=== PATIENT | female | born 1950 | race Caucasian/White ===

== ENCOUNTER 2018-03-19 08:55 | Day surgery (SDC) | payer MEDICARE, OTHER ==
[~2018-03-19 08:55] MED LIST: Lactated Ringers 1,000 ML IV SCH; Sodium Chloride 0.9% 10 ML Syringe FLUSH PRN
[2018-03-19] MEDS ORDERED: Insulin Aspart 100 Units/ML 3 ML Pen SUBCUT ONE (09:33)
[2018-03-19] MEDS ORDERED: Insulin Lispro 100 Unit/ML 3 ML KwikPen SUBCUT ONE ×2 (10:00→11:20)
[2018-03-19] MEDS ORDERED: Propofol 200 MG/20 ML SDV IV ONE (10:25)
--- NOTE | 2018-03-19 11:16 | PCM.OPNOTE ---
- General Post-Op/Procedure Note Date of Surgery/Procedure: 03/19/18 Operative Procedure(s): c scope with bx Findings: t colon polyp, d colon polyp, sigmoid x2 rectal polyp x3 Pre Op Diagnosis: screening c scope Post-Op Diagnosis: t colon polyp, d colon polyp, sigmoid x2 rectal polyp x3. sigmoid diverticulosis Anesthesia Technique: [facility] [place] Primary Surgeon: Steven Raines Anesthesia Provider: Remberto Couch Pathology: t colon polyp, d colon polyp, sigmoid x2 rectal polyp x3 Complications: None Condition: Good Free Text/Narrative:: see dictation
--- NOTE | 2018-03-19 16:20 | OR ---
DATE OF OPERATION: 03/19/2018 SURGEON: Steven Raines MD PREOPERATIVE DIAGNOSIS: Need for screening colonoscope. POSTOPERATIVE DIAGNOSIS: Transverse colon polyp, descending colon polyp, proximal sigmoid colon polyp, distal sigmoid colon polyp, and rectal polyps x3. INDICATIONS FOR PROCEDURE: This is a 67-year-old white female, who presents for screening colonoscopy. She was offered and accepted the same. DESCRIPTION OF OPERATION: After an excellent IV sedation was administered, digital rectal exam was performed. No marked abnormality was noted. The flexible colonoscope was inserted and advanced without difficulty to the cecum. The prep was adequate. There were some areas that we had to irrigate, but we did get a good exam. The following findings were noted. The ascending colon was unremarkable. Transverse colon, a small polypoid lesion, biopsied with cold loop snare and sent for permanent. Descending colon, pedunculated lesion encountered, biopsied with hot loop and sent for permanent. Sigmoid, some sigmoid diverticulosis was noted. She had a proximal and distal colon polyp. Both of these were biopsied with hot loop snare and sent for permanent. Rectal, she had a total of three polyps, which were biopsied and submitted in one container. These were all done using the hot loop snare. The patient tolerated the procedure well and was taken to recovery. /[id number] /AMBERL
== END 2018-03-19 12:45 | disposition home or self-care (01) ==
LOC: FB.SDS 08:55
PROVIDERS: ATTEND Surgery
DX: Z12.11 Encounter for screening for malignant neoplasm of colon (principal); D12.4 Benign neoplasm of descending colon; D12.5 Benign neoplasm of sigmoid colon; D12.3 Benign neoplasm of transverse colon; K62.1 Rectal polyp; K57.30 Diverticulosis of large intestine without perforation or abscess without bleeding; E11.9 Type 2 diabetes mellitus without complications; E66.01 Morbid (severe) obesity due to excess calories; Z68.39 Body mass index [BMI] 39.0-39.9, adult; E78.2 Mixed hyperlipidemia; I25.10 Atherosclerotic heart disease of native coronary artery without angina pectoris; Z79.82 Long term (current) use of aspirin; Z79.4 Long term (current) use of insulin; Z79.899 Other long term (current) drug therapy; G25.81 Restless legs syndrome; Z87.891 Personal history of nicotine dependence
CPT/HCPCS: 00811; 45385; 82962; 88305; J1815; J2704; J7120

== ENCOUNTER 2018-07-17 06:01 | Emergency (ER) | payer MEDICARE, OTHER ==
[2018-07-17] MEDS ORDERED: HYDROmorphone 2 MG/ML SDV IVPUSH ONE ×2 (07:00→07:39)
[2018-07-17] MEDS ORDERED: Ondansetron 4 MG/2 ML SDV IVPUSH ONE (07:01)
[2018-07-17] MEDS ORDERED: Sodium Chloride 0.9% 10 ML Syringe FLUSH PRN (07:09)
--- NOTE | 2018-07-17 07:51 | EDM.PDOC ---
ED HPI GENERAL MEDICAL PROBLEM - General Chief Complaint: Lower Extremity Injury/Pain Stated Complaint: HIP PAIN Time Seen by Provider: 07/17/18 06:10 Source of Information: Reports: Patient History Limitations: Reports: No Limitations - History of Present Illness INITIAL COMMENTS - FREE TEXT/NARRATIVE: c/o L hip pain got out of bed at night, had a cramp in her L leg and fell has a L subcapital fx on XR, given fentanyl 100 mcg IV by EMS and Dilaudid 1 mg IV x 2 here has a swollen LLE highly suspicious for a DVT with a inc'd d-dimer 24, LLE u/s ordered when u/s tech arrives, on ASA and Plavix for h/o cardiac stents x 2, cannot give heparin d/t hip fx h/o AVR replacement with porcine-bovine valve per pt, h/o cardiac stents x 2 EKG unchanged, however has inc'd trop 0.095 CRP 2.8, c/w DVT d/w Dr Pandya at [place] ED at 7:45 AM who accepted pt in transfer, pt likely will need a Hamilton filter in additional to hip surgery and cardiac evaluation pt and family informed, dtrs x 2 at bedside along with a son-in-law left hip Pain Score (Numeric/FACES): 8 - Related Data Allergies Allergy/AdvReac Type Severity Reaction Status Date / Time adhesive tape Allergy Itching Verified 05/15/18 00:21 Home Meds: Home Meds Aspirin [Ryne Chewable Aspirin] 81 mg PO DAILY 03/18/18 [History] Bumetanide [Bumex] 2 mg PO DAILY 03/18/18 [History] Clopidogrel [Plavix] 75 mg PO DAILY 03/18/18 [History] Clotrimazole [Clotrimazole 1%] 1 applic TOP BID 03/18/18 [History] Famotidine [Pepcid] 20 mg PO BID 03/18/18 [History] Ferrous Sulfate 65 mg PO DAILY 03/18/18 [History] Insulin Aspart [NovoLOG] 25 unit SQ TIDMEALS 03/18/18 [History] Insulin Glarg,Human.Rec.Analog [Lantus Solostar] 65 unit SQ BEDTIME 03/18/18 [ History] Magnesium Oxide 400 mg PO DAILY 03/18/18 [History] Rosuvastatin [Crestor] 10 mg PO DAILY 03/18/18 [History] rOPINIRole [Requip] 4 mg PO DAILY 03/18/18 [History] Past Medical History HEENT History: Reports: Impaired Vision 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 Cardiovascular History: Reports: CAD, Heart Murmur, High Cholesterol, Hypertension, Stents Respiratory History: Reports: None Gastrointestinal History: Reports: Colon Polyp, Hemorrhoids Genitourinary History: Reports: None 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: Musculoskeletal History: Reports: Back Pain, Chronic Neurological History: Reports: None Psychiatric History: Reports: Depression Endocrine/Metabolic History: Reports: Diabetes, Type II, Obesity/BMI 30+ Hematologic History: Reports: Anemia Immunologic History: Reports: None Oncologic (Cancer) History: Reports: None Dermatologic History: Reports: Psoriasis - Infectious Disease History Infectious Disease History: Reports: Chicken Pox, Measles, Mumps, Shingles - Past Surgical History Head Surgeries/Procedures: Reports: None HEENT Surgical History: Reports: Cataract Surgery, Detached Retina Other HEENT Surgeries/Procedures: has special eye drops made from her blood Cardiovascular Surgical History: Reports: Coronary Artery Stent, Other (See Below) Other Cardiovascular Surgeries/Procedures: valve replacement Respiratory Surgical History: Reports: None GI Surgical History: Reports: Bariatric Procedure, Colonoscopy Female Surgical History: Reports: Tubal Ligation Endocrine Surgical History: Reports: None Neurological Surgical History: Reports: None Musculoskeletal Surgical History: Reports: Other (See Below) Other Musculoskeletal Surgeries/Procedures:: LEFT KNEE SURGERY Oncologic Surgical History: Reports: None Dermatological Surgical History: Reports: None Social & Family History - Family History Family Medical History: Noncontributory - Tobacco Use Smoking Status *Q: Former Smoker Used Tobacco, but Quit: Yes Month/Year Tobacco Last Used: 2003 - Caffeine Use Caffeine Use: Reports: Coffee - Recreational Drug Use Recreational Drug Use: No Review of Systems - Review of Systems Review Of Systems: See Below Constitutional: Reports: No Symptoms Eyes: Reports: No Symptoms Ears: Reports: No Symptoms Nose: Reports: No Symptoms Mouth/Throat: Reports: No Symptoms Respiratory: Reports: No Symptoms Cardiovascular: Reports: No Symptoms GI/Abdominal: Reports: No Symptoms Genitourinary: Reports: No Symptoms Musculoskeletal: Reports: Leg Pain, Other (L hip pain) Skin: Reports: No Symptoms Neurological: Reports: No Symptoms Psychiatric: Reports: No Symptoms ED EXAM, GENERAL - Physical Exam Exam: See Below Exam Limited By: No Limitations General Appearance: Alert, WD/WN, Mild Distress Ears: Normal External Exam, Hearing Grossly Normal Nose: Normal Inspection, Normal Mucosa, No Blood Throat/Mouth: Normal Inspection, Normal Lips, Normal Teeth, Normal Gums, Normal Oropharynx, Normal Voice, No Airway Compromise Head: Atraumatic, Normocephalic Neck: Normal Inspection, Supple, Non-Tender, Full Range of Motion. No: Lymphadenopathy (R), Lymphadenopathy (L) Respiratory/Chest: No Respiratory Distress, Lungs Clear, Normal Breath Sounds, No Accessory Muscle Use, Chest Non-Tender Cardiovascular: Regular Rate, Rhythm, No Gallop, No JVD, Other (2/6 EMILIANO at LSB, 2-3+ edema L calf c/w trace edema at R calf, no cords, no point tender) GI/Abdominal: Normal Bowel Sounds, Soft, Non-Tender, No Organomegaly, No Distention, No Mass Back Exam: Normal Inspection, Full Range of Motion. No: CVA Tenderness (R), CVA Tenderness (L) Neurological: Alert, Oriented, CN II-XII Intact, Normal Cognition, No Motor/ Sensory Deficits Psychiatric: Normal Affect, Normal Mood Skin Exam: Warm, Dry, Intact, Normal Color Lymphatic: No Adenopathy Course - Vital Signs Last Recorded V/S: Last Vital Signs Temp 36.6 C 07/17/18 06:10 Pulse 79 07/17/18 07:30 Resp 18 07/17/18 07:30 BP 146/62 H 07/17/18 07:30 Pulse Ox 96 07/17/18 07:30 - Orders/Labs/Meds Orders: Active Orders 24 hr Category Date Time Status EKG Documentation Completion [RC] ASDIRECTED Care 07/17/18 06:15 Ordered Insert Sterling Catheter [Insert Urinary Catheter] [OM.PC] Care 07/17/18 06:55 Ordered Q24H Urinary Catheter Assessment [RC] QSHIFT Care 07/17/18 07:21 Active Chest 1V Frontal [CR] Stat Exams 07/17/18 06:17 Ordered Hip Min 2V or 3V Lt [CR] Stat Exams 07/17/18 06:08 Ordered Sodium Chloride 0.9% [Saline Flush] Med 07/17/18 07:09 Active 10 ml FLUSH ASDIRECTED PRN EKG 12 Lead [EK] Routine Ther 07/17/18 06:14 Ordered Medication Orders Sodium Chloride (Saline Flush) 10 ml FLUSH ASDIRECTED PRN PRN Reason: Keep Vein Open Last Admin: 07/17/18 07:51 Dose: 10 ml Labs: Laboratory Tests 07/17/18 07/17/18 07/17/18 Range/Units 06:55 06:55 06:55 WBC 12.5 H (4.5-12.0) X10-3/uL RBC 4.30 (3.23-5.20) x10(6)uL Hgb 13.1 (11.5-15.5) g/dL Hct 39.1 (30.0-51.3) % MCV 91.0 (80-96) fL MCH 30.3 (27.7-33.6) pg MCHC 33.3 (32.2-35.4) g/dL RDW 14.8 (11.5-15.5) % Plt Count 291 (125-369) X10(3)uL MPV 8.8 (7.4-10.4) fL Neut % (Auto) 84.1 H (46-82) % Lymph % (Auto) 8.9 L (13-37) % [place] % (Auto) 6.0 (4-12) % Eos % (Auto) 1 (1.0-5.0) % Baso % (Auto) 0 (0-2) % Neut # (Auto) 10.6 H (1.6-8.3) # Lymph # (Auto) 1.1 (0.6-5.0) # [place] # (Auto) 0.7 (0.0-1.3) # Eos # (Auto) 0.1 (0.0-0.8) # Baso # (Auto) 0.0 (0.0-0.2) # PT 10.1 (8.7-11.1) INR 1.04 (0.89-1.13) D-Dimer, Quantitative 24.05 H (0.0-0.59) mg/LFEU Sodium (135-145) mmol/L Potassium (3.5-5.3) mmol/L Chloride (100-110) mmol/L Carbon Dioxide (21-32) mmol/L BUN (7-18) mg/dL Creatinine (0.55-1.02) mg/dL Est Cr Clr Drug Dosing Estimated GFR (MDRD) (>60) BUN/Creatinine Ratio (9-20) Glucose (80-116) mg/dL Calcium (8.6-10.2) mg/dL Magnesium (1.8-2.5) mg/dL Total Bilirubin (0.1-1.3) mg/dL AST (5-25) IU/L ALT (12-36) U/L Alkaline Phosphatase (56-112) IU/L Troponin I (<0.017-0.056) ng/mL C-Reactive Protein (0.5-0.9) mg/dL NT-Pro-B Natriuret Pep (<=125) pg/mL Total Protein (6.0-8.0) g/dL Albumin (3.2-4.6) g/dL Globulin g/dL Albumin/Globulin Ratio Urine Color Yellow (YELLOW) Urine Appearance Clear (CLEAR) Urine pH 5.0 (5.0-6.5) Ur Specific [place] 1.020 (1.010-1.025) Urine Protein Trace (NEGATIVE) mg/dL Urine Glucose (UA) 250 H (NEGATIVE) mg/dL Urine Ketones Negative (NEGATIVE) mg/dL Urine Occult Blood Negative (NEGATIVE) Urine Nitrite Negative (NEGATIVE) Urine Bilirubin Negative (NEGATIVE) Urine Urobilinogen Normal (NEGATIVE) mg/dL Ur Leukocyte Esterase Negative (NEGATIVE) Urine RBC 0-5 (0) Urine WBC 0-5 (0) Ur Squamous Epith Cells Occasional (NS,R,O) Amorphous Sediment Few Urine Bacteria Rare H (NS) 07/17/18 07/17/18 Range/Units 06:55 06:55 WBC (4.5-12.0) X10-3/uL RBC (3.23-5.20) x10(6)uL Hgb (11.5-15.5) g/dL Hct (30.0-51.3) % MCV (80-96) fL MCH (27.7-33.6) pg MCHC (32.2-35.4) g/dL RDW (11.5-15.5) % Plt Count (125-369) X10(3)uL MPV (7.4-10.4) fL Neut % (Auto) (46-82) % Lymph % (Auto) (13-37) % [place] % (Auto) (4-12) % Eos % (Auto) (1.0-5.0) % Baso % (Auto) (0-2) % Neut # (Auto) (1.6-8.3) # Lymph # (Auto) (0.6-5.0) # [place]aden # (Auto) (0.0-1.3) # Eos # (Auto) (0.0-0.8) # Baso # (Auto) (0.0-0.2) # PT (8.7-11.1) INR (0.89-1.13) D-Dimer, Quantitative (0.0-0.59) mg/LFEU Sodium 142 (135-145) mmol/L Potassium 3.8 (3.5-5.3) mmol/L Chloride 103 (100-110) mmol/L Carbon Dioxide 28 (21-32) mmol/L BUN 17 (7-18) mg/dL Creatinine 1.0 (0.55-1.02) mg/dL Est Cr Clr Drug Dosing TNP Estimated GFR (MDRD) 55 L (>60) BUN/Creatinine Ratio 17.0 (9-20) Glucose 137 H (80-116) mg/dL Calcium 8.7 (8.6-10.2) mg/dL Magnesium 1.9 (1.8-2.5) mg/dL Total Bilirubin 0.3 (0.1-1.3) mg/dL AST 24 D (5-25) IU/L ALT 37 H D (12-36) U/L Alkaline Phosphatase 117 H (56-112) IU/L Troponin I 0.095 H* (<0.017-0.056) ng/mL C-Reactive Protein 2.8 H* (0.5-0.9) mg/dL NT-Pro-B Natriuret Pep 791 H (<=125) pg/mL Total Protein 7.1 (6.0-8.0) g/dL Albumin 3.1 L (3.2-4.6) g/dL Globulin 4.0 g/dL Albumin/Globulin Ratio 0.8 Urine Color (YELLOW) Urine Appearance (CLEAR) Urine pH (5.0-6.5) Ur Specific [place] (1.010-1.025) Urine Protein (NEGATIVE) mg/dL Urine Glucose (UA) (NEGATIVE) mg/dL Urine Ketones (NEGATIVE) mg/dL Urine Occult Blood (NEGATIVE) Urine Nitrite (NEGATIVE) Urine Bilirubin (NEGATIVE) Urine Urobilinogen (NEGATIVE) mg/dL Ur Leukocyte Esterase (NEGATIVE) Urine RBC (0) Urine WBC (0) Ur Squamous Epith Cells (NS,R,O) Amorphous Sediment Urine Bacteria (NS) Meds: Medications Generic Name Dose Route Start Last Admin Trade Name Freq PRN Reason Stop Dose Admin Sodium Chloride 10 ml 07/17/18 07:09 07/17/18 07:51 Saline Flush FLUSH 10 ml ASDIRECTED PRN Administration Keep Vein Open Discontinued Medications Generic Name Dose Route Start Last Admin Trade Name Freq PRN Reason Stop Dose Admin Hydromorphone HCl 1 mg 07/17/18 07:00 07/17/18 07:08 Dilaudid IVPUSH 07/17/18 07:01 1 mg ONETIME ONE Administration Hydromorphone HCl 1 mg 07/17/18 07:39 07/17/18 07:50 Dilaudid IVPUSH 07/17/18 07:40 1 mg ONETIME ONE Administration Ondansetron HCl 4 mg 07/17/18 07:01 07/17/18 07:08 Zofran IVPUSH 07/17/18 07:02 4 mg ONETIME ONE Administration Departure - Departure Time of Disposition: 08:21 Disposition: DC/Tfer to Acute Hospital 02 Condition: Fair Clinical Impression: Subcapital fracture of left hip, Left leg DVT, Elevated troponin, History of heart artery stent, Elevated brain natriuretic peptide (BNP) level, Elevated C- reactive protein (CRP), History of aortic valve replacement - Discharge Information *PRESCRIPTION DRUG MONITORING PROGRAM REVIEWED*: Not Applicable *COPY OF PRESCRIPTION DRUG MONITORING REPORT IN PATIENT KIRSTEN: Not Applicable Referrals: Handy Verdugo MD [Primary Care Provider] - Forms: ED Department Discharge - My Orders Last 24 Hours: My Active Orders 07/17/18 06:08 Hip Min 2V or 3V Lt [CR] Stat 07/17/18 06:14 EKG 12 Lead [EK] Routine 07/17/18 06:15 EKG Documentation Completion [RC] ASDIRECTED 07/17/18 06:17 Chest 1V Frontal [CR] Stat 07/17/18 06:55 Insert Sterling Catheter [Insert Urinary Catheter] [OM.PC] Q24H 07/17/18 07:09 Sodium Chloride 0.9% [Saline Flush] 10 ml FLUSH ASDIRECTED PRN 07/17/18 07:21 Urinary Catheter Assessment [RC] QSHIFT - Assessment/Plan Last 24 Hours: My Active Orders 07/17/18 06:08 Hip Min 2V or 3V Lt [CR] Stat 07/17/18 06:14 EKG 12 Lead [EK] Routine 07/17/18 06:15 EKG Documentation Completion [RC] ASDIRECTED 07/17/18 06:17 Chest 1V Frontal [CR] Stat 07/17/18 06:55 Insert Sterling Catheter [Insert Urinary Catheter] [OM.PC] Q24H 07/17/18 07:09 Sodium Chloride 0.9% [Saline Flush] 10 ml FLUSH ASDIRECTED PRN 07/17/18 07:21 Urinary Catheter Assessment [RC] QSHIFT
== END 2018-07-17 08:33 ==
LOC: FB.ED 06:01
DX: S72.012A Unspecified intracapsular fracture of left femur, initial encounter for closed fracture (principal); I82.402 Acute embolism and thrombosis of unspecified deep veins of left lower extremity; R79.89 Other specified abnormal findings of blood chemistry; R79.82 Elevated C-reactive protein (CRP); I10 Essential (primary) hypertension; E11.9 Type 2 diabetes mellitus without complications; I25.10 Atherosclerotic heart disease of native coronary artery without angina pectoris; E78.00 Pure hypercholesterolemia, unspecified; Z95.5 Presence of coronary angioplasty implant and graft; F32.9 Major depressive disorder, single episode, unspecified; Z87.891 Personal history of nicotine dependence; Z91.048 Other nonmedicinal substance allergy status; Z79.899 Other long term (current) drug therapy; Z79.82 Long term (current) use of aspirin; Z79.01 Long term (current) use of anticoagulants; Z79.4 Long term (current) use of insulin; W06.XXXA Fall from bed, initial encounter
CPT/HCPCS: 36415; 51702; 71045; 73502; 80053; 81001; 83735; 83880; 84484; 85025; 85379; 85610; 86140; 93005; 96374; 96375; 96376; 99285; J1170; J2405; 93010

== ENCOUNTER 2018-07-23 12:14 | Inpatient (IN) | payer MEDICARE, OTHER ==
--- NOTE | 2018-07-23 17:06 | PCM.HP ---
H&P History of Present Illness - General Date of Service: 07/23/18 Admit Problem/Dx: Admission Diagnosis/Problem Admission Diagnosis/Problem Arthroplasty of knee Source of Information: Patient, Old Records History Limitations: Reports: No Limitations - History of Present Illness Initial Comments - Free Text/Narative: This is a 67-year-old type II diabetic that one week ago had a leg cramp in her right leg. She got out of bed and fell down and broke her left hip. She was transferred to [place] and they felt she had SC and subsequently transferred to [place]. When she was there she had a cardiology exam and angiogram that showed stenosis and cardiac hospice surgery was consult that and recommended that she was okay for surgery and later on possibly doing a bypass. She had her hip replaced afterwards did not wake up and has acute encephalopathy that they stated was multifactorial. Did an MRI that showed multifocal strokes. She states her left hip hurts but she has no other concerns. She denies lateralizing weakness, dysphagia, aphasia, diplopia or blurred vision. - Related Data Allergies/Adverse Reactions: Allergies Allergy/AdvReac Type Severity Reaction Status Date / Time adhesive tape Allergy Itching Verified 05/15/18 00:21 Home Medications: Home Meds Aspirin [Ryne Chewable Aspirin] 81 mg PO DAILY 03/18/18 [History] Bumetanide [Bumex] 2 mg PO DAILY 03/18/18 [History] Clopidogrel [Plavix] 75 mg PO DAILY 03/18/18 [History] Famotidine [Pepcid] 20 mg PO BID 03/18/18 [History] Ferrous Sulfate 325 mg PO DAILY 03/18/18 [History] Magnesium Oxide 400 mg PO DAILY 03/18/18 [History] Rosuvastatin [Crestor] 10 mg PO BEDTIME 03/18/18 [History] Acetaminophen [Tylenol] 650 mg PO QID 07/23/18 [History] Dexamethasone/Tobramycin [Tobradex Ophth Susp] 1 drop EYERT BID 07/23/18 [ History] Erythromycin Base [Erythromycin 0.5% Ophth Oint] 1 applic EYERT BEDTIME [History] Gabapentin [Neurontin] 300 mg PO TID 07/23/18 [History] Ibuprofen 800 mg PO TID PRN 07/23/18 [History] Insulin Aspart [NovoLOG] 15 units SUBCUT TIDMEALS 07/23/18 [History] Insulin Glarg,Human.Rec.Analog [Lantus Solostar] 35 units SUBCUT BEDTIME [History] Melatonin 3 mg PO BEDTIME 07/23/18 [History] Metoprolol Tartrate 25 mg PO BID 07/23/18 [History] Polyethylene Glycol 3350 [MiraLAX] 17 gm PO DAILY 07/23/18 [History] Sennosides/Docusate Sodium [Senna-S] 1 tab PO BID 07/23/18 [History] Sertraline [Zoloft] 50 mg PO DAILY 07/23/18 [History] Tamsulosin HCl [Flomax] 0.4 mg PO BEDTIME 07/23/18 [History] rOPINIRole HCl [Requip] 4 mg PO BEDTIME 07/23/18 [History] valACYclovir HCl [Valtrex] 500 mg PO BID 07/23/18 [History] Past Medical History HEENT History: Reports: Impaired Vision 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 Cardiovascular History: Reports: CAD, Heart Murmur, High Cholesterol, Hypertension, Stents Respiratory History: Reports: None Gastrointestinal History: Reports: Colon Polyp, Hemorrhoids Genitourinary History: Reports: None 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 History: Musculoskeletal History: Reports: Back Pain, Chronic Neurological History: Reports: None Psychiatric History: Reports: Depression Endocrine/Metabolic History: Reports: Diabetes, Type II, Obesity/BMI 30+ Hematologic History: Reports: Anemia Immunologic History: Reports: None Oncologic (Cancer) History: Reports: None Dermatologic History: Reports: Psoriasis - Infectious Disease History Infectious Disease History: Reports: Chicken Pox, Measles, Mumps, Shingles - Past Surgical History Head Surgeries/Procedures: Reports: None HEENT Surgical History: Reports: Cataract Surgery, Detached Retina Other HEENT Surgeries/Procedures: has special eye drops made from her blood Cardiovascular Surgical History: Reports: Coronary Artery Stent, Other (See Below) Other Cardiovascular Surgeries/Procedures: valve replacement Respiratory Surgical History: Reports: None GI Surgical History: Reports: Bariatric Procedure, Colonoscopy Female Surgical History: Reports: Tubal Ligation Endocrine Surgical History: Reports: None Neurological Surgical History: Reports: None Musculoskeletal Surgical History: Reports: Other (See Below) Other Musculoskeletal Surgeries/Procedures:: LEFT KNEE SURGERY Oncologic Surgical History: Reports: None Dermatological Surgical History: Reports: None Social & Family History - Family History Family Medical History: Noncontributory - Caffeine Use Caffeine Use: Reports: Coffee H&P Review of Systems - Review of Systems: Review Of Systems: See Below General: Reports: No Symptoms HEENT: Reports: No Symptoms Pulmonary: Reports: No Symptoms Cardiovascular: Reports: No Symptoms Gastrointestinal: Reports: Constipation (Has not had a BM for 1 week.) Genitourinary: Reports: No Symptoms Musculoskeletal: Reports: Shoulder Pain Skin: Reports: No Symptoms Psychiatric: Reports: Depression (On Zoloft and it has improved according to the daughter.) Neurological: Reports: No Symptoms Hematologic/Lymphatic: Reports: No Symptoms Immunologic: Reports: No Symptoms Exam - Exam Exam: See Below - Exam General: Alert, Oriented, Cooperative HEENT: PERRLA, Hearing Intact, Mucosa Moist & [place], Posterior Pharynx Clear, TMs Clear Neck: Supple, Trachea Midline. No: Carotid Bruit Lungs: Clear to Auscultation, Normal Respiratory Effort. No: Crackles, Rales, Rhonchi Cardiovascular: Regular Rate, Regular Rhythm, Systolic Murmur GI/Abdominal Exam: Normal Bowel Sounds, Soft, Non-Tender, No Organomegaly, No Distention, No Mass Back Exam: Normal Inspection Extremities: Normal Inspection, No Pedal Edema, Other (Left hip tenderness to palpation) Skin: Warm, Dry, Intact Neurological: Normal Speech, Normal Tone Neuro Extensive - Mental Status: Alert, Oriented x3, Normal Mood/Affect, Normal Cognition, Memory Intact Neuro Extensive - Motor, Sensory, Reflexes: No: Normal Gait Psychiatric: Alert, Normal Affect, Normal Mood - Problem List (1) S/P total hip arthroplasty SNOMED Code(s): 862871872925, 281669788586 ICD Code: Z96.649 - PRESENCE OF UNSPECIFIED ARTIFICIAL HIP JOINT Status: Acute Current Visit: Yes (2) Non-STEMI (non-ST elevated myocardial infarction) SNOMED Code(s): 05104626 ICD Code: I21.4 - NON-ST ELEVATION (NSTEMI) MYOCARDIAL INFARCTION Status: Acute Current Visit: Yes (3) HF (heart failure), diastolic SNOMED Code(s): 109463771 ICD Code: I50.30 - UNSPECIFIED DIASTOLIC (CONGESTIVE) HEART FAILURE Status : Acute Current Visit: Yes (4) Acute respiratory failure SNOMED Code(s): 95741154 ICD Code: J96.00 - ACUTE RESPIRATORY FAILURE, UNSP W HYPOXIA OR HYPERCAPNIA Status: Acute Current Visit: Yes (5) Acute encephalopathy SNOMED Code(s): 49532481, 870535435 ICD Code: G93.40 - ENCEPHALOPATHY, UNSPECIFIED Status: Acute Current Visit: Yes (6) Acute renal failure SNOMED Code(s): 31412330 ICD Code: N17.9 - ACUTE KIDNEY FAILURE, UNSPECIFIED Status: Acute Current Visit: Yes (7) CVA (cerebral vascular accident) SNOMED Code(s): 750489318 ICD Code: I63.9 - CEREBRAL INFARCTION, UNSPECIFIED Status: Acute Current Visit: Yes (8) Postoperative anemia SNOMED Code(s): 775599089, 381375398 ICD Code: D64.9 - ANEMIA, UNSPECIFIED Status: Acute Current Visit: Yes (9) Depression SNOMED Code(s): 14945081 ICD Code: F32.9 - MAJOR DEPRESSIVE DISORDER, SINGLE EPISODE, UNSPECIFIED Status: Acute Current Visit: Yes (10) Type 2 diabetes mellitus SNOMED Code(s): 54990155 ICD Code: E11.9 - TYPE 2 DIABETES MELLITUS WITHOUT COMPLICATIONS Status: Acute Current Visit: Yes (11) Restless leg SNOMED Code(s): 30491745 ICD Code: G25.81 - RESTLESS LEGS SYNDROME Status: Acute Current Visit: Yes (12) Hypertension SNOMED Code(s): 55841043 ICD Code: I10 - ESSENTIAL (PRIMARY) HYPERTENSION Status: Acute Current Visit: Yes (13) Subcapital fracture of left hip SNOMED Code(s): 931274728 ICD Code: S72.012A - UNSP INTRACAPSULAR FRACTURE OF LEFT FEMUR, INIT FOR CLOS FX Status: Acute Current Visit: No (14) Constipation SNOMED Code(s): 06608182 ICD Code: K59.00 - CONSTIPATION, UNSPECIFIED Status: Acute Current Visit : Yes Problem List Initiated/Reviewed/Updated: Yes Orders Last 24hrs: Active Orders 24 hr Category Date Time Status Admission Status [Patient Status] [ADT] Routine ADT 07/23/18 16:15 Active Antiembolic Devices [RC] .Routine Care 07/23/18 16:29 Active Communication Order [RC] ROUTINE Care 07/23/18 16:30 Active OT Evaluation and Treatment [CONS] Routine Cons 07/23/18 16:21 Active PT Evaluation and Treatment [CONS] Routine Cons 07/23/18 16:20 Active Consistent Carbohydrate Diet [DIET] Diet 07/24/18 Breakfast Active SCD [Sequential Compression Device] [OM.PC] Routine Oth 07/23/18 16:29 Ordered Code Status [Resuscitation Status] Routine Resus Stat 07/23/18 16:19 Ordered Assessment/Plan Comment:: 1. Admit to swing bed. 2. PT/OT consultation 3. Consistent carb diet 4. Continue insulin regimen with Accu-Cheks 3 times a day 5. Up with assist 6. MiraLAX for constipation 7. Restart medications from [facility].
[2018-07-23] MEDS: Acetaminophen 325 MG Tab PO SCH ×2 (17:48→21:07)
[2018-07-23] MEDS: Gabapentin 300 MG Cap PO SCH ×2 (17:48→21:09)
[2018-07-23] MEDS: Insulin Lispro 100 Unit/ML 3 ML KwikPen SUBCUT SCH (17:49)
[2018-07-23] MEDS: Rosuvastatin 10 MG Tab PO SCH (21:03)
[2018-07-23] MEDS: Erythromycin Base 0.5% Ophth Oint 1 GM Tube EYERT SCH (21:04)
[2018-07-23] MEDS: Tamsulosin 0.4 MG Cap.ER PO SCH (21:04)
[2018-07-23] MEDS: Metoprolol Tartrate 25 MG Tab PO SCH (21:05)
[2018-07-23] MEDS: Famotidine 20 MG Tab PO SCH (21:05)
[2018-07-23] MEDS: Melatonin 3 MG Tab PO SCH (21:05)
[2018-07-23] MEDS: rOPINIRole 1 MG Tab PO SCH (21:06)
[2018-07-23] MEDS: valACYclovir 500 MG Tab PO SCH (21:08)
[2018-07-23] MEDS: Insulin Glargine,Human Rec. Analog 100 Units/ML 3 ML Pen SUBCUT SCH (21:12)
[2018-07-24] MEDS: Aspirin 81 MG Tab.Chew PO SCH (08:58)
[2018-07-24] MEDS: Bumetanide 2 MG Tab PO SCH (08:58)
[2018-07-24] MEDS: Metoprolol Tartrate 25 MG Tab PO SCH ×2 (08:59→20:22)
[2018-07-24] MEDS: Ferrous Sulfate 325 MG Tab PO SCH (08:59)
[2018-07-24] MEDS: Polyethylene Glycol 3350 Powder 17 GM Packet PO SCH (09:00)
[2018-07-24] MEDS: Magnesium Oxide 400 MG Tab PO SCH (09:00)
[2018-07-24] MEDS: Famotidine 20 MG Tab PO SCH ×2 (09:03→20:24)
[2018-07-24] MEDS: Clopidogrel 75 MG Tab PO SCH (09:03)
[2018-07-24] MEDS: Gabapentin 300 MG Cap PO SCH ×3 (09:03→20:23)
[2018-07-24] MEDS: Acetaminophen 325 MG Tab PO SCH ×4 (09:04→20:24)
[2018-07-24] MEDS: valACYclovir 500 MG Tab PO SCH ×2 (09:05→20:25)
[2018-07-24] MEDS: Sertraline 50 MG Tab PO SCH (09:05)
[2018-07-24] MEDS: Insulin Lispro 100 Unit/ML 3 ML KwikPen SUBCUT SCH ×3 (09:07→17:39)
[2018-07-24] MEDS: Ibuprofen 800 MG Tab PO PRN (12:54)
[2018-07-24] MEDS: Rosuvastatin 10 MG Tab PO SCH (20:22)
[2018-07-24] MEDS: Tamsulosin 0.4 MG Cap.ER PO SCH (20:22)
[2018-07-24] MEDS: Melatonin 3 MG Tab PO SCH (20:23)
[2018-07-24] MEDS: rOPINIRole 1 MG Tab PO SCH (20:24)
[2018-07-24] MEDS: Erythromycin Base 0.5% Ophth Oint 1 GM Tube EYERT SCH (20:25)
[2018-07-24] MEDS: Insulin Glargine,Human Rec. Analog 100 Units/ML 3 ML Pen SUBCUT SCH (20:26)
[2018-07-25] MEDS: Ibuprofen 800 MG Tab PO PRN ×2 (06:18→19:20)
[2018-07-25] MEDS: Insulin Lispro 100 Unit/ML 3 ML KwikPen SUBCUT SCH ×3 (08:14→17:51)
[2018-07-25] MEDS: Bumetanide 2 MG Tab PO SCH (08:16)
[2018-07-25] MEDS: Acetaminophen 325 MG Tab PO SCH ×4 (08:16→20:03)
[2018-07-25] MEDS: Metoprolol Tartrate 25 MG Tab PO SCH ×2 (08:17→20:05)
[2018-07-25] MEDS: Ferrous Sulfate 325 MG Tab PO SCH (08:17)
[2018-07-25] MEDS: Aspirin 81 MG Tab.Chew PO SCH (08:17)
[2018-07-25] MEDS: Polyethylene Glycol 3350 Powder 17 GM Packet PO SCH (08:18)
[2018-07-25] MEDS: Magnesium Oxide 400 MG Tab PO SCH (08:18)
[2018-07-25] MEDS: Clopidogrel 75 MG Tab PO SCH (08:18)
[2018-07-25] MEDS: Famotidine 20 MG Tab PO SCH ×2 (08:18→20:07)
[2018-07-25] MEDS: valACYclovir 500 MG Tab PO SCH ×2 (08:19→20:08)
[2018-07-25] MEDS: Gabapentin 300 MG Cap PO SCH ×3 (08:23→20:07)
--- NOTE | 2018-07-25 08:43 | PCM.PN ---
<Elaina Elder - Last Filed: 07/25/18 08:58> - General Info Date of Service: 07/25/18 Admission Dx/Problem (Free Text): Admission Diagnosis/Problem Admission Diagnosis/Problem Arthroplasty of knee Subjective Update: Patient reports feeling well this AM. Pain is mostly controlled with Ibuprofen. She has been working with physical therapy and ambulating with assist. Her pain is mostly only present with walking. The patient is also concerned about a rash underneath her bilateral breasts. It is a little bit painful with touch but otherwise there is no discharge that she has noticed. Functional Status: Reports: Pain Controlled, Tolerating Diet, Ambulating, Urinating - Review of Systems General: Reports: No Symptoms HEENT: Reports: No Symptoms Pulmonary: Reports: No Symptoms Cardiovascular: Reports: No Symptoms Gastrointestinal: Reports: No Symptoms Genitourinary: Reports: No Symptoms Musculoskeletal: Reports: Leg Pain Skin: Reports: Rash Neurological: Reports: No Symptoms Psychiatric: Reports: No Symptoms - Patient Data Vitals - Most Recent: Last Vital Signs Temp 36.6 C 07/25/18 06:18 Pulse 64 07/25/18 08:17 Resp 18 07/23/18 17:12 BP 119/52 L 07/25/18 08:17 Pulse Ox 95 07/23/18 17:12 Weight - Most Recent: 202 lb Lab Results Last 24 Hours: Laboratory Results - last 24 hr 07/24/18 07/24/18 Range/Units 11:38 17:21 POC Glucose 296 H D 142 H D (80-116) mg/dL Med Orders - Current: Current Medications Acetaminophen (Tylenol) 650 mg PO QID [facility] Last Admin: 07/25/18 08:16 Dose: 650 mg Aspirin (Aspirin) 81 mg PO DAILY [facility] Last Admin: 07/25/18 08:17 Dose: 81 mg Bumetanide (Bumex) 2 mg PO DAILY [facility] Last Admin: 07/25/18 08:16 Dose: 2 mg Clopidogrel Bisulfate (Plavix) 75 mg PO DAILY [facility] Last Admin: 07/25/18 08:18 Dose: 75 mg Erythromycin (Erythromycin 0.5% Ophth Oint) 0 gm EYERT BEDTIME [facility] Last Admin: 07/24/18 20:25 Dose: 1 applic Famotidine (Pepcid) 20 mg PO BID [facility] Last Admin: 07/25/18 08:18 Dose: 20 mg Ferrous Sulfate (Ferrous Sulfate) 325 mg PO DAILY [facility] Last Admin: 07/25/18 08:17 Dose: 325 mg Gabapentin (Neurontin) 300 mg PO TID [facility] Last Admin: 07/25/18 08:23 Dose: 300 mg Ibuprofen (Motrin) 800 mg PO TID PRN PRN Reason: PAIN Last Admin: 07/25/18 06:18 Dose: 800 mg Insulin Glargine (Lantus Solostar) 35 units SUBCUT BEDTIME [facility] Last Admin: 07/24/18 20:26 Dose: 35 units Insulin Human Lispro (Humalog) 15 unit SUBCUT TIDMEALS [facility] Last Admin: 07/25/18 08:14 Dose: 15 units Magnesium Oxide (Magnesium Oxide) 400 mg PO DAILY [facility] Last Admin: 07/25/18 08:18 Dose: 400 mg Melatonin (Melatonin) 3 mg PO BEDTIME [facility] Last Admin: 07/24/18 20:23 Dose: 3 mg Metoprolol Tartrate (Lopressor) 25 mg PO BID [facility] Last Admin: 07/25/18 08:17 Dose: 25 mg Polyethylene Glycol (Miralax) 17 gm PO DAILY [facility] Last Admin: 07/25/18 08:18 Dose: Not Given Ropinirole HCl (Requip) 4 mg PO BEDTIME [facility] Last Admin: 07/24/18 20:24 Dose: 4 mg Rosuvastatin Calcium (Crestor) 10 mg PO BEDTIME [facility] Last Admin: 07/24/18 20:22 Dose: 10 mg Senna/Docusate Sodium (Senna Plus) 1 tab PO BID [facility] Last Admin: 07/25/18 08:18 Dose: Not Given Sertraline HCl (Zoloft) 50 mg PO DAILY [facility] Last Admin: 07/24/18 09:05 Dose: 50 mg Tamsulosin HCl (Flomax) 0.4 mg PO BEDTIME [facility] Stop: 08/01/18 21:01 Last Admin: 07/24/18 20:22 Dose: 0.4 mg Valacyclovir HCl (Valtrex) 500 mg PO BID [facility] Last Admin: 07/25/18 08:19 Dose: 500 mg - Exam Quality Assessment: Supplemental Oxygen General: Alert, Oriented HEENT: Pupils Equal, Pupils Reactive Lungs: Clear to Auscultation, Normal Respiratory Effort Cardiovascular: Regular Rate, Regular Rhythm, No Murmurs GI/Abdominal Exam: Normal Bowel Sounds, Soft Peripheral Pulses: 1+: Radial (L), Radial (R) Skin: Warm, Rash (There are bilateral linear rashes underneath the breasts consistent with danya. There is exposure of erythematous but clean base on both sides as well. No drainage/weeping. ) Wound/Incisions: No Drainage Neurological: No New Focal Deficit Psy/Mental Status: Alert, Normal Affect, Normal Mood - Problem List & Annotations (1) Candidiasis of breast SNOMED Code(s): 87090857 Code(s): B37.89 - OTHER SITES OF CANDIDIASIS Status: Acute Current Visit : Yes (2) Acute respiratory failure SNOMED Code(s): 46918456 Code(s): J96.00 - ACUTE RESPIRATORY FAILURE, UNSP W HYPOXIA OR HYPERCAPNIA Status: Acute Current Visit: Yes (3) Depression SNOMED Code(s): 96386353 Code(s): F32.9 - MAJOR DEPRESSIVE DISORDER, SINGLE EPISODE, UNSPECIFIED Status: Acute Current Visit: Yes (4) HF (heart failure), diastolic SNOMED Code(s): 151184221 Code(s): I50.30 - UNSPECIFIED DIASTOLIC (CONGESTIVE) HEART FAILURE Status: Acute Current Visit: Yes (5) Non-STEMI (non-ST elevated myocardial infarction) SNOMED Code(s): 92220200 Code(s): I21.4 - NON-ST ELEVATION (NSTEMI) MYOCARDIAL INFARCTION Status: Acute Current Visit: Yes (6) S/P total hip arthroplasty SNOMED Code(s): 932806912071, 356052955514 Code(s): Z96.649 - PRESENCE OF UNSPECIFIED ARTIFICIAL HIP JOINT Status: Acute Current Visit: Yes (7) HLD (hyperlipidemia) SNOMED Code(s): 08067720 Code(s): E78.5 - HYPERLIPIDEMIA, UNSPECIFIED Status: Acute Current Visit : No (8) HTN (hypertension) SNOMED Code(s): 77966671 Code(s): I10 - ESSENTIAL (PRIMARY) HYPERTENSION Status: Acute Current Visit: No Qualifiers: Hypertension type: essential hypertension Qualified Code(s): I10 - Essential (primary) hypertension (9) Subcapital fracture of left hip SNOMED Code(s): 633857922 Code(s): S72.012A - UNSP INTRACAPSULAR FRACTURE OF LEFT FEMUR, INIT FOR CLOS FX Status: Acute Current Visit: No (10) Uncontrolled type 2 diabetes mellitus SNOMED Code(s): 76376253, 776583079 Code(s): E11.65 - TYPE 2 DIABETES MELLITUS WITH HYPERGLYCEMIA Status: Acute Current Visit: No Qualifiers: Glycemic state: with hyperglycemia Qualified Code(s): E11.65 - Type 2 diabetes mellitus with hyperglycemia - Problem List Review Problem List Initiated/Reviewed/Updated: Yes - Plan Plan:: 1. Patient admitted to swing bed 2. Continue working with physical therapy/occupational therapy 3. Consistent carb diet 4. Continue insulin regimen with Accu-Cheks 3 times a day 5. Up with assist 6. MiraLAX for constipation 7. Restart medications from [facility]. 8. Wean NC per protocol 9. Apply Nystatin powder to bilateral rash underneath breasts in addition to barrier cream such as vaseline (nystatin first). <Handy Verdugo - Last Filed: 07/25/18 09:18> - Patient Data Vitals - Most Recent: Last Vital Signs Temp 97.9 F 07/25/18 06:18 Pulse 64 07/25/18 08:17 Resp 18 07/23/18 17:12 BP 119/52 L 07/25/18 08:17 Pulse Ox 86 L 07/25/18 08:20 Lab Results Last 24 Hours: Laboratory Results - last 24 hr 07/24/18 07/24/18 Range/Units 11:38 17:21 POC Glucose 296 H D 142 H D (80-116) mg/dL Med Orders - Current: Current Medications Acetaminophen (Tylenol) 650 mg PO QID [facility] Last Admin: 07/25/18 08:16 Dose: 650 mg Aspirin (Aspirin) 81 mg PO DAILY [facility] Last Admin: 07/25/18 08:17 Dose: 81 mg Bumetanide (Bumex) 2 mg PO DAILY [facility] Last Admin: 07/25/18 08:16 Dose: 2 mg Clopidogrel Bisulfate (Plavix) 75 mg PO DAILY [facility] Last Admin: 07/25/18 08:18 Dose: 75 mg Erythromycin (Erythromycin 0.5% Ophth Oint) 0 gm EYERT BEDTIME [facility] Last Admin: 07/24/18 20:25 Dose: 1 applic Famotidine (Pepcid) 20 mg PO BID [facility] Last Admin: 07/25/18 08:18 Dose: 20 mg Ferrous Sulfate (Ferrous Sulfate) 325 mg PO DAILY [facility] Last Admin: 07/25/18 08:17 Dose: 325 mg Gabapentin (Neurontin) 300 mg PO TID [facility] Last Admin: 07/25/18 08:23 Dose: 300 mg Ibuprofen (Motrin) 800 mg PO TID PRN PRN Reason: PAIN Last Admin: 07/25/18 06:18 Dose: 800 mg Insulin Glargine (Lantus Solostar) 35 units SUBCUT BEDTIME [facility] Last Admin: 07/24/18 20:26 Dose: 35 units Insulin Human Lispro (Humalog) 15 unit SUBCUT TIDMEALS [facility] Last Admin: 07/25/18 08:14 Dose: 15 units Magnesium Oxide (Magnesium Oxide) 400 mg PO DAILY [facility] Last Admin: 07/25/18 08:18 Dose: 400 mg Melatonin (Melatonin) 3 mg PO BEDTIME [facility] Last Admin: 07/24/18 20:23 Dose: 3 mg Metoprolol Tartrate (Lopressor) 25 mg PO BID [facility] Last Admin: 07/25/18 08:17 Dose: 25 mg Nystatin (Nystop) 0 gm TOP TID [facility] Polyethylene Glycol (Miralax) 17 gm PO DAILY [facility] Last Admin: 07/25/18 08:18 Dose: Not Given Ropinirole HCl (Requip) 4 mg PO BEDTIME [facility] Last Admin: 07/24/18 20:24 Dose: 4 mg Rosuvastatin Calcium (Crestor) 10 mg PO BEDTIME [facility] Last Admin: 07/24/18 20:22 Dose: 10 mg Senna/Docusate Sodium (Senna Plus) 1 tab PO BID [facility] Last Admin: 07/25/18 08:18 Dose: Not Given Sertraline HCl (Zoloft) 50 mg PO DAILY [facility] Last Admin: 07/24/18 09:05 Dose: 50 mg Tamsulosin HCl (Flomax) 0.4 mg PO BEDTIME [facility] Stop: 08/01/18 21:01 Last Admin: 07/24/18 20:22 Dose: 0.4 mg Valacyclovir HCl (Valtrex) 500 mg PO BID [facility] Last Admin: 07/25/18 08:19 Dose: 500 mg - Problem List & Annotations (1) S/P total hip arthroplasty SNOMED Code(s): 140631289012, 395957975607 Code(s): Z96.649 - PRESENCE OF UNSPECIFIED ARTIFICIAL HIP JOINT Status: Acute Current Visit: Yes (2) Non-STEMI (non-ST elevated myocardial infarction) SNOMED Code(s): 04793998 Code(s): I21.4 - NON-ST ELEVATION (NSTEMI) MYOCARDIAL INFARCTION Status: Acute Current Visit: Yes (3) HF (heart failure), diastolic SNOMED Code(s): 856322900 Code(s): I50.30 - UNSPECIFIED DIASTOLIC (CONGESTIVE) HEART FAILURE Status: Acute Current Visit: Yes (4) Acute respiratory failure SNOMED Code(s): 29611663 Code(s): J96.00 - ACUTE RESPIRATORY FAILURE, UNSP W HYPOXIA OR HYPERCAPNIA Status: Acute Current Visit: Yes (5) Acute encephalopathy SNOMED Code(s): 35493475, 497378203 Code(s): G93.40 - ENCEPHALOPATHY, UNSPECIFIED Status: Acute Current Visit : Yes (6) Acute renal failure SNOMED Code(s): 89543945 Code(s): N17.9 - ACUTE KIDNEY FAILURE, UNSPECIFIED Status: Acute Current Visit: Yes (7) CVA (cerebral vascular accident) SNOMED Code(s): 381164933 Code(s): I63.9 - CEREBRAL INFARCTION, UNSPECIFIED Status: Acute Current Visit: Yes (8) Postoperative anemia SNOMED Code(s): 102349193, 425618512 Code(s): D64.9 - ANEMIA, UNSPECIFIED Status: Acute Current Visit: Yes (9) Depression SNOMED Code(s): 09159255 Code(s): F32.9 - MAJOR DEPRESSIVE DISORDER, SINGLE EPISODE, UNSPECIFIED Status: Acute Current Visit: Yes (10) Type 2 diabetes mellitus SNOMED Code(s): 41543644 Code(s): E11.9 - TYPE 2 DIABETES MELLITUS WITHOUT COMPLICATIONS Status: Acute Current Visit: Yes (11) Restless leg SNOMED Code(s): 50163230 Code(s): G25.81 - RESTLESS LEGS SYNDROME Status: Acute Current Visit: Yes (12) Hypertension SNOMED Code(s): 42747764 Code(s): I10 - ESSENTIAL (PRIMARY) HYPERTENSION Status: Acute Current Visit: Yes (13) Subcapital fracture of left hip SNOMED Code(s): 150674376 Code(s): S72.012A - UNSP INTRACAPSULAR FRACTURE OF LEFT FEMUR, INIT FOR CLOS FX Status: Acute Current Visit: No (14) Constipation SNOMED Code(s): 30642194 Code(s): K59.00 - CONSTIPATION, UNSPECIFIED Status: Acute Current Visit: Yes - Problem List Review Problem List Initiated/Reviewed/Updated: Yes - My Orders Last 24 Hours: My Active Orders 07/24/18 09:00 Aspirin 81 mg PO DAILY Bumetanide [Bumex] 2 mg PO DAILY Clopidogrel [Plavix] 75 mg PO DAILY Ferrous Sulfate 325 mg PO DAILY Magnesium Oxide 400 mg PO DAILY Polyethylene Glycol 3350 [MiraLAX] 17 gm PO DAILY Sertraline [Zoloft] 50 mg PO DAILY 07/24/18 13:43 Oxygen Therapy Adult [Oxygen Therapy] [RC] ASDIRECTED - Plan Plan:: I've seen this patient with the resident. Agree with the treatment.
[2018-07-25] MEDS ORDERED: Nystatin Topical Powder 15 GM Bottle TOP SCH ×2 (09:00→09:18)
[2018-07-25] MEDS: Sertraline 50 MG Tab PO SCH (09:42)
[2018-07-25] MEDS: Nystatin Topical Powder 15 GM Bottle TOP SCH ×3 (11:30→20:06)
--- NOTE | 2018-07-25 17:53 | PCM.PN ---
- General Info Date of Service: 07/25/18 Admission Dx/Problem (Free Text): 67-year-old female patient had a left total hip after fracture. She is worried about the room been affected. She says her some erythema on the wound and would like it looked at. No drainage. No increasing pain. No fevers or chills. - Patient Data Vitals - Most Recent: Last Vital Signs Temp 97.7 F 07/25/18 08:00 Pulse 64 07/25/18 08:17 Resp 16 07/25/18 08:00 BP 119/52 L 07/25/18 08:17 Pulse Ox 96 07/25/18 09:05 Weight - Most Recent: 202 lb Lab Results Last 24 Hours: Laboratory Results - last 24 hr 07/25/18 07/25/18 07/25/18 Range/Units 06:14 11:39 17:32 POC Glucose 186 H 209 H 121 H D (80-116) mg/dL Med Orders - Current: Current Medications Acetaminophen (Tylenol) 650 mg PO QID [facility] Last Admin: 07/25/18 13:16 Dose: 650 mg Aspirin (Aspirin) 81 mg PO DAILY [facility] Last Admin: 07/25/18 08:17 Dose: 81 mg Bumetanide (Bumex) 2 mg PO DAILY [facility] Last Admin: 07/25/18 08:16 Dose: 2 mg Clopidogrel Bisulfate (Plavix) 75 mg PO DAILY [facility] Last Admin: 07/25/18 08:18 Dose: 75 mg Erythromycin (Erythromycin 0.5% Ophth Oint) 0 gm EYERT BEDTIME [facility] Last Admin: 07/24/18 20:25 Dose: 1 applic Famotidine (Pepcid) 20 mg PO BID [facility] Last Admin: 07/25/18 08:18 Dose: 20 mg Ferrous Sulfate (Ferrous Sulfate) 325 mg PO DAILY [facility] Last Admin: 07/25/18 08:17 Dose: 325 mg Gabapentin (Neurontin) 300 mg PO TID [facility] Last Admin: 07/25/18 14:20 Dose: 300 mg Ibuprofen (Motrin) 800 mg PO TID PRN PRN Reason: PAIN Last Admin: 07/25/18 06:18 Dose: 800 mg Insulin Glargine (Lantus Solostar) 35 units SUBCUT BEDTIME [facility] Last Admin: 07/24/18 20:26 Dose: 35 units Insulin Human Lispro (Humalog) 15 unit SUBCUT TIDMEALS [facility] Last Admin: 07/25/18 12:12 Dose: 15 units Magnesium Oxide (Magnesium Oxide) 400 mg PO DAILY [facility] Last Admin: 07/25/18 08:18 Dose: 400 mg Melatonin (Melatonin) 3 mg PO BEDTIME [facility] Last Admin: 07/24/18 20:23 Dose: 3 mg Metoprolol Tartrate (Lopressor) 25 mg PO BID [facility] Last Admin: 07/25/18 08:17 Dose: 25 mg Nystatin (Nystop) 0 gm TOP TID [facility] Last Admin: 07/25/18 14:20 Dose: 1 applic Polyethylene Glycol (Miralax) 17 gm PO DAILY [facility] Last Admin: 07/25/18 08:18 Dose: Not Given Ropinirole HCl (Requip) 4 mg PO BEDTIME [facility] Last Admin: 07/24/18 20:24 Dose: 4 mg Rosuvastatin Calcium (Crestor) 10 mg PO BEDTIME [facility] Last Admin: 07/24/18 20:22 Dose: 10 mg Senna/Docusate Sodium (Senna Plus) 1 tab PO BID [facility] Last Admin: 07/25/18 08:18 Dose: Not Given Sertraline HCl (Zoloft) 50 mg PO DAILY [facility] Last Admin: 07/25/18 09:42 Dose: 50 mg Tamsulosin HCl (Flomax) 0.4 mg PO BEDTIME [facility] Stop: 08/01/18 21:01 Last Admin: 07/24/18 20:22 Dose: 0.4 mg Valacyclovir HCl (Valtrex) 500 mg PO BID [facility] Last Admin: 07/25/18 08:19 Dose: 500 mg - Exam General: Alert, Oriented, Cooperative Skin: Other (Wound the left hip-little pink superior but no erythema or drainage.) - Problem List & Annotations (1) S/P total hip arthroplasty SNOMED Code(s): 887917090484, 362035333034 Code(s): Z96.649 - PRESENCE OF UNSPECIFIED ARTIFICIAL HIP JOINT Status: Acute Current Visit: Yes (2) Non-STEMI (non-ST elevated myocardial infarction) SNOMED Code(s): 64435828 Code(s): I21.4 - NON-ST ELEVATION (NSTEMI) MYOCARDIAL INFARCTION Status: Acute Current Visit: Yes (3) HF (heart failure), diastolic SNOMED Code(s): 303642012 Code(s): I50.30 - UNSPECIFIED DIASTOLIC (CONGESTIVE) HEART FAILURE Status: Acute Current Visit: Yes (4) Acute respiratory failure SNOMED Code(s): 17055774 Code(s): J96.00 - ACUTE RESPIRATORY FAILURE, UNSP W HYPOXIA OR HYPERCAPNIA Status: Acute Current Visit: Yes (5) Acute encephalopathy SNOMED Code(s): 27569587, 800942000 Code(s): G93.40 - ENCEPHALOPATHY, UNSPECIFIED Status: Acute Current Visit : Yes (6) Acute renal failure SNOMED Code(s): 04341305 Code(s): N17.9 - ACUTE KIDNEY FAILURE, UNSPECIFIED Status: Acute Current Visit: Yes (7) CVA (cerebral vascular accident) SNOMED Code(s): 920496012 Code(s): I63.9 - CEREBRAL INFARCTION, UNSPECIFIED Status: Acute Current Visit: Yes (8) Postoperative anemia SNOMED Code(s): 165187089, 887579927 Code(s): D64.9 - ANEMIA, UNSPECIFIED Status: Acute Current Visit: Yes (9) Depression SNOMED Code(s): 07850768 Code(s): F32.9 - MAJOR DEPRESSIVE DISORDER, SINGLE EPISODE, UNSPECIFIED Status: Acute Current Visit: Yes (10) Type 2 diabetes mellitus SNOMED Code(s): 97380899 Code(s): E11.9 - TYPE 2 DIABETES MELLITUS WITHOUT COMPLICATIONS Status: Acute Current Visit: Yes (11) Restless leg SNOMED Code(s): 86710397 Code(s): G25.81 - RESTLESS LEGS SYNDROME Status: Acute Current Visit: Yes (12) Hypertension SNOMED Code(s): 49939432 Code(s): I10 - ESSENTIAL (PRIMARY) HYPERTENSION Status: Acute Current Visit: Yes (13) Subcapital fracture of left hip SNOMED Code(s): 080102810 Code(s): S72.012A - UNSP INTRACAPSULAR FRACTURE OF LEFT FEMUR, INIT FOR CLOS FX Status: Acute Current Visit: No (14) Constipation SNOMED Code(s): 85825260 Code(s): K59.00 - CONSTIPATION, UNSPECIFIED Status: Acute Current Visit: Yes - Problem List Review Problem List Initiated/Reviewed/Updated: Yes - Assessment Assessment:: I checked the wound I don't believe it's infected. Reassurance to the patient was given. I told her to keep her INR and it becomes more erythema in these be rechecked. - Plan Plan:: I've seen this patient with the resident. Agree with the treatment.
[2018-07-25] MEDS: Rosuvastatin 10 MG Tab PO SCH (20:04)
[2018-07-25] MEDS: Tamsulosin 0.4 MG Cap.ER PO SCH (20:05)
[2018-07-25] MEDS: Erythromycin Base 0.5% Ophth Oint 1 GM Tube EYERT SCH (20:05)
[2018-07-25] MEDS: Melatonin 3 MG Tab PO SCH (20:06)
[2018-07-25] MEDS: rOPINIRole 1 MG Tab PO SCH (20:08)
[2018-07-25] MEDS: Insulin Glargine,Human Rec. Analog 100 Units/ML 3 ML Pen SUBCUT SCH (20:09)
[2018-07-26] MEDS: Insulin Lispro 100 Unit/ML 3 ML KwikPen SUBCUT SCH ×3 (07:59→18:29)
[2018-07-26] MEDS: Acetaminophen 325 MG Tab PO SCH ×4 (08:00→21:04)
[2018-07-26] MEDS: Bumetanide 2 MG Tab PO SCH (08:01)
[2018-07-26] MEDS: valACYclovir 500 MG Tab PO SCH ×2 (08:01→21:13)
[2018-07-26] MEDS: Famotidine 20 MG Tab PO SCH ×2 (08:02→21:12)
[2018-07-26] MEDS: Clopidogrel 75 MG Tab PO SCH (08:02)
[2018-07-26] MEDS: Metoprolol Tartrate 25 MG Tab PO SCH ×2 (08:02→21:10)
[2018-07-26] MEDS: Sertraline 50 MG Tab PO SCH (08:03)
[2018-07-26] MEDS: Polyethylene Glycol 3350 Powder 17 GM Packet PO SCH (08:03)
[2018-07-26] MEDS: Aspirin 81 MG Tab.Chew PO SCH (08:03)
[2018-07-26] MEDS: Magnesium Oxide 400 MG Tab PO SCH (08:04)
[2018-07-26] MEDS: Ferrous Sulfate 325 MG Tab PO SCH (08:04)
[2018-07-26] MEDS: Nystatin Topical Powder 15 GM Bottle TOP SCH ×3 (08:04→22:31)
[2018-07-26] MEDS: Gabapentin 300 MG Cap PO SCH ×3 (08:06→21:11)
[2018-07-26] MEDS: Ibuprofen 800 MG Tab PO PRN ×2 (09:13→21:14)
[2018-07-26] MEDS ORDERED: Loperamide 2 MG Cap PO ONE (10:28)
[2018-07-26] MEDS ORDERED: Loperamide 2 MG Cap PO PRN ×2 (10:31→16:30)
[2018-07-26] MEDS: Atropine/Diphenoxylate 0.025-2.5 MG Tab PO PRN ×2 (15:17→21:13)
[2018-07-26] MEDS: Rosuvastatin 10 MG Tab PO SCH (21:05)
[2018-07-26] MEDS: Erythromycin Base 0.5% Ophth Oint 1 GM Tube EYERT SCH (21:05)
[2018-07-26] MEDS: Tamsulosin 0.4 MG Cap.ER PO SCH (21:06)
[2018-07-26] MEDS: Insulin Glargine,Human Rec. Analog 100 Units/ML 3 ML Pen SUBCUT SCH (21:06)
[2018-07-26] MEDS: Melatonin 3 MG Tab PO SCH (21:11)
[2018-07-26] MEDS: rOPINIRole 1 MG Tab PO SCH (21:12)
[2018-07-27] MEDS: Atropine/Diphenoxylate 0.025-2.5 MG Tab PO PRN ×3 (08:08→22:32)
[2018-07-27] MEDS: Gabapentin 300 MG Cap PO SCH ×3 (08:08→20:56)
[2018-07-27] MEDS: Bumetanide 2 MG Tab PO SCH (08:08)
[2018-07-27] MEDS: valACYclovir 500 MG Tab PO SCH ×2 (08:08→20:57)
[2018-07-27] MEDS: Ibuprofen 800 MG Tab PO PRN ×2 (08:08→17:17)
[2018-07-27] MEDS: Polyethylene Glycol 3350 Powder 17 GM Packet PO SCH (08:09)
[2018-07-27] MEDS: Famotidine 20 MG Tab PO SCH ×2 (08:09→20:56)
[2018-07-27] MEDS: Acetaminophen 325 MG Tab PO SCH ×4 (08:09→20:57)
[2018-07-27] MEDS: Nystatin Topical Powder 15 GM Bottle TOP SCH ×3 (08:09→20:56)
[2018-07-27] MEDS: Ferrous Sulfate 325 MG Tab PO SCH (08:10)
[2018-07-27] MEDS: Clopidogrel 75 MG Tab PO SCH (08:10)
[2018-07-27] MEDS: Metoprolol Tartrate 25 MG Tab PO SCH ×2 (08:10→20:53)
[2018-07-27] MEDS: Magnesium Oxide 400 MG Tab PO SCH (08:10)
[2018-07-27] MEDS: Aspirin 81 MG Tab.Chew PO SCH (08:11)
[2018-07-27] MEDS: Sertraline 50 MG Tab PO SCH (08:11)
[2018-07-27] MEDS: Insulin Lispro 100 Unit/ML 3 ML KwikPen SUBCUT SCH ×3 (08:11→17:18)
--- NOTE | 2018-07-27 08:31 | PCM.PN ---
- General Info Date of Service: 07/27/18 Admission Dx/Problem (Free Text): Patient had 17 diarrhea stools yesterday. And then her blood pressure was low this morning and her blood pressure agent was held. She says her left leg hurts because she was walking so much to the bathroom yesterday. She denies nausea, vomiting, fevers, chills, abdominal pain. Should no blood in her stool. She has no abdominal pain. She was given no antibiotics in the hospital in [place] as I can see. We did a C. difficile that this pending. - Patient Data Vitals - Most Recent: Last Vital Signs Temp 98.0 F 07/26/18 21:14 Pulse 67 07/27/18 08:10 Resp 17 07/27/18 04:00 BP 123/41 L 07/27/18 08:10 Pulse Ox 99 07/27/18 04:00 Weight - Most Recent: 202 lb Lab Results Last 24 Hours: Laboratory Results - last 24 hr 07/26/18 07/26/18 07/27/18 Range/Units 11:22 18:05 06:13 POC Glucose 152 H 73 L 60 L (80-116) mg/dL Med Orders - Current: Current Medications Acetaminophen (Tylenol) 650 mg PO QID [facility] Last Admin: 07/27/18 08:09 Dose: 650 mg Aspirin (Aspirin) 81 mg PO DAILY [facility] Last Admin: 07/27/18 08:11 Dose: 81 mg Bumetanide (Bumex) 2 mg PO DAILY [facility] Last Admin: 07/27/18 08:08 Dose: 2 mg Clopidogrel Bisulfate (Plavix) 75 mg PO DAILY [facility] Last Admin: 07/27/18 08:10 Dose: 75 mg Diphenoxylate HCl/Atropine (Lomotil 0.025-2.5 Mg) 1 tab PO Q6H PRN PRN Reason: Diarrhea Last Admin: 07/27/18 08:08 Dose: 1 tab Erythromycin (Erythromycin 0.5% Ophth Oint) 0 gm EYERT BEDTIME [facility] Last Admin: 07/26/18 21:05 Dose: 1 applic Famotidine (Pepcid) 20 mg PO BID [facility] Last Admin: 07/27/18 08:09 Dose: 20 mg Ferrous Sulfate (Ferrous Sulfate) 325 mg PO DAILY [facility] Last Admin: 07/27/18 08:10 Dose: 325 mg Gabapentin (Neurontin) 300 mg PO TID [facility] Last Admin: 07/27/18 08:08 Dose: 300 mg Ibuprofen (Motrin) 800 mg PO TID PRN PRN Reason: PAIN Last Admin: 07/27/18 08:08 Dose: 800 mg Insulin Glargine (Lantus Solostar) 35 units SUBCUT BEDTIME [facility] Last Admin: 07/26/18 21:06 Dose: 35 units Insulin Human Lispro (Humalog) 15 unit SUBCUT TIDMEALS [facility] Last Admin: 07/27/18 08:11 Dose: 15 units Magnesium Oxide (Magnesium Oxide) 400 mg PO DAILY [facility] Last Admin: 07/27/18 08:10 Dose: 400 mg Melatonin (Melatonin) 3 mg PO BEDTIME [facility] Last Admin: 07/26/18 21:11 Dose: 3 mg Metoprolol Tartrate (Lopressor) 25 mg PO BID [facility] Last Admin: 07/27/18 08:10 Dose: 25 mg Nystatin (Nystop) 0 gm TOP TID [facility] Last Admin: 07/27/18 08:09 Dose: 1 applic Polyethylene Glycol (Miralax) 17 gm PO DAILY [facility] Last Admin: 07/27/18 08:09 Dose: Not Given Ropinirole HCl (Requip) 4 mg PO BEDTIME [facility] Last Admin: 07/26/18 21:12 Dose: 4 mg Rosuvastatin Calcium (Crestor) 10 mg PO BEDTIME [facility] Last Admin: 07/26/18 21:05 Dose: 10 mg Senna/Docusate Sodium (Senna Plus) 1 tab PO BID [facility] Last Admin: 07/27/18 08:12 Dose: Not Given Sertraline HCl (Zoloft) 50 mg PO DAILY [facility] Last Admin: 07/27/18 08:11 Dose: 50 mg Tamsulosin HCl (Flomax) 0.4 mg PO BEDTIME [facility] Stop: 08/01/18 21:01 Last Admin: 07/26/18 21:06 Dose: 0.4 mg Valacyclovir HCl (Valtrex) 500 mg PO BID [facility] Last Admin: 07/27/18 08:08 Dose: 500 mg Discontinued Medications Loperamide HCl (Imodium) 4 mg PO ONETIME ONE Stop: 07/26/18 10:29 Last Admin: 07/26/18 10:44 Dose: 4 mg Loperamide HCl (Imodium) 2 mg PO Q6H PRN PRN Reason: LOOSE STOOLS - Exam General: Alert, Oriented Lungs: Normal Respiratory Effort Extremities: No Pedal Edema - Problem List & Annotations (1) S/P total hip arthroplasty SNOMED Code(s): 698592093373, 428448123567 Code(s): Z96.649 - PRESENCE OF UNSPECIFIED ARTIFICIAL HIP JOINT Status: Acute Current Visit: Yes (2) Non-STEMI (non-ST elevated myocardial infarction) SNOMED Code(s): 03097046 Code(s): I21.4 - NON-ST ELEVATION (NSTEMI) MYOCARDIAL INFARCTION Status: Acute Current Visit: Yes (3) HF (heart failure), diastolic SNOMED Code(s): 406780176 Code(s): I50.30 - UNSPECIFIED DIASTOLIC (CONGESTIVE) HEART FAILURE Status: Acute Current Visit: Yes (4) Acute respiratory failure SNOMED Code(s): 67348984 Code(s): J96.00 - ACUTE RESPIRATORY FAILURE, UNSP W HYPOXIA OR HYPERCAPNIA Status: Acute Current Visit: Yes (5) Acute encephalopathy SNOMED Code(s): 28957262, 505801708 Code(s): G93.40 - ENCEPHALOPATHY, UNSPECIFIED Status: Acute Current Visit : Yes (6) Acute renal failure SNOMED Code(s): 23655453 Code(s): N17.9 - ACUTE KIDNEY FAILURE, UNSPECIFIED Status: Acute Current Visit: Yes (7) CVA (cerebral vascular accident) SNOMED Code(s): 819850438 Code(s): I63.9 - CEREBRAL INFARCTION, UNSPECIFIED Status: Acute Current Visit: Yes (8) Postoperative anemia SNOMED Code(s): 412606117, 194707375 Code(s): D64.9 - ANEMIA, UNSPECIFIED Status: Acute Current Visit: Yes (9) Depression SNOMED Code(s): 94363060 Code(s): F32.9 - MAJOR DEPRESSIVE DISORDER, SINGLE EPISODE, UNSPECIFIED Status: Acute Current Visit: Yes (10) Type 2 diabetes mellitus SNOMED Code(s): 40137629 Code(s): E11.9 - TYPE 2 DIABETES MELLITUS WITHOUT COMPLICATIONS Status: Acute Current Visit: Yes (11) Restless leg SNOMED Code(s): 38702263 Code(s): G25.81 - RESTLESS LEGS SYNDROME Status: Acute Current Visit: Yes (12) Hypertension SNOMED Code(s): 62635841 Code(s): I10 - ESSENTIAL (PRIMARY) HYPERTENSION Status: Acute Current Visit: Yes (13) Subcapital fracture of left hip SNOMED Code(s): 973226126 Code(s): S72.012A - UNSP INTRACAPSULAR FRACTURE OF LEFT FEMUR, INIT FOR CLOS FX Status: Acute Current Visit: No (14) Diarrhea SNOMED Code(s): 98505423 Code(s): R19.7 - DIARRHEA, UNSPECIFIED Status: Acute Current Visit: Yes - Problem List Review Problem List Initiated/Reviewed/Updated: Yes - My Orders Last 24 Hours: My Active Orders 07/26/18 14:28 CDIFF TOXIN A+B GROUP [OP] Routine Atropine/Diphenoxylate [Lomotil 0.025-2.5 MG] 1 tab PO Q6H PRN 07/27/18 08:00 BASIC METABOLIC PANEL,BMP [CHEM] AM - Plan Plan:: 1. Encouraged the patient to drink lots of fluids today. 2. Wait for C. difficile test. Highly likely will be negative but can't be sure since she was in the hospital. 3. Continue current care.
[2018-07-27] MEDS: Rosuvastatin 10 MG Tab PO SCH (20:53)
[2018-07-27] MEDS: Tamsulosin 0.4 MG Cap.ER PO SCH (20:53)
[2018-07-27] MEDS: Erythromycin Base 0.5% Ophth Oint 1 GM Tube EYERT SCH (20:53)
[2018-07-27] MEDS: Melatonin 3 MG Tab PO SCH (20:56)
[2018-07-27] MEDS: rOPINIRole 1 MG Tab PO SCH (20:57)
[2018-07-27] MEDS: Insulin Glargine,Human Rec. Analog 100 Units/ML 3 ML Pen SUBCUT SCH (20:58)
[2018-07-28] MEDS: Ibuprofen 800 MG Tab PO PRN (08:21)
[2018-07-28] MEDS: Atropine/Diphenoxylate 0.025-2.5 MG Tab PO PRN ×2 (08:21→22:33)
[2018-07-28] MEDS: Gabapentin 300 MG Cap PO SCH ×3 (08:22→20:52)
[2018-07-28] MEDS: Polyethylene Glycol 3350 Powder 17 GM Packet PO SCH (08:22)
[2018-07-28] MEDS: Nystatin Topical Powder 15 GM Bottle TOP SCH ×3 (08:22→20:53)
[2018-07-28] MEDS: Clopidogrel 75 MG Tab PO SCH (08:23)
[2018-07-28] MEDS: Bumetanide 2 MG Tab PO SCH (08:23)
[2018-07-28] MEDS: Acetaminophen 325 MG Tab PO SCH ×4 (08:23→20:52)
[2018-07-28] MEDS: Aspirin 81 MG Tab.Chew PO SCH (08:24)
[2018-07-28] MEDS: Sertraline 50 MG Tab PO SCH (08:24)
[2018-07-28] MEDS: Famotidine 20 MG Tab PO SCH ×2 (08:24→20:52)
[2018-07-28] MEDS: Magnesium Oxide 400 MG Tab PO SCH (08:24)
[2018-07-28] MEDS: Ferrous Sulfate 325 MG Tab PO SCH (08:24)
[2018-07-28] MEDS: Metoprolol Tartrate 25 MG Tab PO SCH ×2 (08:24→20:53)
[2018-07-28] MEDS: Insulin Lispro 100 Unit/ML 3 ML KwikPen SUBCUT SCH ×3 (08:26→17:52)
[2018-07-28] MEDS: valACYclovir 500 MG Tab PO SCH ×2 (10:01→20:53)
[2018-07-28] MEDS: Tamsulosin 0.4 MG Cap.ER PO SCH (20:52)
[2018-07-28] MEDS: Melatonin 3 MG Tab PO SCH (20:52)
[2018-07-28] MEDS: Rosuvastatin 10 MG Tab PO SCH (20:52)
[2018-07-28] MEDS: rOPINIRole 1 MG Tab PO SCH (20:52)
[2018-07-28] MEDS: Insulin Glargine,Human Rec. Analog 100 Units/ML 3 ML Pen SUBCUT SCH (20:53)
[2018-07-28] MEDS: Erythromycin Base 0.5% Ophth Oint 1 GM Tube EYERT SCH (20:54)
[2018-07-29] MEDS: Atropine/Diphenoxylate 0.025-2.5 MG Tab PO PRN (08:17)
[2018-07-29] MEDS: Ibuprofen 800 MG Tab PO PRN (08:17)
[2018-07-29] MEDS: Gabapentin 300 MG Cap PO SCH ×3 (08:18→20:11)
[2018-07-29] MEDS: Acetaminophen 325 MG Tab PO SCH ×4 (08:18→20:12)
[2018-07-29] MEDS: Bumetanide 2 MG Tab PO SCH (08:19)
[2018-07-29] MEDS: Polyethylene Glycol 3350 Powder 17 GM Packet PO SCH (08:19)
[2018-07-29] MEDS: Famotidine 20 MG Tab PO SCH ×2 (08:19→20:11)
[2018-07-29] MEDS: Ferrous Sulfate 325 MG Tab PO SCH (08:19)
[2018-07-29] MEDS: valACYclovir 500 MG Tab PO SCH ×2 (08:19→20:13)
[2018-07-29] MEDS: Clopidogrel 75 MG Tab PO SCH (08:19)
[2018-07-29] MEDS: Sertraline 50 MG Tab PO SCH (08:20)
[2018-07-29] MEDS: Magnesium Oxide 400 MG Tab PO SCH (08:20)
[2018-07-29] MEDS: Insulin Lispro 100 Unit/ML 3 ML KwikPen SUBCUT SCH ×3 (08:20→17:56)
[2018-07-29] MEDS: Metoprolol Tartrate 25 MG Tab PO SCH ×2 (08:20→20:10)
[2018-07-29] MEDS: Aspirin 81 MG Tab.Chew PO SCH (08:20)
[2018-07-29] MEDS: Nystatin Topical Powder 15 GM Bottle TOP SCH ×3 (08:21→20:11)
[2018-07-29] MEDS: Rosuvastatin 10 MG Tab PO SCH (20:09)
[2018-07-29] MEDS: Erythromycin Base 0.5% Ophth Oint 1 GM Tube EYERT SCH (20:09)
[2018-07-29] MEDS: Melatonin 3 MG Tab PO SCH (20:10)
[2018-07-29] MEDS: Tamsulosin 0.4 MG Cap.ER PO SCH (20:10)
[2018-07-29] MEDS: rOPINIRole 1 MG Tab PO SCH (20:11)
[2018-07-29] MEDS: Insulin Glargine,Human Rec. Analog 100 Units/ML 3 ML Pen SUBCUT SCH (20:15)
[2018-07-30] MEDS: Insulin Lispro 100 Unit/ML 3 ML KwikPen SUBCUT SCH ×3 (08:38→17:21)
[2018-07-30] MEDS: Aspirin 81 MG Tab.Chew PO SCH (09:06)
[2018-07-30] MEDS: Bumetanide 2 MG Tab PO SCH (09:06)
[2018-07-30] MEDS: Metoprolol Tartrate 25 MG Tab PO SCH ×2 (09:07→20:08)
[2018-07-30] MEDS: Ferrous Sulfate 325 MG Tab PO SCH (09:07)
[2018-07-30] MEDS: Magnesium Oxide 400 MG Tab PO SCH (09:08)
[2018-07-30] MEDS: Polyethylene Glycol 3350 Powder 17 GM Packet PO SCH ×2 (09:08→09:16)
[2018-07-30] MEDS: Gabapentin 300 MG Cap PO SCH ×3 (09:08→20:10)
[2018-07-30] MEDS: Nystatin Topical Powder 15 GM Bottle TOP SCH ×3 (09:09→20:10)
[2018-07-30] MEDS: Famotidine 20 MG Tab PO SCH ×2 (09:10→20:11)
[2018-07-30] MEDS: Clopidogrel 75 MG Tab PO SCH (09:10)
[2018-07-30] MEDS: Acetaminophen 325 MG Tab PO SCH ×4 (09:10→20:12)
[2018-07-30] MEDS: valACYclovir 500 MG Tab PO SCH ×2 (09:12→20:12)
[2018-07-30] MEDS: Sertraline 50 MG Tab PO SCH (09:13)
--- NOTE | 2018-07-30 13:52 | US ---
INDICATION: Pain and swelling left leg, postop left hip. DUPLEX ULTRASOUND, LEFT LOWER EXTREMITY VEINS: Utilizing 2-D real time, duplex Doppler spectral analysis and color flow imaging, examination of the left lower extremity veins was obtained and included the common femoral vein, femoral vein , popliteal vein, posterior tibial vein, and anterior tibial vein. The peroneal was not visualized. The patient was unable to fully cooperate with valvular competence evaluation. No evidence of deep venous thrombosis was identified with normal flow and compressibility of the venous structures. Interstitial edema is noted at the level of the popliteal vein. IMPRESSION: No evidence of deep venous thrombosis. MTDD
[2018-07-30] MEDS: rOPINIRole 1 MG Tab PO SCH (18:43)
[2018-07-30] MEDS: Erythromycin Base 0.5% Ophth Oint 1 GM Tube EYERT SCH (20:06)
[2018-07-30] MEDS: Rosuvastatin 10 MG Tab PO SCH (20:06)
[2018-07-30] MEDS: Tamsulosin 0.4 MG Cap.ER PO SCH (20:07)
[2018-07-30] MEDS: Melatonin 3 MG Tab PO SCH (20:10)
[2018-07-30] MEDS: Insulin Glargine,Human Rec. Analog 100 Units/ML 3 ML Pen SUBCUT SCH (20:12)
[2018-07-31] MEDS: Bumetanide 2 MG Tab PO SCH (09:19)
[2018-07-31] MEDS: valACYclovir 500 MG Tab PO SCH ×2 (09:19→21:34)
[2018-07-31] MEDS: Ferrous Sulfate 325 MG Tab PO SCH (09:19)
[2018-07-31] MEDS: Nystatin Topical Powder 15 GM Bottle TOP SCH ×2 (09:20→09:21)
[2018-07-31] MEDS: Aspirin 81 MG Tab.Chew PO SCH (09:20)
[2018-07-31] MEDS: Magnesium Oxide 400 MG Tab PO SCH (09:20)
[2018-07-31] MEDS: Clopidogrel 75 MG Tab PO SCH (09:20)
[2018-07-31] MEDS: Metoprolol Tartrate 25 MG Tab PO SCH ×2 (09:20→21:36)
[2018-07-31] MEDS: Polyethylene Glycol 3350 Powder 17 GM Packet PO SCH (09:21)
[2018-07-31] MEDS: Famotidine 20 MG Tab PO SCH ×2 (09:21→21:30)
[2018-07-31] MEDS: Sertraline 50 MG Tab PO SCH (09:22)
[2018-07-31] MEDS: Acetaminophen 325 MG Tab PO SCH ×4 (09:22→21:34)
[2018-07-31] MEDS: Insulin Lispro 100 Unit/ML 3 ML KwikPen SUBCUT SCH ×3 (09:23→17:58)
--- NOTE | 2018-07-31 10:07 | PCM.PN ---
- General Info Date of Service: 07/31/18 Admission Dx/Problem (Free Text): Was asked to see by the patient because she has a rash under breasts another bleeding. Been using nystatin powder on is not working. She has no fevers. - Patient Data Vitals - Most Recent: Last Vital Signs Temp 98.1 F 07/30/18 08:00 Pulse 68 07/31/18 09:20 Resp 14 07/30/18 08:00 BP 130/72 07/31/18 09:20 Pulse Ox 96 07/30/18 08:00 Weight - Most Recent: 202 lb Lab Results Last 24 Hours: Laboratory Results - last 24 hr 07/30/18 07/30/18 07/30/18 Range/Units 13:08 13:15 17:14 WBC 9.0 (4.5-12.0) X10-3/uL RBC 2.86 L (3.23-5.20) x10(6)uL Hgb 8.5 L D (11.5-15.5) g/dL Hct 25.9 L D (30.0-51.3) % MCV 90.6 (80-96) fL MCH 29.6 (27.7-33.6) pg MCHC 32.7 (32.2-35.4) g/dL RDW 15.7 H (11.5-15.5) % Plt Count 563 H (125-369) X10(3)uL MPV 7.5 (7.4-10.4) fL Neut % (Auto) 77.8 (46-82) % Lymph % (Auto) 13.0 (13-37) % Gaines % (Auto) 6.2 (4-12) % Eos % (Auto) 3 (1.0-5.0) % Baso % (Auto) 1 (0-2) % Neut # (Auto) 7.0 (1.6-8.3) # Lymph # (Auto) 1.2 (0.6-5.0) # Gaines # (Auto) 0.6 (0.0-1.3) # Eos # (Auto) 0.2 (0.0-0.8) # Baso # (Auto) 0.0 (0.0-0.2) # POC Glucose 137 H 298 H D (80-116) mg/dL 02/07/19 Range/Units 05:29 WBC (4.5-12.0) X10-3/uL RBC (3.23-5.20) x10(6)uL Hgb (11.5-15.5) g/dL Hct (30.0-51.3) % MCV (80-96) fL MCH (27.7-33.6) pg MCHC (32.2-35.4) g/dL RDW (11.5-15.5) % Plt Count (125-369) X10(3)uL MPV (7.4-10.4) fL Neut % (Auto) (46-82) % Lymph % (Auto) (13-37) % Gaines % (Auto) (4-12) % Eos % (Auto) (1.0-5.0) % Baso % (Auto) (0-2) % Neut # (Auto) (1.6-8.3) # Lymph # (Auto) (0.6-5.0) # Gaines # (Auto) (0.0-1.3) # Eos # (Auto) (0.0-0.8) # Baso # (Auto) (0.0-0.2) # POC Glucose 95 D (80-116) mg/dL Med Orders - Current: Current Medications Acetaminophen (Tylenol) 650 mg PO QID [facility] Last Admin: 07/31/18 09:22 Dose: 650 mg Aspirin (Aspirin) 81 mg PO DAILY [facility] Last Admin: 07/31/18 09:20 Dose: 81 mg Bumetanide (Bumex) 2 mg PO DAILY [facility] Last Admin: 07/31/18 09:19 Dose: 2 mg Clopidogrel Bisulfate (Plavix) 75 mg PO DAILY [facility] Last Admin: 07/31/18 09:20 Dose: 75 mg Diphenoxylate HCl/Atropine (Lomotil 0.025-2.5 Mg) 1 tab PO Q6H PRN PRN Reason: Diarrhea Last Admin: 07/29/18 08:17 Dose: 1 tab Erythromycin (Erythromycin 0.5% Ophth Oint) 0 gm EYERT BEDTIME [facility] Last Admin: 07/30/18 20:06 Dose: 1 applic Famotidine (Pepcid) 20 mg PO BID [facility] Last Admin: 07/31/18 09:21 Dose: 20 mg Ferrous Sulfate (Ferrous Sulfate) 325 mg PO DAILY [facility] Last Admin: 07/31/18 09:19 Dose: 325 mg Gabapentin (Neurontin) 300 mg PO TID [facility] Last Admin: 07/30/18 20:10 Dose: 300 mg Ibuprofen (Motrin) 800 mg PO TID PRN PRN Reason: PAIN Last Admin: 07/29/18 08:17 Dose: 800 mg Insulin Glargine (Lantus Solostar) 30 units SUBCUT BEDTIME [facility] Insulin Human Lispro (Humalog) 10 unit SUBCUT TIDMEALS [facility] Last Admin: 07/31/18 09:23 Dose: 10 units Magnesium Oxide (Magnesium Oxide) 400 mg PO DAILY [facility] Last Admin: 07/31/18 09:20 Dose: 400 mg Melatonin (Melatonin) 3 mg PO BEDTIME [facility] Last Admin: 07/30/18 20:10 Dose: 3 mg Metoprolol Tartrate (Lopressor) 25 mg PO BID [facility] Last Admin: 07/31/18 09:20 Dose: 25 mg Nystatin (Nystop) 0 gm TOP TID [facility] Last Admin: 07/31/18 09:21 Dose: 1 applic Polyethylene Glycol (Miralax) 17 gm PO DAILY [facility] Last Admin: 07/31/18 09:21 Dose: Not Given Ropinirole HCl (Requip) 4 mg PO 1900 [facility] Last Admin: 07/30/18 18:43 Dose: 4 mg Rosuvastatin Calcium (Crestor) 10 mg PO BEDTIME [facility] Last Admin: 07/30/18 20:06 Dose: 10 mg Senna/Docusate Sodium (Senna Plus) 1 tab PO BID [facility] Last Admin: 07/31/18 09:19 Dose: Not Given Sertraline HCl (Zoloft) 50 mg PO DAILY [facility] Last Admin: 07/31/18 09:22 Dose: 50 mg Tamsulosin HCl (Flomax) 0.4 mg PO BEDTIME [facility] Stop: 08/01/18 21:01 Last Admin: 07/30/18 20:07 Dose: 0.4 mg Valacyclovir HCl (Valtrex) 500 mg PO BID [facility] Last Admin: 07/31/18 09:19 Dose: 500 mg Discontinued Medications Insulin Glargine (Lantus Solostar) 35 units SUBCUT BEDTIME [facility] Last Admin: 07/30/18 20:12 Dose: 35 units Insulin Human Lispro (Humalog) 15 unit SUBCUT TIDMEALS [facility] Last Admin: 07/29/18 12:09 Dose: 15 units Loperamide HCl (Imodium) 4 mg PO ONETIME ONE Stop: 07/26/18 10:29 Last Admin: 07/26/18 10:44 Dose: 4 mg Loperamide HCl (Imodium) 2 mg PO Q6H PRN PRN Reason: LOOSE STOOLS Ropinirole HCl (Requip) 4 mg PO BEDTIME [facility] Last Admin: 07/29/18 20:11 Dose: 4 mg - Exam General: Alert, Oriented, Cooperative Skin: Rash (Under the breasts bilaterally with some mild open sores. No drainage. The nurse Maria Teresa in attendance for the exam.) - Problem List & Annotations (1) S/P total hip arthroplasty SNOMED Code(s): 365643530979, 339657084575 Code(s): Z96.649 - PRESENCE OF UNSPECIFIED ARTIFICIAL HIP JOINT Status: Acute Current Visit: Yes (2) Non-STEMI (non-ST elevated myocardial infarction) SNOMED Code(s): 42760875 Code(s): I21.4 - NON-ST ELEVATION (NSTEMI) MYOCARDIAL INFARCTION Status: Acute Current Visit: Yes (3) HF (heart failure), diastolic SNOMED Code(s): 497277860 Code(s): I50.30 - UNSPECIFIED DIASTOLIC (CONGESTIVE) HEART FAILURE Status: Acute Current Visit: Yes (4) Acute respiratory failure SNOMED Code(s): 52123979 Code(s): J96.00 - ACUTE RESPIRATORY FAILURE, UNSP W HYPOXIA OR HYPERCAPNIA Status: Acute Current Visit: Yes (5) Acute encephalopathy SNOMED Code(s): 04848567, 231378946 Code(s): G93.40 - ENCEPHALOPATHY, UNSPECIFIED Status: Acute Current Visit : Yes (6) Acute renal failure SNOMED Code(s): 81407181 Code(s): N17.9 - ACUTE KIDNEY FAILURE, UNSPECIFIED Status: Acute Current Visit: Yes (7) CVA (cerebral vascular accident) SNOMED Code(s): 986156535 Code(s): I63.9 - CEREBRAL INFARCTION, UNSPECIFIED Status: Acute Current Visit: Yes (8) Postoperative anemia SNOMED Code(s): 185862272, 528022733 Code(s): D64.9 - ANEMIA, UNSPECIFIED Status: Acute Current Visit: Yes (9) Depression SNOMED Code(s): 79135237 Code(s): F32.9 - MAJOR DEPRESSIVE DISORDER, SINGLE EPISODE, UNSPECIFIED Status: Acute Current Visit: Yes (10) Type 2 diabetes mellitus SNOMED Code(s): 35733434 Code(s): E11.9 - TYPE 2 DIABETES MELLITUS WITHOUT COMPLICATIONS Status: Acute Current Visit: Yes (11) Restless leg SNOMED Code(s): 43874381 Code(s): G25.81 - RESTLESS LEGS SYNDROME Status: Acute Current Visit: Yes (12) Hypertension SNOMED Code(s): 57564471 Code(s): I10 - ESSENTIAL (PRIMARY) HYPERTENSION Status: Acute Current Visit: Yes (13) Subcapital fracture of left hip SNOMED Code(s): 725923915 Code(s): S72.012A - UNSP INTRACAPSULAR FRACTURE OF LEFT FEMUR, INIT FOR CLOS FX Status: Acute Current Visit: No (14) Diarrhea SNOMED Code(s): 60177573 Code(s): R19.7 - DIARRHEA, UNSPECIFIED Status: Acute Current Visit: Yes (15) Contact dermatitis SNOMED Code(s): 92854715 Code(s): L25.9 - UNSPECIFIED CONTACT DERMATITIS, UNSPECIFIED CAUSE Status: Acute Current Visit: Yes - Problem List Review Problem List Initiated/Reviewed/Updated: Yes - My Orders Last 24 Hours: My Active Orders 07/30/18 19:00 rOPINIRole [Requip] 4 mg PO 1900 07/31/18 21:00 Insulin Glarg,Human.Rec.Analog [LantUS Solostar] 30 units SUBCUT BEDTIME - Plan Plan:: 1. Stop nystatin cream and start triple antibiotic 4 times a day for 7 days.
[2018-07-31] MEDS: Gabapentin 300 MG Cap PO SCH ×3 (10:57→21:30)
[2018-07-31] MEDS ORDERED: Insulin Lispro 100 Unit/ML 3 ML KwikPen SUBCUT ONE (12:57)
[2018-07-31] MEDS: Bacitracin/Neomycin/Polymyxin B Oint 28.4 GM Tube TOP SCH ×3 (13:03→21:34)
[2018-07-31] MEDS: rOPINIRole 1 MG Tab PO SCH (18:01)
[2018-07-31] MEDS ORDERED: Insulin Glargine,Human Rec. Analog 100 Units/ML 3 ML Pen SUBCUT SCH (21:00)
[2018-07-31] MEDS: Tamsulosin 0.4 MG Cap.ER PO SCH (21:30)
[2018-07-31] MEDS: Erythromycin Base 0.5% Ophth Oint 1 GM Tube EYERT SCH (21:30)
[2018-07-31] MEDS: Melatonin 3 MG Tab PO SCH (21:30)
[2018-07-31] MEDS: Rosuvastatin 10 MG Tab PO SCH (21:34)
[2018-08-01] MEDS: Insulin Lispro 100 Unit/ML 3 ML KwikPen SUBCUT SCH ×3 (09:13→17:11)
[2018-08-01] MEDS: Bumetanide 2 MG Tab PO SCH (09:16)
[2018-08-01] MEDS: Aspirin 81 MG Tab.Chew PO SCH (09:16)
[2018-08-01] MEDS: Metoprolol Tartrate 25 MG Tab PO SCH ×2 (09:17→20:29)
[2018-08-01] MEDS: Ferrous Sulfate 325 MG Tab PO SCH (09:17)
[2018-08-01] MEDS: Magnesium Oxide 400 MG Tab PO SCH (09:17)
[2018-08-01] MEDS: Clopidogrel 75 MG Tab PO SCH (09:18)
[2018-08-01] MEDS: Polyethylene Glycol 3350 Powder 17 GM Packet PO SCH (09:18)
[2018-08-01] MEDS: Famotidine 20 MG Tab PO SCH ×2 (09:18→20:34)
[2018-08-01] MEDS: Acetaminophen 325 MG Tab PO SCH ×4 (09:19→20:35)
[2018-08-01] MEDS: Bacitracin/Neomycin/Polymyxin B Oint 28.4 GM Tube TOP SCH ×4 (09:19→20:35)
[2018-08-01] MEDS: Sertraline 50 MG Tab PO SCH (09:20)
[2018-08-01] MEDS: valACYclovir 500 MG Tab PO SCH ×2 (09:20→20:36)
[2018-08-01] MEDS: Gabapentin 300 MG Cap PO SCH ×2 (09:23→20:33)
--- NOTE | 2018-08-01 12:37 | PCM.PN ---
- General Info Date of Service: 08/01/18 Subjective Update: Patient is a 67-year-old female currently admitted to [facility] for swing bed status for debility after a left hip fracture status post ORIF. She was admitted on 07/23/18 from [facility]. On 07/17/18 she fell at home and sustained a left hip fracture. She was also found to have a myocardial infarction and ultimately was transferred to [place]. Angiogram done during hospitalization showed left main disease and right coronary artery disease and cardiothoracic surgery consult obtained and plan was to follow up with cardiology as an outpatient. On 07/20 while patient was still hospitalized post operatively she was found to have an embolic stroke on MRI. She had left arm deficit which improved during hospital stay and her mentation and speech improved back to baseline. Her hospital stay was also complicated by mild diastolic congestive heart failure exacerbation and mild postoperative blood loss anemia as well as a mild acute kidney injury. Hemoglobin was 8.1 on and creatinine was 0.81 at that same time. Maximum creatinine was on 07/20 with 1.32. Past medical history also significant for: Hyperlipidemia Chronic back pain Diabetes mellitus type 2 with significantly reduced need for insulin over her current hospitalization. Last A1c 9.3% on 07/20/18. Obesity with BMI of 40 Psoriasis Depression Restless leg syndrome Coronary artery disease and an STEMI as noted above. Echocardiogram 07/20/18 showed ejection fraction 65%, no left ventricular regional wall motion abnormalities, aortic bioprosthesis, normal right ventricular systolic function , pulmonary artery systolic pressure at 50, mild to moderate pulmonary artery hypertension. Patient also has a past history of stenting in 2004 and 2015. Has a bioprosthetic AVR for aortic stenosis in the remote past. Cardiac catheterization showed some calcification of the proximal left and right coronary arteries but they did not appear to be significantly obstructed. Per the catheterization sales route driver they were at possibly 50-60% stenosis. Today, patient is doing very well. Pain is been well-controlled. She's had no nausea or vomiting, no diarrhea. Bowels are moving regularly. She has no pain at rest and when she gets up and walks pain is tolerable. Blood sugars have been very tightly controlled even with significant reductions in her insulin and we attribute that to her low carbohydrate diet. Discussed this at length today with her. - Patient Data Vitals - Most Recent: Last Vital Signs Temp 36.6 C 08/01/18 08:58 Pulse 69 08/01/18 09:17 Resp 18 08/01/18 08:58 BP 147/43 H 08/01/18 09:17 Pulse Ox 94 L 08/01/18 08:58 Weight - Most Recent: 91.626 kg Lab Results Last 24 Hours: Laboratory Results - last 24 hr 07/31/18 08/01/18 Range/Units 16:54 06:49 POC Glucose 94 110 (80-116) mg/dL Med Orders - Current: Current Medications Acetaminophen (Tylenol) 650 mg PO QID [facility] Last Admin: 08/01/18 09:19 Dose: 650 mg Aspirin (Aspirin) 81 mg PO DAILY [facility] Last Admin: 08/01/18 09:16 Dose: 81 mg Bumetanide (Bumex) 2 mg PO DAILY [facility] Last Admin: 08/01/18 09:16 Dose: 2 mg Clopidogrel Bisulfate (Plavix) 75 mg PO DAILY [facility] Last Admin: 08/01/18 09:18 Dose: 75 mg Diphenoxylate HCl/Atropine (Lomotil 0.025-2.5 Mg) 1 tab PO Q6H PRN PRN Reason: Diarrhea Last Admin: 07/29/18 08:17 Dose: 1 tab Erythromycin (Erythromycin 0.5% Ophth Oint) 0 gm EYERT BEDTIME [facility] Last Admin: 07/31/18 21:30 Dose: 1 applic Famotidine (Pepcid) 20 mg PO BID [facility] Last Admin: 08/01/18 09:18 Dose: 20 mg Ferrous Sulfate (Ferrous Sulfate) 325 mg PO DAILY [facility] Last Admin: 08/01/18 09:17 Dose: 325 mg Gabapentin (Neurontin) 300 mg PO TID [facility] Last Admin: 08/01/18 09:23 Dose: 300 mg Ibuprofen (Motrin) 800 mg PO TID PRN PRN Reason: PAIN Last Admin: 07/29/18 08:17 Dose: 800 mg Insulin Glargine (Lantus Solostar) 30 units SUBCUT BEDTIME [facility] Last Admin: 07/31/18 21:32 Dose: 30 units Insulin Human Lispro (Humalog) 5 unit SUBCUT TIDMEALS [facility] Last Admin: 08/01/18 12:07 Dose: 5 units Magnesium Oxide (Magnesium Oxide) 400 mg PO DAILY [facility] Last Admin: 08/01/18 09:17 Dose: 400 mg Melatonin (Melatonin) 3 mg PO BEDTIME [facility] Last Admin: 07/31/18 21:30 Dose: 3 mg Metoprolol Tartrate (Lopressor) 25 mg PO BID [facility] Last Admin: 08/01/18 09:17 Dose: 25 mg Neomycin/Polymyxin/Bacitracin (Triple Antibiotic Oint) 0 gm TOP QID [facility] Stop: 08/07/18 13:01 Last Admin: 08/01/18 09:19 Dose: 1 applic Polyethylene Glycol (Miralax) 17 gm PO DAILY [facility] Last Admin: 08/01/18 09:18 Dose: Not Given Ropinirole HCl (Requip) 4 mg PO 1900 [facility] Last Admin: 07/31/18 18:01 Dose: 4 mg Rosuvastatin Calcium (Crestor) 10 mg PO BEDTIME [facility] Last Admin: 07/31/18 21:34 Dose: 10 mg Senna/Docusate Sodium (Senna Plus) 1 tab PO BID [facility] Last Admin: 08/01/18 09:18 Dose: Not Given Sertraline HCl (Zoloft) 50 mg PO DAILY [facility] Last Admin: 08/01/18 09:20 Dose: 50 mg Tamsulosin HCl (Flomax) 0.4 mg PO BEDTIME [facility] Stop: 08/01/18 21:01 Last Admin: 07/31/18 21:30 Dose: 0.4 mg Valacyclovir HCl (Valtrex) 500 mg PO BID [facility] Last Admin: 08/01/18 09:20 Dose: 500 mg Discontinued Medications Insulin Glargine (Lantus Solostar) 35 units SUBCUT BEDTIME [facility] Last Admin: 07/30/18 20:12 Dose: 35 units Insulin Human Lispro (Humalog) 15 unit SUBCUT TIDMEALS [facility] Last Admin: 07/29/18 12:09 Dose: 15 units Insulin Human Lispro (Humalog) 10 unit SUBCUT TIDMEALS [facility] Last Admin: 07/31/18 13:07 Dose: Not Given Insulin Human Lispro (Humalog) 5 unit SUBCUT TIDMEALS ONE Stop: 07/31/18 12:58 Last Admin: 07/31/18 13:04 Dose: 5 units Loperamide HCl (Imodium) 4 mg PO ONETIME [facility] Stop: 07/26/18 10:29 Last Admin: 07/26/18 10:44 Dose: 4 mg Loperamide HCl (Imodium) 2 mg PO Q6H PRN PRN Reason: LOOSE STOOLS Nystatin (Nystop) 0 gm TOP TID [facility] Last Admin: 07/31/18 09:20 Dose: Not Given Ropinirole HCl (Requip) 4 mg PO BEDTIME [facility] Last Admin: 07/29/18 20:11 Dose: 4 mg - Exam General: Alert, Oriented, Cooperative, No Acute Distress HEENT: Pupils Equal, Pupils Reactive Neck: Supple Lungs: Clear to Auscultation, Normal Respiratory Effort Cardiovascular: Regular Rate, Regular Rhythm, No Murmurs GI/Abdominal Exam: Normal Bowel Sounds, Soft, Non-Tender, No Distention Extremities: Pedal Edema Psy/Mental Status: Alert, Normal Affect, Normal Mood - Problem List & Annotations (1) S/P total hip arthroplasty SNOMED Code(s): 774758812291, 845151381295 Code(s): Z96.649 - PRESENCE OF UNSPECIFIED ARTIFICIAL HIP JOINT Status: Acute Current Visit: Yes Annotation/Comment:: Requiring physical therapy and occupational therapy. Patient is progressing well. On Tylenol and gabapentin only for pain. The gabapentin was added postoperatively for pain management so we will begin to taper that by going to twice a day dosing today. (2) CAD (coronary artery disease) SNOMED Code(s): 09146596 Code(s): I25.10 - ATHSCL HEART DISEASE OF [place] CORONARY ARTERY W/O ANG PCTRS Status: Acute Current Visit: Yes Annotation/Comment:: Recent history of an NSTEMI with stroke and assessment for occult atrial fibrillation. Would recommend we change the patient's metoprolol from tartrate to succinate. Continue Plavix and aspirin. Recheck labs in a.m. (3) Acute urinary retention SNOMED Code(s): 267313061 Code(s): R33.8 - OTHER RETENTION OF URINE Status: Acute Current Visit: Yes Annotation/Comment:: No evidence of retention at this time. We'll complete her course of Flomax tomorrow. (4) Depression SNOMED Code(s): 77734224 Code(s): F32.9 - MAJOR DEPRESSIVE DISORDER, SINGLE EPISODE, UNSPECIFIED Status: Acute Current Visit: Yes Annotation/Comment:: Appears in remission with very good spirits at this time. Monitor. Continue Zoloft. (5) Hypertension SNOMED Code(s): 55678292 Code(s): I10 - ESSENTIAL (PRIMARY) HYPERTENSION Status: Acute Current Visit: Yes Annotation/Comment:: Blood pressure moderately controlled. We'll continue to monitor. (6) Type 2 diabetes mellitus SNOMED Code(s): 10311063 Code(s): E11.9 - TYPE 2 DIABETES MELLITUS WITHOUT COMPLICATIONS Status: Acute Current Visit: Yes Annotation/Comment:: Baseline insulin usage is 35 units long-acting at bedtime and 15 units with meals. The patient right now is on very little insulin and blood sugars continue to be fairly low. I suspect this is due to low carbohydrate intake. Encourage the patient to continue her low carbohydrate intake and we'll continue to titrate her insulin and hopefully she will be able to come off insulin altogether. (7) DVT prophylaxis SNOMED Code(s): 654551827, 395237238 Code(s): ZHC8247 - Status: Acute Current Visit: Yes Annotation/Comment :: On Plavix and aspirin, Jasson, HUY childers. The patient's surgery was on 07/19/18 and she was covered with heparin injectable until discharged to our facility on 07/23/18. The patient is now postoperative day 13 and is currently covered with aspirin and Plavix. Given that she is going to continue on these long-term, after a review of the literature I think that's reasonable DVT prophylaxis for the patient's risk and mobility. - Problem List Review Problem List Initiated/Reviewed/Updated: Yes - My Orders Last 24 Hours: My Active Orders 08/02/18 05:11 CBC WITH AUTO DIFF [HEME] AM COMPREHENSIVE METABOLIC PN,CMP [CHEM] AM
[2018-08-01] MEDS: rOPINIRole 1 MG Tab PO SCH (18:50)
[2018-08-01] MEDS: Rosuvastatin 10 MG Tab PO SCH (20:25)
[2018-08-01] MEDS: Erythromycin Base 0.5% Ophth Oint 1 GM Tube EYERT SCH (20:26)
[2018-08-01] MEDS: Tamsulosin 0.4 MG Cap.ER PO SCH (20:26)
[2018-08-01] MEDS: Insulin Glargine,Human Rec. Analog 100 Units/ML 3 ML Pen SUBCUT SCH (20:28)
[2018-08-01] MEDS: Melatonin 3 MG Tab PO SCH (20:33)
[2018-08-02] MEDS: Ferrous Sulfate 325 MG Tab PO SCH (09:53)
[2018-08-02] MEDS: Aspirin 81 MG Tab.Chew PO SCH (09:53)
[2018-08-02] MEDS: Bacitracin/Neomycin/Polymyxin B Oint 28.4 GM Tube TOP SCH ×4 (09:53→21:41)
[2018-08-02] MEDS: Bumetanide 2 MG Tab PO SCH (09:53)
[2018-08-02] MEDS: Magnesium Oxide 400 MG Tab PO SCH (09:55)
[2018-08-02] MEDS: Polyethylene Glycol 3350 Powder 17 GM Packet PO SCH (09:55)
[2018-08-02] MEDS: Famotidine 20 MG Tab PO SCH ×2 (09:55→21:41)
[2018-08-02] MEDS: Clopidogrel 75 MG Tab PO SCH (09:55)
[2018-08-02] MEDS: Metoprolol Succinate 25 MG Tab.ER PO SCH (09:56)
[2018-08-02] MEDS: Gabapentin 300 MG Cap PO SCH ×2 (09:58→21:54)
[2018-08-02] MEDS: Acetaminophen 325 MG Tab PO SCH ×4 (09:58→21:41)
[2018-08-02] MEDS: Sertraline 50 MG Tab PO SCH (09:59)
[2018-08-02] MEDS: valACYclovir 500 MG Tab PO SCH ×2 (09:59→21:42)
[2018-08-02] MEDS: Insulin Lispro 100 Unit/ML 3 ML KwikPen SUBCUT SCH ×3 (10:06→17:53)
--- NOTE | 2018-08-02 10:40 | PCM.SN ---
- Free Text/Narrative Note: Patient is a 67-year-old female currently on swing bed day #11 after left hip fracture and myocardial infarction. She is doing well today. Vital signs are stable. Labs were reviewed and hemoglobin is 7.9 this morning. Blood sugars have all been under 200. No lows. The nurse wanted me to look at an area on the left inner calf which was erythematous yesterday. Today it is just slightly pink , does not appear infected. Patient also has a complaint of vaginal itching. She uses a cream for this at home. Will order Monistat for her.
[2018-08-02] MEDS: Miconazole 2% Vaginal Crm 45 GM Tube TOP SCH ×2 (14:17→21:40)
[2018-08-02] MEDS: rOPINIRole 1 MG Tab PO SCH (18:46)
[2018-08-02] MEDS: Ibuprofen 800 MG Tab PO PRN (18:49)
[2018-08-02] MEDS: Rosuvastatin 10 MG Tab PO SCH (21:39)
[2018-08-02] MEDS: Erythromycin Base 0.5% Ophth Oint 1 GM Tube EYERT SCH (21:39)
[2018-08-02] MEDS: Melatonin 3 MG Tab PO SCH (21:40)
[2018-08-02] MEDS: Insulin Glargine,Human Rec. Analog 100 Units/ML 3 ML Pen SUBCUT SCH (21:44)
[2018-08-03] MEDS ORDERED: Triamcinolone Acetonide 0.1% Crm 80 GM Tube TOP PRN (08:35)
--- NOTE | 2018-08-03 08:37 | PCM.SN ---
- Free Text/Narrative Note: Patient doing well today. Vital signs are stable. She continues to complain of vaginal itching and I did an external exam today. Her labia are inflamed with thickened skin and very erythematous. It appears her groin hygiene has also been poor likely due to her hip surgery. We will start Kenalog cream for itching twice a day when necessary and work on groin hygiene. Otherwise patient is doing very well. No concerns.
[2018-08-03] MEDS: Insulin Lispro 100 Unit/ML 3 ML KwikPen SUBCUT SCH ×4 (08:54→18:41)
[2018-08-03] MEDS: Aspirin 81 MG Tab.Chew PO SCH (08:56)
[2018-08-03] MEDS: Bumetanide 2 MG Tab PO SCH (08:56)
[2018-08-03] MEDS: Ferrous Sulfate 325 MG Tab PO SCH (08:56)
[2018-08-03] MEDS: Polyethylene Glycol 3350 Powder 17 GM Packet PO SCH (08:57)
[2018-08-03] MEDS: Magnesium Oxide 400 MG Tab PO SCH (08:57)
[2018-08-03] MEDS: Gabapentin 300 MG Cap PO SCH ×2 (08:57→20:34)
[2018-08-03] MEDS: Metoprolol Succinate 25 MG Tab.ER PO SCH (08:58)
[2018-08-03] MEDS: Clopidogrel 75 MG Tab PO SCH (08:58)
[2018-08-03] MEDS: Famotidine 20 MG Tab PO SCH ×2 (08:58→20:31)
[2018-08-03] MEDS: Bacitracin/Neomycin/Polymyxin B Oint 28.4 GM Tube TOP SCH ×4 (08:59→20:32)
[2018-08-03] MEDS: Acetaminophen 325 MG Tab PO SCH ×4 (09:00→20:32)
[2018-08-03] MEDS: valACYclovir 500 MG Tab PO SCH ×2 (09:01→20:33)
[2018-08-03] MEDS: Sertraline 50 MG Tab PO SCH (09:01)
[2018-08-03] MEDS: Miconazole 2% Vaginal Crm 45 GM Tube TOP SCH ×2 (12:20→20:31)
[2018-08-03] MEDS: Ibuprofen 800 MG Tab PO PRN (15:40)
[2018-08-03] MEDS: rOPINIRole 1 MG Tab PO SCH (18:41)
[2018-08-03] MEDS: Erythromycin Base 0.5% Ophth Oint 1 GM Tube EYERT SCH (20:30)
[2018-08-03] MEDS: Melatonin 3 MG Tab PO SCH (20:30)
[2018-08-03] MEDS: Rosuvastatin 10 MG Tab PO SCH (20:30)
[2018-08-03] MEDS: Insulin Glargine,Human Rec. Analog 100 Units/ML 3 ML Pen SUBCUT SCH (20:35)
[2018-08-04] MEDS: Insulin Lispro 100 Unit/ML 3 ML KwikPen SUBCUT SCH ×6 (07:59→17:21)
[2018-08-04] MEDS: Magnesium Oxide 400 MG Tab PO SCH (08:01)
[2018-08-04] MEDS: Bumetanide 2 MG Tab PO SCH (08:01)
[2018-08-04] MEDS: Ferrous Sulfate 325 MG Tab PO SCH (08:01)
[2018-08-04] MEDS: Aspirin 81 MG Tab.Chew PO SCH (08:01)
[2018-08-04] MEDS: Famotidine 20 MG Tab PO SCH ×2 (08:01→20:29)
[2018-08-04] MEDS: Acetaminophen 325 MG Tab PO SCH ×4 (08:02→20:29)
[2018-08-04] MEDS: Sertraline 50 MG Tab PO SCH (08:02)
[2018-08-04] MEDS: valACYclovir 500 MG Tab PO SCH ×2 (08:02→20:29)
[2018-08-04] MEDS: Clopidogrel 75 MG Tab PO SCH (08:02)
[2018-08-04] MEDS: Bacitracin/Neomycin/Polymyxin B Oint 28.4 GM Tube TOP SCH ×4 (08:03→20:30)
[2018-08-04] MEDS: Gabapentin 300 MG Cap PO SCH ×2 (08:06→20:29)
[2018-08-04] MEDS: Metoprolol Succinate 25 MG Tab.ER PO SCH (08:06)
[2018-08-04] MEDS: Ibuprofen 800 MG Tab PO PRN ×2 (08:06→18:42)
[2018-08-04] MEDS: Miconazole 2% Vaginal Crm 45 GM Tube TOP SCH ×2 (08:07→20:30)
[2018-08-04] MEDS: Polyethylene Glycol 3350 Powder 17 GM Packet PO SCH (08:08)
[2018-08-04] MEDS: rOPINIRole 1 MG Tab PO SCH (18:37)
[2018-08-04] MEDS: Melatonin 3 MG Tab PO SCH (20:29)
[2018-08-04] MEDS: Rosuvastatin 10 MG Tab PO SCH (20:29)
[2018-08-04] MEDS: Erythromycin Base 0.5% Ophth Oint 1 GM Tube EYERT SCH (20:30)
[2018-08-04] MEDS: Insulin Glargine,Human Rec. Analog 100 Units/ML 3 ML Pen SUBCUT SCH (20:31)
[2018-08-05] MEDS: Insulin Lispro 100 Unit/ML 3 ML KwikPen SUBCUT SCH ×6 (08:44→18:06)
[2018-08-05] MEDS: Miconazole 2% Vaginal Crm 45 GM Tube TOP SCH ×2 (09:23→22:10)
[2018-08-05] MEDS: Polyethylene Glycol 3350 Powder 17 GM Packet PO SCH (09:24)
[2018-08-05] MEDS: Aspirin 81 MG Tab.Chew PO SCH (09:26)
[2018-08-05] MEDS: Bumetanide 2 MG Tab PO SCH (09:26)
[2018-08-05] MEDS: Famotidine 20 MG Tab PO SCH ×2 (09:27→22:12)
[2018-08-05] MEDS: Magnesium Oxide 400 MG Tab PO SCH (09:27)
[2018-08-05] MEDS: Ferrous Sulfate 325 MG Tab PO SCH (09:27)
[2018-08-05] MEDS: Metoprolol Succinate 25 MG Tab.ER PO SCH (09:28)
[2018-08-05] MEDS: Clopidogrel 75 MG Tab PO SCH (09:28)
[2018-08-05] MEDS: Bacitracin/Neomycin/Polymyxin B Oint 28.4 GM Tube TOP SCH (09:29)
[2018-08-05] MEDS: Acetaminophen 325 MG Tab PO SCH ×4 (09:30→22:13)
[2018-08-05] MEDS: valACYclovir 500 MG Tab PO SCH ×2 (09:30→22:13)
[2018-08-05] MEDS: Sertraline 50 MG Tab PO SCH (09:31)
[2018-08-05] MEDS ORDERED: Polyethylene Glycol 3350 Powder 17 GM Packet PO PRN (09:33)
[2018-08-05] MEDS: Gabapentin 300 MG Cap PO SCH ×2 (09:34→22:11)
[2018-08-05] MEDS ORDERED: Insulin Lispro 100 Unit/ML 3 ML KwikPen SUBCUT SCH (12:00)
--- NOTE | 2018-08-05 12:02 | PCM.PN ---
- General Info Date of Service: 08/05/18 Subjective Update: Patient is a 67-year-old female currently admitted to [facility] for swing bed status for debility after a left hip fracture status post ORIF and NSTEMI. Currently on SB day #14. Doing very well. No chest pain or shortness of breath, no nausea or vomiting. Has a home visit planned for today to see if she is ready for discharge and if it goes well she can be discharged at this week. Blood sugars have been in the 170s to 140s. She is currently 8 units meal coverage and glargine 25 units. She asked me to see her today because she has a rash under her breasts that she wanted me to look at. It's itchy and painful. She's been using some type of antibiotic cream without results. Has been here since admission and was initially treated with nystatin powder. We had added a steroid cream for her labial itching and this has been helpful. Blood pressures been running in the 140s to 150s and she tells me that she was on lisinopril in the past but it has been stopped because her blood pressure was down in the 110s. - Patient Data Vitals - Most Recent: Last Vital Signs Temp 36.7 C 08/05/18 08:00 Pulse 77 08/05/18 09:28 Resp 18 08/05/18 08:00 BP 143/61 H 08/05/18 09:28 Pulse Ox 91 L 08/04/18 08:00 Weight - Most Recent: 92.896 kg Lab Results Last 24 Hours: Laboratory Results - last 24 hr 08/04/18 08/05/18 Range/Units 17:19 06:32 POC Glucose 165 H 196 H (80-116) mg/dL Med Orders - Current: Current Medications Acetaminophen (Tylenol) 650 mg PO QID [facility] Last Admin: 08/05/18 09:30 Dose: 650 mg Aspirin (Aspirin) 81 mg PO DAILY [facility] Last Admin: 08/05/18 09:26 Dose: 81 mg Bumetanide (Bumex) 2 mg PO DAILY [facility] Last Admin: 08/05/18 09:26 Dose: 2 mg Clopidogrel Bisulfate (Plavix) 75 mg PO DAILY [facility] Last Admin: 08/05/18 09:28 Dose: 75 mg Diphenoxylate HCl/Atropine (Lomotil 0.025-2.5 Mg) 1 tab PO Q6H PRN PRN Reason: Diarrhea Last Admin: 07/29/18 08:17 Dose: 1 tab Erythromycin (Erythromycin 0.5% Ophth Oint) 0 gm EYERT BEDTIME [facility] Last Admin: 08/04/18 20:30 Dose: 1 applic Famotidine (Pepcid) 20 mg PO BID [facility] Last Admin: 08/05/18 09:27 Dose: 20 mg Ferrous Sulfate (Ferrous Sulfate) 325 mg PO DAILY [facility] Last Admin: 08/05/18 09:27 Dose: 325 mg Gabapentin (Neurontin) 300 mg PO BID [facility] Last Admin: 08/05/18 09:34 Dose: 300 mg Ibuprofen (Motrin) 800 mg PO TID PRN PRN Reason: PAIN Last Admin: 08/04/18 18:42 Dose: 800 mg Insulin Glargine (Lantus Solostar) 25 units SUBCUT BEDTIME [facility] Last Admin: 08/04/18 20:31 Dose: 25 units Insulin Human Lispro (Humalog) 8 unit SUBCUT TIDMEALS [facility] Last Admin: 08/05/18 08:44 Dose: 8 units Insulin Human Lispro (Humalog) 0 unit SUBCUT TIDMEALS [facility]; Protocol Last Admin: 08/05/18 08:45 Dose: 1 unit Lisinopril (Prinivil) 5 mg PO DAILY [facility] Magnesium Oxide (Magnesium Oxide) 400 mg PO DAILY [facility] Last Admin: 08/05/18 09:27 Dose: 400 mg Melatonin (Melatonin) 3 mg PO BEDTIME [facility] Last Admin: 08/04/18 20:29 Dose: 3 mg Metoprolol Succinate (Toprol Xl) 25 mg PO DAILY [facility] Last Admin: 08/05/18 09:28 Dose: 25 mg Miconazole (Miconazole 2% Vaginal) 0 gm TOP BID [facility] Last Admin: 08/05/18 09:23 Dose: Not Given Neomycin/Polymyxin/Bacitracin (Triple Antibiotic Oint) 0 gm TOP QID [facility] Stop: 08/07/18 13:01 Last Admin: 08/05/18 09:29 Dose: 1 applic Polyethylene Glycol (Miralax) 17 gm PO DAILY PRN PRN Reason: CONSTIPATION Ropinirole HCl (Requip) 4 mg PO 1900 [facility] Last Admin: 08/04/18 18:37 Dose: 4 mg Rosuvastatin Calcium (Crestor) 10 mg PO BEDTIME [facility] Last Admin: 08/04/18 20:29 Dose: 10 mg Senna/Docusate Sodium (Senna Plus) 1 tab PO BID PRN PRN Reason: CONSTIPATION Sertraline HCl (Zoloft) 50 mg PO DAILY [facility] Last Admin: 08/05/18 09:31 Dose: 50 mg Triamcinolone Acetonide (Kenalog 0.1% Crm) 0 gm TOP BID PRN PRN Reason: labial itching Last Admin: 08/03/18 12:48 Dose: 1 applic Valacyclovir HCl (Valtrex) 500 mg PO BID [facility] Last Admin: 08/05/18 09:30 Dose: 500 mg Discontinued Medications Gabapentin (Neurontin) 300 mg PO TID [facility] Last Admin: 08/01/18 09:23 Dose: 300 mg Insulin Glargine (Lantus Solostar) 35 units SUBCUT BEDTIME [facility] Last Admin: 07/30/18 20:12 Dose: 35 units Insulin Glargine (Lantus Solostar) 30 units SUBCUT BEDTIME [facility] Last Admin: 07/31/18 21:32 Dose: 30 units Insulin Glargine (Lantus Solostar) 20 units SUBCUT BEDTIME [facility] Last Admin: 08/03/18 20:35 Dose: 20 units Insulin Human Lispro (Humalog) 15 unit SUBCUT TIDMEALS [facility] Last Admin: 07/29/18 12:09 Dose: 15 units Insulin Human Lispro (Humalog) 10 unit SUBCUT TIDMEALS [facility] Last Admin: 07/31/18 13:07 Dose: Not Given Insulin Human Lispro (Humalog) 5 unit SUBCUT TIDMEALS [facility] Last Admin: 08/03/18 13:42 Dose: Not Given Insulin Human Lispro (Humalog) 5 unit SUBCUT TIDMEALS [facility] Stop: 07/31/18 12:58 Last Admin: 07/31/18 13:04 Dose: 5 units Loperamide HCl (Imodium) 4 mg PO ONETIME [facility] Stop: 07/26/18 10:29 Last Admin: 07/26/18 10:44 Dose: 4 mg Loperamide HCl (Imodium) 2 mg PO Q6H PRN PRN Reason: LOOSE STOOLS Metoprolol Tartrate (Lopressor) 25 mg PO BID [facility] Stop: 08/01/18 22:00 Last Admin: 08/01/18 20:29 Dose: 25 mg Nystatin (Nystop) 0 gm TOP TID [facility] Last Admin: 07/31/18 09:20 Dose: Not Given Polyethylene Glycol (Miralax) 17 gm PO DAILY [facility] Last Admin: 08/05/18 09:24 Dose: Not Given Ropinirole HCl (Requip) 4 mg PO BEDTIME [facility] Last Admin: 07/29/18 20:11 Dose: 4 mg Senna/Docusate Sodium (Senna Plus) 1 tab PO BID [facility] Last Admin: 08/05/18 09:24 Dose: Not Given Tamsulosin HCl (Flomax) 0.4 mg PO BEDTIME [facility] Stop: 08/01/18 21:01 Last Admin: 08/01/18 20:26 Dose: 0.4 mg - Exam General: Alert, Oriented, Cooperative, No Acute Distress HEENT: Pupils Equal, Pupils Reactive Neck: Supple Skin: Other (Under the breasts, the patient has erythematous raised areas with a central cracking consistent with fungal infection.) - Problem List & Annotations (1) S/P total hip arthroplasty SNOMED Code(s): 429469221957, 996717857855 Code(s): Z96.649 - PRESENCE OF UNSPECIFIED ARTIFICIAL HIP JOINT Status: Acute Current Visit: Yes Annotation/Comment:: Requiring physical therapy and occupational therapy. Patient is progressing well. On Tylenol and gabapentin only for pain. Will decrease gabapentin to once daily with plan to stop in 3 days. Likely discharge later this week. (2) CAD (coronary artery disease) SNOMED Code(s): 62884334 Code(s): I25.10 - ATHSCL HEART DISEASE OF [place] CORONARY ARTERY W/O ANG PCTRS Status: Acute Current Visit: Yes Annotation/Comment:: Recent history of an NSTEMI with stroke and assessment for occult atrial fibrillation. Changed the patient's metoprolol from tartrate to succinate. Continue Plavix and aspirin. (3) Acute urinary retention SNOMED Code(s): 286467442 Code(s): R33.8 - OTHER RETENTION OF URINE Status: Acute Current Visit: Yes Annotation/Comment:: No evidence of retention at this time. (4) Depression SNOMED Code(s): 38384933 Code(s): F32.9 - MAJOR DEPRESSIVE DISORDER, SINGLE EPISODE, UNSPECIFIED Status: Acute Current Visit: Yes Annotation/Comment:: Appears in remission with very good spirits at this time. Monitor. Continue Zoloft. (5) Hypertension SNOMED Code(s): 82062910 Code(s): I10 - ESSENTIAL (PRIMARY) HYPERTENSION Status: Acute Current Visit: Yes Annotation/Comment:: Lisinopril started at 5 mg 08/05/18. (6) Type 2 diabetes mellitus SNOMED Code(s): 30083791 Code(s): E11.9 - TYPE 2 DIABETES MELLITUS WITHOUT COMPLICATIONS Status: Acute Current Visit: Yes Annotation/Comment:: Baseline insulin usage is 35 units long-acting at bedtime and 15 units with meals. Goal is blood sugars all under 200. Has been getting 8 units short acting with 1 unit sliding scale pretty consistently. Will increase short acting to 10 units with meals. (7) Candidiasis of breast SNOMED Code(s): 15211328, 034190991 Code(s): B37.89 - OTHER SITES OF CANDIDIASIS Status: Acute Current Visit : Yes Annotation/Comment:: Will use miconazole cream BID and QID nystatin powder to keep dry. Dress with 4x4 gauze and wash BID. Stop antibiotic ointment. (8) DVT prophylaxis SNOMED Code(s): 033990638, 626314996 Code(s): XRI5389 - Status: Acute Current Visit: Yes Annotation/Comment :: Aspirin and plavix, SCDs, HUY childers. - Problem List Review Problem List Initiated/Reviewed/Updated: Yes - My Orders Last 24 Hours: My Active Orders 08/04/18 21:00 Insulin Glarg,Human.Rec.Analog [LantUS Solostar] 25 units SUBCUT BEDTIME 08/05/18 09:33 Docusate Sodium/Sennosides [Senna Plus] 1 tab PO BID PRN Polyethylene Glycol 3350 [MiraLAX] 17 gm PO DAILY PRN 08/05/18 10:00 Lisinopril [Prinivil] 5 mg PO DAILY
[2018-08-05] MEDS: Lisinopril 5 MG Tab PO SCH (13:56)
[2018-08-05] MEDS ORDERED: Insulin Lispro 100 Unit/ML 3 ML KwikPen SUBCUT ONE (14:18)
[2018-08-05] MEDS: Nystatin Topical Powder 15 GM Bottle TOP SCH ×3 (14:53→22:11)
[2018-08-05] MEDS: rOPINIRole 1 MG Tab PO SCH (18:47)
[2018-08-05] MEDS: Erythromycin Base 0.5% Ophth Oint 1 GM Tube EYERT SCH (22:07)
[2018-08-05] MEDS: Insulin Glargine,Human Rec. Analog 100 Units/ML 3 ML Pen SUBCUT SCH (22:08)
[2018-08-05] MEDS: Rosuvastatin 10 MG Tab PO SCH (22:08)
[2018-08-05] MEDS: Melatonin 3 MG Tab PO SCH (22:09)
[2018-08-06] MEDS: Insulin Lispro 100 Unit/ML 3 ML KwikPen SUBCUT SCH ×9 (07:49→18:08)
[2018-08-06] MEDS: Bumetanide 2 MG Tab PO SCH (08:00)
[2018-08-06] MEDS: Aspirin 81 MG Tab.Chew PO SCH (08:00)
[2018-08-06] MEDS: Ferrous Sulfate 325 MG Tab PO SCH (08:01)
[2018-08-06] MEDS: Miconazole 2% Vaginal Crm 45 GM Tube TOP SCH (08:01)
[2018-08-06] MEDS: Magnesium Oxide 400 MG Tab PO SCH (08:01)
[2018-08-06] MEDS: Lisinopril 5 MG Tab PO SCH (08:02)
[2018-08-06] MEDS: Clopidogrel 75 MG Tab PO SCH (08:02)
[2018-08-06] MEDS: Nystatin Topical Powder 15 GM Bottle TOP SCH ×5 (08:02→21:43)
[2018-08-06] MEDS: Famotidine 20 MG Tab PO SCH ×2 (08:02→21:53)
[2018-08-06] MEDS: Metoprolol Succinate 25 MG Tab.ER PO SCH (08:03)
[2018-08-06] MEDS: Acetaminophen 325 MG Tab PO SCH ×4 (08:03→21:53)
[2018-08-06] MEDS: valACYclovir 500 MG Tab PO SCH ×2 (08:04→21:53)
[2018-08-06] MEDS: Sertraline 50 MG Tab PO SCH (08:04)
[2018-08-06] MEDS: rOPINIRole 1 MG Tab PO SCH (18:32)
[2018-08-06] MEDS ORDERED: Miconazole 2% Crm 30 GM Tube TOP SCH (21:00)
[2018-08-06] MEDS: Melatonin 3 MG Tab PO SCH (21:52)
[2018-08-06] MEDS: Rosuvastatin 10 MG Tab PO SCH (21:52)
[2018-08-06] MEDS: Gabapentin 300 MG Cap PO SCH (21:52)
[2018-08-06] MEDS: Erythromycin Base 0.5% Ophth Oint 1 GM Tube EYERT SCH (21:53)
[2018-08-06] MEDS: Insulin Glargine,Human Rec. Analog 100 Units/ML 3 ML Pen SUBCUT SCH (21:54)
[2018-08-07] MEDS: Insulin Lispro 100 Unit/ML 3 ML KwikPen SUBCUT SCH ×6 (09:00→17:42)
[2018-08-07] MEDS: Acetaminophen 325 MG Tab PO SCH ×4 (09:03→20:17)
[2018-08-07] MEDS: Sertraline 50 MG Tab PO SCH (09:03)
[2018-08-07] MEDS: Famotidine 20 MG Tab PO SCH ×2 (09:03→20:17)
[2018-08-07] MEDS: Clopidogrel 75 MG Tab PO SCH (09:03)
[2018-08-07] MEDS: valACYclovir 500 MG Tab PO SCH ×2 (09:04→20:17)
[2018-08-07] MEDS: Bumetanide 2 MG Tab PO SCH (09:04)
[2018-08-07] MEDS: Aspirin 81 MG Tab.Chew PO SCH (09:04)
[2018-08-07] MEDS: Lisinopril 5 MG Tab PO SCH (09:04)
[2018-08-07] MEDS: Metoprolol Succinate 25 MG Tab.ER PO SCH (09:04)
[2018-08-07] MEDS: Ferrous Sulfate 325 MG Tab PO SCH (09:05)
[2018-08-07] MEDS: Magnesium Oxide 400 MG Tab PO SCH (09:05)
[2018-08-07] MEDS: Nystatin Topical Powder 15 GM Bottle TOP SCH ×4 (09:09→20:17)
[2018-08-07] MEDS: Miconazole 2% Vaginal Crm 45 GM Tube TOP SCH ×2 (11:17→20:16)
--- NOTE | 2018-08-07 13:06 | PCM.PN ---
- General Info Date of Service: 08/07/18 Subjective Update: Patient is a 67-year-old female currently admitted to [facility] for swing bed status for debility after a left hip fracture status post ORIF and NSTEMI. Currently on SB day #16. Doing very well. No chest pain or shortness of breath, no nausea or vomiting. Blood sugars have been doing very well except for the last couple of days she's eaten lunch out so has missed her noon insulin until she got back which makes her blood sugars appear more elevated as those values are postprandial. Morning sugars have been in the 120s to 140s. She feels the rash under her breasts is improved significantly. She's been using the monistat cream only as the nystatin powder burned. Her appointment went very well yesterday and she feels ready to discharge home. She would like to increase her basal insulin a little bit more and I increased it to 30 units today and then go home at 10 units per meal. The triamcinolone cream has worked well for her labial itching and she is only using it sporadically, not every day. - Patient Data Vitals - Most Recent: Last Vital Signs Temp 36.3 C 08/07/18 07:25 Pulse 76 08/07/18 09:04 Resp 18 08/07/18 07:25 BP 153/61 H 08/07/18 09:04 Pulse Ox 97 08/07/18 07:25 Weight - Most Recent: 92.896 kg Lab Results Last 24 Hours: Laboratory Results - last 24 hr 08/06/18 08/06/18 08/07/18 Range/Units 13:33 17:13 06:15 POC Glucose 317 H D 143 H D (80-116) mg/dL Phosphorus 4.4 (2.6-4.6) mg/dL Magnesium 2.1 (1.8-2.5) mg/dL TSH, Ultra Sensitive (0.36-3.74) IU/mL 08/07/18 08/07/18 Range/Units 06:15 06:15 POC Glucose 128 H (80-116) mg/dL Phosphorus (2.6-4.6) mg/dL Magnesium (1.8-2.5) mg/dL TSH, Ultra Sensitive 1.60 (0.36-3.74) IU/mL Med Orders - Current: Current Medications Acetaminophen (Tylenol) 650 mg PO QID [facility] Last Admin: 08/07/18 12:46 Dose: 650 mg Aspirin (Aspirin) 81 mg PO DAILY [facility] Last Admin: 08/07/18 09:04 Dose: 81 mg Bumetanide (Bumex) 2 mg PO DAILY [facility] Last Admin: 08/07/18 09:04 Dose: 2 mg Clopidogrel Bisulfate (Plavix) 75 mg PO DAILY [facility] Last Admin: 08/07/18 09:03 Dose: 75 mg Diphenoxylate HCl/Atropine (Lomotil 0.025-2.5 Mg) 1 tab PO Q6H PRN PRN Reason: Diarrhea Last Admin: 07/29/18 08:17 Dose: 1 tab Erythromycin (Erythromycin 0.5% Ophth Oint) 0 gm EYERT BEDTIME [facility] Last Admin: 08/06/18 21:53 Dose: 1 applic Famotidine (Pepcid) 20 mg PO BID [facility] Last Admin: 08/07/18 09:03 Dose: 20 mg Ferrous Sulfate (Ferrous Sulfate) 325 mg PO DAILY [facility] Last Admin: 08/07/18 09:05 Dose: 325 mg Gabapentin (Neurontin) 300 mg PO BEDTIME [facility] Stop: 08/08/18 21:01 Last Admin: 08/06/18 21:52 Dose: 300 mg Ibuprofen (Motrin) 800 mg PO TID PRN PRN Reason: PAIN Last Admin: 08/04/18 18:42 Dose: 800 mg Insulin Glargine (Lantus Solostar) 30 units SUBCUT BEDTIME [facility] Insulin Human Lispro (Humalog) 0 unit SUBCUT TIDMEALS [facility]; Protocol Last Admin: 08/07/18 12:44 Dose: Not Given Insulin Human Lispro (Humalog) 10 unit SUBCUT TIDMEALS [facility] Last Admin: 08/07/18 12:40 Dose: 10 units Lisinopril (Prinivil) 5 mg PO DAILY [facility] Last Admin: 08/07/18 09:04 Dose: 5 mg Magnesium Oxide (Magnesium Oxide) 400 mg PO DAILY [facility] Last Admin: 08/07/18 09:05 Dose: 400 mg Melatonin (Melatonin) 3 mg PO BEDTIME [facility] Last Admin: 08/06/18 21:52 Dose: 3 mg Metoprolol Succinate (Toprol Xl) 25 mg PO DAILY [facility] Last Admin: 08/07/18 09:04 Dose: 25 mg Miconazole (Miconazole 2% Vaginal) 0 gm TOP BID [facility] Last Admin: 08/07/18 11:17 Dose: 1 applic Nystatin (Nystop) 0 gm TOP QID [facility] Last Admin: 08/07/18 12:44 Dose: Not Given Polyethylene Glycol (Miralax) 17 gm PO DAILY PRN PRN Reason: CONSTIPATION Ropinirole HCl (Requip) 4 mg PO 1900 [facility] Last Admin: 08/06/18 18:32 Dose: 4 mg Rosuvastatin Calcium (Crestor) 10 mg PO BEDTIME [facility] Last Admin: 08/06/18 21:52 Dose: 10 mg Senna/Docusate Sodium (Senna Plus) 1 tab PO BID PRN PRN Reason: CONSTIPATION Sertraline HCl (Zoloft) 50 mg PO DAILY [facility] Last Admin: 08/07/18 09:03 Dose: 50 mg Triamcinolone Acetonide (Kenalog 0.1% Crm) 0 gm TOP BID PRN PRN Reason: labial itching Last Admin: 08/03/18 12:48 Dose: 1 applic Valacyclovir HCl (Valtrex) 500 mg PO BID [facility] Last Admin: 08/07/18 09:04 Dose: 500 mg Discontinued Medications Gabapentin (Neurontin) 300 mg PO TID [facility] Last Admin: 08/01/18 09:23 Dose: 300 mg Gabapentin (Neurontin) 300 mg PO BID [facility] Last Admin: 08/05/18 09:34 Dose: 300 mg Insulin Glargine (Lantus Solostar) 35 units SUBCUT BEDTIME [facility] Last Admin: 07/30/18 20:12 Dose: 35 units Insulin Glargine (Lantus Solostar) 30 units SUBCUT BEDTIME [facility] Last Admin: 07/31/18 21:32 Dose: 30 units Insulin Glargine (Lantus Solostar) 20 units SUBCUT BEDTIME [facility] Last Admin: 08/03/18 20:35 Dose: 20 units Insulin Glargine (Lantus Solostar) 25 units SUBCUT BEDTIME [facility] Last Admin: 08/06/18 21:54 Dose: 25 units Insulin Human Lispro (Humalog) 15 unit SUBCUT TIDMEALS [facility] Last Admin: 07/29/18 12:09 Dose: 15 units Insulin Human Lispro (Humalog) 10 unit SUBCUT TIDMEALS [facility] Last Admin: 07/31/18 13:07 Dose: Not Given Insulin Human Lispro (Humalog) 5 unit SUBCUT TIDMEALS [facility] Last Admin: 08/03/18 13:42 Dose: Not Given Insulin Human Lispro (Humalog) 5 unit SUBCUT TIDMEALS ONE Stop: 07/31/18 12:58 Last Admin: 07/31/18 13:04 Dose: 5 units Insulin Human Lispro (Humalog) 8 unit SUBCUT TIDMEALS [facility] Last Admin: 08/06/18 13:45 Dose: 10 units Insulin Human Lispro (Humalog) 10 unit SUBCUT ONETIME ONE Stop: 08/05/18 14:19 Last Admin: 08/05/18 14:30 Dose: 10 units Loperamide HCl (Imodium) 4 mg PO ONETIME ONE Stop: 07/26/18 10:29 Last Admin: 07/26/18 10:44 Dose: 4 mg Loperamide HCl (Imodium) 2 mg PO Q6H PRN PRN Reason: LOOSE STOOLS Metoprolol Tartrate (Lopressor) 25 mg PO BID [facility] Stop: 08/01/18 22:00 Last Admin: 08/01/18 20:29 Dose: 25 mg Miconazole (Miconazole 2% Vaginal) 0 gm TOP BID [facility] Last Admin: 08/06/18 08:01 Dose: 1 applic Miconazole (Miconazole 2% Crm) 0 gm TOP BID [facility] Last Admin: 08/07/18 00:01 Dose: Not Given Neomycin/Polymyxin/Bacitracin (Triple Antibiotic Oint) 0 gm TOP QID [facility] Stop: 08/07/18 13:01 Last Admin: 08/05/18 09:29 Dose: 1 applic Nystatin (Nystop) 0 gm TOP TID [facility] Last Admin: 07/31/18 09:20 Dose: Not Given Polyethylene Glycol (Miralax) 17 gm PO DAILY [facility] Last Admin: 08/05/18 09:24 Dose: Not Given Ropinirole HCl (Requip) 4 mg PO BEDTIME [facility] Last Admin: 07/29/18 20:11 Dose: 4 mg Senna/Docusate Sodium (Senna Plus) 1 tab PO BID [facility] Last Admin: 08/05/18 09:24 Dose: Not Given Tamsulosin HCl (Flomax) 0.4 mg PO BEDTIME [facility] Stop: 08/01/18 21:01 Last Admin: 08/01/18 20:26 Dose: 0.4 mg - Exam General: Alert, Oriented, Cooperative, No Acute Distress HEENT: Pupils Equal, Pupils Reactive, EOMI Neck: Supple Lungs: Clear to Auscultation, Normal Respiratory Effort Cardiovascular: Regular Rate, Regular Rhythm, No Murmurs GI/Abdominal Exam: Normal Bowel Sounds, Soft, Non-Tender (Female) Exam: Other (the linear erythema with crease open under each breast appears to be much improved to me. Redness almost gone, the linear cuts have healed from the bottom up. ) Extremities: Pedal Edema (trace bilateral, huy hose on.) Psy/Mental Status: Alert, Normal Affect, Normal Mood - Problem List & Annotations (1) S/P total hip arthroplasty SNOMED Code(s): 265739546622, 167334773586 Code(s): Z96.649 - PRESENCE OF UNSPECIFIED ARTIFICIAL HIP JOINT Status: Acute Current Visit: Yes Annotation/Comment:: Requiring physical therapy and occupational therapy. Patient will be ready for discharge tomorrow. Gabapentin will have completed taper with last dose last night. Continue tylenol for pain. (2) CAD (coronary artery disease) SNOMED Code(s): 32679192 Code(s): I25.10 - ATHSCL HEART DISEASE OF [place] CORONARY ARTERY W/O ANG PCTRS Status: Acute Current Visit: Yes Annotation/Comment:: Recent history of an NSTEMI with stroke and assessment for occult atrial fibrillation. Changed the patient's metoprolol from tartrate to succinate. Continue Plavix and aspirin. (3) Acute urinary retention SNOMED Code(s): 840916040 Code(s): R33.8 - OTHER RETENTION OF URINE Status: Acute Current Visit: Yes Annotation/Comment:: No evidence of retention at this time. (4) Depression SNOMED Code(s): 46939952 Code(s): F32.9 - MAJOR DEPRESSIVE DISORDER, SINGLE EPISODE, UNSPECIFIED Status: Acute Current Visit: Yes Annotation/Comment:: Appears in remission with very good spirits at this time. Monitor. Continue Zoloft. (5) Hypertension SNOMED Code(s): 82409910 Code(s): I10 - ESSENTIAL (PRIMARY) HYPERTENSION Status: Acute Current Visit: Yes Annotation/Comment:: Lisinopril started at 5 mg 08/05/18. Blood pressure well controlled. (6) Type 2 diabetes mellitus SNOMED Code(s): 62203748 Code(s): E11.9 - TYPE 2 DIABETES MELLITUS WITHOUT COMPLICATIONS Status: Acute Current Visit: Yes Annotation/Comment:: Baseline insulin usage is 35 units long-acting at bedtime and 15 units with meals. Goal is blood sugars all under 200. Increase basal to 10 units QHS and continue bolus 10 units with meals. (7) Candidiasis of breast SNOMED Code(s): 60302560, 301558394 Code(s): B37.89 - OTHER SITES OF CANDIDIASIS Status: Acute Current Visit : Yes Annotation/Comment:: Continue miconazole cream BID and dress with gauze to keep dry. (8) DVT prophylaxis SNOMED Code(s): 016945691, 091920465 Code(s): NEX0172 - Status: Acute Current Visit: Yes Annotation/Comment :: Aspirin and plavix, SCDs, HUY childers. - Problem List Review Problem List Initiated/Reviewed/Updated: Yes - My Orders Last 24 Hours: My Active Orders 08/07/18 06:15 PTH, INTACT Routine VITAMIN D, 25-HYDROXY Routine 08/07/18 08:00 Dexa Bone Density Body [MY] Routine 08/07/18 10:00 Miconazole [Miconazole 2% Vaginal] 0 gm TOP BID 08/07/18 21:00 Insulin Glarg,Human.Rec.Analog [LantUS Solostar] 30 units SUBCUT BEDTIME
--- NOTE | 2018-08-07 15:04 | CR ---
INDICATION: Postmenopausal screening, patient with pathological fracture. BONE DENSITOMETRY DEXA SCAN: The bone density of the lumbar spine from L1 through L4 measures 1.407 gm/cm2. This represents a value 119% that of a young adult. The T-score of +1.9 is normal. The fracture risk is low - moderated by hypertrophic degenerative changes. The total mean density of the right femoral neck measures 0.696 gm/cm2. This represents a value 67% that of a young adult. The T-score of -2.5 is very low. The fracture risk is high. The total mean density of the left forearm, radius 33% measures 0.658 gm/cm2. This represents a value 75% that of a young adult. The T-score of -2.5 is low. The fracture risk is high. IMPRESSION: Osteoporosis. Dual femur FRAX 10-year probability of fracture: Major osteoporotic 19.8%. Hip fracture 4.5%. Population [place] (). Based on dual-femur neck BMD. RECOMMENDATIONS: The patients intake of calcium is adequate. Start a weightbearing exercise: Walking, cycling, cross-country skiing, aerobic dancing, weightlifting, etc. Antiresorptive therapy: may use any of the following agents: Estrogen, bisphosphates, Raloxifene. (The effectiveness , potential side effects, and contraindications of each drug should be assessed before selection.) Follow up 2 years. Dietary or supplemental calcium is recommended to a level of 1500 mg per day and vitamin D supplement to 400-800 international units per day. MTDD
[2018-08-07] MEDS: rOPINIRole 1 MG Tab PO SCH (18:59)
[2018-08-07] MEDS: Erythromycin Base 0.5% Ophth Oint 1 GM Tube EYERT SCH (20:12)
[2018-08-07] MEDS: Rosuvastatin 10 MG Tab PO SCH (20:12)
[2018-08-07] MEDS: Melatonin 3 MG Tab PO SCH (20:16)
[2018-08-07] MEDS ORDERED: Insulin Glargine,Human Rec. Analog 100 Units/ML 3 ML Pen SUBCUT SCH (21:00)
[2018-08-08] MEDS: Ibuprofen 800 MG Tab PO PRN (03:05)
[2018-08-08] MEDS: Insulin Lispro 100 Unit/ML 3 ML KwikPen SUBCUT SCH ×2 (09:56→09:58)
[2018-08-08] MEDS: Aspirin 81 MG Tab.Chew PO SCH (10:01)
[2018-08-08] MEDS: Magnesium Oxide 400 MG Tab PO SCH (10:01)
[2018-08-08] MEDS: Ferrous Sulfate 325 MG Tab PO SCH (10:01)
[2018-08-08] MEDS: Bumetanide 2 MG Tab PO SCH (10:01)
[2018-08-08] MEDS: Miconazole 2% Vaginal Crm 45 GM Tube TOP SCH (10:02)
[2018-08-08] MEDS: Clopidogrel 75 MG Tab PO SCH (10:02)
[2018-08-08] MEDS: Metoprolol Succinate 25 MG Tab.ER PO SCH (10:03)
[2018-08-08] MEDS: Lisinopril 5 MG Tab PO SCH (10:03)
[2018-08-08] MEDS: valACYclovir 500 MG Tab PO SCH (10:04)
[2018-08-08] MEDS: Acetaminophen 325 MG Tab PO SCH (10:04)
[2018-08-08] MEDS: Sertraline 50 MG Tab PO SCH (10:04)
[2018-08-08] MEDS: Nystatin Topical Powder 15 GM Bottle TOP SCH (10:07)
[2018-08-08] MEDS: Famotidine 20 MG Tab PO SCH (10:07)
--- NOTE | 2018-08-08 10:28 | DISCH ---
DISCHARGE DATE: 08/08/2018 REASON FOR ADMISSION: 1. General debility. 2. Status post left hip replacement. 3. NSTEMI. 4. Hypertension. 5. Depression. 6. Type 2 diabetes. 7. Urinary retention. BRIEF HISTORY: This is a 67-year-old female, who was admitted because of general debility after she had a hip replaced at [place] and then a non-ST- elevation OR followed afterwards. She is also a type 2 diabetic and hypertensive. She has been undergoing physical and occupational therapy and has progressed enough to go to the intermediate, and she is being discharged today. DISCHARGE MEDICATIONS: 1. P.r.n. acetaminophen. 2. Aspirin 81 mg a day. 3. Bumex 2 mg a day. 4. Plavix 75 mg daily. 5. Pepcid 20 mg b.i.d. 6. Ferrous sulfate 325 mg a day. 7. Insulin 30 units at bedtime and 10 units with every meal of Humalog. 8. Lisinopril 10 mg a day. 9. Magnesium oxide 400 mg a day. 10.Melatonin 3 mg at bedtime. 11.Metoprolol 25 mg at bedtime. 12.Requip 4 mg at 1900 hours. 13.Crestor 10 mg a day. 14.Zoloft 50 mg a day. 15.Valtrex 500 mg p.o. b.i.d. FOLLOWUP: She will be seen by Physical Therapy, Occupational Therapy, and her PCP at the intermediate. Please note that I spent more than 35 minutes in the discharge of the patient. /[id number] TAB/EDWIGE
== END 2018-08-08 11:50 | disposition home health service (06) | DRG 947 ==
LOC: FB.MS 15:52
PROVIDERS: ADMIT Family Medicine; ATTEND Family Medicine
DX: R53.81 Other malaise (principal); I21.4 Non-ST elevation (NSTEMI) myocardial infarction; J96.00 Acute respiratory failure, unspecified whether with hypoxia or hypercapnia; I50.30 Unspecified diastolic (congestive) heart failure; N17.9 Acute kidney failure, unspecified; G93.40 Encephalopathy, unspecified; D62 Acute posthemorrhagic anemia; Z68.41 Body mass index [BMI] 40.0-44.9, adult; Z96.642 Presence of left artificial hip joint; Z47.1 Aftercare following joint replacement surgery; I11.0 Hypertensive heart disease with heart failure; E11.65 Type 2 diabetes mellitus with hyperglycemia; Z79.4 Long term (current) use of insulin; Z86.73 Personal history of transient ischemic attack (TIA), and cerebral infarction without residual deficits; I25.10 Atherosclerotic heart disease of native coronary artery without angina pectoris; E78.5 Hyperlipidemia, unspecified; G25.81 Restless legs syndrome; L40.9 Psoriasis, unspecified; E66.9 Obesity, unspecified; F32.9 Major depressive disorder, single episode, unspecified; M54.9 Dorsalgia, unspecified; G89.29 Other chronic pain; H54.7 Unspecified visual loss; Z98.84 Bariatric surgery status; K59.00 Constipation, unspecified; L25.9 Unspecified contact dermatitis, unspecified cause; Z95.2 Presence of prosthetic heart valve; R33.8 Other retention of urine; R19.7 Diarrhea, unspecified; M79.604 Pain in right leg; Z79.82 Long term (current) use of aspirin; Z91.048 Other nonmedicinal substance allergy status; L29.8 Other pruritus
CPT/HCPCS: 36415; 77080; 80048; 80053; 82306; 82947; 82962; 83735; 83970; 84100; 84443; 85025; 87324; 93971-LT; 97110-GO; 97110-GP; 97116-GP; 97161-GP; 97166-GO; 97530-GO; 97530-GP; 97535-GO; A9270-GY; J1815; J1815-GY

== ENCOUNTER 2018-08-25 10:49 | Emergency (ER) | payer MEDICARE, OTHER ==
[2018-08-25] MEDS ORDERED: Lidocaine 1% PF 2 ML SDV INJECT ONE (10:50)
[2018-08-25] MEDS ORDERED: Bumetanide 1 MG/4 ML MDV IV ONE (10:50)
[2018-08-25] MEDS ORDERED: Albuterol/Ipratropium 3.0-0.5 MG/3 ML Neb Soln NEB ONE (11:10)
--- NOTE | 2018-08-25 11:12 | EDM.PDOC ---
ED HPI GENERAL MEDICAL PROBLEM - General Chief Complaint: Respiratory Problem Stated Complaint: SOB Time Seen by Provider: 08/25/18 10:50 Source of Information: Reports: Patient History Limitations: Reports: No Limitations - History of Present Illness INITIAL COMMENTS - FREE TEXT/NARRATIVE: c/o sob x 2w pt states she had an THR 5w ago, has been sob every since has blockage CAD x 2 of 60%, is d/t to have either CABG x 2 or stent x 2, that her doctors wanted to do the THR first she had an AVR 2y ago no CP, inc'd sob today, she had an appointment with Dr Verdugo, her granddaughter came to pick her up, she was so sob that it took 5 minutes to get into car and came here to ED sleeping okay fell OOB 07/17/18 and had a L subcapital hip fx came to ED here and also had a swollen LLE suspicious for a DVT with a inc'd d- dimer 24, however a LLE u/s later on 07/30/18 showed no DVT currently on ASA and Plavix PSH: L THR 5w ago, h/o AVR replacement with porcine-bovine valve per pt, h/o cardiac stents x 2 in past SH: dtrs x 2 and son-in-law live local labs: hgb 13.1 from 6w ago pre-op, last hgb here 7.9 from 4w ago. BUN/cr 16/0.8 from 1m ago. BNP 791 from 6w ago. alb 2.2 from 1m ago. - Related Data Allergies Allergy/AdvReac Type Severity Reaction Status Date / Time adhesive tape Allergy Itching Verified 08/25/18 10:54 Home Meds: Home Meds Aspirin [Ryne Chewable Aspirin] 81 mg PO DAILY 03/18/18 [History] Bumetanide [Bumex] 2 mg PO DAILY 03/18/18 [History] Clopidogrel [Plavix] 75 mg PO DAILY 03/18/18 [History] Famotidine [Pepcid] 20 mg PO BID 03/18/18 [History] Ferrous Sulfate 325 mg PO DAILY 03/18/18 [History] Magnesium Oxide 400 mg PO DAILY 03/18/18 [History] Rosuvastatin [Crestor] 10 mg PO BEDTIME 03/18/18 [History] Acetaminophen [Tylenol] 650 mg PO QID 07/23/18 [History] Sertraline [Zoloft] 50 mg PO DAILY 07/23/18 [History] rOPINIRole HCl [Requip] 4 mg PO BEDTIME 07/23/18 [History] valACYclovir HCl [Valtrex] 500 mg PO BID 07/23/18 [History] Lisinopril [Prinivil] 5 mg PO DAILY #30 tablet 08/07/18 [Rx] Metoprolol Succinate [Toprol XL] 25 mg PO DAILY #30 tab.er 08/07/18 [Rx] Insulin Glarg,Human.Rec.Analog [Lantus Solostar] 35 units SUBCUT BEDTIME [History] Insuln Asp Prot/Insulin Aspart [NovoLOG Mix 70-30] 20 units SQ TID 08/25/18 [ History] Past Medical History HEENT History: Reports: Impaired Vision 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 Cardiovascular History: Reports: CAD, Heart Murmur, High Cholesterol, Hypertension, Stents Respiratory History: Reports: None Gastrointestinal History: Reports: Colon Polyp, Hemorrhoids Genitourinary History: Reports: None 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 SECRETARY 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: Reports: 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 History: Musculoskeletal History: Reports: Back Pain, Chronic Neurological History: Reports: CVA Psychiatric History: Reports: Depression Endocrine/Metabolic History: Reports: Diabetes, Type II, Obesity/BMI 30+ Hematologic History: Reports: Anemia Immunologic History: Reports: None Oncologic (Cancer) History: Reports: None Dermatologic History: Reports: Psoriasis - Infectious Disease History Infectious Disease History: Reports: Chicken Pox, Measles, Mumps, Shingles - Past Surgical History Head Surgeries/Procedures: Reports: None HEENT Surgical History: Reports: Cataract Surgery, Detached Retina Other HEENT Surgeries/Procedures: has special eye drops made from her blood. Cardiovascular Surgical History: Reports: Coronary Artery Stent, Other (See Below) Other Cardiovascular Surgeries/Procedures: valve replacement Respiratory Surgical History: Reports: None GI Surgical History: Reports: Bariatric Procedure, Colonoscopy Female Surgical History: Reports: Tubal Ligation Endocrine Surgical History: Reports: None Neurological Surgical History: Reports: None Musculoskeletal Surgical History: Reports: Other (See Below) Other Musculoskeletal Surgeries/Procedures:: LEFT KNEE SURGERY Oncologic Surgical History: Reports: None Dermatological Surgical History: Reports: None Social & Family History - Family History Family Medical History: Noncontributory - Caffeine Use Caffeine Use: Reports: Coffee, Soda Other Caffeine Use: diet ED ROS GENERAL - Review of Systems Review Of Systems: See Below Constitutional: Reports: No Symptoms HEENT: Reports: No Symptoms Respiratory: Reports: Shortness of Breath. Denies: Cough Cardiovascular: Reports: No Symptoms. Denies: Chest Pain Endocrine: Reports: No Symptoms GI/Abdominal: Reports: No Symptoms : Reports: No Symptoms Musculoskeletal: Reports: No Symptoms Skin: Reports: No Symptoms Neurological: Reports: No Symptoms Psychiatric: Reports: No Symptoms Hematologic/Lymphatic: Reports: No Symptoms Immunologic: Reports: No Symptoms ED EXAM, GENERAL - Physical Exam Exam: See Below Exam Limited By: No Limitations General Appearance: Alert, WD/WN, Mild Distress, Other (inc'd BMI, anxious, talking in 10-word sentences, using accessory muscles, no purse lips, no retractions) Nose: Normal Inspection, Normal Mucosa, No Blood Throat/Mouth: Normal Inspection, Normal Lips, Normal Teeth, Normal Gums, Normal Oropharynx, Normal Voice, No Airway Compromise Head: Atraumatic, Normocephalic Neck: Normal Inspection, Supple, Non-Tender, Full Range of Motion. No: Lymphadenopathy (R), Lymphadenopathy (L) Respiratory/Chest: Other (fair AE, no cough, no rales) Cardiovascular: Regular Rate, Rhythm, No Gallop, No Rub, Other (midsternal scar , 2/6 EMILIANO at LSB< quiet precordium, 3+ edema to knees b/l, symmetric, trace edema to groin b/l, symmetric). No: Diastolic Murmur GI/Abdominal: Soft, Non-Tender, No Distention. No: Rigid, Rebound, Tender Back Exam: Normal Inspection, Full Range of Motion. No: CVA Tenderness (R), CVA Tenderness (L) Extremities: Normal Range of Motion, Non-Tender Neurological: Alert, Oriented, CN II-XII Intact, Normal Cognition, No Motor/ Sensory Deficits Psychiatric: Anxious Skin Exam: Warm, Dry, Intact, Normal Color, No Rash Lymphatic: No Adenopathy Course - Vital Signs Last Recorded V/S: Last Vital Signs Temp 36.9 C 08/25/18 10:50 Pulse 92 08/25/18 10:50 Resp 22 H 08/25/18 10:50 BP 166/67 H 08/25/18 10:50 Pulse Ox 96 08/25/18 11:30 - Orders/Labs/Meds Orders: Active Orders 24 hr Category Date Time Status EKG Documentation Completion [RC] ASDIRECTED Care 08/25/18 11:06 Active RT Aerosol Therapy [RC] ASDIRECTED Care 08/25/18 11:10 Active Ang Chest [CT] Stat Exams 08/25/18 12:38 Taken Chest 2V [CR] Stat Exams 08/25/18 11:05 Taken EKG 12 Lead [EK] Routine Ther 08/25/18 11:05 Ordered Labs: Laboratory Tests 08/25/18 08/25/18 08/25/18 Range/Units 10:55 10:55 10:55 WBC 7.5 (4.5-12.0) X10-3/uL RBC 3.44 (3.23-5.20) x10(6)uL Hgb 10.3 L (11.5-15.5) g/dL Hct 31.7 (30.0-51.3) % MCV 92.2 (80-96) fL MCH 29.9 (27.7-33.6) pg MCHC 32.4 (32.2-35.4) g/dL RDW 17.3 H (11.5-15.5) % Plt Count 455 H (125-369) X10(3)uL MPV 8.4 (7.4-10.4) fL Neut % (Auto) 74.3 (46-82) % Lymph % (Auto) 15.2 (13-37) % [place] % (Auto) 7.2 (4-12) % Eos % (Auto) 3 (1.0-5.0) % Baso % (Auto) 1 (0-2) % Neut # (Auto) 5.5 (1.6-8.3) # Lymph # (Auto) 1.1 (0.6-5.0) # Mcnairy # (Auto) 0.5 (0.0-1.3) # Eos # (Auto) 0.2 (0.0-0.8) # Baso # (Auto) 0.1 (0.0-0.2) # D-Dimer, Quantitative (0.0-0.59) mg/LFEU Sodium 140 (135-145) mmol/L Potassium 3.9 (3.5-5.3) mmol/L Chloride 103 (100-110) mmol/L Carbon Dioxide 26 (21-32) mmol/L BUN 13 (7-18) mg/dL Creatinine 0.9 (0.55-1.02) mg/dL Est Cr Clr Drug Dosing TNP Estimated GFR (MDRD) > 60 (>60) BUN/Creatinine Ratio 14.4 (9-20) Glucose 167 H (80-116) mg/dL Calcium 8.9 (8.6-10.2) mg/dL Magnesium 2.0 (1.8-2.5) mg/dL Total Bilirubin 0.5 (0.1-1.3) mg/dL AST 25 D (5-25) IU/L ALT 23 D (12-36) U/L Alkaline Phosphatase 126 H (56-112) IU/L Troponin I 0.017 (<0.017-0.056) ng/mL C-Reactive Protein 3.8 H* (0.5-0.9) mg/dL NT-Pro-B Natriuret Pep 3036 H* (<=125) pg/mL Total Protein 7.1 (6.0-8.0) g/dL Albumin 3.0 L (3.2-4.6) g/dL Globulin 4.1 g/dL Albumin/Globulin Ratio 0.7 Urine Color (YELLOW) Urine Appearance (CLEAR) Urine pH (5.0-6.5) Ur Specific [place] (1.010-1.025) Urine Protein (NEGATIVE) mg/dL Urine Glucose (UA) (NEGATIVE) mg/dL Urine Ketones (NEGATIVE) mg/dL Urine Occult Blood (NEGATIVE) Urine Nitrite (NEGATIVE) Urine Bilirubin (NEGATIVE) Urine Urobilinogen (NEGATIVE) mg/dL Ur Leukocyte Esterase (NEGATIVE) Urine RBC (0) Urine WBC (0) Ur Squamous Epith Cells (NS,R,O) Urine Bacteria (NS) Urine Mucus (NS) 08/25/18 08/25/18 Range/Units 10:55 12:39 WBC (4.5-12.0) X10-3/uL RBC (3.23-5.20) x10(6)uL Hgb (11.5-15.5) g/dL Hct (30.0-51.3) % MCV (80-96) fL MCH (27.7-33.6) pg MCHC (32.2-35.4) g/dL RDW (11.5-15.5) % Plt Count (125-369) X10(3)uL MPV (7.4-10.4) fL Neut % (Auto) (46-82) % Lymph % (Auto) (13-37) % [place] % (Auto) (4-12) % Eos % (Auto) (1.0-5.0) % Baso % (Auto) (0-2) % Neut # (Auto) (1.6-8.3) # Lymph # (Auto) (0.6-5.0) # [place] # (Auto) (0.0-1.3) # Eos # (Auto) (0.0-0.8) # Baso # (Auto) (0.0-0.2) # D-Dimer, Quantitative 2.60 H (0.0-0.59) mg/LFEU Sodium (135-145) mmol/L Potassium (3.5-5.3) mmol/L Chloride (100-110) mmol/L Carbon Dioxide (21-32) mmol/L BUN (7-18) mg/dL Creatinine (0.55-1.02) mg/dL Est Cr Clr Drug Dosing Estimated GFR (MDRD) (>60) BUN/Creatinine Ratio (9-20) Glucose (80-116) mg/dL Calcium (8.6-10.2) mg/dL Magnesium (1.8-2.5) mg/dL Total Bilirubin (0.1-1.3) mg/dL AST (5-25) IU/L ALT (12-36) U/L Alkaline Phosphatase (56-112) IU/L Troponin I (<0.017-0.056) ng/mL C-Reactive Protein (0.5-0.9) mg/dL NT-Pro-B Natriuret Pep (<=125) pg/mL Total Protein (6.0-8.0) g/dL Albumin (3.2-4.6) g/dL Globulin g/dL Albumin/Globulin Ratio Urine Color Yellow (YELLOW) Urine Appearance Slightly cloudy (CLEAR) Urine pH 5.0 (5.0-6.5) Ur Specific [place] 1.025 (1.010-1.025) Urine Protein 500 H (NEGATIVE) mg/dL Urine Glucose (UA) Normal (NEGATIVE) mg/dL Urine Ketones Negative (NEGATIVE) mg/dL Urine Occult Blood Negative (NEGATIVE) Urine Nitrite Negative (NEGATIVE) Urine Bilirubin Small H (NEGATIVE) Urine Urobilinogen 1 H (NEGATIVE) mg/dL Ur Leukocyte Esterase Small H (NEGATIVE) Urine RBC 0-5 (0) Urine WBC 5-10 (0) Ur Squamous Epith Cells Moderate H (NS,R,O) Urine Bacteria Few H (NS) Urine Mucus Moderate H (NS) Meds: Medications Discontinued Medications Generic Name Dose Route Start Last Admin Trade Name Freq PRN Reason Stop Dose Admin Albuterol/Ipratropium 3 ml 08/25/18 11:10 08/25/18 11:29 Duoneb 3.0-0.5 Mg/3 Ml NEB 08/25/18 11:11 3 ml ONETIME ONE Administration Iopamidol 75 ml 08/25/18 13:10 08/25/18 13:17 Isovue-370 (76%) IV 08/25/18 13:11 73 ml ONETIME ONE Administration Bumetanide 1mg/4ml 0 each 08/25/18 12:15 08/25/18 13:40 IVPUSH 08/25/18 12:16 1 each ONETIME ONE Administration - Re-Assessments/Exams Free Text/Narrative Re-Assessment/Exam: 08/25/18 12:40 CxR 2v with inc'd pul edema, BNP inc'd 2.5x baseline c/w HF exacerbation pt only intermittently compliant, normal renal function, did not take her Bumex this AM because "it makes me pee" and she had an appointment with her PCP Dr Garcia has appointment tomorrow with hands and dial inspector Dr Desiree Smart , plan was to decide on stents x 2 vs CABG trop neg today, EKG improved c/w 6w ago, no acute changes hgb improving Ericka from social work reports that pt has missed several appointments with OT and VNA wt 201, had been 199 per pt 08/25/18 14:17 chest CTA neg for PE, does show CHF, d/w radiologist Dr Suggs call placed to [facility] re transfer for diuresis and further evaluation of her known CAD for which cardiology had previously recommended revascularization 08/25/18 14:31 d/w hospitalist Dr Lucas at [facility] who accepted pt in transfer Departure - Departure Time of Disposition: 14:36 Disposition: DC/Tfer to Acute Hospital 02 Condition: Good Clinical Impression: Acute exacerbation of congestive heart failure, Pulmonary edema cardiac cause, Hypoxia, Coronary artery disease - Discharge Information *PRESCRIPTION DRUG MONITORING PROGRAM REVIEWED*: Not Applicable *COPY OF PRESCRIPTION DRUG MONITORING REPORT IN PATIENT KIRSTEN: Not Applicable Referrals: Handy Verdugo MD [Primary Care Provider] - Forms: ED Department Discharge - My Orders Last 24 Hours: My Active Orders 08/25/18 11:05 Chest 2V [CR] Stat EKG 12 Lead [EK] Routine 08/25/18 11:06 EKG Documentation Completion [RC] ASDIRECTED 08/25/18 11:10 RT Aerosol Therapy [RC] ASDIRECTED 08/25/18 12:38 Ang Chest [CT] Stat - Assessment/Plan Last 24 Hours: My Active Orders 08/25/18 11:05 Chest 2V [CR] Stat EKG 12 Lead [EK] Routine 08/25/18 11:06 EKG Documentation Completion [RC] ASDIRECTED 08/25/18 11:10 RT Aerosol Therapy [RC] ASDIRECTED 08/25/18 12:38 Ang Chest [CT] Stat
[2018-08-25] MEDS ORDERED: Bumetanide 2.5 MG/10 ML MDV IVPUSH ONE (11:33)
[2018-08-25] MEDS ORDERED: BUMETANIDE 1 MG/4 ML IVPUSH ONE (12:15)
[2018-08-25] MEDS ORDERED: Iopamidol 755 Mg/ML 75 ML Bottle IV ONE (13:10)
--- NOTE | 2018-08-25 13:29 | PCM.SN ---
- Free Text/Narrative Note: ANESTHESIA Date: 08/25/2018 Time: 1250 to 1314 RE: Difficult Vascular Access I was requested by the ED physician for peripheral vascula access for further treatment of this patient. She is on Plavix and ASA currently. Several unsuccessful attempts by the ED nurses. This must be an 18 G or bigger due to radiology requirements. I first attempted on her LT. ACF with a great return but I was unable to advance the catheter. I then found a vein in her right medial ACF and prepped that area with several alcohol wipes which were allowed to dry. I infiltrated the insertion site with 1 ml 1% Lidocaine plain, using a 18 G 1.16 " IV catheter I placed the IV X 1 attempt. Great blood aspiration and a dressing was applied. I flushed it with 10 ml's of normal saline. She tolerated this well. Michele Deluna CRNA, [facility].
--- NOTE | 2018-08-25 15:11 | CR ---
INDICATION: Shortness of breath. CHEST: PA and lateral views of the chest were obtained, 08/25/18, and compared with 07/17/18 and 05/14/18. The heart is enlarged, similar to previous examinations, with post median sternotomy change. The aorta is calcified in the arch and descending portion. Diminished bone density is noted, compatible with osteoporosis - correlate clinically. Evidence of exogenous obesity is noted. Upper lung field pulmonary vasculature is prominent, raising question of CHF. Interstitial markings are heavy, suggesting interstitial lung edema. Overlying EKG leads are noted. Findings suggesting COPD are noted. No consolidating pneumonia or effusion was seen. However, minimal patchy bronchopneumonia is difficult to exclude in the mid to lower lung finley, due to heavy markings present. Allowing for poor inspiration, these markings appear fairly similar to the previous examinations. IMPRESSION: 1. CHF with interstitial lung edema - difficult to exclude minimal patchy bronchopneumonia also. 2. ASHD with cardiomegaly, post median sternotomy change. 3. COPD. 4. Osteoporosis. 5. Exogenous obesity. MTDD
--- NOTE | 2018-08-25 15:26 | CT ---
INDICATION: Short of breath, increased D-dimer, 6 weeks status post total hip replacement. COMPUTERIZED TOMOGRAPHY ANGIOGRAPHY OF THE CHEST WITH CONTRAST: Spiral 2.5 mm axial sections were obtained through the chest with 73 mL Isovue 370 at 3.5 mL/ second, with sagittal and coronal reconstructions, 08/25/18 - no comparisons. Total exam DLP = 878.54 mGy-cm. Calcifications are noted in the arch of the aorta, brachiocephalic vessels, and apparently in coronary arteries. The heart appears somewhat enlarged. No pericardial effusion was seen. No mediastinal mass was identified. Mediastinal adenopathy is moderate and nonspecific. Near the aortopulmonary window, the largest lymph node noted was approximately 19 mm. These may be on the basis of previous inflammatory disease but should be correlated clinically. Another relatively large lymph node measured 18 mm, pretracheal, just above the dahlia to the left. The upper abdomen included on the study revealed evidence of a tiny low density lesion in the right lobe of the liver, likely a cyst near the diaphragm. No gallstones were demonstrated. The aorta, splenic, celiac, renal, and superior mesenteric arteries were calcified. A calcific rimmed mass measuring 42 mm is noted adjacent to the spleen posteromedially - on the opposite side of the splenic artery and adjacent to the upper pole of the left kidney. Findings may represent a calcified cyst of the spleen or left kidney, although a postsurgical partially calcified hematoma could also be present. This should be correlated clinically. In this position, a splenic artery aneurysm is unlikely. There is a small to moderate sized right pleural effusion with some minimal right lower lobe infiltrate. This could be on the basis of congestion and CHF, although minimal pneumonia and pleuritis cannot be excluded. Also in the lingula and middle lobe, there are linear densities and subpleural densities, likely fibrotic in nature but making it difficult to exclude areas of minimal pneumonia and pleuritis and possibly atelectasis. No evidence of pulmonary arterial emboli could be identified. IMPRESSION: 1. No evidence of PE. 2. Probable CHF, ASHD with cardiomegaly, interstitial lung edema, and right pleural effusion, question possibility of minimal patchy areas of alveolar edema , in addition to interstitial lung edema, although patchy pneumonia and pleuritis cannot be excluded on the right, patchy pneumonia cannot be excluded, possibly with atelectasis at both lung bases. 3. ASD. 4. Moderate DJD and some disk disease in the thoracic spine. 5. Post median sternotomy. Report was called to Dr. Kang at 1412 hours on 08/25/18. KOBED
== END 2018-08-25 16:45 ==
LOC: FB.ED 10:49
DX: I11.0 Hypertensive heart disease with heart failure (principal); I50.9 Heart failure, unspecified; R09.02 Hypoxemia; I25.10 Atherosclerotic heart disease of native coronary artery without angina pectoris; E78.00 Pure hypercholesterolemia, unspecified; E11.9 Type 2 diabetes mellitus without complications; F32.9 Major depressive disorder, single episode, unspecified; Z95.5 Presence of coronary angioplasty implant and graft; Z79.82 Long term (current) use of aspirin; Z79.899 Other long term (current) drug therapy; Z79.4 Long term (current) use of insulin
CPT/HCPCS: 36415; 71046; 71275; 80053; 81001; 83735; 83880; 84484; 85025; 85379; 86140; 93005; 94640; 96374; 99285; A9270; J2001; J3490; Q9967; 36410; J7620-GY

== ENCOUNTER 2018-12-25 01:37 | Emergency (ER) | payer MEDICARE, OTHER ==
[2018-12-25] MEDS ORDERED: Silver Sulfadiazine 1% Crm 50 GM Tube TOP ONE ×2 (01:38→03:00)
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
== END 2018-12-25 03:25 | disposition home or self-care (01) ==
LOC: FB.ED 01:37
DX: T25.131A Burn of first degree of right toe(s) (nail), initial encounter (principal); I25.10 Atherosclerotic heart disease of native coronary artery without angina pectoris; E78.00 Pure hypercholesterolemia, unspecified; I10 Essential (primary) hypertension; I25.2 Old myocardial infarction; Z95.5 Presence of coronary angioplasty implant and graft; F32.9 Major depressive disorder, single episode, unspecified; Z79.01 Long term (current) use of anticoagulants; Z79.899 Other long term (current) drug therapy; Z91.041 Radiographic dye allergy status; X10.1XXA Contact with hot food, initial encounter
CPT/HCPCS: 16020; 99282; 99283; A9270

== ENCOUNTER 2019-02-14 22:29 | Observation (INO) | payer MEDICARE, OTHER ==
[2019-02-14] MEDS ORDERED: Furosemide 40 MG/4 ML VIAL IVPUSH ONE (23:01)
--- NOTE | 2019-02-14 23:10 | EDM.PDOC ---
ED HPI GENERAL MEDICAL PROBLEM - General Stated Complaint: sob Time Seen by Provider: 02/14/19 23:08 Source of Information: Reports: Patient History Limitations: Reports: No Limitations - History of Present Illness INITIAL COMMENTS - FREE TEXT/NARRATIVE: Serenity complains of chest pressure x 2 weeks.Progressively gets worse with ambulation. no pain. no cough. She has gained over 10 lbs in the those two weeks. She has a complex medical history,including,but not limited h/o CHF,DM, CAD and CVA perviously stable. - Related Data Allergies Allergy/AdvReac Type Severity Reaction Status Date / Time adhesive tape Allergy Itching Verified 12/25/18 01:47 Home Meds: Home Meds Bumetanide [Bumex] 2 mg PO DAILY 03/18/18 [History] Clopidogrel [Plavix] 75 mg PO DAILY 03/18/18 [History] Famotidine [Pepcid] 20 mg PO BID 03/18/18 [History] Ferrous Sulfate 325 mg PO Q2D 03/18/18 [History] Magnesium Oxide 400 mg PO DAILY 03/18/18 [History] Rosuvastatin [Crestor] 10 mg PO BEDTIME 03/18/18 [History] Acetaminophen [Tylenol] 650 mg PO QID PRN 07/23/18 [History] Sertraline [Zoloft] 50 mg PO DAILY 07/23/18 [History] rOPINIRole HCl [Requip] 4 mg PO BEDTIME 07/23/18 [History] valACYclovir HCl [Valtrex] 500 mg PO BID 07/23/18 [History] Metoprolol Succinate [Toprol XL] 25 mg PO DAILY #30 tab.er 08/07/18 [Rx] Insulin Glarg,Human.Rec.Analog [Lantus Solostar] 35 units SUBCUT BEDTIME [History] Insuln Asp Prot/Insulin Aspart [NovoLOG Mix 70-30] 20 units SQ TID 08/25/18 [ History] Rivaroxaban [Xarelto] 20 mg PO DAILY 12/25/18 [History] Silver Sulfadiazine [Silvadene 1% Cream 50 GM] 1 dose TOP BID #1 tube 12/25/18 [ Rx] Past Medical History HEENT History: Reports: Impaired Vision 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 Cardiovascular History: Reports: CAD, Heart Murmur, High Cholesterol, Hypertension, [place], Stents Respiratory History: Reports: None Gastrointestinal History: Reports: Colon Polyp, Hemorrhoids Genitourinary History: Reports: None 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: Musculoskeletal History: Reports: Back Pain, Chronic Neurological History: Reports: CVA Psychiatric History: Reports: Depression Endocrine/Metabolic History: Reports: Diabetes, Type II, Obesity/BMI 30+ Hematologic History: Reports: Anemia Immunologic History: Reports: None Oncologic (Cancer) History: Reports: None Dermatologic History: Reports: Psoriasis - Infectious Disease History Infectious Disease History: Reports: Chicken Pox, Measles, Mumps, Shingles - Past Surgical History HEENT Surgical History: Reports: Cataract Surgery, Detached Retina Other HEENT Surgeries/Procedures: has special eye drops made from her blood. Cardiovascular Surgical History: Reports: Coronary Artery Stent, Valve Replacement (Tissue aortic valve replacement) GI Surgical History: Reports: Bariatric Procedure (Gastric bypass), Colonoscopy Female Surgical History: Reports: Tubal Ligation Musculoskeletal Surgical History: Reports: Other (See Below) Other Musculoskeletal Surgeries/Procedures:: LEFT KNEE SURGERY Social & Family History - Family History Family Medical History: Noncontributory - Caffeine Use Caffeine Use: Reports: Coffee, Soda Other Caffeine Use: diet - Living Situation & Occupation Living situation: Reports: Alone ED ROS GENERAL - Review of Systems Review Of Systems: ROS reveals no pertinent complaints other than HPI. ED EXAM, GENERAL - Physical Exam Exam: See Below Exam Limited By: No Limitations General Appearance: Alert, WD/WN, No Apparent Distress Ear Exam: Bilateral Ear: Auricle Normal, Canal Normal, TM normal Throat/Mouth: Normal Inspection Head: Atraumatic Respiratory/Chest: No Respiratory Distress, Crackles, Rales Cardiovascular: Normal Peripheral Pulses, Regular Rate, Rhythm GI/Abdominal: Normal Bowel Sounds, Soft Extremities: Pedal Edema Neurological: Alert, Oriented, CN II-XII Intact Psychiatric: Flat Affect Skin Exam: Warm Course - Orders/Labs/Meds Orders: Active Orders 24 hr Category Date Time Status EKG Documentation Completion [RC] ASDIRECTED Care 02/14/19 23:01 Active CXR [Chest 2V] [CR] Stat Exams 02/14/19 23:02 Taken EKG 12 Lead [EK] Routine Ther 02/14/19 23:01 Ordered Labs: Laboratory Tests 02/14/19 02/14/19 Range/Units 23:15 23:15 Sodium 140 (135-145) mmol/L Potassium 4.1 (3.5-5.3) mmol/L Chloride 103 (100-110) mmol/L Carbon Dioxide 27 (21-32) mmol/L BUN 29 H D (7-18) mg/dL Creatinine 1.3 H (0.55-1.02) mg/dL Est Cr Clr Drug Dosing TNP Estimated GFR (MDRD) 40 L (>60) BUN/Creatinine Ratio 22.3 H (9-20) Glucose 226 H (80-116) mg/dL Calcium 8.6 (8.6-10.2) mg/dL Total Bilirubin 0.3 (0.1-1.3) mg/dL AST 21 D (5-25) IU/L ALT 26 D (12-36) U/L Alkaline Phosphatase 89 (56-112) IU/L Troponin I < 0.017 L (<0.017-0.056) ng/mL NT-Pro-B Natriuret Pep 734 H (<=125) pg/mL Total Protein 6.7 (6.0-8.0) g/dL Albumin 2.9 L (3.2-4.6) g/dL Globulin 3.8 g/dL Albumin/Globulin Ratio 0.8 Meds: Medications Discontinued Medications Generic Name Dose Route Start Last Admin Trade Name Freq PRN Reason Stop Dose Admin Furosemide 40 mg 02/14/19 23:01 02/14/19 23:07 Lasix IVPUSH 02/14/19 23:02 40 mg NOW ONE Administration Departure - Departure Time of Disposition: 00:16 Disposition: Refer to Observation Condition: Good Clinical Impression: HF (heart failure), diastolic Referrals: PCP,None [Primary Care Provider] - - Problem List & Annotations (1) HF (heart failure), diastolic SNOMED Code(s): 408365279 Code(s): I50.30 - UNSPECIFIED DIASTOLIC (CONGESTIVE) HEART FAILURE Status: Acute Current Visit: No Qualifiers: Heart failure chronicity: acute Qualified Code(s): I50.31 - Acute diastolic (congestive) heart failure (2) HTN (hypertension) SNOMED Code(s): 03788339 Code(s): I10 - ESSENTIAL (PRIMARY) HYPERTENSION Status: Acute Current Visit: No Qualifiers: Hypertension type: essential hypertension Qualified Code(s): I10 - Essential (primary) hypertension (3) Uncontrolled type 2 diabetes mellitus SNOMED Code(s): 845565835, 729301328 Code(s): E11.65 - TYPE 2 DIABETES MELLITUS WITH HYPERGLYCEMIA Status: Acute Current Visit: No Qualifiers: Glycemic state: with hyperglycemia Qualified Code(s): E11.65 - Type 2 diabetes mellitus with hyperglycemia (4) Elevated brain natriuretic peptide (BNP) level SNOMED Code(s): 438865306, 881806459 Code(s): R79.89 - OTHER SPECIFIED ABNORMAL FINDINGS OF BLOOD CHEMISTRY Status: Acute Current Visit: No - Problem List Review Problem List Initiated/Reviewed/Updated: Yes - My Orders Last 24 Hours: My Active Orders 02/14/19 23:01 EKG Documentation Completion [RC] ASDIRECTED EKG 12 Lead [EK] Routine 02/14/19 23:02 CXR [Chest 2V] [CR] Stat - Assessment/Plan Last 24 Hours: My Active Orders 02/14/19 23:01 EKG Documentation Completion [RC] ASDIRECTED EKG 12 Lead [EK] Routine 02/14/19 23:02 CXR [Chest 2V] [CR] Stat Plan: Patient got 40 mg of IV Lasix,had some diuresis,but still complains of chest pressure.Will admit,on tele,with repeat Cardiac markers in AM.
[2019-02-15] MEDS ORDERED: Acetaminophen 325 MG Tab PO PRN (07:23)
[2019-02-15] MEDS ORDERED: Metolazone 2.5 MG Tab PO ONE (07:24)
[2019-02-15] MEDS ORDERED: Isosorbide Mononitrate 30 MG Tab.ER**OWN MED PO SCH (09:00)
[2019-02-15] MEDS ORDERED: Non-Formulary Medication 1 Each (Bumetanide [Bumex] 2 MG) PO SCH (09:00)
[2019-02-15] MEDS ORDERED: Famotidine 20 MG Tab**OWN MED PO SCH ×2 (09:00→21:00)
[2019-02-15] MEDS ORDERED: Furosemide 100 MG/10 ML SDV IVPUSH SCH (09:00)
[2019-02-15] MEDS ORDERED: Clopidogrel 75 MG Tab**OWN MED PO SCH (09:00)
[2019-02-15] MEDS ORDERED: Ferrous Sulfate 325 MG Tab**OWN MED PO SCH (09:00)
[2019-02-15] MEDS ORDERED: Furosemide 40 MG/4 ML VIAL IVPUSH SCH (09:00)
[2019-02-15] MEDS ORDERED: Lisinopril 5 MG Tab**OWN MED PO SCH (09:00)
[2019-02-15] MEDS ORDERED: Metoprolol Succinate 25 MG Tab.ER**OWN MED PO SCH (09:00)
[2019-02-15] MEDS ORDERED: Aspirin 81 MG Tab.EC**OWN MED PO SCH (09:00)
[2019-02-15] MEDS ORDERED: Sertraline 100 MG Tab**OWN MED PO SCH (09:00)
[2019-02-15] MEDS ORDERED: Gabapentin 100 MG Cap**OWN MED PO SCH (10:00)
[2019-02-15] MEDS: Insuln Aspart Prot/Insulin Aspart 100 Units/ML 3 ML FlexPen SUBCUT SCH ×2 (10:14→12:37)
--- NOTE | 2019-02-15 13:39 | HP ---
ADMISSION DATE: 02/15/2019 CHIEF COMPLAINT: Shortness of breath. HISTORY OF PRESENT ILLNESS: Ms. Boyle is a 68-year-old woman from [place], [place], with a history of coronary artery disease, status post angioplasties x2; aortic valve replacement; type 2 diabetes; chronic congestive heart failure; diabetic peripheral neuropathy; and chronic atrial fibrillation, on anticoagulation. According to the patient, she was in her usual state of health until yesterday afternoon. She was tidying up the house after dinner and began to get relatively suddenly short of breath. She felt pressure in her chest, but no pain. No fever, nausea, chills or sweats, but she states this was new to her and she had not felt this before. She came into the emergency room, where she was evaluated by Dr. Weaver. She was found to be in congestive heart failure. The patient stated that she had gained 10 pounds in the prior couple of weeks and was slowly more short of breath during this time. Labs in the ER included a negative troponin, but a BNP elevated at 734. Chest x-ray showed cardiomegaly and vascular redistribution consistent with CHF. She was sent to the floor for admission, where she is evaluated. PAST MEDICAL HISTORY: Angioplasty with stents in approximately 2001 and 2006. She had aortic valve replacement in 2018. She has chronic atrial fibrillation and was switched from warfarin to Xarelto last year. She has type 2 diabetes and checks her sugars twice a day at home. She has a history of gastric bypass, bilateral cataract surgery, and left-sided retinal surgery. 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 She has a history of hypertension, [place], and hyperlipidemia. She has had removal of colon polyps. She has diabetic peripheral neuropathy, history of depression, and psoriasis. She also reports a CVA in the past. MEDICATIONS: 1. Sertraline 100 mg daily. 2. Ropinirole 4 mg at bedtime. 3. Xarelto 20 mg daily. 4. Metoprolol 25 mg daily. 5. Lisinopril 5 mg daily. 6. Isosorbide 30 mg daily. 7. Insulin glargine 35 units at bedtime. 8. NovoLog 20 units t.i.d. 9. Gabapentin 100 mg t.i.d. 10.Iron sulfate 325 mg every other day. 11.Pepcid 20 mg b.i.d. 12.Plavix 75 mg daily. 13.Bumex 2 mg daily. She states she takes this twice a day. 14.Aspirin 81 mg daily. 15.Tylenol p.r.n. ALLERGIES: Adhesive tape. HABITS: Nonsmoker. She quit in approximately 2002 with a heavy prior history of smoking. Occasional beer. FAMILY AND SOCIAL HISTORY: The patient moved up to [place] from [place] approximately a year and a half ago to be near her daughter and granddaughter. She grew up in the State of [place] and disliked living in [place]. REVIEW OF SYSTEMS: GENERAL: No seizures or syncope. She has gained weight on her own scale of about 10 pounds in 2 weeks. HEENT: No recent changes in hearing or vision. 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 No sore throat or URI. No fever, chills, or symptoms of recent infection. CARDIAC: No chest pain or palpitations. No cough or purulent sputum. GASTROINTESTINAL: No abdominal pain, nausea, diarrhea, constipation, or hematochezia. : No hematuria or UTI symptoms. MUSCULOSKELETAL: No joint inflammation or history of arthritis. She does report occasional swelling of her ankles, but reports this is minimal. SKIN: No skin rash. PHYSICAL EXAMINATION: GENERAL: She is alert, comfortable, and a good historian. VITAL SIGNS: Blood pressure 116/54, pulse 82 and regular, respirations normal, O2 saturation 97% on room air, and temp 99.3. Weight 190 pounds 4 ounces. SKIN: Anicteric. Warm and dry without rash. HEENT: TMs clear. Pupils are both slightly distorted, reaction present however. Oropharynx is clear. She is edentulous. LUNGS: Clear with good air movement to the bases bilaterally. HEART: Regular with a 2/6 systolic murmur over the mitral area. ABDOMEN: Obese, soft, normal bowel sounds, and nontender. No masses. No organomegaly. EXTREMITIES: Intact dorsalis pedis pulses. Trace edema at the ankles. NEUROLOGIC: Mental status is intact. Motor exam is symmetric. Gait is not tested. LABORATORY DATA: Hemoglobin 10.3, MCV 92, D-dimer 2.6, BUN 30, and creatinine 1.2. Troponin on admission less than 0.017 and this morning up slightly to 0.023, still within normal limits. BNP 734. IMAGING: Chest x-ray shows cardiomegaly and vascular redistribution. No apparent infiltrates. ASSESSMENT: 1. Exacerbation of congestive heart failure, possible ischemic cardiac event. 2. Chronic congestive heart failure. 3. Coronary artery disease with history of stents x2. 4. Type 2 diabetes. 5. History of aortic valve replacement. 6. Painful diabetic peripheral neuropathy, on gabapentin. 7. Chronic essential hypertension. 8. Restless legs syndrome. 9. Depression. 10.Functional bilateral blindness. PLAN: She is admitted to observation and care. She states she is already feeling better after the diuresis. We will add additional Lasix and anticipate a few more pounds of weight loss. If she continues to improve, we will expect discharge within 24 hours. /[id number] HARSHAL/EDWIGE
[2019-02-15] MEDS ORDERED: BUMETANIDE 1 MG PO SCH ×2 (14:00)
[2019-02-15] MEDS ORDERED: Non-Formulary Medication 1 Each (Rivaroxaban [Xarelto] 20 MG) PO SCH (19:00)
[2019-02-15] MEDS ORDERED: INSULIN GLARG HUMAN REC ANALOG SUBCUT SCH (21:00)
[2019-02-15] MEDS ORDERED: [UNRECOGNIZED DRUG - OTHER] SUBCUT SCH (21:00)
[2019-02-15] MEDS ORDERED: ROPINIROLE HCL 4 MG PO SCH (21:00)
--- NOTE | 2019-02-16 04:10 | DISCH ---
DISCHARGE DATE: 02/15/2019 HISTORY: Mrs. Boyle is 68-year-old woman with a history of coronary artery disease, status post angioplasties x2 with stent placements, open heart replacement of an aortic valve, history of intermittent atrial fibrillation with CHF, type 2 diabetes, hypertension, restless legs syndrome, and depression. Ms. Boyle came in through the emergency room because of a relatively sudden onset of shortness of breath. Evaluation revealed evidence of congestive heart failure, but negative troponin and no change in EKG. She was diuresed with IV Lasix in the emergency room and was admitted to the floor where she was given additional IV Lasix. Her Bumex was increased to 4 mg b.i.d. and her other medications continued. By the day following admission, she was feeling well. She was eating. She was up walking and anxious to go home. She is discharged in improved condition to continue medications as follows; 1. Crestor 10 mg at bedtime. 2. NovoLog 10 to 25 units t.i.d. before meals. 3. Bumex 2 mg tablets 4 mg b.i.d. 4. Sertraline 100 mg daily. 5. Ropinirole 4 mg at bedtime. 6. Xarelto 20 mg daily. 7. Metoprolol ER 25 mg daily. 8. Isosorbide 30 mg daily. 9. Lantus 35 units at bedtime. 10.Gabapentin 100 mg t.i.d. 11.Iron sulfate 325 mg every other days. 12.Pepcid 20 mg at bedtime. 13.Plavix 75 mg daily. 14.Aspirin 81 mg daily. 15.Tylenol p.r.n. 16.Of note is that she had lisinopril is listed on her clinic record, but she states she has not been taking it because it makes her blood pressure run too low. FOLLOWUP: She is to have a followup appointment with Dr. Verdugo in his office in 2 weeks and recheck sooner in the meantime. /[id number] HARSHAL/EDWIGE
== END 2019-02-15 14:20 | disposition home or self-care (01) ==
LOC: FB.ED 22:29 → FB.MS 02-15 00:19
PROVIDERS: ADMIT Family Medicine; ATTEND Family Medicine
DX: I11.0 Hypertensive heart disease with heart failure (principal); I50.9 Heart failure, unspecified; I25.10 Atherosclerotic heart disease of native coronary artery without angina pectoris; E11.9 Type 2 diabetes mellitus without complications; F32.9 Major depressive disorder, single episode, unspecified; G25.81 Restless legs syndrome; E11.42 Type 2 diabetes mellitus with diabetic polyneuropathy; I48.2 Chronic atrial fibrillation; E78.5 Hyperlipidemia, unspecified; H54.7 Unspecified visual loss; Z98.61 Coronary angioplasty status; Z79.01 Long term (current) use of anticoagulants; Z79.899 Other long term (current) drug therapy; Z79.4 Long term (current) use of insulin; Z79.02 Long term (current) use of antithrombotics/antiplatelets; Z79.82 Long term (current) use of aspirin; Z95.2 Presence of prosthetic heart valve
CPT/HCPCS: 36415; 71046; 80048; 80053; 82962; 83880; 84484; 93005; 96374; 96376; 99285-25; A9270-GY; G0378; J1815-GY; J1940

== ENCOUNTER 2019-03-27 23:31 | Emergency (ER) | payer MEDICARE, OTHER ==
[2019-03-28] MEDS ORDERED: Torsemide 20 MG Tab PO ONE ×2 (00:15→15:00)
--- NOTE | 2019-03-28 00:18 | EDM.PDOC ---
ED HPI GENERAL MEDICAL PROBLEM - General Chief Complaint: General Stated Complaint: SICK Time Seen by Provider: 03/28/19 00:00 Source of Information: Reports: Patient History Limitations: Reports: No Limitations - History of Present Illness INITIAL COMMENTS - FREE TEXT/NARRATIVE: Patient is a 68 YO WF who presented to the ED because of dyspnea although her oxygen saturation is 97% on RA. She denies having any chest pain or edema. There is no cough and cold symptoms,no fever or chills. The main reason why she is here is because shr ran out of her bumex 1 month early and her insurance will not pay early refill on her prescription. - Related Data Allergies Allergy/AdvReac Type Severity Reaction Status Date / Time adhesive tape Allergy Itching Verified 12/25/18 01:47 Home Meds: Home Meds Clopidogrel [Plavix] 75 mg PO DAILY 03/18/18 [History] Ferrous Sulfate 325 mg PO Q2D 03/18/18 [History] Rosuvastatin [Crestor] 10 mg PO BEDTIME 03/18/18 [History] Acetaminophen [Tylenol] 650 mg PO QID PRN 07/23/18 [History] Sertraline [Zoloft] 100 mg PO DAILY 07/23/18 [History] rOPINIRole HCl [Requip] 4 mg PO BEDTIME 07/23/18 [History] Metoprolol Succinate [Toprol XL] 25 mg PO DAILY #30 tab.er 08/07/18 [Rx] Insulin Glarg,Human.Rec.Analog [Lantus Solostar] 35 units SUBCUT BEDTIME [History] Rivaroxaban [Xarelto] 20 mg PO 1900 12/25/18 [History] Aspirin [Adult Low Dose Aspirin EC] 81 mg PO DAILY 02/15/19 [History] Bumetanide [Bumex] 4 mg PO BID #0 02/15/19 [Rx] Gabapentin [Neurontin] 100 mg PO TID 02/15/19 [History] Insulin Aspart [NovoLOG] 10 - 25 unit SQ TIDAC #5 pen 02/15/19 [Rx] Isosorbide Mononitrate [Imdur] 30 mg PO DAILY 02/15/19 [History] Torsemide 40 mg PO BID #120 tablet 03/28/19 [Rx] Past Medical History HEENT History: Reports: Impaired Vision 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 Cardiovascular History: Reports: CAD, Heart Murmur, High Cholesterol, Hypertension, [place], Stents Respiratory History: Reports: None Gastrointestinal History: Reports: Colon Polyp, Hemorrhoids Genitourinary History: Reports: None 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: Musculoskeletal History: Reports: Back Pain, Chronic Neurological History: Reports: CVA Psychiatric History: Reports: Depression Endocrine/Metabolic History: Reports: Diabetes, Type II, Obesity/BMI 30+ Hematologic History: Reports: Anemia Immunologic History: Reports: None Oncologic (Cancer) History: Reports: None Dermatologic History: Reports: Psoriasis - Infectious Disease History Infectious Disease History: Reports: Chicken Pox, Measles, Mumps, Shingles - Past Surgical History Head Surgeries/Procedures: Reports: None HEENT Surgical History: Reports: Cataract Surgery, Detached Retina Other HEENT Surgeries/Procedures: has special eye drops made from her blood. Cardiovascular Surgical History: Reports: Coronary Artery Stent, Valve Replacement GI Surgical History: Reports: Bariatric Procedure, Colonoscopy Female Surgical History: Reports: Tubal Ligation Musculoskeletal Surgical History: Reports: Other (See Below) Other Musculoskeletal Surgeries/Procedures:: LEFT KNEE SURGERY Social & Family History - Family History Family Medical History: Noncontributory - Tobacco Use Smoking Status *Q: Former Smoker Used Tobacco, but Quit: Yes Month/Year Tobacco Last Used: 2002 - Caffeine Use Caffeine Use: Reports: Soda, Tea Other Caffeine Use: diet - Living Situation & Occupation Living situation: Reports: Alone ED ROS GENERAL - Review of Systems Review Of Systems: See Below Constitutional: Reports: No Symptoms HEENT: Reports: No Symptoms Respiratory: Reports: Shortness of Breath. Denies: Wheezing, Cough, Sputum Cardiovascular: Reports: No Symptoms. Denies: Chest Pain Endocrine: Reports: High Glucose GI/Abdominal: Reports: No Symptoms : Reports: No Symptoms Musculoskeletal: Reports: No Symptoms Skin: Reports: No Symptoms Neurological: Reports: No Symptoms Psychiatric: Reports: No Symptoms ED EXAM, GENERAL - Physical Exam Exam: See Below Exam Limited By: No Limitations General Appearance: Alert, No Apparent Distress Ears: Normal External Exam, Normal Canal, Hearing Grossly Normal Nose: Normal Inspection, Normal Mucosa, No Blood, Nasal Tenderness Throat/Mouth: Normal Inspection, Normal Lips, Normal Teeth Head: Atraumatic, Normocephalic Neck: Normal Inspection, Supple, Non-Tender, Full Range of Motion Respiratory/Chest: No Respiratory Distress, Lungs Clear, Normal Breath Sounds, Chest Non-Tender Cardiovascular: Normal Peripheral Pulses, Regular Rate, Rhythm, No Edema, No Gallop, No JVD, No Murmur, No Rub GI/Abdominal: Normal Bowel Sounds, Soft, Non-Tender, No Organomegaly, No Distention, No Abnormal Bruit, No Mass, Pelvis Stable (Female) Exam: Normal External Exam, Normal Speculum Exam, Normal Bimanual Exam Back Exam: Normal Inspection, Full Range of Motion Extremities: Normal Inspection, Normal Range of Motion, Non-Tender, No Pedal Edema, Normal Capillary Refill. No: Pedal Edema Neurological: Alert, Oriented, CN II-XII Intact Psychiatric: Normal Affect Skin Exam: Warm Course - Vital Signs Text/Narrative:: labs reviewed and discussed with patient CXR-neg EKG-see result Trop-neg Pro BNP-720 BS>450 Patient apparently didn't take her lantus 35 U at bed time that's why her BS is elevated. She can't have a refill of her Bumex 4 mg twice daily so I opted to geve her the demadex equivalent which is 40 mg po BID and she is OK with it. Last Recorded V/S: Last Vital Signs Temp 36.7 C 03/27/19 23:31 Pulse 85 03/28/19 01:33 Resp 18 03/28/19 01:33 BP 124/36 L 03/28/19 01:33 Pulse Ox 97 03/28/19 01:33 - Orders/Labs/Meds Orders: Active Orders 24 hr Category Date Time Status EKG Documentation Completion [RC] ASDIRECTED Care 03/28/19 00:31 Active Chest 1V Frontal [CR] Stat Exams 03/28/19 00:32 Taken EKG 12 Lead [EK] Routine Ther 03/28/19 00:31 Ordered Labs: Laboratory Tests 03/28/19 03/28/19 03/28/19 Range/Units 00:45 00:45 00:45 WBC 6.6 (4.5-12.0) X10-3/uL RBC 4.09 (3.23-5.20) x10(6)uL Hgb 11.7 (11.5-15.5) g/dL Hct 35.0 (30.0-51.3) % MCV 85.6 (80-96) fL MCH 28.5 (27.7-33.6) pg MCHC 33.3 (32.2-35.4) g/dL RDW 14.1 (11.5-15.5) % Plt Count 293 (125-369) X10(3)uL MPV 9.4 (7.4-10.4) fL Neut % (Auto) 63.0 (46-82) % Lymph % (Auto) 25.0 (13-37) % Miller % (Auto) 9.0 (4-12) % Eos % (Auto) 3 (1.0-5.0) % Baso % (Auto) 1 (0-2) % Neut # (Auto) 4.1 (1.6-8.3) # Lymph # (Auto) 1.7 (0.6-5.0) # Miller # (Auto) 0.6 (0.0-1.3) # Eos # (Auto) 0.2 (0.0-0.8) # Baso # (Auto) 0.0 (0.0-0.2) # Sodium 138 (135-145) mmol/L Potassium 3.9 (3.5-5.3) mmol/L Chloride 103 (100-110) mmol/L Carbon Dioxide 23 (21-32) mmol/L BUN 22 H (7-18) mg/dL Creatinine 1.2 H (0.55-1.02) mg/dL Est Cr Clr Drug Dosing 31.33 mL/min Estimated GFR (MDRD) 44 L (>60) BUN/Creatinine Ratio 18.3 (9-20) Glucose 406 H* D (80-116) mg/dL Calcium 9.2 (8.6-10.2) mg/dL Total Bilirubin 0.2 (0.1-1.3) mg/dL AST 18 D (5-25) IU/L ALT 28 (12-36) U/L Alkaline Phosphatase 150 H (56-112) IU/L Troponin I 0.045 (<0.017-0.056) ng/mL NT-Pro-B Natriuret Pep (<=125) pg/mL Total Protein 7.4 (6.0-8.0) g/dL Albumin 3.2 (3.2-4.6) g/dL Globulin 4.2 g/dL Albumin/Globulin Ratio 0.8 03/28/19 Range/Units 00:45 WBC (4.5-12.0) X10-3/uL RBC (3.23-5.20) x10(6)uL Hgb (11.5-15.5) g/dL Hct (30.0-51.3) % MCV (80-96) fL MCH (27.7-33.6) pg MCHC (32.2-35.4) g/dL RDW (11.5-15.5) % Plt Count (125-369) X10(3)uL MPV (7.4-10.4) fL Neut % (Auto) (46-82) % Lymph % (Auto) (13-37) % Miller % (Auto) (4-12) % Eos % (Auto) (1.0-5.0) % Baso % (Auto) (0-2) % Neut # (Auto) (1.6-8.3) # Lymph # (Auto) (0.6-5.0) # Miller # (Auto) (0.0-1.3) # Eos # (Auto) (0.0-0.8) # Baso # (Auto) (0.0-0.2) # Sodium (135-145) mmol/L Potassium (3.5-5.3) mmol/L Chloride (100-110) mmol/L Carbon Dioxide (21-32) mmol/L BUN (7-18) mg/dL Creatinine (0.55-1.02) mg/dL Est Cr Clr Drug Dosing mL/min Estimated GFR (MDRD) (>60) BUN/Creatinine Ratio (9-20) Glucose (80-116) mg/dL Calcium (8.6-10.2) mg/dL Total Bilirubin (0.1-1.3) mg/dL AST (5-25) IU/L ALT (12-36) U/L Alkaline Phosphatase (56-112) IU/L Troponin I (<0.017-0.056) ng/mL NT-Pro-B Natriuret Pep 721 H (<=125) pg/mL Total Protein (6.0-8.0) g/dL Albumin (3.2-4.6) g/dL Globulin g/dL Albumin/Globulin Ratio Meds: Medications Discontinued Medications Generic Name Dose Route Start Last Admin Trade Name Johnna PRN Reason Stop Dose Admin Insulin Glargine 35 units 03/28/19 01:13 03/28/19 01:18 Lantus Mosqueraostar SUBCUT 03/28/19 01:14 35 unit ONETIME ONE Administration Ondansetron HCl 4 mg 03/28/19 00:33 03/28/19 00:45 Zofran IVPUSH 03/28/19 00:34 4 mg ONETIME ONE Administration Torsemide 40 mg 03/28/19 15:00 Demadex PO 03/28/19 15:01 ONETIME ONE Torsemide 40 mg 03/28/19 00:15 03/28/19 00:54 Demadex PO 03/28/19 00:16 40 mg ONETIME ONE Administration Departure - Departure Time of Disposition: 12:15 Disposition: Home, Self-Care 01 Condition: Good Clinical Impression: CHF, Congestive heart failure - Discharge Information Prescriptions: Torsemide 40 mg PO BID #120 tablet Instructions: Heart Failure, [id number] Referrals: PCP,None [Primary Care Provider] - Forms: ED Department Discharge Additional Instructions: please read discharge instructions on CHF low salt diet limit your water intake to 1.5 liters a day take the equivalent of bumex 4 mg twice daily which is demadex/torsemide 40mg twice daily follow up with your doctor this coming week - My Orders Last 24 Hours: My Active Orders 03/28/19 00:31 EKG Documentation Completion [RC] ASDIRECTED EKG 12 Lead [EK] Routine 03/28/19 00:32 Chest 1V Frontal [CR] Stat - Assessment/Plan Last 24 Hours: My Active Orders 03/28/19 00:31 EKG Documentation Completion [RC] ASDIRECTED EKG 12 Lead [EK] Routine 03/28/19 00:32 Chest 1V Frontal [CR] Stat
[2019-03-28] MEDS ORDERED: Ondansetron 4 MG/2 ML SDV IVPUSH ONE (00:33)
[2019-03-28] MEDS ORDERED: Insulin Glargine,Human Rec. Analog 100 Units/ML 3 ML Pen SUBCUT ONE (01:13)
--- NOTE | 2019-03-30 10:24 | CR ---
INDICATION: Dyspnea. CHEST: An AP view of the chest was obtained upright, 03/28/19, and compared with 02/14/19 and 08/25/18, again revealing the heart to be enlarged with post aortic valve replacement changes. Calcifications are noted in the arch of the aorta. Pulmonary vasculature appears slightly less prominent than on the previous study, suggesting a decreased degree of mild CHF. No definite active infiltrate or effusion was seen. Ventricular monitor is noted in place. Median sternotomy is noted with fracture of a lower sternal wire. This apparently was present previously. There is evidence of exogenous obesity. IMPRESSION: 1. Minimal or early CHF. 2. ASHD with aortic valve replacement. 3. Exogenous obesity. MTDD
== END 2019-03-28 01:37 | disposition home or self-care (01) ==
LOC: FB.ED 23:31
DX: I11.0 Hypertensive heart disease with heart failure (principal); I50.9 Heart failure, unspecified; I25.2 Old myocardial infarction; I25.10 Atherosclerotic heart disease of native coronary artery without angina pectoris; E11.9 Type 2 diabetes mellitus without complications; E66.9 Obesity, unspecified; F32.9 Major depressive disorder, single episode, unspecified; E78.5 Hyperlipidemia, unspecified; Z86.73 Personal history of transient ischemic attack (TIA), and cerebral infarction without residual deficits; Z68.37 Body mass index [BMI] 37.0-37.9, adult; Z95.5 Presence of coronary angioplasty implant and graft; Z79.82 Long term (current) use of aspirin; Z79.02 Long term (current) use of antithrombotics/antiplatelets; Z79.01 Long term (current) use of anticoagulants; Z79.899 Other long term (current) drug therapy
CPT/HCPCS: 36415; 71045; 80053; 83880; 84484; 85025; 93005; 96372; 96374; 99285; A9270; J1815; J2405

== ENCOUNTER 2019-05-08 22:37 | Emergency (ER) | payer MEDICARE, OTHER ==
[2019-05-08] MEDS ORDERED: Sodium Chloride 0.9% 10 ML Syringe FLUSH PRN (23:19)
--- NOTE | 2019-05-08 23:25 | EDM.PDOC ---
ED HPI GENERAL MEDICAL PROBLEM - General Chief Complaint: Trauma Stated Complaint: FELL Time Seen by Provider: 05/08/19 23:20 Source of Information: Reports: Patient History Limitations: Reports: No Limitations - History of Present Illness INITIAL COMMENTS - FREE TEXT/NARRATIVE: Patient lost her balance, fell out of a chair on 05/06/19 and landed on the ground. She had no pain until the next day. She has been having right flank pain since yesterday. Denies difficulty breathing or hematuria. Denies any other injury. Onset Date: 05/06/19 Location: Reports: Chest, Abdomen Quality: Reports: Dull Severity: Moderate Worsens with: Reports: Movement Associated Symptoms: Reports: Other (right flank pain) - Related Data Allergies Allergy/AdvReac Type Severity Reaction Status Date / Time adhesive tape Allergy Itching Verified 12/25/18 01:47 Home Meds: Home Meds Clopidogrel [Plavix] 75 mg PO DAILY 03/18/18 [History] Ferrous Sulfate 325 mg PO Q2D 03/18/18 [History] Rosuvastatin [Crestor] 10 mg PO BEDTIME 03/18/18 [History] Acetaminophen [Tylenol] 650 mg PO QID PRN 07/23/18 [History] Sertraline [Zoloft] 100 mg PO DAILY 07/23/18 [History] rOPINIRole HCl [Requip] 4 mg PO BEDTIME 07/23/18 [History] Metoprolol Succinate [Toprol XL] 25 mg PO DAILY #30 tab.er 08/07/18 [Rx] Insulin Glarg,Human.Rec.Analog [Lantus Solostar] 35 units SUBCUT BEDTIME [History] Rivaroxaban [Xarelto] 20 mg PO 1900 12/25/18 [History] Aspirin [Adult Low Dose Aspirin EC] 81 mg PO DAILY 02/15/19 [History] Bumetanide [Bumex] 4 mg PO BID #0 02/15/19 [Rx] Gabapentin [Neurontin] 100 mg PO TID 02/15/19 [History] Insulin Aspart [NovoLOG] 10 - 25 unit SQ TIDAC #5 pen 02/15/19 [Rx] Isosorbide Mononitrate [Imdur] 30 mg PO DAILY 02/15/19 [History] Torsemide 40 mg PO BID #120 tablet 03/28/19 [Rx] Doxycycline Hyclate 100 mg PO BID #14 tablet. 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: Musculoskeletal History: Reports: Back Pain, Chronic Neurological History: Reports: CVA Psychiatric History: Reports: Depression Endocrine/Metabolic History: Reports: Diabetes, Type II, Obesity/BMI 30+ Hematologic History: Reports: Anemia Immunologic History: Reports: None Oncologic (Cancer) History: Reports: None Dermatologic History: Reports: Psoriasis - Infectious Disease History Infectious Disease History: Reports: Chicken Pox, Measles, Mumps, Shingles - Past Surgical History Head Surgeries/Procedures: Reports: None HEENT Surgical History: Reports: Cataract Surgery, Detached Retina Other HEENT Surgeries/Procedures: has special eye drops made from her blood. Cardiovascular Surgical History: Reports: Coronary Artery Stent, Valve Replacement GI Surgical History: Reports: Bariatric Procedure, Colonoscopy Female Surgical History: Reports: Tubal Ligation Musculoskeletal Surgical History: Reports: Other (See Below) Other Musculoskeletal Surgeries/Procedures:: LEFT KNEE SURGERY Social & Family History - Family History Family Medical History: Noncontributory - Tobacco Use Smoking Status *Q: Former Smoker Tobacco Use Within Last Twelve Months: No - Caffeine Use Caffeine Use: Reports: Soda, Tea Other Caffeine Use: diet - Living Situation & Occupation Living situation: Reports: Alone Review of Systems - Review of Systems Review Of Systems: Comprehensive ROS is negative, except as noted in HPI. ED EXAM, GENERAL - Physical Exam Exam: See Below Exam Limited By: No Limitations General Appearance: Alert, WD/WN, No Apparent Distress Ears: Normal External Exam Nose: Normal Inspection Throat/Mouth: No Airway Compromise Head: Atraumatic, Normocephalic Neck: Full Range of Motion Respiratory/Chest: No Respiratory Distress, Lungs Clear, Normal Breath Sounds Cardiovascular: Regular Rate, Rhythm GI/Abdominal: Tender (right lateral ribs and right flank) Back Exam: Normal Inspection, Full Range of Motion Extremities: Normal Range of Motion Neurological: Alert, Normal Cognition, No Motor/Sensory Deficits Skin Exam: Warm, Dry, Intact Course - Vital Signs Text/Narrative:: Triage vitals: T98.4, BP 154/68, HR 90, Sa02 94% RA - Orders/Labs/Meds Orders: Active Orders 24 hr Category Date Time Status Accu Check [Blood Glucose Check, Bedside] [] ONETIME Care 05/09/19 02:00 Active Accu Check [Blood Glucose Check, Bedside] [] ONETIME Care 05/09/19 03:30 Active Chest Abdomen Pelvis w Cont [CT] Stat Exams 05/09/19 00:25 Taken Sodium Chloride 0.9% [Saline Flush] Med 05/08/19 23:19 Active 10 ml FLUSH ASDIRECTED PRN Saline Lock Insert [OM.PC] Routine Oth 05/08/19 23:19 Ordered Medication Orders Sodium Chloride (Saline Flush) 10 ml FLUSH ASDIRECTED PRN PRN Reason: Keep Vein Open Labs: Laboratory Tests 05/08/19 05/08/19 05/09/19 Range/Units 23:45 23:45 00:05 WBC 7.2 (4.5-12.0) X10-3/uL RBC 4.33 (3.23-5.20) x10(6)uL Hgb 12.2 (11.5-15.5) g/dL Hct 37.5 (30.0-51.3) % MCV 86.6 (80-96) fL MCH 28.1 (27.7-33.6) pg MCHC 32.5 (32.2-35.4) g/dL RDW 15.2 (11.5-15.5) % Plt Count 399 H (125-369) X10(3)uL MPV 8.9 (7.4-10.4) fL Neut % (Auto) 69.2 (46-82) % Lymph % (Auto) 20.7 (13-37) % Collin % (Auto) 7.0 (4-12) % Eos % (Auto) 2 (1.0-5.0) % Baso % (Auto) 1 (0-2) % Neut # (Auto) 4.9 (1.6-8.3) # Lymph # (Auto) 1.5 (0.6-5.0) # Collin # (Auto) 0.5 (0.0-1.3) # Eos # (Auto) 0.2 (0.0-0.8) # Baso # (Auto) 0.1 (0.0-0.2) # Sodium 132 L (135-145) mmol/L Potassium 4.3 (3.5-5.3) mmol/L Chloride 97 L D (100-110) mmol/L Carbon Dioxide 26 (21-32) mmol/L BUN 24 H (7-18) mg/dL Creatinine 1.2 H (0.55-1.02) mg/dL Est Cr Clr Drug Dosing TNP Estimated GFR (MDRD) 44 L (>60) BUN/Creatinine Ratio 20.0 (9-20) Glucose 559 H* D (80-116) mg/dL Calcium 8.8 (8.6-10.2) mg/dL Total Bilirubin 0.3 (0.1-1.3) mg/dL AST 13 D (5-25) IU/L ALT 21 D (12-36) U/L Alkaline Phosphatase 145 H (56-112) IU/L Total Protein 7.4 (6.0-8.0) g/dL Albumin 3.1 L (3.2-4.6) g/dL Globulin 4.3 g/dL Albumin/Globulin Ratio 0.7 Urine Color Yellow (YELLOW) Urine Appearance Clear (CLEAR) Urine pH 5.0 (5.0-6.5) Ur Specific [place]dwell 1.010 (1.010-1.025) Urine Protein Negative (NEGATIVE) mg/dL Urine Glucose (UA) >1000 H (NORMAL) mg/dL Urine Ketones Negative (NEGATIVE) mg/dL Urine Occult Blood Negative (NEGATIVE) Urine Nitrite Negative (NEGATIVE) Urine Bilirubin Negative (NEGATIVE) Urine Urobilinogen Normal (NEGATIVE) mg/dL Ur Leukocyte Esterase Negative (NEGATIVE) Urine RBC 0-5 (0-5) Urine WBC 0-5 (0-5) Ur Squamous Epith Cells Few H (NS,R,O) Urine Bacteria Few H (NS) Meds: Medications Generic Name Dose Route Start Last Admin Trade Name Freq PRN Reason Stop Dose Admin Sodium Chloride 10 ml 05/08/19 23:19 Saline Flush FLUSH ASDIRECTED PRN Keep Vein Open Discontinued Medications Generic Name Dose Route Start Last Admin Trade Name Freq PRN Reason Stop Dose Admin Insulin Human Regular 10 unit 11/16/19 00:23 05/09/19 00:32 Humulin R IV 05/09/19 00:24 10 units ONETIME ONE Administration Insulin Human Regular 10 unit 05/09/19 00:24 05/09/19 00:37 Humulin R SUBCUT 05/09/19 00:25 10 units .ONCE ONE Administration Insulin Human Regular 10 unit 05/09/19 02:15 05/09/19 02:26 Humulin R IV 05/09/19 02:16 10 units ONETIME ONE Administration Insulin Human Regular 10 unit 05/09/19 02:15 05/09/19 02:27 Humulin R SUBCUT 05/09/19 02:16 10 units .ONCE ONE Administration Iopamidol 100 ml 05/09/19 00:31 05/09/19 00:52 Isovue-370 (76%) IV 05/09/19 00:32 100 ml . DIRECTED ONE Administration - Radiology Interpretation Free Text/Narrative:: CT Chest/Abd/Pelvis w/ IV contrast: No evidence of solid organ injury. Cholelithiasis w/o cholecystitis. Diverticulosis. Patchy ground glass opacities RLL, nonspecific, can be seen in an infectious bronchiolitis. Left kidney lesion. - Re-Assessments/Exams Free Text/Narrative Re-Assessment/Exam: 05/09/19 03:37 Accucheck 352 after Regular Insulin 20 units IV and 20 units SC. Departure - Departure Time of Disposition: 03:38 Disposition: Home, Self-Care 01 Condition: Good Clinical Impression: Bronchiolitis Chest wall contusion Qualifiers: Encounter type: initial encounter Laterality: right Qualified Code(s): S20.211A - Contusion of right front wall of thorax, initial encounter Hyperglycemia due to type 2 diabetes mellitus Qualifiers: Diabetes mellitus buttermaker insulin use: with senior care use Qualified Code(s): E11.65 - Type 2 diabetes mellitus with hyperglycemia; Z79.4 - buttermaker (current ) use of insulin - Discharge Information *PRESCRIPTION DRUG MONITORING PROGRAM REVIEWED*: No *COPY OF PRESCRIPTION DRUG MONITORING REPORT IN PATIENT KIRSTEN: Not Applicable Prescriptions: Doxycycline Hyclate 100 mg PO BID #14 tablet. Instructions: Hyperglycemia, [id number], Contusion, [id number], Type 2 Diabetes Mellitus, Self Care, Adult, [id number] Referrals: Handy Verdugo MD [Primary Care Provider] - Forms: ED Department Discharge Additional Instructions: Fill the prescription for Doxycycline. Take your insulin as directed, do not miss a dose. Follow a diabetic diet. Check your blood sugars twice a day, keep a diary. Take Tylenol as needed for pain. Follow up with your primary physician in 2-3 days. Return to the ER if symptoms worsen. - My Orders Last 24 Hours: My Active Orders 05/08/19 23:19 Sodium Chloride 0.9% [Saline Flush] 10 ml FLUSH ASDIRECTED PRN Saline Lock Insert [OM.PC] Routine 05/09/19 00:25 Chest Abdomen Pelvis w Cont [CT] Stat 05/09/19 02:00 Accu Check [Blood Glucose Check, Bedside] [RC] ONETIME 05/09/19 03:30 Accu Check [Blood Glucose Check, Bedside] [RC] ONETIME - Assessment/Plan Last 24 Hours: My Active Orders 05/08/19 23:19 Sodium Chloride 0.9% [Saline Flush] 10 ml FLUSH ASDIRECTED PRN Saline Lock Insert [OM.PC] Routine 05/09/19 00:25 Chest Abdomen Pelvis w Cont [CT] Stat 05/09/19 02:00 Accu Check [Blood Glucose Check, Bedside] [RC] ONETIME 05/09/19 03:30 Accu Check [Blood Glucose Check, Bedside] [RC] ONETIME
[2019-05-09] MEDS ORDERED: Insulin Regular, Human 100 Units/ML 3 ML Vial IV ONE ×2 (00:23→02:15)
[2019-05-09] MEDS ORDERED: Insulin Regular, Human 100 Units/ML 3 ML Vial SUBCUT ONE ×2 (00:24→02:15)
[2019-05-09] MEDS ORDERED: Iopamidol 755 Mg/ML 100 ML Bottle IV ONE (00:31)
== END 2019-05-09 04:05 | disposition home or self-care (01) ==
LOC: FB.ED 22:37
DX: S20.211A Contusion of right front wall of thorax, initial encounter (principal); E11.65 Type 2 diabetes mellitus with hyperglycemia; J21.9 Acute bronchiolitis, unspecified; H54.7 Unspecified visual loss; I25.10 Atherosclerotic heart disease of native coronary artery without angina pectoris; E78.00 Pure hypercholesterolemia, unspecified; I10 Essential (primary) hypertension; I25.2 Old myocardial infarction; F32.9 Major depressive disorder, single episode, unspecified; E66.9 Obesity, unspecified; Z91.048 Other nonmedicinal substance allergy status; Z79.02 Long term (current) use of antithrombotics/antiplatelets; Z95.2 Presence of prosthetic heart valve; Z87.891 Personal history of nicotine dependence; Z95.5 Presence of coronary angioplasty implant and graft; Z86.73 Personal history of transient ischemic attack (TIA), and cerebral infarction without residual deficits; Z79.899 Other long term (current) drug therapy; Z79.82 Long term (current) use of aspirin; Z79.01 Long term (current) use of anticoagulants; Z79.4 Long term (current) use of insulin; W07.XXXA Fall from chair, initial encounter
CPT/HCPCS: 36415; 71260; 74177; 80053; 81001; 82962; 85025; 96372; 96374; 96376; 99284; J1815; Q9967

== ENCOUNTER 2020-05-23 08:46 | Emergency (ER) | payer MEDICARE, OTHER ==
[2020-05-23] MEDS ORDERED: Insulin Lispro 100 Unit/ML 3 ML KwikPen SUBCUT ONE ×2 (08:47→09:06)
--- NOTE | 2020-05-23 08:51 | EDM.PDOC ---
ED HPI GENERAL MEDICAL PROBLEM - General Stated Complaint: HIGH LACTIC ACID Time Seen by Provider: 05/23/20 08:50 Source of Information: Reports: Patient History Limitations: Reports: No Limitations - History of Present Illness INITIAL COMMENTS - FREE TEXT/NARRATIVE: 69-year-old female who was to get an outpatient colonoscopy today. She has held her Eliquis for several days and was just only hold her nighttime dose of Lantus last night but instead did not take any of her medication yesterday. She also underwent a GoLYTELY prep yesterday beginning at 1 PM and ending at 4 PM. She does report that she ate Jell-O and drank fluids and has been feeling well. She presented this morning for the colonoscopy and her blood sugar was 418. This prompted the physician to check blood work which included a basic metabolic profile and also a lactic acid and her lactic acid was 3.2. The patient's blood sugar was confirmed to be for 448 on the basic metabolic profile. Her electrolytes were normal. She was then transferred to urgency department for further cares by Dr. Raines. She states that she feels well and does not have any weakness or dizziness. She has no pain, rating her pain as a 0/10.. She does report that she is hungry. No shortness of breath. No fevers or chills. No cough or nasal congestion. There are no other associated signs or symptoms. There are no other modifying factors. Onset: Today Duration: Constant Location: Reports: Other (Not applicable) Quality: Reports: Other (No pain) Improves with: Reports: None Worsens with: Reports: None Context: Reports: Other (As above) Associated Symptoms: Reports: No Other Symptoms Treatments MAPPER: Reports: Other (see below) (Nothing.) - Related Data Allergies Allergy/AdvReac Type Severity Reaction Status Date / Time adhesive tape Allergy Itching Verified 05/23/20 07:15 atorvastatin [From Lipitor] Allergy Muscle Verified 05/23/20 08:01 Aches fentanyl Allergy Delusions Verified 05/23/20 08:04 NSAIDS (Non-Steroidal Allergy Avoid Usage Verified 05/23/20 07:15 Anti-Inflamma Home Meds: Home Meds Ferrous Sulfate 325 mg PO Q2D 03/18/18 [History] Rosuvastatin [Crestor] 10 mg PO BEDTIME 03/18/18 [History] Acetaminophen [Tylenol] 650 mg PO ASDIRECTED PRN 07/23/18 [History] Sertraline [Zoloft] 100 mg PO DAILY 07/23/18 [History] rOPINIRole HCl [Requip] 4 mg PO BEDTIME 07/23/18 [History] Insulin Glarg,Human.Rec.Analog [Lantus Solostar] 35 units SUBCUT BEDTIME 08/25/18 [History] Bumetanide [Bumex] 4 mg PO BID #0 02/15/19 [Rx] Gabapentin [Neurontin] 300 mg PO BID 02/15/19 [History] Clobetasol [Clobetasol Propionate 0.05%] 1 applic TP BID 06/11/19 [History] Magnesium Oxide [Magnesium] 400 mg PO DAILY 06/11/19 [History] Nitroglycerin [Nitrostat] 0.4 mg SL ASDIRECTED PRN 06/11/19 [History] Apixaban [Eliquis] 5 mg PO BID 12/08/19 [History] Aspirin 81 mg PO DAILY 12/08/19 [History] Insulin Aspart [NovoLOG] 5 - 25 unit SQ TIDAC 05/18/20 [History] HYDROmorphone [Dilaudid] 2 mg PO 1400,2200 05/23/20 [History] Past Medical History HEENT History: Reports: Impaired Vision, Retinal Detachment 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 Cardiovascular History: Reports: Afib, CAD, Heart Failure, Heart Murmur, High Cholesterol, Hypertension, [place], Stents Other Cardiovascular History: CAD, NSTEMI Respiratory History: Reports: COPD Other Respiratory History: DYSPNEA ON EXERTION, PAROXYSMAL ATRIAL FIBRILLATION Gastrointestinal History: Reports: Colon Polyp, Diverticulosis, Hemorrhoids Other DIE BAKER History: Musculoskeletal History: Reports: Back Pain, Chronic Other Musculoskeletal History: RESTLESS LEG SYNDROME Neurological History: Reports: CVA Psychiatric History: Reports: Depression Endocrine/Metabolic History: Reports: Diabetes, Type II, Obesity/BMI 30+ Hematologic History: Reports: Anemia Dermatologic History: Reports: Psoriasis - Infectious Disease History Infectious Disease History: Reports: Chicken Pox, Measles, Mumps, Shingles - Past Surgical History HEENT Surgical History: Reports: Cataract Surgery, Detached Retina Other HEENT Surgeries/Procedures: has special eye drops made from her blood. Cardiovascular Surgical History: Reports: Coronary Artery Stent, Valve Replacement (Aortic valve replacement) GI Surgical History: Reports: Bariatric Procedure, Colonoscopy Female Surgical History: Reports: Tubal Ligation Musculoskeletal Surgical History: Reports: Arthroscopic Procedure, Other (See Below) Other Musculoskeletal Surgeries/Procedures:: LEFT KNEE SURGERY Social & Family History - Tobacco Use Tobacco Use Status *Q: Unknown Ever Used Tobacco (Nonsmoker.) - Caffeine Use Caffeine Use: Reports: Soda Other Caffeine Use: diet - Alcohol Use Alcohol Use History: Yes Alcohol Use Frequency: Weekly (Occasional glass of wine.) - Living Situation & Occupation Living situation: Reports: Alone ED ROS GENERAL - Review of Systems Review Of Systems: See Below Constitutional: Reports: No Symptoms HEENT: Reports: No Symptoms Respiratory: Reports: No Symptoms Cardiovascular: Reports: No Symptoms Endocrine: Reports: High Glucose GI/Abdominal: Reports: No Symptoms : Reports: No Symptoms Musculoskeletal: Reports: No Symptoms Skin: Reports: No Symptoms Neurological: Reports: No Symptoms Hematologic/Lymphatic: Reports: Easy Bleeding (Chronically anticoagulated on Eliquis but has not had a dose for the past 2 days.) Immunologic: Reports: No Symptoms ED EXAM, GENERAL - Physical Exam Exam: See Below Exam Limited By: No Limitations General Appearance: Alert, WD/WN, No Apparent Distress Eye Exam: Bilateral Eye: EOMI, Normal Inspection, PERRL Ears: Normal External Exam, Hearing Grossly Normal Ear Exam: Bilateral Ear: Auricle Normal Nose: Normal Inspection, Normal Mucosa, No Blood Throat/Mouth: Normal Inspection, Normal Oropharynx, Normal Voice, No Airway Compromise, Other (No ketotic breath.) Head: Atraumatic, Normocephalic Neck: Normal Inspection, Supple, Non-Tender, Full Range of Motion Respiratory/Chest: No Respiratory Distress, Lungs Clear, Normal Breath Sounds, No Accessory Muscle Use, Chest Non-Tender Cardiovascular: Normal Peripheral Pulses, Regular Rate, Rhythm, No Murmur Peripheral Pulses: 2+: Radial (L), Radial (R), Dorsalis Pedis (L), Dorsalis Pedis (R) GI/Abdominal: Normal Bowel Sounds, Soft, Non-Tender, No Mass Back Exam: Normal Inspection, Full Range of Motion Extremities: Normal Inspection, Normal Range of Motion, Non-Tender, No Pedal Edema, Normal Capillary Refill Neurological: Alert, Oriented, CN II-XII Intact, Normal Cognition, Normal Gait Psychiatric: Normal Affect Skin Exam: Warm, Dry, Intact, Normal Color, No Rash Course - Vital Signs Last Recorded V/S: Last Vital Signs Temp 36.8 C 05/23/20 12:20 Pulse 83 05/23/20 12:20 Resp 16 05/23/20 12:20 BP 144/51 H 05/23/20 12:20 Pulse Ox 96 05/23/20 12:20 - Orders/Labs/Meds Orders: Active Orders 24 hr Category Date Time Status Blood Glucose Check, Bedside [RC] Q30M Care 05/23/20 09:05 Active Dextrose 50% in Water Med 05/23/20 09:05 Active 50 ml IVPUSH ASDIRECTED PRN Glucagon,Human Recombinant [GlucaGen] Med 05/23/20 09:05 Active 1 mg IM ASDIRECTED PRN Sodium Chloride 0.9% [Normal Saline] 1,000 ml Med 05/23/20 09:15 Active IV ASDIRECTED Medication Orders Dextrose/Water (Dextrose 50% In Water) 50 ml IVPUSH ASDIRECTED PRN PRN Reason: Hypoglycemia Glucagon (Glucagen) 1 mg IM ASDIRECTED PRN PRN Reason: Hypoglycemia Sodium Chloride (Normal Saline) 1,000 mls @ 150 mls/hr IV ASDIRECTED SOCO Labs: Laboratory Tests 05/23/20 05/23/20 05/23/20 Range/Units 07:30 07:30 07:30 WBC 6.6 (3.0-10.3) x10-3/uL RBC 4.08 (3.60-5.20) x10(6)uL Hgb 11.0 L (11.4-15.5) g/dL Hct 34.8 (34.2-48.2) % MCV 85.2 (76.7-100.5) fL MCH 27.0 (23.9-33.9) pg MCHC 31.7 L (31.9-34.8) g/dL RDW 15.4 (12.3-16.5) % Plt Count 282 (151-488) x10(3)uL MPV 9.7 (7.1-12.4) fL Neut % (Auto) 78.0 H (30.8-76.2) % Lymph % (Auto) 12.9 L (18.4-52.1) % [place] % (Auto) 6.5 (4.4-15.7) % Eos % (Auto) 2.0 (0.6-8.1) % Baso % (Auto) 0.6 (0.2-1.5) % Neut # (Auto) 5.1 (1.5-6.3) x10-3/uL Lymph # (Auto) 0.8 L (1.0-4.4) x10-3/uL [place] # (Auto) 0.4 (0.3-1.0) x10-3/uL Eos # (Auto) 0.1 (0.0-0.8) x10-3/uL Baso # (Auto) 0.0 (0.0-0.1) x10-3/uL POC VBG pH (7.32-7.43) pH Units POC VBG pCO2 (41-51) mmHg POC VBG HCO3 (21-29) mmol/L VBG Base Excess (-2-3) mmol/L O2 Delivery Device POC Glucose (74-100) mg/dL Lactic Acid (0.4-2.0) mmol/L Magnesium 1.9 (1.8-2.5) mg/dL Total Bilirubin 0.6 (0.1-1.3) mg/dL Direct Bilirubin 0.16 (0.10-0.20) mg/dL AST 15 D (5-25) IU/L ALT 22 (12-36) U/L Alkaline Phosphatase 98 (56-112) IU/L Total Protein 7.2 (6.0-8.0) g/dL Albumin 3.1 L (3.2-4.6) g/dL 05/23/20 05/23/20 05/23/20 Range/Units 09:30 10:05 10:38 WBC (3.0-10.3) x10-3/uL RBC (3.60-5.20) x10(6)uL Hgb (11.4-15.5) g/dL Hct (34.2-48.2) % MCV (76.7-100.5) fL MCH (23.9-33.9) pg MCHC (31.9-34.8) g/dL RDW (12.3-16.5) % Plt Count (151-488) x10(3)uL MPV (7.1-12.4) fL Neut % (Auto) (30.8-76.2) % Lymph % (Auto) (18.4-52.1) % [place] % (Auto) (4.4-15.7) % Eos % (Auto) (0.6-8.1) % Baso % (Auto) (0.2-1.5) % Neut # (Auto) (1.5-6.3) x10-3/uL Lymph # (Auto) (1.0-4.4) x10-3/uL [place] # (Auto) (0.3-1.0) x10-3/uL Eos # (Auto) (0.0-0.8) x10-3/uL Baso # (Auto) (0.0-0.1) x10-3/uL POC VBG pH 7.46 H (7.32-7.43) pH Units POC VBG pCO2 39 L (41-51) mmHg POC VBG HCO3 27 (21-29) mmol/L VBG Base Excess 3 (-2-3) mmol/L O2 Delivery Device Room air POC Glucose 382 H 341 H (74-100) mg/dL Lactic Acid (0.4-2.0) mmol/L Magnesium (1.8-2.5) mg/dL Total Bilirubin (0.1-1.3) mg/dL Direct Bilirubin (0.10-0.20) mg/dL AST (5-25) IU/L ALT (12-36) U/L Alkaline Phosphatase (56-112) IU/L Total Protein (6.0-8.0) g/dL Albumin (3.2-4.6) g/dL 05/23/20 05/23/20 05/23/20 Range/Units 11:00 11:19 11:48 WBC (3.0-10.3) x10-3/uL RBC (3.60-5.20) x10(6)uL Hgb (11.4-15.5) g/dL Hct (34.2-48.2) % MCV (76.7-100.5) fL MCH (23.9-33.9) pg MCHC (31.9-34.8) g/dL RDW (12.3-16.5) % Plt Count (151-488) x10(3)uL MPV (7.1-12.4) fL Neut % (Auto) (30.8-76.2) % Lymph % (Auto) (18.4-52.1) % [place] % (Auto) (4.4-15.7) % Eos % (Auto) (0.6-8.1) % Baso % (Auto) (0.2-1.5) % Neut # (Auto) (1.5-6.3) x10-3/uL Lymph # (Auto) (1.0-4.4) x10-3/uL [place] # (Auto) (0.3-1.0) x10-3/uL Eos # (Auto) (0.0-0.8) x10-3/uL Baso # (Auto) (0.0-0.1) x10-3/uL POC VBG pH (7.32-7.43) pH Units POC VBG pCO2 (41-51) mmHg POC VBG HCO3 (21-29) mmol/L VBG Base Excess (-2-3) mmol/L O2 Delivery Device POC Glucose 276 H 239 H (74-100) mg/dL Lactic Acid 2.2 H* (0.4-2.0) mmol/L Magnesium (1.8-2.5) mg/dL Total Bilirubin (0.1-1.3) mg/dL Direct Bilirubin (0.10-0.20) mg/dL AST (5-25) IU/L ALT (12-36) U/L Alkaline Phosphatase (56-112) IU/L Total Protein (6.0-8.0) g/dL Albumin (3.2-4.6) g/dL Meds: Medications Generic Name Dose Route Start Last Admin Trade Name Freq PRN Reason Stop Dose Admin Dextrose/Water 50 ml 05/23/20 09:05 Dextrose 50% In Water IVPUSH ASDIRECTED PRN Hypoglycemia Glucagon 1 mg 05/23/20 09:05 Glucagen IM ASDIRECTED PRN Hypoglycemia Sodium Chloride 1,000 mls @ 150 mls/hr 05/23/20 09:15 Normal Saline IV ASDIRECTED SOCO Discontinued Medications Generic Name Dose Route Start Last Admin Trade Name Freq PRN Reason Stop Dose Admin Sodium Chloride 500 mls @ 999 mls/hr 05/23/20 09:05 05/23/20 09:45 Normal Saline IV 05/23/20 09:35 999 mls/hr .BOLUS ONE Administration Insulin Human Lispro 12 unit 05/23/20 09:06 05/23/20 09:40 Humalog SUBCUT 05/23/20 09:07 12 unit ONETIME ONE Administration - Re-Assessments/Exams Free Text/Narrative Re-Assessment/Exam: 05/23/20 12:30: Blood sugar has come down to the 200 range. She has had 1.5 L of fluid IV and she has also eaten a full meal. She feels normal. Her hemoglobin is normal. Her LFTs were normal. Her pH was normal as well. Her lactate came down to 2.2 which is right at the upper limits of normal. I feel that her last acidosis was due to some dehydration from both the colon prep and also from hyperglycemia and some diuresis that she got from this. She is stable for discharge at this point and the patient is comfortable with this plan. I have told her to take her insulin starting at the noon dose regularly for the rest of the day and to eat and drink normally for now. She will come back to the emergency department for abdominal pain, fever, vomiting, and uncontrolled glucoses. Departure - Departure Time of Disposition: 12:45 Disposition: Home, Self-Care 01 Condition: Good Clinical Impression: Lactic acidosis due to diabetes mellitus Diabetes mellitus type 2, uncontrolled Qualifiers: Glycemic state: with hyperglycemia Qualified Code(s): E11.65 - Type 2 diabetes mellitus with hyperglycemia - Discharge Information Instructions: Hyperglycemia, [id number], Type 2 Diabetes Mellitus, Self Care, Adult, [id number] Referrals: PCP,None [Ordering Only Provider] - Additional Instructions: You had a build up of acid in your blood because you were somewhat dehydrated and percussion your blood sugars were too high. We have corrected this with IV fluids and also insulin area you are basically back to her normal. You should take insulin beginning with your new dose and do so as she regularly would for the rest of the day. Eat and drink as you normally would. Follow-up with Dr. Raines. Back to the emergency department for vomiting, weakness, uncontrolled blood sugars, fever or any other concerning sign or symptom. Sepsis Event Note (ED) - Focused Exam Vital Signs: Vital Signs Temp Pulse Resp BP Pulse Ox 05/23/20 12:20 36.8 C 83 16 144/51 H 96 - My Orders Last 24 Hours: My Active Orders 05/23/20 09:05 Blood Glucose Check, Bedside [RC] Q30M Dextrose 50% in Water 50 ml IVPUSH ASDIRECTED PRN Glucagon,Human Recombinant [GlucaGen] 1 mg IM ASDIRECTED PRN 05/23/20 09:15 Sodium Chloride 0.9% [Normal Saline] 1,000 ml IV ASDIRECTED - Assessment/Plan Last 24 Hours: My Active Orders 05/23/20 09:05 Blood Glucose Check, Bedside [RC] Q30M Dextrose 50% in Water 50 ml IVPUSH ASDIRECTED PRN Glucagon,Human Recombinant [GlucaGen] 1 mg IM ASDIRECTED PRN 05/23/20 09:15 Sodium Chloride 0.9% [Normal Saline] 1,000 ml IV ASDIRECTED
[2020-05-23] MEDS ORDERED: Glucagon,Human Recombinant 1 MG Vial IM PRN (09:05)
[2020-05-23] MEDS ORDERED: 50% Dextrose in Water 50 ML Syringe IVPUSH PRN (09:05)
[2020-05-23] MEDS ORDERED: Sodium Chloride 0.9% 500 ML IV ONE (09:05)
[2020-05-23] MEDS ORDERED: Sodium Chloride 0.9% 1,000 ML IV SCH (09:15)
[2020-05-23 09:41] LABS: BASE EXCESS VENOUS,POC 3 mmol/L (-2-3); HCO3 VENOUS,POC 27 mmol/L (21-29); PCO2 VENOUS,POC 39 mmHg (41-51); PH VENOUS,POC 7.46 pH Units (7.32-7.43)
== END 2020-05-23 12:57 | disposition home or self-care (01) ==
LOC: FB.ED 08:46
DX: E11.65 Type 2 diabetes mellitus with hyperglycemia (principal); E11.10 Type 2 diabetes mellitus with ketoacidosis without coma; I11.0 Hypertensive heart disease with heart failure; I50.9 Heart failure, unspecified; I25.10 Atherosclerotic heart disease of native coronary artery without angina pectoris; I48.91 Unspecified atrial fibrillation; J44.9 Chronic obstructive pulmonary disease, unspecified; F32.9 Major depressive disorder, single episode, unspecified; E66.9 Obesity, unspecified; Z88.4 Allergy status to anesthetic agent; Z88.8 Allergy status to other drugs, medicaments and biological substances; Z88.6 Allergy status to analgesic agent; Z79.4 Long term (current) use of insulin; Z79.82 Long term (current) use of aspirin; Z79.899 Other long term (current) drug therapy; Z98.51 Tubal ligation status
CPT/HCPCS: 36415; 80076; 82962; 83605; 83735; 85025; 99284; J1815; J7040

== ENCOUNTER → 2020-05-23 | Day surgery (SDC) | payer MEDICARE, OTHER ==
[~2020-05-23] MED LIST changes: +Sodium Chloride 0.9% 1,000 ML IV SCH; +Sodium Chloride 0.9% 500 ML IV ONE
--- NOTE | 2020-05-23 09:21 | PCM.SN.2 ---
- Free Text/Narrative Note: Pt noted to have an elevated glucose this am on preop admission. Subsequent lab work noted a low K, and and elevated lactic acid. She apparently did not take any insulin yesterday including her long as well as short acting agents. I have cancelled the case for this am. Dr Padilla in the ED has graciously agreed to assume care. We will reschedule at a later date.
== END ==
LOC: FB.SDS 06:44
PROVIDERS: ATTEND Surgery
DX: Z12.11 Encounter for screening for malignant neoplasm of colon (principal); R73.09 Other abnormal glucose; E87.6 Hypokalemia; R79.89 Other specified abnormal findings of blood chemistry; Z53.09 Procedure and treatment not carried out because of other contraindication; Z86.010 Personal history of colon polyps
CPT/HCPCS: 36415; 80048; 82962; 83605; J7040; J7120

== ENCOUNTER 2020-12-23 20:54 | Emergency (ER) | payer MEDICARE, OTHER ==
[2020-12-23] MEDS ORDERED: Sodium Chloride 0.9% 10 ML Syringe FLUSH PRN (21:23)
[2020-12-23] MEDS: Sodium Chloride 0.9% 1,000 ML IV SCH (21:55)
--- NOTE | 2020-12-23 21:59 | EDM.PDOC ---
ED HPI GENERAL MEDICAL PROBLEM - General Chief Complaint: Gastrointestinal Problem Stated Complaint: WEAKNESS Time Seen by Provider: 12/23/20 21:00 Source of Information: Reports: Patient History Limitations: Reports: No Limitations - History of Present Illness INITIAL COMMENTS - FREE TEXT/NARRATIVE: Patient presented to the ED because of N/V/D on and off for 2 weeks. The stool is mostly watery with some abdominal cramping. 2 days ago she c/o weakness and dizziness. There is no fever, chills, cough or cold. Denies having any chest pain, dyspnea or edema. - Related Data Allergies Allergy/AdvReac Type Severity Reaction Status Date / Time adhesive tape Allergy Itching Verified 05/23/20 07:15 atorvastatin [From Lipitor] Allergy Muscle Verified 05/23/20 08:01 Aches fentanyl Allergy Delusions Verified 05/23/20 08:04 NSAIDS (Non-Steroidal Allergy Avoid Usage Verified 05/23/20 07:15 Anti-Inflamma Home Meds: Home Meds Ferrous Sulfate 325 mg PO Q2D 03/18/18 [History] Rosuvastatin [Crestor] 10 mg PO BEDTIME 03/18/18 [History] Acetaminophen [Tylenol] 650 mg PO ASDIRECTED PRN 07/23/18 [History] Sertraline [Zoloft] 100 mg PO DAILY 07/23/18 [History] rOPINIRole HCl [Requip] 4 mg PO BEDTIME 07/23/18 [History] Insulin Glarg,Human.Rec.Analog [Lantus Solostar] 35 units SUBCUT BEDTIME 08/25/18 [History] Bumetanide [Bumex] 4 mg PO BID #0 02/15/19 [Rx] Gabapentin [Neurontin] 300 mg PO BID 02/15/19 [History] Clobetasol [Clobetasol Propionate 0.05%] 1 applic TP BID 06/11/19 [History] Magnesium Oxide [Magnesium] 400 mg PO DAILY 06/11/19 [History] Nitroglycerin [Nitrostat] 0.4 mg SL ASDIRECTED PRN 06/11/19 [History] Apixaban [Eliquis] 5 mg PO BID 12/08/19 [History] Aspirin 81 mg PO DAILY 12/08/19 [History] Insulin Aspart [NovoLOG] 5 - 25 unit SQ TIDAC 05/18/20 [History] HYDROmorphone [Dilaudid] 2 mg PO 1400,2200 05/23/20 [History] Ondansetron [Zofran ODT] 4 mg PO Q4H PRN #5 tab.dis 12/23/20 [Rx] Potassium Chloride [Klor-Con M20] 40 meq PO TID #12 tab.er 12/23/20 [Rx] Omeprazole 20 mg PO DAILY #60 capsule. 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 Psychiatric History: Reports: Depression Endocrine/Metabolic History: Reports: Diabetes, Type II, Obesity/BMI 30+ Hematologic History: Reports: Anemia Immunologic History: Reports: None Oncologic (Cancer) History: Reports: None Dermatologic History: Reports: Psoriasis - Infectious Disease History Infectious Disease History: Reports: Chicken Pox, Measles, Mumps, Shingles - Past Surgical History Cardiovascular Surgical History: Reports: Coronary Artery Stent, Valve Replacement (Aortic valve replacement) Social & Family History - Family History Family Medical History: No Pertinent Family History - Caffeine Use Caffeine Use: Reports: Coffee Other Caffeine Use: diet - Living Situation & Occupation Living situation: Reports: Alone ED ROS GENERAL - Review of Systems Review Of Systems: See Below Constitutional: Reports: No Symptoms HEENT: Reports: No Symptoms Respiratory: Reports: No Symptoms Cardiovascular: Reports: No Symptoms Endocrine: Reports: No Symptoms GI/Abdominal: Reports: Diarrhea, Nausea, Vomiting : Reports: No Symptoms Musculoskeletal: Reports: No Symptoms Skin: Reports: No Symptoms Neurological: Reports: No Symptoms Psychiatric: Reports: No Symptoms ED EXAM, GI/ABD - Physical Exam Exam: See Below Exam Limited By: No Limitations General Appearance: Alert, No Apparent Distress Ears: Normal External Exam, Normal Canal Nose: Normal Inspection, Normal Mucosa, No Blood Throat/Mouth: Normal Inspection, Normal Lips, Normal Teeth, Normal Gums Head: Atraumatic, Normocephalic Neck: Normal Inspection, Supple, Non-Tender, Full Range of Motion Respiratory/Chest: No Respiratory Distress, Lungs Clear, Normal Breath Sounds, No Accessory Muscle Use, Chest Non-Tender Cardiovascular: Normal Peripheral Pulses, Regular Rate, Rhythm, No Edema, No Gallop, No JVD, No Murmur, No Rub GI/Abdominal Exam: Soft, Non-Tender, Other (hyperactive BS) Back Exam: Normal Inspection, Full Range of Motion #1 Interpretation EKG Date: 12/23/20 Time: 21:35 Rhythm: Other (Atriac ectopy) Rate (Beats/Min): 96 [place]: Normal P-Wave: Present QRS: Normal ST-T: Normal QT: Normal Comparison: No Change EKG Interpretation Comments: Atrial Ectopy LVH Course - Vital Signs Text/Narrative:: Lab/EKG result was reviewed and discussed with patient NS 1 L in 2 hours Klor con 40 meq PO x1 Zofra 4 mg IV x1 Lomotil 2 PO x1 Patient felt better after the above treatment. She doesn't want to stay in the hospital because his grandson will have a wedding tomorrow and she said" I don't want to miss that special event". Last Recorded V/S: Last Vital Signs Temp 36.4 C 12/23/20 20:55 Pulse 102 H 12/23/20 20:55 Resp 18 12/23/20 20:55 BP 119/70 12/23/20 20:55 Pulse Ox 98 12/23/20 20:55 - Orders/Labs/Meds Orders: Active Orders 24 hr Category Date Time Status Blood Glucose Check, Bedside [RC] ONETIME Care 12/23/20 20:58 Active EKG Documentation Completion [RC] ASDIRECTED Care 12/23/20 21:33 Active CULTURE URINE [RM] Stat Lab 12/23/20 23:40 Ordered Sodium Chloride 0.9% [Normal Saline] 1,000 ml Med 12/23/20 21:30 Active IV ASDIRECTED Sodium Chloride 0.9% [Saline Flush] Med 12/23/20 21:23 Active 10 ml FLUSH ASDIRECTED PRN Saline Lock Insert [OM.PC] Routine Oth 12/23/20 21:23 Ordered EKG 12 Lead [EK] Routine Ther 12/23/20 21:33 Ordered Medication Orders Sodium Chloride (Normal Saline) 1,000 mls @ 500 mls/hr IV ASDIRECTED SOCO Last Admin: 12/23/20 21:55 Dose: 500 mls/hr Documented by: BRENLOR Sodium Chloride (Sodium Chloride 0.9% 10 Ml Syringe) 10 ml FLUSH ASDIRECTED PRN PRN Reason: Keep Vein Open Labs: Laboratory Tests 12/23/20 12/23/20 12/23/20 Range/Units 21:35 21:35 21:35 WBC 17.5 H (3.0-10.3) x10-3/uL RBC 4.88 (3.60-5.20) x10(6)uL Hgb 13.3 (11.4-15.5) g/dL Hct 40.6 (34.2-48.2) % MCV 83.2 (76.7-100.5) fL MCH 27.2 (23.9-33.9) pg MCHC 32.7 (31.9-34.8) g/dL RDW 18.1 H (12.3-16.5) % Plt Count 360 (151-488) x10(3)uL MPV 9.0 (7.1-12.4) fL Add Manual Diff Yes Neutrophils % (Manual) 84 H (46-82) % Band Neutrophils % 1 (0-6) % Lymphocytes % (Manual) 9 L (13-37) % Monocytes % (Manual) 4 (4-12) % Eosinophils % (Manual) 2 (0-5) % Anisocytosis Few Sodium 139 (135-145) mmol/L Potassium 2.7 L* (3.5-5.3) mmol/L Chloride 97 L (100-110) mmol/L Carbon Dioxide 23 (21-32) mmol/L BUN 24 H (7-18) mg/dL Creatinine 1.3 H (0.55-1.02) mg/dL Est Cr Clr Drug Dosing 28.10 mL/min Estimated GFR (MDRD) 40 L (>60) BUN/Creatinine Ratio 18.5 (9-20) Glucose 299 H D (80-116) mg/dL Calcium 9.0 (8.6-10.2) mg/dL Total Bilirubin 0.5 (0.1-1.3) mg/dL AST 22 D (5-25) IU/L ALT 24 (12-36) U/L Alkaline Phosphatase 121 H (56-112) IU/L Troponin I 39.4 (4.0-60.3) pg/mL Total Protein 7.4 (6.0-8.0) g/dL Albumin 3.1 L (3.2-4.6) g/dL Globulin 4.3 g/dL Albumin/Globulin Ratio 0.7 Urine Color (YELLOW) Urine Appearance (CLEAR) Urine pH (5.0-6.5) Ur Specific [place] (1.010-1.025) Urine Protein (NEGATIVE) mg/dL Urine Glucose (UA) (NORMAL) mg/dL Urine Ketones (NEGATIVE) mg/dL Urine Occult Blood (NEGATIVE) Urine Nitrite (NEGATIVE) Urine Bilirubin (NEGATIVE) Urine Urobilinogen (NEGATIVE) mg/dL Ur Leukocyte Esterase (NEGATIVE) Urine RBC (0-5) Urine WBC (0-5) Ur Squamous Epith Cells (NS,R,O) Urine Bacteria (NS) 12/23/20 Range/Units 23:30 WBC (3.0-10.3) x10-3/uL RBC (3.60-5.20) x10(6)uL Hgb (11.4-15.5) g/dL Hct (34.2-48.2) % MCV (76.7-100.5) fL MCH (23.9-33.9) pg MCHC (31.9-34.8) g/dL RDW (12.3-16.5) % Plt Count (151-488) x10(3)uL MPV (7.1-12.4) fL Add Manual Diff Neutrophils % (Manual) (46-82) % Band Neutrophils % (0-6) % Lymphocytes % (Manual) (13-37) % Monocytes % (Manual) (4-12) % Eosinophils % (Manual) (0-5) % Anisocytosis Sodium (135-145) mmol/L Potassium (3.5-5.3) mmol/L Chloride (100-110) mmol/L Carbon Dioxide (21-32) mmol/L BUN (7-18) mg/dL Creatinine (0.55-1.02) mg/dL Est Cr Clr Drug Dosing mL/min Estimated GFR (MDRD) (>60) BUN/Creatinine Ratio (9-20) Glucose (80-116) mg/dL Calcium (8.6-10.2) mg/dL Total Bilirubin (0.1-1.3) mg/dL AST (5-25) IU/L ALT (12-36) U/L Alkaline Phosphatase (56-112) IU/L Troponin I (4.0-60.3) pg/mL Total Protein (6.0-8.0) g/dL Albumin (3.2-4.6) g/dL Globulin g/dL Albumin/Globulin Ratio Urine Color Yellow (YELLOW) Urine Appearance Clear (CLEAR) Urine pH 6.0 (5.0-6.5) Ur Specific [place] 1.010 (1.010-1.025) Urine Protein Negative (NEGATIVE) mg/dL Urine Glucose (UA) >1000 H (NORMAL) mg/dL Urine Ketones 15 H (NEGATIVE) mg/dL Urine Occult Blood Negative (NEGATIVE) Urine Nitrite Negative (NEGATIVE) Urine Bilirubin Negative (NEGATIVE) Urine Urobilinogen Normal (NEGATIVE) mg/dL Ur Leukocyte Esterase Moderate H (NEGATIVE) Urine RBC 0-5 (0-5) Urine WBC 5-10 H (0-5) Ur Squamous Epith Cells Few H (NS,R,O) Urine Bacteria Few H (NS) Meds: Medications Generic Name Dose Route Start Last Admin Trade Name Freq PRN Reason Stop Dose Admin Sodium Chloride 1,000 mls @ 500 mls/hr 12/23/20 21:30 12/23/20 21:55 Normal Saline IV 500 mls/hr ASDIRECTED SOCO Administration Sodium Chloride 10 ml 12/23/20 21:23 Sodium Chloride 0.9% 10 Ml Syringe FLUSH ASDIRECTED PRN Keep Vein Open Discontinued Medications Generic Name Dose Route Start Last Admin Trade Name Freq PRN Reason Stop Dose Admin Diphenoxylate HCl/Atropine 2 tab 12/23/20 21:34 12/23/20 22:05 Atropine/Diphenoxylate 0.025-2.5 Mg Tab PO 12/23/20 21:35 2 tab NOW STA Administration Ondansetron HCl 4 mg 12/23/20 21:23 12/23/20 22:00 Ondansetron 4 Mg/2 Ml Sdv IVPUSH 12/23/20 21:24 4 mg NOW STA Administration Potassium Chloride 40 meq 12/23/20 22:07 12/23/20 22:20 Potassium Chloride 20 Meq Tab.Er PO 12/23/20 22:08 40 meq NOW STA Administration Departure - Departure Time of Disposition: 00:00 Disposition: Home, Self-Care 01 Condition: Good Clinical Impression: Dehydration, Hypokalemia, Gastroenteritis, UTI (urinary tract infection), GERD (gastroesophageal reflux disease) Hyperglycemia due to type 2 diabetes mellitus Qualifiers: Diabetes mellitus senior living insulin use: with 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 Ondansetron [Zofran ODT] 4 mg PO Q4H PRN #5 tab.dis PRN Reason: Nausea Instructions: Viral Gastroenteritis, Adult, [id number], Hypokalemia, Dehydration, Adult, [id number], Urinary Tract Infection, Adult Referrals: Ti Weaver MD [Primary Care Provider] - Forms: ED Department Discharge Additional Instructions: Please read discharge instructions on gastroenteritis(stomach flu),dehydration and low potassium Frequent hand washing Take imodium(over the counter) 1-2 tablets every 6 hours as needed for diarrhea Klor con 20 meq, 2 tablets 3 times daily for 2 days Prilosec 20 mg daily Bactrim DS twice daily for 5 days Drink 1-1.5 Liters of fluid daily Follow up as needed Sepsis Event Note (ED) - Focused Exam Vital Signs: Vital Signs Temp Pulse Resp BP Pulse Ox 12/23/20 20:55 36.4 C 102 H 18 119/70 98 - My Orders Last 24 Hours: My Active Orders 12/23/20 20:58 Blood Glucose Check, Bedside [RC] ONETIME 12/23/20 21:23 Sodium Chloride 0.9% [Saline Flush] 10 ml FLUSH ASDIRECTED PRN Saline Lock Insert [OM.PC] Routine 12/23/20 21:30 Sodium Chloride 0.9% [Normal Saline] 1,000 ml IV ASDIRECTED 12/23/20 21:33 EKG Documentation Completion [RC] ASDIRECTED EKG 12 Lead [EK] Routine 12/23/20 23:40 CULTURE URINE [RM] Stat - Assessment/Plan Last 24 Hours: My Active Orders 12/23/20 20:58 Blood Glucose Check, Bedside [RC] ONETIME 12/23/20 21:23 Sodium Chloride 0.9% [Saline Flush] 10 ml FLUSH ASDIRECTED PRN Saline Lock Insert [OM.PC] Routine 12/23/20 21:30 Sodium Chloride 0.9% [Normal Saline] 1,000 ml IV ASDIRECTED 12/23/20 21:33 EKG Documentation Completion [RC] ASDIRECTED EKG 12 Lead [EK] Routine 12/23/20 23:40 CULTURE URINE [RM] Stat
[2020-12-23] MEDS: Ondansetron 4 MG/2 ML SDV IVPUSH STA (22:00)
[2020-12-23] MEDS: Atropine/Diphenoxylate 0.025-2.5 MG Tab PO STA (22:05)
[2020-12-23] MEDS: Potassium Chloride 20 MEQ Tab.ER PO STA (22:20)
== END 2020-12-24 00:25 | disposition home or self-care (01) ==
LOC: FB.ED 20:54
DX: K52.9 Noninfective gastroenteritis and colitis, unspecified (principal); N39.0 Urinary tract infection, site not specified; K21.9 Gastro-esophageal reflux disease without esophagitis; E86.0 Dehydration; E87.6 Hypokalemia; E11.65 Type 2 diabetes mellitus with hyperglycemia; I48.91 Unspecified atrial fibrillation; I25.10 Atherosclerotic heart disease of native coronary artery without angina pectoris; I11.0 Hypertensive heart disease with heart failure; I50.9 Heart failure, unspecified; E78.00 Pure hypercholesterolemia, unspecified; I25.2 Old myocardial infarction; J44.9 Chronic obstructive pulmonary disease, unspecified; E66.9 Obesity, unspecified; Z68.34 Body mass index [BMI] 34.0-34.9, adult; Z79.82 Long term (current) use of aspirin; Z79.01 Long term (current) use of anticoagulants; Z79.899 Other long term (current) drug therapy; Z88.6 Allergy status to analgesic agent; Z88.8 Allergy status to other drugs, medicaments and biological substances
CPT/HCPCS: 36415; 80053; 81001; 82947; 84484; 85025; 87086; 87088; 87186; 93005; 96374; 99284-25; A9270-GY; J2405; J7030

== ENCOUNTER 2021-05-17 09:10 | Inpatient (IN) | payer MEDICARE, OTHER, MEDICAID ==
[2021-05-17] MEDS ORDERED: Insulin Lispro 100 Unit/ML 3 ML KwikPen SUBCUT ONE (12:59)
[2021-05-17] MEDS ORDERED: Insulin Glargine,Human Rec. Analog 100 Units/ML 3 ML Pen SUBCUT ONE (12:59)
[2021-05-17] MEDS ORDERED: Glucagon,Human Recombinant 1 MG Vial IM PRN (13:51)
[2021-05-17] MEDS ORDERED: 50% Dextrose in Water 50 ML Syringe IVPUSH PRN (13:51)
[2021-05-17] MEDS ORDERED: Nitroglycerin 0.4 MG Tab.SL SL PRN (13:51)
[2021-05-17] MEDS ORDERED: Magnesium Oxide 400 MG Tab PO PRN (14:03)
--- NOTE | 2021-05-17 14:06 | PCM.HP.2 ---
H&P History of Present Illness - General Date of Service: 05/17/21 Admit Problem/Dx: Admission Diagnosis/Problem Admission Diagnosis/Problem Weakness Source of Information: Patient, Old Records, Provider History Limitations: Reports: No Limitations - History of Present Illness Initial Comments - Free Text/Narative: Pt was admitted to [facility] 05/07-05/09 for CHF exacerbation, was discharged to [facility] rehab she had her diuretics discontinued there for low blood pressures and given IVF, her weight went up and had more shortness of breath so she was transferred back to [place] admitted on 05/12, had acute on chronic systolic heart failure, weight was up 5 lbs. Her Creatinine 2.1. Recent EF 25%. Restarted on Bumex 4 mg and then switched to Lasix IV q12h on 05/14. Spoke with Dr Villarreal, Hospitalist, felt she still had 5-10 lbs to diuresis, Cr was 1.4 on 05/16, 1.39 today, weight was 195 lbs 05/16, BP 109/74. She was also given Albumin 25g yesterday. proBNP was 6656 05/16. Had some diarrhea, tested for C. difficile which was negative. - Related Data Allergies/Adverse Reactions: Allergies Allergy/AdvReac Type Severity Reaction Status Date / Time adhesive tape Allergy Itching Verified 12/26/20 05:29 atorvastatin [From Lipitor] Allergy Muscle Verified 12/26/20 05:29 Aches fentanyl Allergy Delusions Verified 12/26/20 05:29 metformin Allergy Diarrhea Verified 12/26/20 05:29 NSAIDS (Non-Steroidal Allergy Avoid Usage Verified 12/26/20 05:29 Anti-Inflamma Home Medications: Home Meds Ferrous Sulfate 325 mg PO Q48H 03/18/18 [History] Acetaminophen [Tylenol] 650 mg PO QID 07/23/18 [History] rOPINIRole HCl [Requip] 4 mg PO BEDTIME 07/23/18 [History] Clobetasol [Clobetasol Propionate 0.05%] 1 applic TP BID PRN 06/11/19 [History] Nitroglycerin [Nitrostat] 0.4 mg SL Q5M PRN 06/11/19 [History] Apixaban [Eliquis] 5 mg PO BID 12/08/19 [History] Clopidogrel [Plavix] 75 mg PO DAILY 12/26/20 [History] Dapagliflozin Propanediol [Farxiga] 10 mg PO DAILY 05/17/21 [History] Digoxin [Digox] 62.5 mcg PO DAILY 05/17/21 [History] Furosemide [Lasix] 40 mg IV Q12H 05/17/21 [History] Gabapentin [Neurontin] 100 mg PO TID 05/17/21 [History] Insulin Aspart [Novolog Flexpen] 15 units SQ TIDMEALS 05/17/21 [History] Insulin Glarg,Human.Rec.Analog [Lantus Solostar] 30 units SQ BEDTIME 05/17/21 [History] Magnesium Oxide 400 mg PO DAILY PRN 05/17/21 [History] Pantoprazole [ProTONIX] 40 mg PO DAILY@0600 05/17/21 [History] Potassium Chloride [Klor-Con M20] 20 meq PO TID 05/17/21 [History] Rosuvastatin [Crestor] 20 mg PO BEDTIME 05/17/21 [History] Sertraline [Zoloft] 100 mg PO DAILY 05/17/21 [History] atenoloL [Atenolol] 25 mg PO DAILY 05/17/21 [History] Past Medical History HEENT History: Reports: Impaired Vision, Retinal Detachment 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 Respiratory History: Reports: COPD Other Respiratory History: Dyspnea on exertion. Paroxysmal atrial fibrillation. Gastrointestinal History: Reports: Colon Polyp, Diverticulosis, Hemorrhoids Genitourinary History: Reports: None [employer] History: Reports: Other OB/BYN History: Musculoskeletal History: Reports: Back Pain, Chronic Other Musculoskeletal History: Restless leg syndrome. Neurological History: Reports: CVA Other Neuro History: Restless leg syndrome. Psychiatric History: Reports: Depression Endocrine/Metabolic History: Reports: Diabetes, Type II, Obesity/BMI 30+ Hematologic History: Reports: Anemia Immunologic History: Reports: None Oncologic (Cancer) History: Reports: None Dermatologic History: Reports: Psoriasis - Infectious Disease History Infectious Disease History: Reports: Chicken Pox, Measles, Mumps, Shingles - Past Surgical History Cardiovascular Surgical History: Reports: Coronary Artery Stent, Valve R eplacement (Aortic valve replacement) Social & Family History - Family History Family Medical History: No Pertinent Family History - Caffeine Use Caffeine Use: Reports: Coffee Other Caffeine Use: diet - Living Situation & Occupation Living situation: Reports: Alone H&P Review of Systems - Review of Systems: Review Of Systems: See Below General: Reports: Weakness, Weight Loss. Denies: Fever, Chills HEENT: Reports: No Symptoms Pulmonary: Reports: Shortness of Breath. Denies: Cough Cardiovascular: Reports: Dyspnea on Exertion, Edema. Denies: Chest Pain Gastrointestinal: Reports: No Symptoms Genitourinary: Reports: No Symptoms Musculoskeletal: Reports: No Symptoms Skin: Reports: No Symptoms Psychiatric: Reports: No Symptoms Hematologic/Lymphatic: Reports: Anemia (9.4 on 05/08), Easy Bleeding, Easy Bruising Exam - Exam Exam: See Below - Vital Signs Vital Signs: Last Vital Signs Temp 98.1 F 05/17/21 12:15 Pulse 90 05/17/21 12:15 Resp 19 05/17/21 12:15 BP 115/72 05/17/21 12:15 Pulse Ox 96 05/17/21 12:15 - Exam Quality Assessment: No: Supplemental Oxygen General: Alert, Oriented, Cooperative. No: Mild Distress HEENT: PERRLA, Conjunctiva Clear, EOMI, Hearing Intact, Mucosa Moist & [place] Neck: Trachea Midline Lungs: Clear to Auscultation (BUL), Normal Respiratory Effort, Decreased Breath Sounds, Crackles (Bibasilar). No: Rhonchi, Wheezing Cardiovascular: Regular Rate, Irregular Rhythm, Systolic Murmur (aortic area) GI/Abdominal Exam: Normal Bowel Sounds, Soft, Non-Tender, No Distention (Female) Exam: Deferred Rectal (Female) Exam: Deferred Extremities: Pedal Edema (3+ BLE). No: Redness Peripheral Pulses: 2+: Radial (L), Radial (R) Skin: Warm, Dry, Intact Sepsis Event Note - Focused Exam Vital Signs: Vital Signs Temp Pulse Resp BP Pulse Ox 05/17/21 12:15 98.1 F 90 19 115/72 96 *Q Meaningful Use (ADM) - VTE Risk Assess *Q Each Risk Factor Represents 1 Point: Swollen Legs, Current, Obesity ( BMI > 25 kg/m2), Congestive heart failure (CHF) Total Score 1 Point Risk Factors: 3 Each Risk Factor Represents 2 Points: Age 60 - 74 Years Total Score 2 Point Risk Factors: 2 Each Risk Factor Represents 3 Points: None Total Score 3 Point Risk Factors: 0 Each Risk Factor Represents 5 Points: None Total Score 5 Point Risk Factors: 0 Venous Thromboembolism Risk Factor Score *Q: 5 - Problem List (1) Weakness SNOMED Code(s): 47868156 ICD Code: R53.1 - WEAKNESS Status: Acute Current Visit: Yes (2) Acute exacerbation of congestive heart failure SNOMED Code(s): 973238312, 22931137590356 ICD Code: I50.9 - HEART FAILURE, UNSPECIFIED Status: Acute Current Visit: No (3) Paroxysmal atrial fibrillation SNOMED Code(s): 912133289 ICD Code: I48.0 - PAROXYSMAL ATRIAL FIBRILLATION Status: Chronic Current Visit: Yes Problem Details: on Eliquis (4) Chronic ischemic heart disease SNOMED Code(s): 455197562 ICD Code: I25.9 - CHRONIC ISCHEMIC HEART DISEASE, UNSPECIFIED Status: Chronic Current Visit: Yes Problem Details: on Plavix (5) History of DVT (deep vein thrombosis) SNOMED Code(s): 950917170 ICD Code: Z86.718 - PERSONAL HISTORY OF OTHER VENOUS THROMBOSIS AND EMBOLISM Status: Chronic Current Visit: Yes (6) NICOLAS (obstructive sleep apnea) SNOMED Code(s): 20242026 ICD Code: G47.33 - OBSTRUCTIVE SLEEP APNEA (ADULT) (PEDIATRIC) Status: Chronic Current Visit: Yes Problem Details: on CPAP (7) CAD (coronary artery disease) SNOMED Code(s): 20927499 ICD Code: I25.10 - ATHSCL HEART DISEASE OF [place] CORONARY ARTERY W/O ANG PCTRS Status: Chronic Current Visit: No Problem Details: on Plavix (8) CHF, Congestive heart failure SNOMED Code(s): 89989584 ICD Code: I50.9 - HEART FAILURE, UNSPECIFIED Status: Chronic Current Visit: No (9) CVA (cerebral vascular accident) SNOMED Code(s): 548761940 ICD Code: I63.9 - CEREBRAL INFARCTION, UNSPECIFIED Status: Chronic Current Visit: No (10) GERD (gastroesophageal reflux disease) SNOMED Code(s): 495910895 ICD Code: K21.9 - GASTRO-ESOPHAGEAL REFLUX DISEASE WITHOUT ESOPHAGITIS Status: Chronic Current Visit: No (11) HLD (hyperlipidemia) SNOMED Code(s): 10789072 ICD Code: E78.5 - HYPERLIPIDEMIA, UNSPECIFIED Status: Chronic Current Visit: No (12) HTN (hypertension) SNOMED Code(s): 24313844 ICD Code: I10 - ESSENTIAL (PRIMARY) HYPERTENSION Status: Chronic Current Visit: No Qualifiers: Hypertension type: essential hypertension (13) History of aortic valve replacement SNOMED Code(s): 6207590329388, 184574459, 7233476022343 ICD Code: Z95.2 - PRESENCE OF PROSTHETIC HEART VALVE Status: Chronic Current Visit: No Problem Details: bioprostethic valve (14) History of heart artery stent SNOMED Code(s): 813286658, 282721998 ICD Code: Z95.5 - PRESENCE OF CORONARY ANGIOPLASTY IMPLANT AND GRAFT Status: Chronic Current Visit: No (15) S/P total hip arthroplasty SNOMED Code(s): 303326625306, 049694237605 ICD Code: Z96.649 - PRESENCE OF UNSPECIFIED ARTIFICIAL HIP JOINT Status: Chronic Current Visit: No (16) Type 2 diabetes mellitus SNOMED Code(s): 27498566 ICD Code: E11.9 - TYPE 2 DIABETES MELLITUS WITHOUT COMPLICATIONS Status: Chronic Current Visit: No Problem Details: Lantus 30 units hs, Humalog sliding scale Problem List Initiated/Reviewed/Updated: Yes Orders Last 24hrs: Active Orders 24 hr Category Date Time Status Patient Status [ADT] Routine ADT 05/17/21 12:56 Active Height and Weight [RC] DAILY Care 05/17/21 12:57 Active Oxygen Therapy [RC] PRN Care 05/17/21 12:56 Active Up With Assistance [RC] ASDIRECTED Care 05/17/21 12:56 Active Up to Chair [RC] ASDIRECTED Care 05/17/21 12:56 Active VTE/DVT Education [RC] Per Unit Routine Care 05/17/21 12:56 Active Vital Signs [RC] PER UNIT ROUTINE Care 05/17/21 12:56 Active OT Evaluation and Treatment [CONS] Routine Cons 05/17/21 12:56 Active PT Evaluation and Treatment [CONS] Routine Cons 05/17/21 12:56 Active 2 Gram Sodium Diet [DIET] Diet 05/17/21 Lunch Active Consistent Carbohydrate Diet [DIET] Diet 05/17/21 Dinner Ordered Acetaminophen [TylenoL] Med 05/17/21 17:00 Ordered 650 mg PO QID Apixaban [Eliquis] Med 05/17/21 21:00 Ordered 5 mg PO BID Clopidogrel [Plavix] Med 05/18/21 09:00 Ordered 75 mg PO DAILY Dapagliflozin Propanediol [Farxiga] Med 05/18/21 09:00 Ordered 10 mg PO DAILY Dextrose 50% in Water Med 05/17/21 13:51 Ordered 50 ml IVPUSH ASDIRECTED PRN Digoxin [Lanoxin] Med 05/18/21 09:00 Ordered 62.5 mcg PO DAILY Ferrous Sulfate Med 05/17/21 14:00 Ordered 325 mg PO Q48H Furosemide [Lasix] Med 05/17/21 14:00 Ordered 40 mg IVPUSH BIDDIURETIC Gabapentin [Neurontin] Med 05/17/21 14:00 Ordered 100 mg PO TID Glucagon,Human Recombinant [GlucaGen] Med 05/17/21 13:51 Ordered 1 mg IM ASDIRECTED PRN Insulin Aspart [Novolog Flexpen] Med 05/17/21 18:00 Ordered 15 units SQ TIDMEALS Insulin Glarg,Human.Rec.Analog [LantUS Solostar] Med 05/17/21 21:00 Ordered 30 units SUBCUT BEDTIME Magnesium Oxide [Magnesium Oxide] Med 05/17/21 13:51 Ordered 400 mg PO DAILY PRN Nitroglycerin [Nitrostat] Med 05/17/21 13:51 Ordered 0.4 mg SL Q5M PRN Pantoprazole [ProTONIX] Med 05/18/21 06:00 Ordered 40 mg PO DAILY@0600 Potassium Chloride [Klor-Con M20] Med 05/17/21 14:00 Ordered 20 meq PO TID Rosuvastatin [Crestor] Med 05/17/21 21:00 Ordered 20 mg PO BEDTIME Sertraline [Zoloft] Med 05/18/21 09:00 Ordered 100 mg PO DAILY Sodium Chloride 0.9% [Saline Flush] Med 05/17/21 12:56 Active 10 ml FLUSH ASDIRECTED PRN atenoloL [Tenormin] Med 05/18/21 09:00 Ordered 25 mg PO DAILY rOPINIRole HCl [Requip] Med 05/17/21 21:00 Ordered 4 mg PO BEDTIME Saline Lock Insert [OM.PC] Routine Oth 05/17/21 12:56 Ordered Resuscitation Status Routine Resus Stat 05/17/21 12:56 Ordered Medication Orders Acetaminophen (Acetaminophen 325 Mg Tab) 650 mg PO QID SOCO Apixaban (Apixaban 5 Mg Tab) 5 mg PO BID SOCO Furosemide (Furosemide 40 Mg/4 Ml Vial) 40 mg IVPUSH BIDDIURETIC SOCO Sodium Chloride (Sodium Chloride 0.9% 10 Ml Syringe) 10 ml FLUSH ASDIRECTED PRN PRN Reason: Keep Vein Open Assessment/Plan Comment:: 1. Admit to swing bed for CHF exacerbation, weakness, DM. 2. CHF: Lasix 40 mg IV BIDDIURETICS x 3 days, then change back to home Bumex. Daily weights. 3. Weakness: PT/OT evaluate & treat. 4. DM: Lantus 30 units hs and Humalog sliding scale. Glucose checks qidachs. 5. Diet: Consistent carb diet, 2 gm sodium diet. 6. Activity: up to chair, with assistance. 7. DVT prophylaxis: Eliquis/Plavix further anticoagulation contraindicated. 8. CODE STATUS: FULL. 9. Disposition: once therapy goals met and back on home diuretics discharge back to home. - Mortality Measure Prognosis:: Poor
[2021-05-17] MEDS: Potassium Chloride 20 MEQ Tab.ER PO SCH ×2 (15:50→20:37)
[2021-05-17] MEDS: Digoxin 125 MCG Tab PO SCH (15:50)
[2021-05-17] MEDS: Gabapentin 100 MG Cap PO SCH ×2 (15:52→20:36)
[2021-05-17] MEDS: Furosemide 40 MG/4 ML VIAL IVPUSH SCH (15:53)
[2021-05-17] MEDS: Sodium Chloride 0.9% 10 ML Syringe FLUSH PRN (15:53)
[2021-05-17] MEDS ORDERED: Insulin Lispro 100 Unit/ML 3 ML KwikPen SUBCUT SCH (18:00)
[2021-05-17] MEDS: Acetaminophen 325 MG Tab PO SCH ×2 (18:00→20:36)
[2021-05-17] MEDS: Insulin Lispro 100 Unit/ML 3 ML KwikPen SUBCUT SCH (18:07)
[2021-05-17] MEDS: Rosuvastatin 20 MG Tab PO SCH (20:36)
[2021-05-17] MEDS: Apixaban 5 MG Tab PO SCH (20:36)
[2021-05-17] MEDS: rOPINIRole 1 MG Tab PO SCH (20:37)
[2021-05-17] MEDS: Insulin Glargine,Human Rec. Analog 100 Units/ML 3 ML Pen SUBCUT SCH (20:38)
[2021-05-17] MEDS ORDERED: Insulin Glargine,Human Rec. Analog 100 Units/ML 3 ML Pen SUBCUT SCH (21:00)
[2021-05-18] MEDS: Pantoprazole 40 MG Tab.CR PO SCH (05:35)
[2021-05-18] MEDS: Insulin Lispro 100 Unit/ML 3 ML KwikPen SUBCUT SCH ×3 (08:31→17:24)
[2021-05-18] MEDS: Furosemide 40 MG/4 ML VIAL IVPUSH SCH ×2 (08:46→13:54)
[2021-05-18] MEDS: Gabapentin 100 MG Cap PO SCH ×3 (08:46→20:40)
[2021-05-18] MEDS: Acetaminophen 325 MG Tab PO SCH ×4 (08:46→20:39)
[2021-05-18] MEDS: Potassium Chloride 20 MEQ Tab.ER PO SCH ×3 (08:52→20:40)
[2021-05-18] MEDS: Apixaban 5 MG Tab PO SCH ×2 (08:53→20:40)
[2021-05-18] MEDS: Ferrous Sulfate 325 MG Tab PO SCH (08:53)
[2021-05-18] MEDS: Sertraline 100 MG Tab PO SCH (08:53)
[2021-05-18] MEDS: Clopidogrel 75 MG Tab PO SCH (08:54)
[2021-05-18] MEDS: Empagliflozin 25 MG Tab PO SCH (08:54)
[2021-05-18] MEDS: Atenolol 25 MG Tab PO SCH (08:56)
[2021-05-18] MEDS: Digoxin 125 MCG Tab PO SCH (16:55)
[2021-05-18] MEDS: Insulin Glargine,Human Rec. Analog 100 Units/ML 3 ML Pen SUBCUT SCH (20:38)
[2021-05-18] MEDS: rOPINIRole 1 MG Tab PO SCH (20:40)
[2021-05-18] MEDS: Rosuvastatin 20 MG Tab PO SCH (20:40)
[2021-05-19] MEDS: Pantoprazole 40 MG Tab.CR PO SCH (05:22)
[2021-05-19] MEDS: Insulin Lispro 100 Unit/ML 3 ML KwikPen SUBCUT SCH ×3 (07:43→17:27)
[2021-05-19] MEDS: Furosemide 40 MG/4 ML VIAL IVPUSH SCH ×2 (07:48→13:39)
[2021-05-19] MEDS: Sodium Chloride 0.9% 10 ML Syringe FLUSH PRN ×2 (07:53→13:41)
[2021-05-19] MEDS: Atenolol 25 MG Tab PO SCH (09:13)
[2021-05-19] MEDS: Potassium Chloride 20 MEQ Tab.ER PO SCH ×3 (09:47→21:26)
[2021-05-19] MEDS: Apixaban 5 MG Tab PO SCH ×2 (09:47→21:26)
[2021-05-19] MEDS: Empagliflozin 25 MG Tab PO SCH (09:47)
[2021-05-19] MEDS: Acetaminophen 325 MG Tab PO SCH ×4 (09:48→21:27)
[2021-05-19] MEDS: Clopidogrel 75 MG Tab PO SCH (09:48)
[2021-05-19] MEDS: Sertraline 100 MG Tab PO SCH (09:48)
[2021-05-19] MEDS: Gabapentin 100 MG Cap PO SCH ×3 (09:48→21:30)
--- OUTSIDE RECORDS SUMMARY | 2021-05-19 13:18 | XMSREPORT ---
:[address] [facility] and [facility] s Address [address] [place] [address] Care Team Providers Name Role Phone Buddy Moody RN Unavailable Trell Griffin RN Unavailable ABEL Coleman-PROFESSIONAL ATHLETES COACH Unavailable MD Jose Primary Care Provider MD Jose Unavailable Reason for Referral [facility] (Routine) - New Request Specialty Diagnoses / Procedures Referred By Contact Refer red To Contact Diagnoses Acute on chronic combined systolic and diastolic congestive heart failure (HCC) Dagoberto Villarreal MD o Cardiology Fl [address] [place] [address] [place] [address] Fax: Referral ID Status Reason Start Date Expiration Date Visits V isits Requested Authorized [id number] New Request 05/17/2021 1 1 Scheduling Instructions This is an electronic referral. [employer] REGISTRAR Reason for Visit Auth/Cert Specialty Diagnoses / Procedures Referred By Contact Refer red To Contact Referral ID Status Reason Start Date Expiration Date Visits Requ ested Visits Authorized [id number] 1 1 Encounter Details Date Type Department Care Team Description 05/12/2021 - Hospital Encounter [facility], Josee M, MD [address] [place] [address] CHF (congestive 05/17/2021 Center 7S Dagoberto Villarreal MD [address] [place] [address] heart failure) [address] Ana Maria Ellis MD [address] [place] [address] (HCC) [place] [address] Hill Romero MD [address] [place] [address] [phone] Allergies Active Allergy Reactions Severity Noted Date Comments Adhesives Itching 05/15/2018 Atorvastatin Other (Specify in Comments) 05/23/2020 Fentanyl Other (Specify in Comments) 12/29/2020 Delusional Metformin Diarrhea 2020 documented as of this encounter (statuses as of 05/17/2021) Medications Medication Sig Dispensed Refills Start Date End Date Status magnesium oxide (MAG-OX Take 400 mg by 0 Active 400) 400 mg tablet mouth 1 time a day as needed (leg cramps) acetaminophen (TYLENOL) Take 2 tablets 40 tablet 0 07/23/2018 Active 325 mg (650 mg) by mouth tabletIndications: 4 times a day Femur fracture (HCC) Additional Information Patient taking differently: 650 mg Oral Four times a day prn, mild pain, Informant: Self, Reported on 06/14/2020 Ferrous Sulfate (IRON) Take 1 tablet (325 30 tablet 0 09/02/19 19 Active 325 (65 Fe) MG mg) by mouth Every tabletIndications: other day Iron deficiency anemia, unspecified iron deficiency anemia type nitroglycerin Dissolve 1 tablet 30 tablet 3 11/24/2019 Active (NITROSTAT) 0.4 mg (0.4 mg) under the sublingual tongue Every 5 tabletIndications: minutes as needed Acute diastolic heart for chest pain May failure (HCC), NSTEMI repeat every 5 (non-ST elevated minutes for a myocardial infarction) total of 3 doses. ([facility]) sertraline (ZOLOFT) Take 1 tablet (100 90 tablet 1 03/31/2020 Active 100 mg mg) by mouth 1 tabletIndications: time per day Current mild episode of major depressive disorder without prior episode ([facility]) rOPINIRole (REQUIP) 4 Take 1 tablet (4 90 tablet 3 06/29/2020 Active mg tabletIndications: mg) by mouth every Restless leg syndrome night at bedtime potassium chloride Take 1 tablet (20 270 tablet 3 10/10/2020 0 / Active (KLOR-CON M20) 20 MEQ mEq) by mouth 3 CR tabletIndications: times a day 22 Hypokalemia dapagliflozin Take 1 tablet (10 90 tablet 4 11/22/2020 Active (FARXIGA) 10 mg mg) by mouth 1 12/11 tabletIndications: time per day 22 Chronic systolic CHF (congestive heart failure), NYHA class 3 ([facility]), PAF (paroxysmal atrial fibrillation) ([facility]) clobetasol propionate Apply to affected 60 g 3 12/29/2020 Active (TEMOVATE) 0.05 % area 2 times a day creamIndications: as needed for Lichen sclerosus of itching female genitalia clopidogrel (PLAVIX) Take 1 tablet (75 90 tablet 3 03/28/2021 Active 75 mg mg) by mouth 1 tabletIndications: time per day NSTEMI (non-ST elevated myocardial infarction) ([facility]) apixaban (ELIQUIS) 5 Take 1 tablet (5 180 tablet 4 03/28/2021 Active MG tabletIndications: mg) by mouth 2 Atrial Fibrillation times a day Indications: Atrial Fibrillation pantoprazole Take 1 tablet (40 90 tablet 3 03/28/2021 Active (PROTONIX) 40 mg mg) by mouth 1 enteric coated time per day, 15 tabletIndications: minutes before Jejunal ulcer eating. rosuvastatin (CRESTOR) Take 1 tablet (20 90 tablet 4 Active 20 mg mg) by mouth every tabletIndications: night at bedtime Mixed hyperlipidemia Contour NEXT test 1 Strip 4 times a 360 each 1 03/28/2021 Active stripIndications: day Controlled type 2 diabetes mellitus without complication, with long-term current use of insulin ([facility]) digoxin (DIGITEK) Take one-half 15 tablet 0 05/07/202105/24 Active 0.125 mg tablet (0.0625 mg) 10/11 tabletIndications: by mouth 1 time 21 Acute on chronic per day congestive heart failure, unspecified heart failure type ([facility]) insulin aspart Inject 15 Units 3 mL 12 05/09/2021 Active (NOVOLOG) subcutaneous subcutaneously 3 injectionIndications: times a day with Uncontrolled type 2 meals diabetes mellitus with insulin therapy ([facility]) insulin glargine Inject 30 Units 3 mL 12 05/09/2021 Active (LANTUS) subcutaneous subcutaneously injectionIndications: every night at Uncontrolled type 2 bedtime diabetes mellitus with insulin therapy ([facility]) atenolol (TENORMIN) 25 Take 25 mg by 0 Active mg tablet mouth 1 time per day gabapentin (NEURONTIN) Take 1 capsule 90 capsule 2 05/17/202107/26 Active 100 mg (100 mg) by mouth 08/13 capsuleIndications: 3 times a day 22 Restless leg syndrome furosemide (LASIX) 10 Administer 4 mL 1080 mL 0 05/17/2021 1 06/25 Active MG/ML SOLN injection (40 mg) 01/10 solutionIndications: intravenously 21 Acute on chronic Every 12 hours for combined systolic and 3 days diastolic congestive heart failure ([facility]) Microlet 1 each 4 times a 100 each 1 09/07/201904/25 Di scontinued lancetsIndications: day 10/11 (Stop Taking at Controlled type 2 21 Di scharge) diabetes mellitus without complication, with long-term current use of insulin ([facility]) gabapentin (NEURONTIN) Take 1 capsule 90 capsule 2 12/29/202004/25 Discontinued 300 mg (300 mg) by mouth 10/11 capsuleIndications: 3 times a day 21 Restless leg syndrome bisoprolol (ZEBETA) 5 Take 1 tablet (5 90 tablet 4 03/28/202104/25 Discontinued mg tabletIndications: mg) by mouth 1 09/23 0 (Stop Taking at PAF (paroxysmal atrial time a day in the 21 Discharge) fibrillation) ([facility]), evening Chronic systolic CHF (congestive heart failure), NYHA class 3 ([facility]) ramipril (ALTACE) 5 mg Take 1 capsule (5 90 capsule 3 04/13/20 21 04/25 Discontinued capsuleIndications: mg) by mouth 1 10/11 (Stop Taking at Acute on chronic time a day in the 21 Discharge) combined systolic and evening diastolic CHF (congestive heart failure) (HCC) bumetanide (BUMEX) 2 Take 2 tablets (4 360 tablet 4 05/09/202104/25 Discontinued mg tabletIndications: mg) by mouth two (Stop Taking at Diastolic heart times a day (in 21 Discharge) failure, unspecified the morning and HF chronicity (HCC) mid-afternoon). documented as of this encounter (statuses as of 05/17/2021) Active Problems Problem Noted Date CHF (congestive heart failure) 05/12/2021 Weakness 05/08/2021 Acute exacerbation of CHF (congestive heart failure) 1 07/01/2020 Cerebrovascular accident (CVA) 02/22/2021 Deep vein thrombosis (DVT) of lower extremity 02/23/20 21 Uncontrolled type 2 diabetes mellitus with insulin the rapy 02/22/2021 Diastolic heart failure 02/22/2021 Episode of recurrent major depressive disorder 021 NICOLAS (obstructive sleep apnea) 02/22/2021 Post PTCA 06/04/2020 Lichen sclerosus of female genitalia 07/13/2019 On apixaban therapy 06/30/2019 Neurotrophic keratopathy, right 06/01/2019 Optic atrophy - Both 06/01/2019 Myopia of both eyes 06/01/2019 Regular astigmatism of both eyes 06/01/2019 Pseudophakia - Both 06/01/2019 Presbyopia 06/01/2019 S/P gastric bypass 11/07/2018 S/P total hip arthroplasty 09/02/2018 Chronic obstructive lung disease 09/02/2018 PAF (paroxysmal atrial fibrillation) 09/01/2018 NSTEMI (non-ST elevated myocardial infarction) 019 Mixed hyperlipidemia 03/05/2018 Coronary artery disease involving huslia coronary sebastián ry of huslia heart 03/05/2018 without angina pectoris Restless leg syndrome 03/05/2018 History of aortic valve replacement with bioprosthetic valve 07/19/2016 Overview: S/p 07/19/2016 bioAVR with 21-[place] tissue valve. Metabolic syndrome X 11/06/2011 Proliferative diabetic retinopathy 10/23/2011 Benign essential hypertension 08/13/2011 Traction detachment of retina 11/02/2010 Chronic ischemic heart disease 11/01/2010 documented as of this encounter (statuses as of 05/17/2021) Immunizations Name Administration Dates Next Due FLU VACCINE TRIVALENT SINGLE 04/07/2015 DOSE(Fluvirin,Afluria) Influenza Trivalent w/preserv 07/04/2012, 04/13/2011 FLU VACCINE HIGH DOSE 65YR+(Fluzone) 04/08/2020, 05/13/2019, 03/05/2018 INFLUENZA HIGH DOSE (FLUZONE) 65 YEARS 05/02/2021, 5, 06/24/2010 AND UP Pfizer COVID-19 Vaccine 12 years and up 09/21/2020, 09/01/19 21 Pneumococcal Conj PCV13 02/14/2018, 06/24/2010 Pneumococcal Polysaccharide PPSV23 05/13/2019 TD(adult)adsorbed 10/20/2014 TDAP 03/05/2018 documented as of this encounter Social History Tobacco Use Types Packs/Day Years Used Date Former Smoker 1.5 30 1959 - 2002 Smokeless Tobacco: Never Used Alcohol Use Standard Drinks/Week Comments Yes 0 (1 standard drink = 0.6 oz pure wine i n the evening once in a while alcohol) Alcohol Habits Answer Date Recorded How often do you have a drink Never 05/12/2021 containing alcohol? How many drinks containing alcohol do 1 or 2 you have on a typical day when you are drinking? How often do you have six or more Less than monthly 2020 drinks on one occasion? Comment: wine in the evening once in a 01/31/2018 while Social Isolation Answer Date Recorded In a typical week, how many times do you More than three cleve es a week 10/10/2020 talk on the phone with family, friends, or neighbors? How often do you get together with friends Three times a wee k 10/10/2020 or relatives? How often do you attend temple or Not asked 2020 mormon services? Do you belong to any clubs or Not asked 10/10/2020 organizations such as temple groups, unions, fraternal or athletic groups, or school groups? How often do you attend meetings of the Not asked 10/10/2020 clubs or organizations you belong to? Are you now , , , Not asked 10/10/2020 , never or living with a partner? Physical Activity Answer Date Recorded On average, how many days per week do you engage in 0 days 10/10/2020 moderate to strenuous exercise (like walking fast, running, jogging, dancing, swimming, biking, or other activities that cause a light or heavy sweat)? On average, how many minutes do you engage in exercise Patie nt refused 10/10/2020 at this level? Stress Answer Date Recorded Do you feel stress - tense, restless, nervous, or To some ex tent 10/10/2020 anxious, or unable to sleep at night because your mind is troubled all the time - these days? Financial Resource Strain Answer Date Recorded How hard is it for you to pay for the very basics like Not h alonzo at all 10/10/2020 food, housing, medical care, and heating? Intimate Partner Violence Answer Date Recorded Within the last year, have you been afraid of your partner o r No 10/10/2020 ex-partner? Within the last year, have you been humiliated or emotionall y No 10/10/2020 abused in other ways by your partner or ex-partner? Within the last year, have you been kicked, hit, slapped, or No 10/10/2020 otherwise physically hurt by your partner or ex-partner? Within the last year, have you been raped or forced to have any No 10/10/2020 kind of sexual activity by your partner or ex-partner? Food Insecurity Answer Date Recorded Within the past 12 months, you worried that your food would Never true 10/10/2020 run out before you got money to buy more. Within the past 12 months, the food you bought just didn't N ever true 10/10/2020 last and you didn't have money to get more. Transportation Needs Answer Date Recorded In the past 12 months, has lack of transportation kept you f rom Yes 10/10/2020 medical appointments or from getting medications? In the past 12 months, has lack of transportation kept you f rom No 10/10/2020 meetings, work, or getting things needed for daily living? Housing Stability Answer Date Recorded In the last 12 months, was there a time when you were not No t asked able to pay the mortgage or rent on time? In the last 12 months, how many places have you lived? Not a sked In the last 12 months, was there a time when you did not hav e No 06/30/[address] or slept in a group home (including now)? Sexually Active Control Partners Comments Not Currently Sex Assigned at Date Recorded Not on file documented as of this encounter Last Filed Vital Signs Vital Sign Reading Time Taken Comments Blood Pressure 91/53 05/17/2021 8:32 AM HISTORIC SITES REGISTRAR Pulse 100 05/17/2021 8:32 AM HISTORIC SITES REGISTRAR Temperature 36.6 C (97.8 F) 05/17/2021 8:32 AM HISTORIC SITES REGISTRAR Respiratory Rate 16 05/17/2021 8:32 AM HISTORIC SITES REGISTRAR Oxygen Saturation 93% 05/17/2021 8:34 AM HISTORIC SITES REGISTRAR Inhaled Oxygen Concentration - - Weight 88.8 kg (195 lb 12.8 oz) 05/15/2021 11:00 AM HISTORIC SITES REGISTRAR Height 147.3 cm (4' 10") 05/12/2021 1:14 PM HISTORIC SITES REGISTRAR Body Mass Index 40.92 05/12/2021 1:14 PM HISTORIC SITES REGISTRAR documented in this encounter Functional Status Functional Status Response Date of Assessment Is the person deaf or does he/she have serious difficulty No 08/25/2018 hearing? Is this person blind or does he/she have difficulty Yes 08/25/2018 seeing even when wearing glasses? Do you have difficulty with walking, balance, climbing Yes 05/15/2021 stairs, or had a fall in the last 3 months? Does the patient have difficulty dressing or bathing? No 09/01/2018 Because of a physical, mental, or emotional condition; No 09/01/2018 does this person have difficulty doing errands alone such as visiting a doctor's office or shopping? Cognitive Status Response Date of Assessment Because of a physical, mental, or emotional condition; No 09/01/2018 does this person have serious difficulty concentrating, remembering, or making decisions? documented as of this encounter Discharge Summaries Not on filedocumented in this encounter Discharge Instructions Nancy Mcneill RN - 05/14/2021 Images from the original note were not included. Discharge Instructions for Heart Failure The heart is a muscle that pumps oxygen-rich blood to all parts of the body. When you have heart failure, the heart is not able to pump as well as it should. Blood and fluid may back up into the lungs (congestive heart failure). Some parts of the body dont get enough oxygen-rich blood to work normally. These problems lead to the symptoms of heart failure. Heart failure can occur due to an injury to the heart or from natural processes.You can control symptoms of heart failure with some lifestylechanges and by following your doctor's advice. Activity Ask your healthcare provider about an exercise program. You can benefit from simple activities such as walking or gardening. Exercising most days of the week can make you feel better. Don't be discouraged if your progress is slow at first. Rest as needed. Stop activity if you get symptoms such as chest pain, lightheadedness, or significant shortness of breath. Find activities that you enjoy, such as brisk walking, dancing, swimming, or gardening. These will help you stay active and strengthen your heart. Ask your healthcare provider about cardiac rehab. This is a program that helps you to exercise safely. Diet Follow a heart healthy diet. And make sure to limit the salt (sodium) in your diet. Salt causes yourbody to hold water. This makes your heart work harder as there is more fluid for the heart to pump. Limit your salt as directed by your healthcare provider by doing the following : Limit canned, dried, packaged, and fast foods. Don't add salt to your food. Season foods with herbs instead of salt. Watch how much liquids you drink. Drinking too much can make heart failure worse. Talk with your healthcare provider about how much you should drink each day. Limit the amount of alcohol you drink. It may harm your heart. Women should have no more than 1 drink a day. Men should have no more than 2 a day. When you eat out, ask that your meals have no added salt. Tobacco If you smoke, it's ovalles to quit. Smoking increases your chances of having a heart attack by harming the blood vessels that provide oxygen to your heart. This makes heart failure worse. Quitting smoking is the number one thing you can do to improve your health. Enroll in a stop-smoking program to improve your chances of success. Talk with your healthcare providerabout medicines or nicotine replacement therapy. Ask your healthcare provider about smoking cessation support groups. Medicine Take your medicines exactly as prescribed. Learn the names and purpose of each of your medicines. Keep an accurate medicine list and current dosages with you at all times. Don't skip doses. If you norberto dose of your medicine, take it as soon as you remember. If you miss a dose andit's almost time for your next dose, just wait and take your next dose at the normal time. Don't take a double dose. Ifyou are unsure, call your doctor's office. Make sure not to mix up your medicines or forget what you've taken the same day. Refill your prescriptions before you run out of medicine. Talk with your healthcare provider if you have trouble with the cost of your medicines. Weight monitoring Weigh yourself every day. A sudden weight gain can mean your heart failure is getting worse. Weigh yourself at the same time of day and in the same kind of clothes. Ideally, weigh yourself first thing in the morning after you empty your bladder, but before you eat breakfast. Your healthcare provider will show you how to track your weight. He or she will also tell you when you should call if you have a sudden, unexpected increase in your weight. In general, your healthcare provider may ask you to report if your weight goes up by more than 2 pounds (0.9 kg) in 1 day,5 pounds (2.27 kg) in 1 week, or whatever weight gain you were told by your doctor. This is a sign that you are retaining more fluid than you should be. Clues to weight gain include checking your ankles for swelling, or noticing you are short of breath when you lie down. Follow-up care Have follow-up appointment. Depending on the type and severity of heart failure you have, you may need follow-up as early as 7 days from hospital discharge. Keep appointments for checkups and lab teststhat are needed to check your medicines and condition. Recognize that your health and even survival depend on you following your medical recommendations. Symptoms Heart failure can cause a variety of symptoms, including: Shortness of breath Trouble breathing at night, especially when you lie down Swelling in the legs and feet or in the belly (abdomen) Becoming easily tired Irregular or rapid heartbeat Weakness or lightheadedness Swelling of the neck veins It's important to know what to do if symptoms get worse or if you develop signs of worsening heart failure. Keep track of how you feel each day. Report any changes to your healthcare provider. When to call your healthcare provider Call your healthcare provider right away if you have any of these signs of worsening heart failure: Sudden weight gain (more than 2 pounds in 1 day or 5pounds in 1 week, or whatever weight gain you were told to report by your doctor) Trouble breathing not related to being active New or increased swelling of your legs or ankles Swelling or pain in your abdomen Breathing trouble at night (waking up short of breath, needing more pillows to breathe) Frequent coughing that doesn't go away Feeling much more tired than usual Call 911 right away if you have: Severe shortness of breath, such that you can't catch your breath even whileresting Severe chest pain that does not resolve with rest or nitroglycerin [place], foamy mucus with cough and shortness of breath An ongoing rapid or irregular heartbeat Passing out or fainting Stroke symptoms such as sudden numbness or weakness on one side of your face, arm, or leg or sudden confusion, trouble speaking or vision changes [employer] last reviewed this educational content on 09/22/201819998836-7301 [employer]. All rights reserved. This information is not intended as a substitute for professional medical care. Always follow your healthcare professional's instructions. documented in this encounter Medications at Time of Discharge Medication Sig Dispensed Refills Start Date End Date gabapentin (NEURONTIN) Take 1 capsule (100 90 capsule 2 04/2508/15/2021 100 mg mg) by mouth 3 times a capsuleIndications: day Restless leg syndrome furosemide (LASIX) 10 Administer 4 mL (40 1080 mL 0 05/1705/20/2021 MG/ML SOLN injection mg) intravenously solutionIndications: Every 12 hours for 3 Acute on chronic days combined systolic and diastolic congestive heart failure (HCC) atenolol (TENORMIN) 25 Take 25 mg by mouth 1 0 mg tablet time per day insulin aspart Inject 15 Units 3 mL 12 05/09/2021 (NOVOLOG) subcutaneous subcutaneously 3 times injectionIndications: a day with meals Uncontrolled type 2 diabetes mellitus with insulin therapy ([facility]) digoxin (DIGITEK) Take one-half tablet 15 tablet 0 05/07/20 21 06/06/2021 0.125 mg (0.0625 mg) by mouth 1 tabletIndications: time per day Acute on chronic congestive heart failure, unspecified heart failure type ([facility]) clopidogrel (PLAVIX) Take 1 tablet (75 mg) 90 tablet 3 10/2020 75 mg by mouth 1 time per tabletIndications: day NSTEMI (non-ST elevated myocardial infarction) ([facility]) apixaban (ELIQUIS) 5 Take 1 tablet (5 mg) 180 tablet 4 03/28 MG tabletIndications: by mouth 2 times a day Atrial Fibrillation Indications: Atrial Fibrillation pantoprazole Take 1 tablet (40 mg) 90 tablet 3 03/28/2021 (PROTONIX) 40 mg by mouth 1 time per enteric coated day, 15 minutes before tabletIndications: eating. Jejunal ulcer rosuvastatin (CRESTOR) Take 1 tablet (20 mg) 90 tablet 4 20 mg by mouth every night tabletIndications: at bedtime Mixed hyperlipidemia clobetasol propionate Apply to affected area 60 g 3 (TEMOVATE) 0.05 % 2 times a day as creamIndications: needed for itching Lichen sclerosus of female genitalia dapagliflozin Take 1 tablet (10 mg) 90 tablet 4 11/22/2020 11/27/2021 (FARXIGA) 10 mg by mouth 1 time per tabletIndications: day Chronic systolic CHF (congestive heart failure), NYHA class 3 ([facility]), PAF (paroxysmal atrial fibrillation) ([facility]) potassium chloride Take 1 tablet (20 mEq) 270 tablet 3 10/1010/15/2021 (KLOR-CON M20) 20 MEQ by mouth 3 times a day CR tabletIndications: Hypokalemia rOPINIRole (REQUIP) 4 Take 1 tablet (4 mg) 90 tablet 3 11/2020 mg tabletIndications: by mouth every night Restless leg syndrome at bedtime sertraline (ZOLOFT) Take 1 tablet (100 mg) 90 tablet 1 01/2020 100 mg by mouth 1 time per tabletIndications: day Current mild episode of major depressive disorder without prior episode ([facility]) nitroglycerin Dissolve 1 tablet (0.4 30 tablet 3 11/24/2019 (NITROSTAT) 0.4 mg mg) under the tongue sublingual Every 5 minutes as tabletIndications: needed for chest pain Acute diastolic heart May repeat every 5 failure ([facility]), NSTEMI minutes for a total of (non-ST elevated 3 doses. myocardial infarction) (HCC) Ferrous Sulfate (IRON) Take 1 tablet (325 mg) 30 tablet 0 0 09/01/2018 325 (65 Fe) MG by mouth Every other tabletIndications: day Iron deficiency anemia, unspecified iron deficiency anemia type acetaminophen Take 2 tablets (650 40 tablet 0 07/23/2018 (TYLENOL) 325 mg mg) by mouth 4 times a tabletIndications: day Femur fracture ([facility]) magnesium oxide Take 400 mg by mouth 1 0 (MAG-OX 400) 400 mg time a day as needed tablet (leg cramps) insulin glargine Inject 30 Units 3 mL 12 05/09/2021 (LANTUS) subcutaneous subcutaneously every injectionIndications: night at bedtime Uncontrolled type 2 diabetes mellitus with insulin therapy ([facility]) Contour NEXT test 1 Strip 4 times a day 360 each 1 021 stripIndications: Controlled type 2 diabetes mellitus without complication, with long-term current use of insulin ([facility]) documented as of this encounter Progress Notes Nini Dominique, RD, LD - 05/17/2021 8:26 AM CST Nutrition Note Patient admitted on 05/12/2021 1:04 PM for Active Problems: CHF (congestive heart failure) ([facility]) Per EMR Malnutrition Screening Tool completed at admission, pt does not meet screening criteria for an increased potential for developing malnutrition with an MST Score of 0 (Score > 2 considered positive for nutrition risk). Nutrition screening revealed no difficulty eating or significant unintentional weight loss prior to admission. Past medical history noted and is not currently placing pt atincreased nutrition risk. Height: 147.3 cm (4' 10") Weight: 88.8 kg (195 lb 12.8 oz) BMI: Body mass index is 40.92 kg/m. Nutrition (From admission, onward) Start Ordered 05/12/21 1700 Supplement [facility]; Other (Specify in comments) (ENSURE ENLIVE)BID BID Comments: Give supplement cold with medications twice a day. The supplement is an intervention for identified nutrition risk factors. * Do not give if patient is NPO (unless the orders specify NPO with supplement) or if medication should not be given with food. Question Answer Comment Location [facility] Dietary Supplement Other (Specify in comments) ENSURE ENLIVE 05/12/21 1541 05/12/21 1350 Diet - Diabetic Now Question: Modified Diets Answer: Diabetic 05/12/21 1349 Plan to monitor po intake adequacy during admission. If provider feels pt has nutritional concerns,please send Inpatient Dietitian consult with indication for referral. Nini Dominique RD, LRD [facility] Pager # [phone] Ext [phone] ORIC SITES REGISTRAR Ginny Hahn RN - 05/16/2021 9:18 PM CST Problem: EXCESS FLUID VOLUME Goal: FLUID OVERLOAD SEVERITY Description: DEFINITION: Severity of signs and symptoms of excess intracellular and extracellular fluids. 1=Severe, 2=Substantial, 3=Moderate, 4=Mild, 5=None. Flowsheets (Taken 05/16/20212115) Patient specific goal for the day: patient will notify if/when sob occursa Patient specific goal for the stay: less episodes of SOB Patient Progress: continue with lasix regimen, keep hob up, continue to monitor Michelle Domínguez RN - 05/16/2021 7:02 PM CST CASE MANAGEMENT / SOCIAL SERVICE FINAL TRANSITION PLAN TRANSITION DATE: 05/17 TRANSITION TIME: 8330-9080 (please have patient ready by 10) INTENDED PAYER SOURCE FOR AGENCY: Not Applicable TRANSITION DESTINATION: [facility] Swing Bed [place], [place] DOES ACCEPTING FACILITY REQUIRE COVID TESTING BEFORE DISCHARGE: Needs one negative test within 24-48 hours TRANSITION TRANSPORTATION: Family Car TRANSPORTATION PAYMENT: Not applicable TRANSITION CHOICES OFFERED: [facility] DOES THE PATIENT HAVE A PRIMARY CARE PHYSICIAN? Yes Erika Garcia MD PATIENT / SUBSTITUTE DECISION MAKER GOAL UPON TRANSITION: First Choice: [facility] RESOURCE(S) PROVIDED: Placement DOES PATIENT HAVE CLOTHING TO WEAR AT DISCHARGE? Yes ANTICIPATED MODE OF TRANSPORT TO AND FROM FOLLOW UP APPOINTMENTS: As arranged by accepting facility VERIFIED CORRECT PHARMACY IS ENTERED FOR DISCHARGE: Yes - Pharmacy: [facility] METHOD OF PRESCRIBING MEDICATIONS: Reconcile medications as Patient Transfer ("[facility]") TRANSITION ROUNDING COMPLETED WITH THE FOLLOWING: Patient / family Bracelet Form Coverer Attending MD Bedside RN COMMENTS / PATIENT AND FAMILY RESPONSE TO PLAN: Patient agreeable to TCU stay. Family will transport. [place] screen completed and faxed to facility. SPECIAL TRANSITION DAY INSTRUCTIONS TO NURSE / MD: Interagency Orders Needed with [facility] for medications NURSING: Please call report prior to patient leaving [phone] INFORMATION SYSTEMS ARCHITECT: Please fax paperwork [phone] MD: Please complete interagency order set, ensure orders for PT/OT, ST (if needed) are included. When doing medication orders, include all medications, there cannot be any range orders, and indication is needed for all meds. CURRENT READMISSION RISK SCORE / HANDOFF: Predictive Risk Score Risk of Unplanned Readmission: 23.2 Handoff given: N/A SIGNED: ESTEBAN Matias, RN, [facility] Bracelet Form Coverer [phone] Indigo Grissom RN - 05/16/2021 6:23 PM CST Problem: EXCESS FLUID VOLUME Goal: FLUID OVERLOAD SEVERITY Description: DEFINITION: Severity of signs and symptoms of excess intracellular and extracellular fluids. 1=Severe, 2=Substantial, 3=Moderate, 4=Mild, 5=None. Outcome: NOC Rating 4 Flowsheets (Taken 05/16/20211821) Patient specific goal for the day: Patient will report all I & Os to staff Patient Progress: Patient contine on IV lasix, albumin given x1. lungs sound clear diminished, will monitor. Problem: EXCESS FLUID VOLUME Goal: FLUID OVERLOAD SEVERITY Description: DEFINITION: Severity of signs and symptoms of excess intracellular and extracellular fluids. 1=Severe, 2=Substantial, 3=Moderate, 4=Mild, 5=None. Outcome: NOC Rating 4 Flowsheets (Taken 05/16/20211821) Patient specific goal for the day: Patient will report all I & Os to staff Patient Progress: Patient contine on IV lasix, albumin given x1. lungs sound clear diminished, will monitor. Dagoberto Edmonds MD - 05/16/2021 3:09 PM CST Images from the original note were not included. DAILY PROGRESS NOTE Serenity Whitfield is a 70yr old female admitted on 05/12/2021. SUBJECTIVE Pt known to me from this admission SOB is much improved Lost about 4 pounds CR Improved with IV lasix NO chest pain Able to lay flatter Up in the chair OBJECTIVE Current Vital Signs Temp: 98 F (36.7 C) BP: 109/74 Pulse: 99 O2 Device: NC - no humidity O2 Flow Rate (L/min): 2 l/min Resp: 16 Pain Ratin (out of 10) Weight: 88.8 kg (195 lb 12.8 oz) SpO2: 99 % Review of Systems - Constitutional ROS: negative Respiratory ROS: no cough,improved shortness of breath, or wheezing Cardiovascular ROS: negative Gastrointestinal ROS: negative Musculoskeletal ROS: negative Neurological ROS: negative Vitals Min/Max Last 24 Hours Patient Vitals for the past 24 hrs: BP Temp Pulse Resp SpO2 05/16/21 1433 109/74 98 F (36.7 C) 99 16 99 % 05/16/21 0806 101/74 98.1 F (36.7 C) 88 16 95 % 05/16/21 0353 93/47 05/15/21 2222 92/42 98.2 F (36.8 C) 93 17 99 % 05/15/21 1529 102/62 97.4 F (36.3 C) 109 16 100 % Intake and Out put last 24 hours 05/15 0700 - 05/16 0659 In: 1560 Out: 1075 Physical Exam General Appearance: alert, frail appearing, and in no distress Chest: basilar rales or rhonchi, symmetric air entry Heart: normal rate, regular rhythm, normal S1, S2, no murmurs, rubs, clicks or gallops Abdomen: soft, nontender, nondistended, no masses or organomegaly Neurological: alert, oriented, normal speech, no focal findings or movement disorder noted Extremities: peripheral pulses normal, ++pedal edema, no clubbing or cyanosis Skin: normal coloration and turgor, no rashes, no suspicious skin lesions noted Patient Lines/Drains/Airways Status Active Lines Name Placement date Placement time Site Days Peripheral IV 05/12/21 Forearm Distal;Posterior;Right 05/12/21 1351 Forearm 4 Davol Drain 07/19/18 Anterior;Left Hip 07/19/18 1632 Hip 1031 Incision 07/19/18 Left;Anterior Hip Incision 0 07/19/18 Hip 1032 Incision 07/22/18 Mid;Anterior Chest Incision 1 07/22/18 1622 Chest 1028 Current Medications albumin (human) 25 % IV solution 25 g 25 g IV Now loperamide (IMODIUM) capsule 2 mg 2 mg Oral Every 1 hour prn 2 mg at 05/14/21 1426 furosemide (LASIX) injection solution 40 mg 40 mg IV Every 12 hours 40 mg at 05/16/21 1433 loperamide (IMODIUM) capsule 2 mg 2 mg Oral Every 8 hours 2 mg at 05/16/21 0615 insulin glargine (LANTUS) SQ injection 10 Units Subcutaneous at bedtime 10 Units at 05/15/212054 dextrose 50% IV solution 50 mL 25 g IV PRN per parameter glucagon for injection 1 mg vial 1 mg 1 mg Intramuscular PRN per parameter glucose chewable tablet 16 g 4 tablet Oral PRN per parameter Or carbohydrate 15 g 15 g Oral PRN per parameter apixaban (ELIQUIS) tablet 5 mg 5 mg Oral 2 times a day 5 mg at 05/16/21 0808 clopidogrel (PLAVIX) tablet 75 mg 75 mg Oral daily 75 mg at 05/16/21 0808 digoxin (LANOXIN) tablet 0.0625 mg 62.5 mcg Oral daily (Digoxin) 0.0625 mg at 05/15/21 1526 pantoprazole (PROTONIX) enteric coated tablet 40 mg 40 mg Oral daily 40 mg at 05/16/21 0615 rOPINIRole (REQUIP) tablet 4 mg 4 mg Oral at bedtime 4 mg at 05/15/212054 sertraline (ZOLOFT) tablet 100 mg 100 mg Oral daily 100 mg at 05/16/21 0808 sodium chloride 0.9% flush (adult) 10 mL 10 mL IV 2 times a day and prn 10 mL at 05/16/21 0808 nalOXone (NARCAN) injection solution (vial) 0.4 mg 0.4 mg Injection Every 2 minutes prn nalOXone (NARCAN) injection solution (vial) 0.2 mg 0.2 mg Injection Every 2 minutes prn acetaminophen (TYLENOL) tablet 650 mg 650 mg Oral Every 4 hours prn melatonin tablet 3 mg 3 mg Oral Bedtime prn senna-docusate sodium (SENOKOT-S;PERICOLACE) tablet 2 tablet 2 tablet Oral 2 times a day prn And bisacodyl (DULCOLAX) suppository 10 mg 10 mg Rectal 1 time a day prn And docusate sodium (THEREVAC-SB MINI;ENEMEEZ MINI) 283 MG enema 1 enema 1 enema Rectal 1 time a day prn Diagnostics and Labs Labs (Last day) 05/16/21 0638 - 05/16/21 0638 CARDIAC MARKERS 05/16/21 0638 CARDIAC MARKERS BNP 0-100 (pg/mL) 6,656 05/16/21 0638 - 05/16/21 0638 CHEMISTRY 05/16/21 0638 CHEMISTRY Glucose 70-99 (mg/dL) 215 Sodium 136-145 (meq/L) 140 Potassium 3.5-5.1 (meq/L) 4.0 Chloride 98-109 (meq/L) 103 CO2 22-31 (meq/L) 24 Anion Gap with K 6-20 (meq/L) 17 BUN 6-22 (mg/dL) 42 Creatinine 0.60-1.10 (mg/dL) 1.44 BUN/Creatinine Ratio 10.0-25.0 29.2 Calcium 8.5-10.5 (mg/dL) 8.5 Corrected Calcium 8.5-10.5 (mg/dL) 9.1 Bilirubin Total 0.2-1.2 (mg/dL) 0.9 Alkaline Phosphatase 40-150 (U/L) 145 ALT - SGPT 0-55 (U/L) 137 AST - SGOT 5-45 (U/L) 31 Protein Total 6.0-8.3 (g/dL) 6.6 Albumin 3.2-4.6 (g/dL) 3.3 eGFR >=60 (mL/min/1.73m2) 43 eGFR Non- >=60 (mL/min/1.73m2) 36 05/16/21 1154 - 05/15/21 1747 GLUCOSE POINT OF CARE 05/16/21 1154 05/16/21 1118 05/16/21 0526 05/15/21 2058 05/15/21 1747 GLUCOSE POINT OF CARE Glucose POC 70-99 (mg/dL) 201 248 202 357 244 05/16/21 0638 - 05/16/21 0638 OTHER 05/16/21 0638 OTHER Age (Years) 70 I ASSESSMENT & PLAN 1.acute on chronic systolic heart failure- patient is SOB, more swollen, dc oral bumex, start IV lasix. daily, continue digoxin, eliquis. Oxygen Improved 2. Depression- continue zoloft 3. hyperlipidemia- continue crestor 4. Diabetes mellitus type 2- Decrease lantus dose 5. CAD- continue plavix 6. Restless leg syndrome- continue requip 7. DVT prophylaxis- eliquis 8. Diarrhea- negative stool for c. Difficile , imodoium 9. RODRICK due to cardiorenal , improved with lasix, 1.4 now will dedrick one dose of IV albumin Disposition , could be tomorrow to [place] depending on her progress Fallon Amaro SPT - 05/16/2021 11:33 AM CST PHYSICAL THERAPY Acute Care Treatment Note RECOMMENDATIONS Assessment: Patient is progressing towards goals. Patient is not at their baseline level of functionfor mobility. Patient would benefit from further physical therapy while in acute setting. PT anticipates that patient may benefit from further physical therapy at short term low intensity setting foll owing discharge from hospital, prior to returning to their apartment. 6-Clicks Basic Mobility Score: 18 Daily activity prescription: With assist of 1, walk in acosta 3 times per day. At a minimum, up to chair for all meals or 3 times per day. Encourage patient to perform personal cares at sink when able. Encourage walking to bathroom rather than use commode or bedpan. Anticipated D/C Service needs: Low intensity setting Anticipated Assistive Device needs: FWW SUBJECTIVE Patient is agreeable to therapy session. Pain: At rest: Patient reports no pain. With activity: Patient reports no pain. OBJECTIVE Precautions: Fall risk Observation: Patient seated in chair upon arrival of PT. Patient on 2L O2 at rest. Gait belt donned for all out of bed activity Vitals: 05/16/21 0806 BP: 101/74 Pulse: 88 Resp: 16 Temp: 98.1 F (36.7 C) SpO2: 95% Lab Results Component Value Date HEMOGLOBIN 9.4 (L) 05/12/2021 Functional Mobility: Bed mobility: Not tested Supine to Sit: Not tested Sit to Supine: Not tested Sit to/from Stand: minimal assistance Stand Pivot: contact guard assistance Gait: Ambulated 50 feet with front-wheeled walker and Contact guard assist. Patient was on 2L of O2 and had minimal shortness of breath during ambulation. Stair Negotiation: Not tested Therapeutic Exercises: Patient performed 10 reps of bilateral LE exercises: In sitting: hip flexion/marches, LAQ, resisted hip abduction, hip adduction pillow squeeze, ankle dorsiflexion, and ankle plantarflexion. Patient had to take one 2 minute rest break during exercises to catch breath. Other: Patient sitting in chair at end of session. Bedside table, call light, and phone in reach. [place] alarm on. On 2L of O2. Patient Education: Patient was educated on role of PT and POC today through explanation and demonstration. They accepted teaching and verbalized understanding and demonstrated understanding. Interdisciplinary Communication: Updates discussed with nursing. Goals: Ongoing PLAN Continue plan of care. Today's Treatment:: Gait Trainin minutes Therapeutic Exercise: 0 minutes Therapeutic Activity: 25 minutes TOTAL TIMED CODES: 25 minutes TREATMENT TOTAL TIME: 25 minutes DOMENICA Gomez ORIC SITES REGISTRAR Associated attestation - Dianne Sandhu PT - 05/16/2021 11:45 AM CST This practitioner was present and in the room for the entire session, guiding the student in servicedelivery. Documentation was edited and reviewed by this practitioner prior to signature application. Dianne Sandhu PT Alpha pager: [phone] Isi Garcia OTR/Trell - 05/16/2021 9:03 AM CST Occupational Therapy Acute Care Progress Note Impression/Recommendations Recommending low intensity setting upon medical stability. Patient is presenting with impairments including overall deconditioning and generalized weakness, impacting both safety and level of independence with ADLs/functional transfers at this time. Patient is demonstrating ability to complete observed ADLs/functional transfers with assist of 1 and FWW this date. Pt to continue to benefit from skilled OT in order to address the above deficits to increase functional independence in ADLs, IADLs, and transfers/mobility. Objective Diagnosis: CHF Activity Level: Progressive mobility bundle/activity as tolerated Precautions: Fall Risk and Bed/chair alarms Infection Control: Standard Precautions Cognition: Pt is alert. Oriented to: Person, place, time, situation U/E: Pt completed B UE exercises using 2# To facilitate enhancement of strength and endurance to further independence with ADLs/IADLs. Pt completed 12 reps x 1 reps for all available motions/planes. OT provided education on correct technique, speed and end range. Pt required occasional reinforcementof education on correct technique. She required rest breaks (30-60 seconds) between exercises due tofatigue. ADLs: Feeding: independent with items within reach. Grooming: contact guard assistance to wash face while standing at sink. Set-up assistance to brushhair while seated. Dressing: standby assistance and increased time/effort to don/doff R gripper sock with set-stool to simulate home environment as patient reported she typically dressed in low chair. Moderate assistance to thread bilateral legs into brief while seated and CGA-Min A for standing balance while completing clothing management in standing with FWW. Toileting: contact guard assistance to complete tigre cares while standing at chair Transfers: Bed: not assessed Chair: contact guard assistance sit <> stand with FWW. Toilet: not assessed Mobility/Ambulation: contact guard assistance with FWW to ambulate chair > sink > chair with no LOB. At end of session: patient up in chair, alarm activated, call light and tray table within reach, education provided on use call light and waiting for assistance prior to transferring and Gripper socksand gait belt donned for all OOB activity. Pain: Pt did not report any pain during session. Vitals: Pt on 2L with mild signs of shortness of breath during OT. SpO2 at rest 98 %, SpO2 with activity 93% Interdisciplinary Communication: Nurse Sood Education Education/Training provided: Role of OT, plan of care, ADLs, transfers/mobility, safety, AE needs,d/c recommendations, UE exercise Learners: Patient Readiness: accepting Method of Training: verbal and demonstration Response: Verbalizes understanding and Demonstrates understanding; Will benefit from continued reinforcement: yes Adaptive Equipment Recommendations Adaptive Equipment Available: shower chair, grab bars tub/shower, grab bars toilet and front-wheeledwalker Adaptive Equipment Recommended: OT will continue to assess AE needs and will update as necessary Plan to obtain adaptive equipment: To further assess. Goals Patient/Family Stated Goal for Session: agreeable to therapy, brush hair Short Term/Fci Goals: *Patient will complete UB/LB dressing with standby assistance and AE prn (ongoing) *Patient will complete toileting task with standby assistance including hygiene and clothing management (ongoing) *Patient will complete functional transfers with modified independent with AE PRN (ongoing) *Patient will tolerate standing at sink for G/H for >5 minutes with AD as needed (ongoing) *Patient will have necessary DME in place and be provided options to obtain prior to discharge (ongoing) Patient continues to demonstrate progress towards OT goals: Yes Charges Treatment/Minutes: Today's Evaluation/Treatment Self care/home management: 22 minutes Therapeutic exercise: 14 minutes Total Treatment Time: 36 minutes Treatment Session 06/28 Weekly Assessment/Plan (): Continue OT POC Therapist [facility] Pager Number [phone] Michelle Domínguez RN - 05/16/2021 8:52 AM HISTORIC SITES REGISTRAR CASE MANAGEMENT / SOCIAL SERVICE TRANSITION PLAN - PROGRESS NOTE PLAN: Awaiting Medical Doctor Recommendations for Transition Transition Options Being Explored Will Continue to Follow for Support and Progression Towards Final Transition Plan BARRIERS TO TRANSITION: Awaiting Medical Stability IV lasix DOES ACCEPTING FACILITY REQUIRE COVID TESTING BEFORE DISCHARGE: Yes needs negative Covid prior to d/c COMMENTS / PATIENT AND FAMILY RESPONSE TO PLAN: Patient is a readmission from [facility] rehab. Patient would like to d/c to the [place] [facility] returning to [facility]. [place] swing bed is able to take patient on Saturday of this week pending medical stability of patient, otherwise would not be able to take until Saturday d/t holiday this week which would require patient to seek TCU setting elsewhere if medically stable prior to Saturday. [place] screen [place] been [place]. Interagency Orders Needed NURSING: Please call report prior to patient leaving [phone] INFORMATION SYSTEMS ARCHITECT: Please fax paperwork [phone] MD: Please complete interagency order set, ensure orders for PT/OT, ST (if needed) are included. When doing medication orders, include all medications, there cannot be any range orders, and indication is needed for all meds. IS PATIENT'S ADMISSION ASSOCIATED WITH TIA, ISCHEMIC, OR HEMORRHAGIC STROKE?: No PATIENT / SUBSTITUTE DECISION MAKER GOAL UPON TRANSITION: First Choice: Transitional Care ANTICIPATED NEEDS UPON TRANSITION: Transitional Care RESOURCE(S) PROVIDED: Placement VERIFIED CORRECT PHARMACY IS ENTERED FOR DISCHARGE: No TRANSITION ROUNDING COMPLETED WITH THE FOLLOWING: Patient / family Bracelet Form Coverer Attending MD Bedside RN SIGNED: ESTEBAN Matias, RN, [facility] Bracelet Form Coverer [phone] signed by Michelle Palomares RN at 05/16/2021 8:53 AM Rosanne Goel RN - 05/16/2021 12:34 AM CST Problem: IMPAIRED GAS EXCHANGE Goal: RESPIRATORY STATUS Description: DEFINITION: Movement of air in and out of the lungs and exchange of carbon dioxide and oxygen at the alveolar level. 1=Severe deviation from normal range, 2=Substantial deviation from normal range, 3=Moderate deviation from normal range, 4=Mild deviation from normal range, 5=No deviationfrom normal range. Outcome: NOC Rating 3 Flowsheets (Taken 05/16/202130) Initial Score: 3 Target Score: 5 Plan of care reviewed with: Patient Patient specific goal for the day: patient mainatains saturation >90%. Patient specific goal for the stay: Patient participate in procedures to optmize oxygenation and management regimen within evel of capability. Patient Progress: Patient alert, oriented and cooperative. Resting in her bed with saturation >90%. Patient uses call light when in need. Will cont to monitor patient. Indigo Grissom RN - 05/15/2021 6:06 PM CST Problem: EXCESS FLUID VOLUME Goal: FLUID OVERLOAD SEVERITY Description: DEFINITION: Severity of signs and symptoms of excess intracellular and extracellular fluids. 1=Severe, 2=Substantial, 3=Moderate, 4=Mild, 5=None. Outcome: NOC Rating 4 Flowsheets (Taken 05/15/2021 1903) Plan of care reviewed with: Patient Patient specific goal for the day: Patient will report all I & Os to staff Patient Progress: Patient contine on IV lasix. weight trending down, lungs sound clear diminished, will monitor. ORIC SITES REGISTRAR Fallon Temple, SPT - 05/15/2021 3:37 PM CST PHYSICAL THERAPY Acute Care Treatment Note RECOMMENDATIONS Assessment: Patient is progressing towards goals. Patient is not at their baseline level of functionfor mobility. Patient would benefit from further physical therapy while in acute setting. PT anticipates that patient may benefit from further physical therapy at short term low intensity setting foll owing discharge from hospital, prior to returning to their apartment. 6-Clicks Basic Mobility Score: 18 Daily activity prescription: With assist of 1, walk in acosta 3 times per day. At a minimum, up to chair for all meals or 3 times per day. Encourage patient to perform personal cares at sink when able. Encourage walking to bathroom rather than use commode or bedpan. Anticipated D/C Service needs: Low intensity setting Anticipated Assistive Device needs: FWW SUBJECTIVE Patient is agreeable to therapy session. Pain: At rest: Patient reports no pain. With activity: Patient reports no pain. OBJECTIVE Precautions: Fall risk Observation: Patient is lying in bed upon arrival of PT, On 1L of O2 at rest with no shortness of breath. Gait belt donned for all out of bed activity Vitals: 05/15/21 1529 BP: 102/62 Pulse: 109 Resp: 16 Temp: 97.4 F (36.3 C) SpO2: 100% Lab Results Component Value Date HEMOGLOBIN 9.4 (L) 05/12/2021 Functional Mobility: Bed mobility: modified independent Head of bed elevated and use of bed rail Supine to Sit: modified independent Head of bed elevated and use of bed rail Sit to Supine: not assessed Sit to/from Stand: contact guard assistance Stand Pivot: contact guard assistance Gait: Ambulated 50 feet with front-wheeled walker and Contact guard assist. Patient then took a standing rest break for 3 minutes as she felt shortness of breath. Patients O2 sats were at 98% at this time. Patient still could not catch breath so she sat down in a chair to rest for 3 min and O2 was increasedfrom 1L to 2L. After this, patient ambulated 25 feet back to bathroom in room. She had a bowel movement and was assisted with pericares and then ambulated 10 feet to chair in room. All ambulation with front-wheeled walker and Contact guard assist. Stair Negotiation: Not tested Therapeutic Exercises: Not performed today. Other: Nursing was in the room to give medication to patient. Patient sitting in chair at end of session. Bedside table, call light, and phone in reach. [place] alarm on. Still on 2L of O2 to help recovery of shortness of breath. Patient Education: Patient was educated on role of PT and POC today through explanation and demonstration. They accepted teaching and verbalized understanding and demonstrated understanding. Interdisciplinary Communication: Updates discussed with nursing. Goals: Ongoing PLAN Continue plan of care. Today's Treatment:: Gait Trainin minutes Therapeutic Exercise: 0 minutes Therapeutic Activity: 25 minutes TOTAL TIMED CODES: 25 minutes TREATMENT TOTAL TIME: 25 minutes Fallon Temple, SPT ORIC SITES REGISTRAR Associated attestation - Dianne Sandhu PT - 05/15/2021 3:56 PM CST This practitioner was present and in the room for the entire session, guiding the student in servicedelivery. Documentation was edited and reviewed by this practitioner prior to signature application. Dianne Sandhu PT Alpha pager: [phone] Dagoberto Villarreal MD - 05/15/2021 3:28 PM CST Images from the original note were not included. DAILY PROGRESS NOTE Serenity Whitfield is a 70yr old female admitted on 05/12/2021. SUBJECTIVE Pt known to me from this admission SOB is much improved Lost about 4 pounds CR Improved with IV lasix NO chest pain OBJECTIVE Current Vital Signs Temp: 97.7 F (36.5 C) BP: 105/61 Pulse: 76 O2 Device: NC - no humidity O2 Flow Rate (L/min): 1 l/min (per Pt request) Resp: 16 Pain Ratin (out of 10) Weight: 88.8 kg (195 lb 12.8 oz) SpO2: 99 % Review of Systems - Constitutional ROS: negative Respiratory ROS: no cough,improved shortness of breath, or wheezing Cardiovascular ROS: negative Gastrointestinal ROS: negative Musculoskeletal ROS: negative Neurological ROS: negative Vitals Min/Max Last 24 Hours Patient Vitals for the past 24 hrs: BP Temp Pulse Resp SpO2 Weight 05/15/21 1100 88.8 kg (195 lb 12.8 oz) 05/15/21 0827 105/61 97.7 F (36.5 C) 76 16 99 % 05/14/21 2200 107/61 97.9 F (36.6 C) 85 20 97 % 05/14/212005 101 Intake and Out put last 24 hours 05/14 0700 - 05/15 0659 In: 1515 Out: 1450 Physical Exam General Appearance: alert, frail appearing, and in no distress Chest: basilar rales or rhonchi, symmetric air entry Heart: normal rate, regular rhythm, normal S1, S2, no murmurs, rubs, clicks or gallops Abdomen: soft, nontender, nondistended, no masses or organomegaly Neurological: alert, oriented, normal speech, no focal findings or movement disorder noted Extremities: peripheral pulses normal, ++pedal edema, no clubbing or cyanosis Skin: normal coloration and turgor, no rashes, no suspicious skin lesions noted Patient Lines/Drains/Airways Status Active Lines Name Placement date Placement time Site Days Peripheral IV 05/12/21 Forearm Distal;Posterior;Right 05/12/21 1351 Forearm 3 Davol Drain 07/19/18 Anterior;Left Hip 07/19/18 1632 Hip 1030 Incision 07/19/18 Left;Anterior Hip Incision 0 07/19/18 Hip 1031 Incision 07/22/18 Mid;Anterior Chest Incision 1 07/22/18 1622 Chest 1027 Current Medications loperamide (IMODIUM) capsule 2 mg 2 mg Oral Every 1 hour prn 2 mg at 05/14/21 1426 furosemide (LASIX) injection solution 40 mg 40 mg IV Every 12 hours 40 mg at 05/15/21 0256 loperamide (IMODIUM) capsule 2 mg 2 mg Oral Every 8 hours 2 mg at 05/15/21 0543 insulin glargine (LANTUS) SQ injection 10 Units Subcutaneous at bedtime 10 Units at 05/14/210 dextrose 50% IV solution 50 mL 25 g IV PRN per parameter glucagon for injection 1 mg vial 1 mg 1 mg Intramuscular PRN per parameter glucose chewable tablet 16 g 4 tablet Oral PRN per parameter Or carbohydrate 15 g 15 g Oral PRN per parameter apixaban (ELIQUIS) tablet 5 mg 5 mg Oral 2 times a day 5 mg at 05/15/21 0832 clopidogrel (PLAVIX) tablet 75 mg 75 mg Oral daily 75 mg at 05/15/21 0832 digoxin (LANOXIN) tablet 0.0625 mg 62.5 mcg Oral daily (Digoxin) 0.0625 mg at 05/14/21 1430 pantoprazole (PROTONIX) enteric coated tablet 40 mg 40 mg Oral daily 40 mg at 05/15/21 0543 rOPINIRole (REQUIP) tablet 4 mg 4 mg Oral at bedtime 4 mg at 05/14/212002 sertraline (ZOLOFT) tablet 100 mg 100 mg Oral daily 100 mg at 05/15/21 0832 sodium chloride 0.9% flush (adult) 10 mL 10 mL IV 2 times a day and prn 10 mL at 05/15/21 0832 nalOXone (NARCAN) injection solution (vial) 0.4 mg 0.4 mg Injection Every 2 minutes prn nalOXone (NARCAN) injection solution (vial) 0.2 mg 0.2 mg Injection Every 2 minutes prn acetaminophen (TYLENOL) tablet 650 mg 650 mg Oral Every 4 hours prn melatonin tablet 3 mg 3 mg Oral Bedtime prn senna-docusate sodium (SENOKOT-S;PERICOLACE) tablet 2 tablet 2 tablet Oral 2 times a day prn And bisacodyl (DULCOLAX) suppository 10 mg 10 mg Rectal 1 time a day prn And docusate sodium (THEREVAC-SB MINI;ENEMEEZ MINI) 283 MG enema 1 enema 1 enema Rectal 1 time a day prn Diagnostics and Labs Labs (Last day) 05/15/21 1023 - 05/15/21 1023 CHEMISTRY 05/15/21 1023 CHEMISTRY Glucose 70-99 (mg/dL) 259 Sodium 136-145 (meq/L) 137 Potassium 3.5-5.1 (meq/L) 4.3 Chloride 98-109 (meq/L) 103 CO2 22-31 (meq/L) 24 Anion Gap with K 6-20 (meq/L) 14 BUN 6-22 (mg/dL) 41 Creatinine 0.60-1.10 (mg/dL) 1.51 BUN/Creatinine Ratio 10.0-25.0 27.2 Calcium 8.5-10.5 (mg/dL) 8.4 Corrected Calcium 8.5-10.5 (mg/dL) 9.1 Bilirubin Total 0.2-1.2 (mg/dL) 0.9 Alkaline Phosphatase 40-150 (U/L) 138 ALT - SGPT 0-55 (U/L) 154 AST - SGOT 5-45 (U/L) 38 Protein Total 6.0-8.3 (g/dL) 6.3 Albumin 3.2-4.6 (g/dL) 3.1 eGFR >=60 (mL/min/1.73m2) 41 eGFR Non- >=60 (mL/min/1.73m2) 34 05/15/21 0403 - 05/15/21 0403 [facility] 05/15/21 0403 [facility] [place]27/NAP1/BI Presumptive Negative Presumptive Negative C difficile Toxin B Gene NAD Not Detected Not Detected 05/15/21 1114 - 05/14/21 1750 GLUCOSE POINT OF CARE 05/15/21 1114 05/15/21 0612 05/14/21 2122 05/14/21 1750 GLUCOSE POINT OF CARE Glucose POC 70-99 (mg/dL) 263 183 272 335 05/15/21 1023 - 05/15/21 1023 OTHER 05/15/21 1023 OTHER Age (Years) 70 I ASSESSMENT & PLAN 1.acute on chronic systolic heart failure- patient is SOB, more swollen, dc oral bumex, start IV lasix. daily, continue digoxin, eliquis. Oxygen Improved 2. Depression- continue zoloft 3. hyperlipidemia- continue crestor 4. Diabetes mellitus type 2- Decrease lantus dose 5. CAD- continue plavix 6. Restless leg syndrome- continue requip 7. DVT prophylaxis- eliquis 8. Diarrhea- negative stool for c. Difficile , imodoium 9. RODRICK due to cardiorenal , improved with lasix, recheck in am Disposition , could be midweek depending on her progress Michelle Domínguez RN - 05/15/2021 3:25 PM CST CASE MANAGEMENT / SOCIAL SERVICE TRANSITION PLAN - PROGRESS NOTE PLAN: Awaiting Medical Doctor Recommendations for Transition Transition Options Being Explored Will Continue to Follow for Support and Progression Towards Final Transition Plan BARRIERS TO TRANSITION: Awaiting Medical Stability IV lasix DOES ACCEPTING FACILITY REQUIRE COVID TESTING BEFORE DISCHARGE: Yes needs negative Covid prior to d/c COMMENTS / PATIENT AND FAMILY RESPONSE TO PLAN: Patient is a readmission from [facility] rehab. Patient would like to d/c to the [facility] returning to [facility]. [facility] is able to take patient on Saturday of this week pending medical stability of patient, otherwise would not be able to take until Saturday d/t holiday this week which would require patient to seek TCU setting elsewhere if medically stable prior to Saturday. [place] screen [place]. Interagency Orders Needed NURSING: Please call report prior to patient leaving [phone] INFORMATION SYSTEMS ARCHITECT: Please fax paperwork [phone] MD: Please complete interagency order set, ensure orders for PT/OT, ST (if needed) are included. When doing medication orders, include all medications, there cannot be any range orders, and indication is needed for all meds. IS PATIENT'S ADMISSION ASSOCIATED WITH TIA, ISCHEMIC, OR HEMORRHAGIC STROKE?: No PATIENT / SUBSTITUTE DECISION MAKER GOAL UPON TRANSITION: First Choice: Transitional Care ANTICIPATED NEEDS UPON TRANSITION: Transitional Care RESOURCE(S) PROVIDED: Placement VERIFIED CORRECT PHARMACY IS ENTERED FOR DISCHARGE: No TRANSITION ROUNDING COMPLETED WITH THE FOLLOWING: Patient / family Bracelet Form Coverer Attending MD Bedside RN SIGNED: ESTEBAN Matias, RN, [facility] Bracelet Form Coverer [phone] signed by Michelle Palomares, RN at 05/15/2021 3:30 PM Dianne De Paz LSW - 05/15/2021 3:06 PM CST CASE MANAGEMENT PROGRESS NOTE [place] PAS completed, confirmation [id number], faxed to the [facility]. PLAN: Assisting with Pre Admission SNF screen(s) and Profile only, please refer to Case Management notes for discharge planning information. SIGNED: ROSEYLN Valenzuela Ginny Uriarte RN - 05/14/2021 8:16 PM CST Problem: EXCESS FLUID VOLUME Goal: FLUID OVERLOAD SEVERITY Description: DEFINITION: Severity of signs and symptoms of excess intracellular and extracellular fluids. 1=Severe, 2=Substantial, 3=Moderate, 4=Mild, 5=None. Flowsheets (Taken 05/14/20212013) Patient specific goal for the day: patient has 1 swelling, in near future patient not to have any s/s concerning swelling Patient specific goal for the stay: less sob, lower pulse rates Patient Progress: patient aware to call for assistance, patient now on 1lpm nasal cannula, bed alarmset, BLE elevated, hob at 40 degree angle to promote lung expansion Hill Poe MD - 05/14/2021 3:40 PM CST Images from the original note were not included. DAILY PROGRESS NOTE Serenity Whitfield is a 70yr old female admitted on 05/12/2021 1:04 PM. Impression / Plan 1.acute on chronic systolic heart failure- patient is SOB, more swollen, dc oral bumex, start IV lasix. daily, continue digoxin, eliquis. Oxygen 2. Depression- continue zoloft 3. hyperlipidemia- continue crestor 4. Diabetes mellitus type 2- Decrease lantus dose 5. CAD- continue plavix 6. Restless leg syndrome- continue requip 7. DVT prophylaxis- eliquis 8. Diarrhea- check stool for c. Difficile , imodoium Interval History HPI Patient complaint of sob, leg swelling and diarrhea Review of Systems Review of Systems Constitutional: Positive for activity change. Negative for appetite change. HENT: Negative for ear discharge. Eyes: Negative for discharge. Respiratory: Positive for shortness of breath. Negative for cough. Cardiovascular: Positive for leg swelling. Negative for chest pain. Gastrointestinal: Negative for abdominal distention. Genitourinary: Negative for dysuria. Musculoskeletal: Negative for arthralgias. Skin: Negative for color change. Neurological: Positive for weakness. Negative for dizziness. Hematological: Negative for adenopathy. Psychiatric/Behavioral: Negative for agitation. All other systems reviewed and are negative. Physical Exam Vital Signs: Temp: 97.3 F (36.3 C) | BP: 107/53 | Pulse: 108 | Resp: 18 | Pain Ratin (out of10) | Weight: 90.4 kg (199 lb 3.2 oz) | O2 Device: NC - no humidity O2 Flow Rate (L/min): 4 l/min | SpO2: 97 % Maximum Temperatures (last 24 hours) Temperature Maximum Max Temp 98.3 F (36.8 C) Intake and Output: 05/13 0700 - 05/14 0659 In: 480 [Oral:480] Out: 1350 [Urine:1350] Physical Exam Vitals and nursing note reviewed. Constitutional: Appearance: Normal appearance. HENT: Head: Normocephalic and atraumatic. Nose: Nose normal. Mouth/Throat: Mouth: Mucous membranes are moist. Eyes: General: Right eye: No discharge. Left eye: No discharge. Cardiovascular: Rate and Rhythm: Normal rate and regular rhythm. Pulmonary: Effort: Pulmonary effort is normal. No respiratory distress. Breath sounds: Normal breath sounds. Abdominal: General: Bowel sounds are normal. There is no distension. Palpations: Abdomen is soft. Musculoskeletal: General: Normal range of motion. Right lower leg: Edema present. Left lower leg: Edema present. Skin: General: Skin is warm and dry. Neurological: General: No focal deficit present. Mental Status: She is alert and oriented to person, place, and time. Labs Labs (Last day) 05/14/21 0730 - 05/14/21 0730 CHEMISTRY 05/14/21 0730 CHEMISTRY Glucose 70-99 (mg/dL) 58 Sodium 136-145 (meq/L) 139 Potassium 3.5-5.1 (meq/L) 4.5 Chloride 98-109 (meq/L) 107 CO2 22-31 (meq/L) 25 Anion Gap with K 6-20 (meq/L) 12 BUN 6-22 (mg/dL) 41 Creatinine 0.60-1.10 (mg/dL) 1.52 BUN/Creatinine Ratio 10.0-25.0 27.0 Calcium 8.5-10.5 (mg/dL) 8.2 eGFR >=60 (mL/min/1.73m2) 41 eGFR Non- >=60 (mL/min/1.73m2) 34 05/14/21 1131 - 05/13/21 2121 GLUCOSE POINT OF CARE 05/14/21 1131 05/14/21 0852 05/14/21 0828 05/13/21 2258 05/13/21 2121 GLUCOSE POINT OF CARE Glucose POC 70-99 (mg/dL) 133 117 59 131 74 05/13/21 1813 - 05/13/21 1732 GLUCOSE POINT OF CARE 05/13/21 1813 05/13/21 173 GLUCOSE POINT OF CARE Glucose POC 70-99 (mg/dL) 102 58 05/14/21 0730 - 05/14/21 0730 OTHER 05/14/21 0730 OTHER Age (Years) 70 Medical Decision making MDM Reviewed: previous chart, vitals and nursing note Reviewed previous: labs Luh Griffith RN - 05/14/2021 2:32 PM CST Problem: EXCESS FLUID VOLUME Goal: FLUID OVERLOAD SEVERITY Description: DEFINITION: Severity of signs and symptoms of excess intracellular and extracellular fluids. 1=Severe, 2=Substantial, 3=Moderate, 4=Mild, 5=None. Outcome: NOC Rating 3 Flowsheets (Taken 05/14/2021 1431) Initial Score: 3 Target Score: 5 Plan of care reviewed with: Patient Patient specific goal for the day: To have less swelling Patient specific goal for the stay: To not have SOB Achieve goal for stay: By discharge Patient Progress: Pt eating meal, BS taken, BG 59. Carbohydrate given, BG taken for 117. notified, novolog with meals discontinued. SOB with exertion. FYI sent to doctor for Pt bp 97/50, MAP 65, pulse 101, SOB while lying in bed but has not walked for the last 30 minutes. Doctor informed that pt would like cardiology consult today or tomorrow. Pt c/o abdominal cramps and normally takes immodium, Rx given. Will continue to monitor. ORIC SITES REGISTRAR Madelyn Raman PT - 05/14/2021 8:49 AM CST Physical Therapy Acute Inpatient Initial Evaluation RECOMMENDATIONS Assessment: Patient is not at their baseline level of function for mobility. Patient would benefitfrom further physical therapy while in acute setting. PT anticipates that patient may benefit from further physical therapy at short term low intensity setting following discharge from hospital, priorto returning to their apartment. 6-Clicks Basic Mobility Score: 18 Activity Prescription with Nursing: With assist of one using a front wheeled walker with contact guard assist of one, walk in room and progressively increase to out in the acosta 3 times per day. At a minimum, up to chair for all meals or 3 times per day. Encourage patient to perform personal cares at sink when able. Encourage walking to bathroom rather than use commode or bedpan. Anticipated D/C Service needs: Low intensity setting Diagnosis: CHF Prescription: Eval and Treat Admit Date: 05/12/2021 Pertinent Medical / Surgical History: Past Medical History: Diagnosis Date Anemia CHF (congestive heart failure) (HCC) COPD (chronic obstructive pulmonary disease) (HCC) Depression Diabetes mellitus (HCC) Gastric bypass status for obesity GERD (gastroesophageal reflux disease) Hyperlipidemia Kidney disease Legally blind Myocardial infarction (HCC) Sleep apnea Stroke (HCC) Past Surgical History: Procedure Laterality Date AORTIC VALVE CATARACT EXTRACTION Bilateral 2010 GASTRIC BYPASS BIRD RETINAL COAGULATION Bilateral RETINAL DETACHMENT SURGERY Left TOTAL HIP Left 07/19/2018 Procedure: LEFT ANTERIOR TOTAL HIP ARTHROPLASTY;; Surgeon: Luc Pittman MD UPPER ENDOSCOPY N/A 03/14/2021 Procedure: UPPER ENDOSCOPY;; Surgeon: Randall Santoro MD ZZTRANSCATHETER PLACE INTRACORONARY STENT(S) PERCUTANEOUS; SNGL VESSEL Angioplasty with stent Current medical status: Please see diagnoses listed above. Activity Orders: Progressive Mobility Bundle, Precautions: Patient at Fall Risk. SUBJECTIVE Patient and nursing were in agreement for physical therapy treatment today. Current Living Situation: Patient lives: Lives in a apartment. Home environment: Lives alone. Steps: None Prior Level of Function: Activities of Daily Living: Independent with bathing, dressing and gait. Mobility: Walked independently using a 4 wheeled walker with a seat. Employment: Retired. History of falls: Yes, Has had 2 falls recently. Home O2: None. Adaptive equipment available: 4 wheeled walker. Shower chair. Patient Concerns: None. Patient/Family Goals: Get better and get home. OBJECTIVE Observation: Bed alarm was on and functioning at end of session. Patient had call light, phone and tray with in reach at end of session. Patient seen at bedside. Gait belt applied prior to out of bed activity. Vitals: Prior to activity: HR: 87, O2 Sats: 85% while on room air, BP: 100/47 Cognition: Alert and orientated x4 Pain: Patient had no complaints of pain during PT session. Posture: Patient had mild forward head and shoulder posture. Range of Motion: Bilateral lower extremities WFL Refer to Occupational Therapy report for upper extremity range of motion. Strength: Bilateral lower extremities WFL Refer to Occupational Therapy report for upper extremity strength testing. Sensation: Grossly intact bilaterally. Tone: Normal. Coordination: WNL bilaterally.Patient was able to do rapid repetitive and alternating ankle dorsiflexion/plantarflexion bilaterally. Transfers: Bed mobility: contact guard assistance Supine to Sit: contact guard assistance Sit to Supine: contact guard assistance Sit to/from Stand: contact guard assistance Stand Pivot: contact guard assistance Comments: Patient used a front wheeled walker for transfers. Balance: Sitting Balance: Good. Standing Balance: Fair with contact guard assist using a front wheeled walker. Gait: Patient ambulated ~ 30 ft x 1 using a front wheeled walker with contact guard assist of one.Gait is slow and steady. Response to Activity: Modified Jasmin RPE: 3 Vitals: HR95 post gait. , O2 sats showed SPO2 was 91% post gait on room air. At end of session bed alarm activated, call light within reach Education: Patient was educated on role of acute PT, goals of PT session, daily activity recommendations, and PT plan of care today through explanation. They were eager to learn and verbalized understanding. Interdisciplinary Communication: PT Discussed daily activity recommendations with patient's RN and update on current mobility status. ASSESSMENT SUMMARY/RECOMMENDATIONS Goals: Patient will be aware of equipment recommendations as indicated in note to allow for safe mobility. Patient will transfer sit to/from supine with no assistance. Patient will transfer from sit to/from stand with no assistance and equipment as needed to progress to safe household mobility. Patient will be able to ambulate 300 feet using front wheeled walker with stand by assistance to progress to safe functional mobility in the home. Patient and/or caregiver will be independent with performance and progression of home exercise program for continued management of symptoms. Patient will demonstrate adequate awareness of fall prevention tactics to reduce risk of falling. PLAN PT Frequency of therapy recommended: 5x/wk Physical Therapy Services: balance training bed mobility training transfer training gait training aerobic capacity/endurance conditioning balance/coordination/agility training strength/power/endurance training for head/neck/limb/pelvic floor/trunk/ventilatory muscles device and equipment use and training Evaluation, goals, and plan discussed with patient and interdisciplinary/interprofessional team Today's Treatment Evaluation: Completed Gait: 0 minutes Exercise: 0 minutes Therapeutic Activity: 0 minutes TOTAL TIMED CODES: 0 minutes TREATMENT TOTAL TIME: 20 Minutes Madelyn Raman, PT [facility] Pager: [phone] CERTIFICATION I certify that the services as described in the above note are furnished while the patient is under my care; a plan for furnishing these services has been established and will be periodically reviewed;the services are required for the patient; and the services are subject to established guidelines. Referring Provider: Hill Romero MD Ginny Uriarte RN - 05/13/2021 8:53 PM HISTORIC SITES REGISTRAR Problem: EXCESS FLUID VOLUME Goal: FLUID OVERLOAD SEVERITY Description: DEFINITION: Severity of signs and symptoms of excess intracellular and extracellular fluids. 1=Severe, 2=Substantial, 3=Moderate, 4=Mild, 5=None. Flowsheets (Taken 05/13/20212051) Patient specific goal for the day: Patient will have improvement in fluid overload Patient specific goal for the stay: Patient will return to baseline Patient Progress: no s/s thus far concerning fluid overload Gege Markham RN - 05/13/2021 6:17 PM CST Problem: EXCESS FLUID VOLUME Goal: FLUID OVERLOAD SEVERITY Description: DEFINITION: Severity of signs and symptoms of excess intracellular and extracellular fluids. 1=Severe, 2=Substantial, 3=Moderate, 4=Mild, 5=None. Outcome: NOC Rating 3 Flowsheets (Taken 05/13/2021 1147) Initial Score: 2 Target Score: 5 Plan of care reviewed with: Patient Patient specific goal for the day: Patient will have improvement in fluid overload Patient specific goal for the stay: Patient will return to baseline Achieve goal for stay: By discharge Note: BP soft, provider notified, improving. Other VSS on RA, SOB with exertion but recovers quickly. 1+ BLE edema. On PO diuretics, voiding adequately. A&O x4, bed alarm remains on for safety. CARE rounding maintained. Laquita Pedersen OTR/[facility]rell - 05/13/2021 3:01 PM CST Occupational Therapy Acute Care Evaluation Note Impression/Recommendations Recommending pt would benefit from a low intensity setting for continued therapy upon medically stable d/c. Patient is presenting with impairments including overall deconditioning and generalized weakness, impacting both safety and level of independence with ADLs/functional transfers at this time. Patient is demonstrating ability to complete observed ADLs/functional transfers with assist of 1 and fww this date. Patient will continue to benefit from skilled OT in order to address the above deficits to increase functional independence in ADLs, IADLs, and transfers/mobility. Admitting Diagnosis: CHF History of Present Illness: Refer to H&P for details Past Medical History: Past Medical History: Diagnosis Date Anemia CHF (congestive heart failure) ([facility]) COPD (chronic obstructive pulmonary disease) ([facility]) Depression Diabetes mellitus ([facility]) Gastric bypass status for obesity GERD (gastroesophageal reflux disease) Hyperlipidemia Kidney disease Legally blind Myocardial infarction ([facility]) Sleep apnea Stroke ([facility]) Activity Level: Progressive mobility bundle/activity as tolerated Precautions: Fall Risk and Bed/chair alarms Infection Control: Standard Precautions Patient History Social/Home Environment: Patient lives: alone House: Apartment with elevator access Steps to enter: no Home Environment: Bed/Bath on main level: Yes Bathroom Setup: walk in shower with curtain Employment: not employed Prior Level of Function Independent with: dressing, bathing, medication management, cooking, cleaning, laundry, money management and lawn care Assistance needed with: driving Comments: Pt reports independence with ADLs/IADLs at baseline aside from driving which she receives assistance with secondary to legal blindness. Pt reports use of fww at baseline. Endorses 2 recent falls, 1 while at home and a 2nd while hospitalized. Pt uses CPAP at night. Reports there is staff present at apartment building, however, would require additional fees to utilize services. Adaptive Equipment Available: shower chair, grab bars tub/shower, grab bars toilet and front-wheeledwalker Present for Eval: Patient Objective Activities of Daily Living: Feeding: independent for within reach items Grooming: to be assessed Upper Extremity Dressing: to be assessed Lower Extremity Dressing: total assistance to adjust B LE socks this date, pt unable to reach feet from seated position at EOB Bathing: to be assessed Toileting: to be assessed, declines need Homemaking: to be assessed, reports independence at baseline Transfers: Bed: standby assistance for supine>sit EOB, effortful, SBA for seated EOB balance Chair: contact guard assistance with fww, cues for navigation, safety, and technique Toilet: to beassessed Tub/Shower: to be assessed Mobility/Ambulation: contact guard assistance with FWW, pt ambulates a short distance in room this date with CGA and use of fww, mildly unsteady, no overt LOB however. Comments: Gripper socks and gait belt donned for all OOB activity. At end of session: patient up in chair, alarm activated, call light and tray table within reach, education provided on use call light and waiting for assistance prior to transferring , RN updated on patient status, safety precautions in place upon OT departure from room and Gripper socks and gait belt donned for all OOB activity. Pain: Pain at rest: 0/10 Pain during activity: 0/10 Location: Pt denies pain Vitals: Oxygen Level: Pt on RA, SpO2 above 90%, without signs of shortness of breath during OT. Upper Extremity Function: Range of Motion: Right:within functional limits Left: within functional limits Strength: Right: within functional limits Left: within functional limits Endurance: limited Coordination: intact Sensation: intact Edema: yes Dominant Hand: left Comments: Pt presents with equal strength/ROM at BUE Cognition: Orientation: alert. Oriented to: Name, , Month, Year, Place, City and Situation Attention: intact Following Directions: intact Safety Awareness: intact Impulsivity: None Comments: Pt presents alert/oriented x 3, disoriented to exact date. Follows both simple and complex instructions well this date. Demonstrates good insight and safety awareness throughout session this date. Visual/Perception: Glasses: no Neglect: no Field Cut: no Comments: Pt is legally blind at baseline Interdisciplinary Communication: Nurse De Guzman Education Education/Training provided: Role of OT, plan of care, ADLs, transfers/mobility, safety, AE needs,d/c recommendations, call light education, cognition Learners: Patient Readiness: accepting Method of Training: verbal and demonstration Response: Verbalizes understanding and Demonstrates understanding; Will benefit from continued reinforcement: yes Adaptive Equipment Recommendations Adaptive Equipment Available: shower chair, grab bars tub/shower, grab bars toilet and front-wheeledwalker Adaptive Equipment Recommended: OT will continue to assess AE needs and will update as necessary Plan to obtain adaptive equipment: To further assess. Assessment/Plan Assessment: Patient demonstrates decreased physical conditioning, decreased independence with ADL/IADL tasks and decreased independence with functional mobility Patient showing a decrease in ADL/transfer performance and will benefit from continued OT. Plan: Patient to be seen 2-4x/week to work toward goals Treatment plan will consist of Saturday thru Saturday sessions Goals Patient/Family Stated Goal for Session: agreeable to therapy evaluation, RN (Gege) ok'd session. Goals to be met by discharge: *Patient will complete UB/LB dressing with standby assistance and AE prn *Patient will complete toileting task with standby assistance including hygiene and clothing management *Patient will complete functional transfers with modified independent with AE PRN *Patient will tolerate standing at sink for G/H for >5 minutes with AD as needed *Patient will have necessary DME in place and be provided options to obtain prior to discharge Treatment Provided Evaluation complete, please see above for treatment provided Charges Treatment/Minutes: Today's Evaluation/Treatment Evaluation Total for time-based codes: 0 minutes Total treatment time: 20 minutes Evaluation Complexity PMH/Comorbidities that affect Occupational Performance: See PMHx Occupational Profile/Medical and Therapy History: LOW - Brief history relating to presenting problem Patient Assessment: LOW - 1-3 performance deficits relating to physical, cognitive, psychosocial limitations/restrictions Clinical Decision Making: LOW - Low complexity, limited amount of treatment options, no assessment modification, no comorbidities Evaluation Complexity: Low Therapist Alpha Pager Number: [phone] Hill Poe MD - 05/13/2021 11:06 AM CST Images from the original note were not included. DAILY PROGRESS NOTE Serenity Whitfield is a 70yr old female admitted on 05/12/2021 1:04 PM. Impression / Plan 1.acute on chronic systolic heart failure- now hypotensive, decrease bumex dose to daily, continue digoxin, eliquis 2. Depression- continue zoloft 3. hyperlipidemia- continue crestor 4. Diabetes mellitus type 2- Continue insulin 5. CAD- continue plavix 6. Restless leg syndrome- continue requip 7. DVT prophylaxis- erliquis Interval History HPI Patient sitting in the chair, denies any complaint, sob Review of Systems Review of Systems Constitutional: Negative for activity change. HENT: Negative for ear discharge. Eyes: Negative for discharge. Respiratory: Negative for cough. Cardiovascular: Negative for chest pain. Gastrointestinal: Negative for abdominal distention. Genitourinary: Negative for dysuria. Musculoskeletal: Negative for arthralgias. Skin: Negative for color change. Neurological: Negative for dizziness. Hematological: Negative for adenopathy. Psychiatric/Behavioral: Negative for agitation. All other systems reviewed and are negative. Physical Exam Vital Signs: Temp: 98.1 F (36.7 C) | BP: 100/47 | Pulse: 85 | Resp: 18 | Pain Ratin (out of 10) | Weight: 90.4 kg (199 lb 3.2 oz) | O2 Device: Room Air O2 Flow Rate (L/min): 1 l/min | SpO2: 95 % Maximum Temperatures (last 24 hours) Temperature Maximum Max Temp 98.3 F (36.8 C) Intake and Output: 05/13 0700 - 05/14 0659 In: 480 [Oral:480] Out: 1350 [Urine:1350] Physical Exam Vitals and nursing note reviewed. Constitutional: Appearance: Normal appearance. HENT: Head: Normocephalic and atraumatic. Nose: Nose normal. Mouth/Throat: Mouth: Mucous membranes are moist. Eyes: General: Right eye: No discharge. Left eye: No discharge. Cardiovascular: Rate and Rhythm: Normal rate and regular rhythm. Pulmonary: Effort: Pulmonary effort is normal. Breath sounds: Normal breath sounds. Abdominal: General: Bowel sounds are normal. There is no distension. Palpations: Abdomen is soft. Musculoskeletal: General: Normal range of motion. Skin: General: Skin is warm and dry. Neurological: General: No focal deficit present. Mental Status: She is alert and oriented to person, place, and time. Labs Labs (Last day) 05/14/21729 - 05/14/21729 CHEMISTRY 05/14/21729 CHEMISTRY Glucose 70-99 (mg/dL) 58 Sodium 136-145 (meq/L) 139 Potassium 3.5-5.1 (meq/L) 4.5 Chloride 98-109 (meq/L) 107 CO2 22-31 (meq/L) 25 Anion Gap with K 6-20 (meq/L) 12 BUN 6-22 (mg/dL) 41 Creatinine 0.60-1.10 (mg/dL) 1.52 BUN/Creatinine Ratio 10.0-25.0 27.0 Calcium 8.5-10.5 (mg/dL) 8.2 eGFR >=60 (mL/min/1.73m2) 41 eGFR Non- >=60 (mL/min/1.73m2) 34 05/14/21 0852 - 05/13/21 1813 GLUCOSE POINT OF CARE 05/14/21 0852 05/14/21 0828 05/13/21 2258 05/13/21 2121 05/13/21 1813 GLUCOSE POINT OF CARE Glucose POC 70-99 (mg/dL) 117 59 131 74 102 05/13/21 1732 - 05/13/21 1732 GLUCOSE POINT OF CARE 05/13/21 1732 GLUCOSE POINT OF CARE Glucose POC 70-99 (mg/dL) 58 05/14/21 0730 - 05/14/21 0730 OTHER 05/14/21 07 OTHER Age (Years) 70 Medical Decision making MDM Reviewed: previous chart, vitals and nursing note Reviewed previous: labs Ginny Uriarte RN - 05/12/2021 10:39 PM CST Problem: EXCESS FLUID VOLUME Goal: FLUID OVERLOAD SEVERITY Description: DEFINITION: Severity of signs and symptoms of excess intracellular and extracellular fluids. 1=Severe, 2=Substantial, 3=Moderate, 4=Mild, 5=None. Flowsheets (Taken 05/12/2021 4893) Patient specific goal for the day: monitor patient closely to prevent fluid overload Patient specific goal for the stay: patient will not obtain access fluid Tiana Blanton RN - 05/12/2021 4:34 PM CST Problem: EXCESS FLUID VOLUME Goal: KIDNEY FUNCTION Description: DEFINITION: Ability of the kidneys to regulate body fluids, filter blood, and eliminatewaste products through the formation of urine. 1=Severely compromised, 2=Substantially compromised,3=Moderately compromised, 4=Mildly compromised, 5=Not compromised. Outcome: NOC Rating 2 Flowsheets (Taken 05/12/2021 5017) Initial Score: 2 Target Score: 4 Plan of care reviewed with: Patient Patient specific goal for the day: Patient's lab values will be WDL Patient specific goal for the stay: Will return to baseline Achieve goal for stay: By discharge Patient Progress: Pt admitted with lab values not WDL. K+ had been 5.6 received kayexalate and current level of 4.5. Creat 1.92. Hx of kidney disease. +2 edema bilaterally lower limbs. Received lasix x1, see MAR. Will continue to monitor. documented in this encounter H&P Notes Dagoberto Villarreal MD - 05/12/2021 1:51 PM CST History and Physical Serenity Whitfield is a 70yr old female admitted on 05/12/2021. PCP: Erika Garcia MD HPI / Chief Complaint Patient is a 70 years old female patient who was just admitted here last week for cardiorenal syndromes, acute on chronic systolic heart failure. And was discharged to [facility] rehab. Patient's diuretics was discontinued there, and and patient has since gained at least 5 pounds. And recent labshows the patient has hyperkalemia for which she was treated with Kayexalate. Her creatinine however remains elevated about 2.1. Therefore patient was sent back to [facility] for additional work-up. Patient is chronically short of breath, this has not changed too much. Although she has been using 1 extra pillow at [facility]. She denies any chest pain. She did have a stent placed about a year ago in the [facility]. She does use a CPAP at night. Assessment and plan: I think most possibly patient is again having cardiorenal syndrome, in the setting of weight gain, discontinue diuretics, therefore I will go ahead and repeat the BMP, we will go ahead and give her 1 dose of diuretics, if BMP remains significantly elevated compared to previously, I will go ahead continue IV scheduled diuretics. I will repeat the lab work to see where her potassium is and this may beneed to be retreated again. History of CHF with acute on chronic systolic heart failure. With EF most recently in the 25% range. She has had a fairly recent echo, I do not think repeat another one will change in terms of plan of treatment. We will follow the BMP numbers and make decisions accordingly. Mild hyperkalemia, will recheck, and make a decision accordingly. History of NICOLAS continue CPAP as she was taking at home. Diabetes, continue her insulin as she was taking at home. We will check her blood sugars before every meal and nightly. I will get a renal ultrasound to make sure there is no obstructive process. Plan of care discussed with the patient, all questions answered. Past Medical History Serenity has a past medical history of Anemia, CHF (congestive heart failure) ([facility]), COPD (chronicobstructive pulmonary disease) ([facility]), Depression, Diabetes mellitus ([facility]), Gastric bypass status forobesity, GERD (gastroesophageal reflux disease), Hyperlipidemia, Kidney disease, Legally blind, Myocardial infarction ([facility]), Sleep apnea, and Stroke ([facility]).She has no past medical history of Abnormal Pap smear of cervix, Amblyopia, Anxiety, Arthritis, Asthma, Blood transfusion without reported diagnosis, Breast cancer ([facility]), Cancer (HCC), Cataract, Clotting disorder (HCC), Disorder of thyroid, Gene mutation, Glaucoma, Heart murmur, HIV infection ([facility]), HPV (human papilloma virus) infection, Macular de generation, Seizures ([facility]), Strabismus, Substance abuse ([facility]), or Uveitis. Past Surgical History Serenity has a past surgical history that includes cataract extraction (Bilateral, 2010); bird retinal coagulation (Bilateral); retinal detachment surgery (Left); aortic valve; zztranscatheter place intracoronary stent(s) percutaneous; sngl vessel; total hip (Left, 07/19/2018); gastric bypass; and uppe r endoscopy (N/A, 03/14/2021). Prior to Admission Medications Medications Prior to Admission Medication Sig Dispense Refill Last Dose atenolol (TENORMIN) 25 mg tablet Take 25 mg by mouth 1 time per day 05/11/2021 at Unknown time insulin aspart (NOVOLOG) subcutaneous injection Inject 15 Units subcutaneously 3 times a day with meals 3 mL 12 Past Week at Unknown time bumetanide (BUMEX) 2 mg tablet Take 2 tablets (4 mg) by mouth two times a day (in the morning and mid-afternoon). 360 tablet 4 Unknown at Unknown time digoxin (DIGITEK) 0.125 mg tablet Take one-half tablet (0.0625 mg) by mouth 1 time per day 15 tablet 0 05/11/2021 at Unknown time ramipril (ALTACE) 5 mg capsule Take 1 capsule (5 mg) by mouth 1 time a day in the evening 90 capsule 3 05/11/2021 at Unknown time bisoprolol (ZEBETA) 5 mg tablet Take 1 tablet (5 mg) by mouth 1 time a day in the evening 90 tablet 4 05/11/2021 at Unknown time clopidogrel (PLAVIX) 75 mg tablet Take 1 tablet (75 mg) by mouth 1 time per day 90 tablet 3 05/12/2021 at Unknown time apixaban (ELIQUIS) 5 MG tablet Take 1 tablet (5 mg) by mouth 2 times a day Indications: Atrial Fibrillation 180 tablet 4 05/12/2021 at Unknown time pantoprazole (PROTONIX) 40 mg enteric coated tablet Take 1 tablet (40 mg) by mouth 1 time per day, 15 minutes before eating. 90 tablet 3 05/12/2021 at Unknown time rosuvastatin (CRESTOR) 20 mg tablet Take 1 tablet (20 mg) by mouth every night at bedtime 90 tablet 4 05/11/2021 at Unknown time gabapentin (NEURONTIN) 300 mg capsule Take 1 capsule (300 mg) by mouth 3 times a day 90 capsule 2 05/12/2021 at Unknown time clobetasol propionate (TEMOVATE) 0.05 % cream Apply to affected area 2 times a day as needed foritching 60 g 3 Unknown at Unknown time dapagliflozin (FARXIGA) 10 mg tablet Take 1 tablet (10 mg) by mouth 1 time per day 90 tablet 4 05/12/2021 at Unknown time potassium chloride (KLOR-CON M20) 20 MEQ CR tablet Take 1 tablet (20 mEq) by mouth 3 times a nry143 tablet 3 05/12/2021 at Unknown time rOPINIRole (REQUIP) 4 mg tablet Take 1 tablet (4 mg) by mouth every night at bedtime 90 tablet at Unknown time sertraline (ZOLOFT) 100 mg tablet Take 1 tablet (100 mg) by mouth 1 time per day 90 tablet 1 05/12/2021 at Unknown time nitroglycerin (NITROSTAT) 0.4 mg sublingual tablet Dissolve 1 tablet (0.4 mg) under the tongue Every 5 minutes as needed for chest pain May repeat every 5 minutes for a total of 3 doses. 30 tablet 3 Unknown at Unknown time Ferrous Sulfate (IRON) 325 (65 Fe) MG tablet Take 1 tablet (325 mg) by mouth Every other day 30 tablet 0 05/12/2021 at Unknown time acetaminophen (TYLENOL) 325 mg tablet Take 2 tablets (650 mg) by mouth 4 times a day (Patient taking differently: Take 650 mg by mouth 4 times a day as needed for mild pain ) 40 tablet 0 Unknown atUnknown time magnesium oxide (MAG-OX 400) 400 mg tablet Take 400 mg by mouth 1 time a day as needed (leg cramps) Unknown at Unknown time insulin glargine (LANTUS) subcutaneous injection Inject 30 Units subcutaneously every night at bedtime 3 mL 12 Contour NEXT test strip 1 Strip 4 times a day 360 each 1 Microlet lancets 1 each 4 times a day 100 each 1 Allergies Allergies have been reviewed. Serenity is allergic to adhesives, atorvastatin, fentanyl, and metformin. Social History Serenity reports that she quit smoking about 18 years ago. She started smoking about 61 years ago.She has a 45.00 pack-year smoking history. She has never used smokeless tobacco. She reports currentalcohol use. She reports that she does not use drugs. Family History Serenity's family history includes Aneurysm in her mother; Breast Cancer in her sister; Diabetes Type 2 in her mother; Heart Disease in her sister; Hyperlipidemia in her father; Hypertension in her sister; Thyroid Disease in her sister. Review of Systems General : no fever or chils, weight gain over 5 pounds Psychological :no anxiety or psychosis Ophthalmic no eye congestion ENT no earache or discharge Hematological and Lymphatic No lymhadenopathy Endocrine : no heat or cold intolerance Respiratory : no cough or sputum Cardiovascular : no chest pain or palpitation, sob at baseline Gastrointestinal no abdominal pain or nausea Genito-Urinary no hematuria, decreased urine output Musculoskeletal no joint swelling or effussion Neurological no headaches or dizziness Dermatological no rash Admission Vital Signs Temp: 97.5 F (36.4 C) BP: 117/46 Pulse: 68 Resp: 18 (out of 10) Weight: 90.4 kg (199 lb 3.2 oz) O2 Device: Room Air SpO2: 93 % Height: 147.3 cm (4' 10") Physical Exam General Appearance: alert, chronically ill appearing, and in no distress Mental Status:alert, oriented to person, place, and time"} Eyes: pupils equal and reactive, extraocular eye movements intact Ears: bilateral TM's and external ear canals normal Nose: normal and patent, no erythema, discharge or polyps Mouth: mucous membranes moist, pharynx normal without lesions Neck: supple, no significant adenopathy Lymphatics:no palpable lymphadenopathy Chest: basilar rales and decreased BS , no rhonchi, symmetric air entry Heart: normal rate, regular rhythm, normal S1, S2, no murmurs, rubs, clicks or gallops Abdomen: soft, nontender, distended, no masses or organomegaly Neurological: alert, oriented, normal speech, no focal findings or movement disorder noted"} Extremities:peripheral pulses normal,++ pedal edema, no clubbing or cyanosis Skin:normal coloration and turgor, no rashes, no suspicious skin lesions noted Labs (Last day) No results found within the past day. XRAY CHEST PORTABLE - Result Date: 05/05/2021 Patient Name: SERENITY WHITFIELD Date of : 1950 Procedure: XRAY CHEST PORTABLEDate of Service: 05/05/2021 EXAM: XRAY CHEST PORTABLE INDICATION: f/u chf COMPARISON(S): 05/01/2021 FINDINGS/IMPRESSION: Similar enlargement of the cardiac silhouette with valvular prosthesis. Interval development of a left basilar pleural-parenchymal opacity, likely small effusion and adjacent compressive atelectasis. Trace right pleural effusion suspected. Central pulmonary vascular congestion and perihilar interstitial thickening reflecting pulmonary edema, not significantly changed. No pneumothorax. Chronically fractured inferior most median sternotomy wires. Finalized by: Willis Dhillon MD on 05/05/2021 11:12 AM HISTORIC SITES REGISTRAR Patient/Procedure Information: [facility] MRN/PADMINI:[id number] Order Number: [id number] Accession Number: [id number] Ordering Provider: DESHAWN DEVRIES Authorizing Provider: DESHAWN DEVRIES XRAY CHEST PORTABLE - Result Date: 05/01/2021 Patient Name: SERENITY WHITFIELD Date of : 1950 Procedure: XRAY CHEST PORTABLEDate of Service: 05/01/2021 EXAM: XRAY CHEST PORTABLE INDICATION: Shortness of breath COMPARISON(S): None Available FINDINGS/IMPRESSION: 1. Cardiomegaly. Prior median sternotomy. Prosthetic cardiacvalve. 2. Pulmonary vascular congestion. 3. No focal infiltrates in lungs. Finalized by: Fortunato Wong MD on 05/01/2021 3:59 PM HISTORIC SITES REGISTRAR Patient/Procedure Information: [facility] MRN/PADMINI: [id number] Order Number: [id number] Accession Number: [id number] Ordering Provider: VIVEK OCAMPO Authorizing Provider: VIVEK OCAMPO ECHO ADULT LIMITED Result Date: 05/02/2021 Patient: SERENITY WHITFIELD MR#: [id number] Exam Date: 05/02/2021 [facility] [address] Transthoracic Echocardiogram [place], [place] [id number] BP: 149/112 mmHg HR: 85 bpm : 1950 Exam Location: Bedside Height: 58.00 "(147.3 cm) Age: 70 year(s) Patient Room: 638 Weight: 178 lbs.(80.74 kg) Gender: Female Patient Status: Inpatient BSA: 1.73 m2 Drapery Cutter Machine: DEMARCO SALINAS RDCS Reading Physician: CHIOMA BAUTISTA MD Ordering Physician: CRISTEL hurley Indication(s): look for new wall motion abnormalities, aortic valve Examination: TTE Complete 2D(m-mode), Complete Spectral Doppler, Color Doppler Exam Comments Patient in pain and constantly moving throughout exam Clinical History MostRecent PCI Date: 06/03/2021 Conclusions Left Ventricle: Upperlimits of normal left ventricular size. Markedly reduced left ventricular systolic function. The ejection fraction is visually estimated to be 25 %. There is global hypokinesis with sparing of variablebasal segments. Aortic Valve: 21 mm aortic bioprosthesis is present. No significant aortic perivalvular regurgitation. Mitral Valve: [id number] mitral regurgitation. Right Ventricle: Normal right ventricular size. Reduced right ventricular systolic function. Comparison Study Comparison Date:04/11/2021 Comparison Study: Transthoracic Echocardiogram There was no significant change from priorecho Findings Left Ventricle: Upper limits of normal left ventricular size. Upper normal left ventricular wall thickness. Markedly reduced left ventricular systolic function. The ejection fraction is visually estimated to be 25 %. There is global hypokinesis with sparing of variable basal segments. A false tendon is present. Left Atrium: Mildly dilated left atrium. Aortic Valve: A(n) 21 mm aortic bioprosthesis is present. No significant aortic transvalvular regurgitation. No significant aortic perivalvular regurgitation. Aorta: The ascending aorta is normal in size measuring 33.8 mm. Mitral Valve: Mild mitral leaflet thickening. [id number] mitral regurgitation. Right Ventricle: Normal right ventricular size. Reduced right ventricular systolic function. Normal right ventricular wall thickness. Pulmonary artery systolic pressure is measured at 35 mmHg. TAPSE measures 6 mm. Tricuspid valve lateral annulus peak systolic velocity is 2.8 cm/sec. Pulmonary Artery: Degree of pulmonary hypert ension likely underestimated due to reduced right ventricular function. Right Atrium: Normal right atrial size by visual assessment. Tricuspid Valve: Normal tricuspid valve structure. Trivial tricuspid regurgitation. Pulmonic Valve: Normal pulmonary valve structure. No significant pulmonary regurgitation. Pericardium: No significant pericardial effusion. Measurements Left Ventricle Aortic Valve Label Value Normal ValueLabel Value Normal Value LVDd, 2D 55.5 mm AV Vmax 232 cm/s IVSd, 2D 10.6 mm AVVmean 180 cm/s LVPWd, 2D 10.6 mm AV VTI 51.61 cm LVEDV, 2D 151 ml AV PGmax21 mmHg Right Ventricle AV PGmean 14 mmHg Label Value Normal Value AV Vmax, Caliper 232 cm/s S' Tissue Doppler 2.8 cm/sec Mitral Valve TAPSE 6 mm Label Value Normal Value Left Atrium MV VTI 31.4 cm Label Value Normal Value MV PGmax 7 mmHg LA Volume Index 37 ml/m-sq MV PGmean 3 mmHg Aorta Tricuspid Valve Label Value Normal Value Label Value N ormal Value Ao Asc 33.8 mm TR Vmax 261 cm/s Heart Rate TR Pmax 27 mmHg Label Value Normal Value RA Pressure 8 mmHg Heart Rate 85 bpm RVSP 35 mmHg T NUCLEAR STRESS TEST [id number] Result Date: 05/06/2021 Name: SERENITY WHITFIELD : 1950 RADIOLOGY EXAM DATE AND TIME OF SERVICE: 05/06/2021 00:00:00 INDICATION: Chest pain/anginal equiv, ECGs or troponins abnormal EXAM: PETCT NUCLEAR STRESS [id number] REASON FOR THE TEST: Chest pain, angina, ECG or troponins abnormal. REFERRING PROVIDER: KAROL Beard. Resting portion performed with 55.85 mCi of rubidium-82 and stress with 55.18 mCi of rubidium-82. CT attenuation images were reviewed. Severe coronary artery calcification in all major vascular territory. Bilateral pleural effusion noted. EKG portion of the stress test was reviewed. Resting heart rate 75 beats per minute. Peak heart rate 92 beats per minute. Resting bloodpressure 92/47. EKG showed a normal sinus rhythm, poor R-wave progression, no ischemic changes, overall nondiagnostic. FINDINGS: There is a large, severe intensity, minimally reversible anterior wall defect extending to the anteroapical region and anteroseptal and mid septal region. The apex is non reversible completely. This is consistent with prior transmural infarct in the left anterior descending artery with minimal periscar ischemia. Functional gated scan reveals a resting left ventricularejection fraction of 25%, end- diastolic volume of 162 mL, end-systolic volume of 121 mL, global hypokinesia, worse in the region of infarct. Lexiscan stress left ventricular ejection fraction is 26% with end-diastolic volume of 165 mL, end-systolic volume of 122 mL and global hypokinesia and regionalwall motion abnormalities as noted before. TID index was normal at 1.00. Coronary flow reserve study was reviewed. Low normal resting flow, significantly blunted stress augmentation. Global reserve is 1.18, significantly decreased in all major vascular territory consistent with coronary artery disease and severe myopathic process. IMPRESSION: Markedly abnormal Eloisa PET myocardial perfusion imaging study. Large area of transmural infarct in the region of left anterior descending artery with minimal periscar ischemia. No areas of significant ischemia noted in this study. Severely depressedleft ventricular ejection fraction at 25%. Severe coronary artery calcification. Severely depressed global coronary flow reserve, reason as noted above. Erika English MD Receipt: [id number] Trans ID: [id number] HISTORIC SITES REGISTRAR HISTORIC SITES REGISTRAR CSN: [id number] Order Phys: DEDRA FITCH MR#/PADMINI#: [id number] Admit Date: 05/01/2021 [facility] RADIOLOGY REPORT [facility] Assessment and Plan documented in this encounter Miscellaneous Notes Clinical Team - Aisha Siegel RN - 05/14/2021 4:12 PM CST This nurse messaged Dr. Romero regarding order for a C.diff test and imodium ordered. Pt patient is nothaving loose stools but is experiencing cramping which is her normal. C.diff test was confirmed patient placed in precautions. This nurse also let Dr. Romero know that patient did not receive evening dose of Lantus on 05/13 and ptBS was 58 this am. Lantus was modified to 10 units instead of 20. linical Team - Gege Bennett RN - 05/13/2021 5:38 PM CST notified of BG 58. Patient asymptomatic, eating dinner now. Order placed to decrease bedtime Lantus dose from 30 units to 20. 1813 BG recheck 102 linical Team - Gege Bennett RN - 05/13/2021 10:10 AM CST MD notified of pt's BP. 90/47 (60) at 0800, 90/42 (57) at 1000. Pt is asymptomatic. 1017: MD discontinued IV lasix, changed to PO Bumex BID. Will continue to monitor. linical Team - Tiana Ayoub RN - 05/12/2021 1:51 PM CST Pt admitted from [facility]. Arrived via wheelchair with ride service chair car driver. Belongings put away.Pt has personal CPAP machine with. Oriented to room and call light. 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 Author Type Problems Progress LIFESTYLE - TAKE Lifestyle No Sherrill, MEDICATIONS Buddy Vieira PRESCRIBED Note: Take you diabetic medications daily! HGB A1C < 7.0 Result Component 10.2 (02/22/2021 10:49 AM Abby Hernandez RN CDT) documented as of this encounter Implants Implanted Type Area Community Health Consultant Device Shelf Model / Identifier Expiration Serial / Lot Date Stnt Resolute Boyd Rx 3.0x08mm N [id number] Ea1 (Aka [id number])-06/03/2020 Cardiac ARTERIAL MEDTR[employer]IC 05/25/2021 [id number] / Implanted: Qty: 1 on 06/03/2020 by Иван Fitzgerald MD Stent / [id number] Description: STNT RESOLUTE BOYD RX 3.0X0 8MM N [id number] EA1 (AKA [id number])-06/03/2020 - cardiovascula r Stnt Resolute Boyd Rx 3.0x12mm N [id number] Ea1 (Aka [id number])-06/03/2020 Cardiac ARTERIAL MEDTR[employer]IC 12/11/2021 [id number] / Implanted: Qty: 1 on 06/03/2020 by Иван Fitzgerald MD Stent / [id number] Description: STNT RESOLUTE BOYD RX 3.0X1 2MM N [id number] EA1 (AKA [id number])-06/03/2020 - cardiovascula r Medtronic Implanted Loop Recorder Cardiovascular CHEST WALL MEDTRONIC [id number] / Implanted: 07/22/2018 by Ginger Rosas MD (Eduardo ntity not on file) [id number] / Description: 07/08/2019 Device remains im planted. No further follow up is planned. Lara Roca RN Cmnt Bone Simplex Tobramyacin N 6197-9-001 Ea1 - [id number] Left: HIP RASHEEDA 11/21/2018 [id number] / Implanted: Qty: 1 on 07/19/2018 by Luc Pittman MD at [facility] / [id number] Description: ordered and verified by Dr. Pittman Cmnt Bone Simplex Tobramyacin N 6197-9-001 Ea1 - [id number] Left: HIP RASHEEDA 11/21/2018 [id number] / Implanted: Qty: 1 on 07/19/2018 by Luc Pittman MD at [facility] / [id number] Description: ordered and verified by Dr. Pittman Hip Shell G7 Pps 3hl B 46mm N [id number] Ea1 - [id number] eft: HIP LESLYE 05/04/2028 [id number] / Implanted: Qty: 1 on 07/19/2018 by Luc Pittman MD at [facility] / [id number] Description: ordered and verified by Dr. Pittman Hip Lnr E1 Pe Neut Szb 32mm N [id number] Ea1 - [id number] eft: HIP LESLYE 03/10/2023 [id number] / Implanted: Qty: 1 on 07/19/2018 by Luc Pittman MD at [facility] / [id number] Description: ordered and verified by Dr. Pittman Hip Screw G7 Loprodome6.5x40mm N [id number] Ea1 - [id number] Left: HIP LESLYE 02/28/2028 [id number] / Implanted: Qty: 1 on 07/19/2018 by Luc Pittman MD at [facility] / [id number] Description: ordered and verified by Dr. Pittman Hip Stem Cmnt Avenir Std Sz4 N Ea1 - [id number] Left: HIP LESLYE 02/21/2023204 / Implanted: Qty: 1 on 07/19/2018 by Luc Pittman MD at [facility] / [id number] Description: ordered and verified by Dr. Pittman Hip Hd Biolox Cer Ooej26hb-4.5 N [id number] Ea1 - [id number] Left: HIP LESLYE 04/23/202870-2510-163-01 / Implanted: Qty: 1 on 07/19/2018 by Luc Pittman MD at [facility] / [id number] Description: Verbally ordered and verifi ed by Dr. Pittman documented as of this encounter Procedures Procedure Name Priority Date/Time Associated Comments Diagnosis SARS-COV-2, INFLUENZA STAT 05/17/2021 8:40 Re sults for this A+B, AND/OR RSV AM HISTORIC SITES REGISTRAR procedure ar e in NUCLEIC ACID TESTING the res ults PANEL section. COMPREHENSIVE Routine 05/17/2021 6:40 Results fo r this METABOLIC PANEL AM HISTORIC SITES REGISTRAR procedure ar e in the results section. GLUCOSE BY METER, POCT Routine 05/17/2021 6:07 R esults for this AM HISTORIC SITES REGISTRAR procedure are i n the results section. GLUCOSE BY METER, POCT Routine 05/16/2021 9:22 R esults for this PM HISTORIC SITES REGISTRAR procedure are i n the results section. GLUCOSE BY METER, POCT Routine 05/16/2021 5:34 R esults for this PM HISTORIC SITES REGISTRAR procedure are i n the results section. GLUCOSE BY METER, POCT Routine 05/16/2021 11:54 R esults for this AM HISTORIC SITES REGISTRAR procedure are i n the results section. GLUCOSE BY METER, POCT Routine 05/16/2021 11:18 R esults for this AM HISTORIC SITES REGISTRAR procedure are i n the results section. COMPREHENSIVE Routine 05/16/2021 6:38 Results fo r this METABOLIC PANEL AM HISTORIC SITES REGISTRAR procedure ar e in the results section. BRAIN NATRIURETIC Routine 05/16/2021 6:38 Result s for this PEPTIDE AM HISTORIC SITES REGISTRAR procedure are i n the results section. GLUCOSE BY METER, POCT Routine 05/16/2021 5:26 R esults for this AM HISTORIC SITES REGISTRAR procedure are i n the results section. GLUCOSE BY METER, POCT Routine 05/15/2021 8:58 R esults for this PM HISTORIC SITES REGISTRAR procedure are i n the results section. GLUCOSE BY METER, POCT Routine 05/15/2021 5:47 R esults for this PM HISTORIC SITES REGISTRAR procedure are i n the results section. GLUCOSE BY METER, POCT Routine 05/15/2021 11:14 R esults for this AM HISTORIC SITES REGISTRAR procedure are i n the results section. COMPREHENSIVE Routine 05/15/2021 10:23 Results fo r this METABOLIC PANEL AM HISTORIC SITES REGISTRAR procedure ar e in the results section. GLUCOSE BY METER, POCT Routine 05/15/2021 6:12 R esults for this AM HISTORIC SITES REGISTRAR procedure are i n the results section. CLOSTRIDIUM DIFFICILE Routine 05/15/2021 4:03 Re sults for this BY NAAT (PCR/LAMP) AM HISTORIC SITES REGISTRAR procedure are in the results section. GLUCOSE BY METER, POCT Routine 05/14/2021 9:22 R esults for this PM HISTORIC SITES REGISTRAR procedure are i n the results section. GLUCOSE BY METER, POCT Routine 05/14/2021 5:50 R esults for this PM HISTORIC SITES REGISTRAR procedure are i n the results section. GLUCOSE BY METER, POCT Routine 05/14/2021 11:31 R esults for this AM HISTORIC SITES REGISTRAR procedure are i n the results section. GLUCOSE BY METER, POCT Routine 05/14/2021 8:52 R esults for this AM HISTORIC SITES REGISTRAR procedure are i n the results section. GLUCOSE BY METER, POCT Routine 05/14/2021 8:28 R esults for this AM HISTORIC SITES REGISTRAR procedure are i n the results section. BASIC METABOLIC PANEL Routine 05/14/2021 7:30 Re sults for this AM HISTORIC SITES REGISTRAR procedure are i n the results section. GLUCOSE BY METER, POCT Routine 05/13/2021 10:58 R esults for this PM HISTORIC SITES REGISTRAR procedure are i n the results section. GLUCOSE BY METER, POCT Routine 05/13/2021 9:21 R esults for this PM HISTORIC SITES REGISTRAR procedure are i n the results section. GLUCOSE BY METER, POCT Routine 05/13/2021 6:13 R esults for this PM HISTORIC SITES REGISTRAR procedure are i n the results section. GLUCOSE BY METER, POCT Routine 05/13/2021 5:32 R esults for this PM HISTORIC SITES REGISTRAR procedure are i n the results section. GLUCOSE BY METER, POCT Routine 05/13/2021 11:04 R esults for this AM HISTORIC SITES REGISTRAR procedure are i n the results section. GLUCOSE BY METER, POCT Routine 05/13/2021 5:56 R esults for this AM HISTORIC SITES REGISTRAR procedure are i n the results section. GLUCOSE BY METER, POCT Routine 05/13/2021 4:41 R esults for this AM HISTORIC SITES REGISTRAR procedure are i n the results section. GLUCOSE BY METER, POCT Routine 05/13/2021 3:55 R esults for this AM HISTORIC SITES REGISTRAR procedure are i n the results section. GLUCOSE BY METER, POCT Routine 05/12/2021 10:33 R esults for this PM HISTORIC SITES REGISTRAR procedure are i n the results section. GLUCOSE BY METER, POCT Routine 05/12/2021 9:35 R esults for this PM HISTORIC SITES REGISTRAR procedure are i n the results section. GLUCOSE BY METER, POCT Routine 05/12/2021 9:24 R esults for this PM HISTORIC SITES REGISTRAR procedure are i n the results section. LAB ONLY-BUN, Routine 05/12/2021 7:02 Results fo r this FRACTIONAL EXCRETION PM HISTORIC SITES REGISTRAR procedu re are in the results section. LAB ONLY - SODIUM, Routine 05/12/2021 7:02 Resul ts for this FRACTIONAL EXCRETION PM HISTORIC SITES REGISTRAR procedu re are in the results section. SODIUM Routine 05/12/2021 7:02 Results for this PM HISTORIC SITES REGISTRAR procedure are i n the results section. FRACTIONAL EXCRETION Routine 05/12/2021 7:02 Res ults for this OF BUN PM HISTORIC SITES REGISTRAR procedure are i n the results section. GLUCOSE BY METER, POCT Routine 05/12/2021 5:23 R esults for this PM HISTORIC SITES REGISTRAR procedure are i n the results section. US RENAL VERO Routine 05/12/2021 2:39 Results for this PM HISTORIC SITES REGISTRAR procedure are i n the results section. COMPLETE BLOOD COUNT PRATEEK 05/12/2021 2:04 Res ults for this WITHOUT DIFFERENTIAL PM HISTORIC SITES REGISTRAR procedu re are in the results section. COMPREHENSIVE PRATEEK 05/12/2021 2:04 Results fo r this METABOLIC PANEL PM HISTORIC SITES REGISTRAR procedure ar e in the results section. BRAIN NATRIURETIC PRATEEK 05/12/2021 2:04 Result s for this PEPTIDE PM HISTORIC SITES REGISTRAR procedure are i n the results section. documented in this encounter Results SARS-COV-2, INFLUENZA A+B, AND/OR RSV NUCLEIC ACID TESTING PANEL (05/17/2021 8:40 AM HISTORIC SITES REGISTRAR) Pathologist Sig nature SARS-CoV-[address] [facility] Specimen Respiratory - Nasopharyngeal swab (speci men) Narrative [facility] - 05/17/2021 10: 00 AM HISTORIC SITES REGISTRAR Please read entire report. Results for Influenza A and B or RSV may also be available depending on which viruses your provider selected for testing. Your Covid-19 test is negative: 1)Avoiding close contact is s till recommended. 2)Cover your coughs and snee zes. 3)Wash your hands often with soap and water for at least 20 seconds or use an alcohol-based corporate intern containing over 60% alcohol. Avoid touching your face. 4)Avoid sharing personal osmin sehold items, including dishes, cups, utensils, towels, clothing, or bedding. These items should be cleaned thoroughly with soap and water after use. Clean all "high touch" surfaces in your home daily. 5) Monitor your symptoms. Contact your provider if you are feeling worse. If you have shortness of breath or difficulty breathing, call 911. This assay is for in vitro diagnostic us e under FDA Emergency Use Authorization only. Optimal performance of this test require s appropriate specimen collection, storage, and transport to the test site. Detection of SARS-CoV-2 RNA may be affec ady by sample collection methods, patient factors (eg, presence of symptoms), and/or stage of infection. False-negative results may arise from de gradation of viral RNA during shipping/storage. Results should be interpreted by a train ed professional in conjunction with the patient s history and clinical signs and symptoms, and epidemiological risk factors. Negative (Not Detected) results do not p reclude infection with the SARS-CoV-2 virus and should not be the sole basis of patient treatment/management or public health decision. Follow up testing should b e performed according to the current CDC recommendations. This test was performed by polymerase ch ain reaction (PCR) on the GeneXpert instrument. Performing Organization Address City/State/ZIP Code Phon e Number [address] [address] (ABNORMAL) COMPREHENSIVE METABOLIC PANEL (05/17/2021 6:40 AM HISTORIC SITES REGISTRAR) Pathologist Sig nature Glucose 217 (H) 70 - 99 mg/dL [facility] BUN 41 (H) 6 - 22 mg/dL [facility] Creatinine 1.39 (H) 0.60 - 1.10 [facility] mg/dL [facility] BUN/Creatinine Ratio 29.5 (H) 10.0 - 25.0 [facility] Sodium 138 136 - 145 meq/L [facility] Potassium 3.9 3.5 - 5.1 meq/L [facility] Chloride 104 98 - 109 meq/L [facility] CO2 24 22 - 31 meq/L [facility] Anion Gap with K 14 6 - 20 meq/L [facility] Calcium 8.7 8.5 - 10.5 [facility] mg/dL [facility] Protein Total 6.6 6.0 - 8.3 g/dL [facility] Albumin 3.5 3.2 - 4.6 g/dL [facility] Alkaline Phosphatase 151 (H) 40 - 150 U/L [facility] AST - SGOT 28 5 - 45 U/L [facility] ALT - SGPT 110 (H) 0 - 55 U/L [facility] Bilirubin Total 1.0 0.2 - 1.2 mg/dL [facility] Corrected Calcium 9.1 8.5 - 10.5 [facility] mg/dL CLINIC Age [address] [facility] eGFR Non- 37 (L) >=60 [facility] Indian mL/min/1.73m2 CLINIC eGFR 45 (L) >=60 [facility] mL/min/1.73m2 CLINIC Specimen Blood - Blood specimen (specimen) Performing Organization Address [facility] Phon e Number [address] [phone] (ABNORMAL) GLUCOSE BY METER, POCT (05/17/2021 6:07 AM HISTORIC SITES REGISTRAR) Pathologist Sig nature Glucose POC 368 (H) 70 - 99 mg/dL [facility] Specimen Blood - Blood specimen (specimen) Performing Organization Address [facility]/[address] [phone] (ABNORMAL) GLUCOSE BY METER, POCT (05/16/2021 9:22 PM HISTORIC SITES REGISTRAR) Pathologist Sig nature Glucose POC 336 (H) 70 - 99 mg/dL [facility] Specimen Blood - Blood specimen (specimen) Performing Organization Address [facility]/ZIP [facility] Phon [address] [phone] (ABNORMAL) GLUCOSE BY METER, POCT (05/16/2021 5:34 PM HISTORIC SITES REGISTRAR) Pathologist Sig nature Glucose POC 195 (H) 70 - 99 mg/dL [facility] Specimen Blood - Blood specimen (specimen) Performing Organization Address [facility] Phon e [address] [phone] (ABNORMAL) GLUCOSE BY METER, POCT (05/16/2021 11:54 AM HISTORIC SITES REGISTRAR) Pathologist Sig nature Glucose POC 201 (H) 70 - 99 mg/dL [facility] Specimen Blood - Blood specimen (specimen) Performing Organization Address [facility]/ZIP [facility] Phon e [address] [place] [phone] (ABNORMAL) GLUCOSE BY METER, POCT (05/16/2021 11:18 AM HISTORIC SITES REGISTRAR) Pathologist Sig nature Glucose POC 248 (H) 70 - 99 mg/dL [facility] Specimen Blood - Blood specimen (specimen) Performing Organization Address City/[facility]/ZIP Code Phon e Number [facility] [address] [place] [address] (ABNORMAL) BRAIN NATRIURETIC PEPTIDE (05/16/2021 6:38 AM HISTORIC SITES REGISTRAR) Pathologist Sig nature BNP 6,656 (H) 0 - 100 pg/mL [facility] Specimen Blood - Blood specimen (specimen) Performing Organization Address City/State/ZIP Code Phon e Number [address] [address] (ABNORMAL) COMPREHENSIVE METABOLIC PANEL (05/16/2021 6:38 AM HISTORIC SITES REGISTRAR) Pathologist Sig nature Glucose 215 (H) 70 - 99 mg/dL [facility] BUN 42 (H) 6 - 22 mg/dL [facility] Creatinine 1.44 (H) 0.60 - 1.10 [facility] mg/dL [facility] BUN/Creatinine Ratio 29.2 (H) 10.0 - 25.0 [facility] Sodium 140 136 - 145 meq/L [facility] Potassium 4.0 3.5 - 5.1 meq/L [facility] Chloride 103 98 - 109 meq/L [facility] CO2 24 22 - 31 meq/L [facility] Anion Gap with K 17 6 - 20 meq/L [facility] Calcium 8.5 8.5 - 10.5 [facility] mg/dL [facility] Protein Total 6.6 6.0 - 8.3 g/dL [facility] Albumin 3.3 3.2 - 4.6 g/dL [facility] Alkaline Phosphatase 145 40 - 150 U/L [facility] AST - SGOT 31 5 - 45 U/L [facility] ALT - SGPT 137 (H) 0 - 55 U/L [facility] Bilirubin Total 0.9 0.2 - 1.2 mg/dL [facility] Corrected Calcium 9.1 8.5 - 10.5 [facility] mg/dL [facility] Age [address] [facility] eGFR Non- 36 (L) >=60 [facility] Indian mL/min/1.73m2 CLINIC eGFR 43 (L) >=60 [facility] mL/min/1.73m2 CLINIC Specimen Blood - Blood specimen (specimen) Performing Organization Address City/[facility]/ZIP Code Phon e Number [address] [place] [address] (ABNORMAL) GLUCOSE BY METER, POCT (05/16/2021 5:26 AM HISTORIC SITES REGISTRAR) Pathologist Sig nature Glucose POC 202 (H) 70 - 99 mg/dL [facility] Specimen Blood - Blood specimen (specimen) Performing Organization Address City/[facility]/ZIP Code Phon e Number [address] [phone] (ABNORMAL) GLUCOSE BY METER, POCT (05/15/2021 8:58 PM HISTORIC SITES REGISTRAR) Pathologist Sig nature Glucose POC 357 (H) 70 - 99 mg/dL [facility] Specimen Blood - Blood specimen (specimen) Performing Organization Address City/[facility]/ZIP Code Phon e Number [address] [address] [phone] (ABNORMAL) GLUCOSE BY METER, POCT (05/15/2021 5:47 PM HISTORIC SITES REGISTRAR) Pathologist Sig nature Glucose POC 244 (H) 70 - 99 mg/dL [facility] Specimen Blood - Blood specimen (specimen) Performing Organization Address City/[facility]/ZIP Code Phon e Number [address] [address] [phone] (ABNORMAL) GLUCOSE BY METER, POCT (05/15/2021 11:14 AM HISTORIC SITES REGISTRAR) Pathologist Sig nature Glucose POC 263 (H) 70 - 99 mg/dL [facility] Specimen Blood - Blood specimen (specimen) Performing Organization Address City/[facility]/ZIP Code Phon e Number [address] [phone] (ABNORMAL) COMPREHENSIVE METABOLIC PANEL (05/15/2021 10:23 AM HISTORIC SITES REGISTRAR) Pathologist Sig nature Glucose 259 (H) 70 - 99 mg/dL [facility] BUN 41 (H) 6 - 22 mg/dL [facility] Creatinine 1.51 (H) 0.60 - 1.10 [facility] mg/dL [facility] BUN/Creatinine Ratio 27.2 (H) 10.0 - 25.0 [facility] Sodium 137 136 - 145 meq/L [facility] Potassium 4.3 3.5 - 5.1 meq/L [facility] Chloride 103 98 - 109 meq/L [facility] CO2 24 22 - 31 meq/L [facility] Anion Gap with K 14 6 - 20 meq/L [facility] Calcium 8.4 (L) 8.5 - 10.5 [facility] mg/dL [facility] Protein Total 6.3 6.0 - 8.3 g/dL [facility] Albumin 3.1 (L) 3.2 - 4.6 g/dL [facility] Alkaline Phosphatase 138 40 - 150 U/L [facility] AST - SGOT 38 5 - 45 U/L [facility] ALT - SGPT 154 (H) 0 - 55 U/L [facility] Bilirubin Total 0.9 0.2 - 1.2 mg/dL [facility] Corrected Calcium 9.1 8.5 - 10.5 [facility] mg/dL [facility] Age [address] [facility] eGFR Non- 34 (L) >=60 [facility] Indian mL/min/1.73m2 [facility] eGFR 41 (L) >=60 [facility] mL/min/1.73m2 [facility] Specimen Blood - Blood specimen (specimen) Performing Organization Address City/State/ZIP Code Phon e Number [address] [address] (ABNORMAL) GLUCOSE BY METER, POCT (05/15/2021 6:12 AM HISTORIC SITES REGISTRAR) Pathologist Sig nature Glucose POC 183 (H) 70 - 99 mg/dL [facility] Specimen Blood - Blood specimen (specimen) Performing Organization Address City/State/ZIP Code Phon e Number [address] [address] CLOSTRIDIUM DIFFICILE BY NAAT (PCR/LAMP) (05/15/2021 4:03 AM HISTORIC SITES REGISTRAR) C difficile Not Detected Not Detected BEMENT SARAH Toxin B Gene [facility] 027/NAP1/BI Presumptive Presumptive [facility]ORATORY Specimen Feces - Stool specimen (specimen) Narrative [facility] - 2020 8:33 AM HISTORIC SITES REGISTRAR Detection of 027/NAP1/BI strains of C. difficile is presumptive and solely for epidemiological purpos es. It is not intended to guide or mon itor treatment for C. difficile infections. Treatment remains the same. This test was performed by polymerase ch ain reaction (PCR) on the GeneXpert instrument. Performing Organization Address [facility] Code Phon e Number [facility] [address], [place] [address] LABORATORY [address] (ABNORMAL) GLUCOSE BY METER, POCT (05/14/2021 9:22 PM HISTORIC SITES REGISTRAR) Pathologist Sig nature Glucose POC 272 (H) 70 - 99 mg/dL [facility] Specimen Blood - Blood specimen (specimen) Performing Organization Address [facility] e [address] [address] [phone] (ABNORMAL) GLUCOSE BY METER, POCT (05/14/2021 5:50 PM HISTORIC SITES REGISTRAR) Pathologist Sig nature Glucose POC 335 (H) 70 - 99 mg/dL [facility] Specimen Blood - Blood specimen (specimen) Performing Organization Address [facility] Phon e Number [address] [phone] (ABNORMAL) GLUCOSE BY METER, POCT (05/14/2021 11:31 AM HISTORIC SITES REGISTRAR) Pathologist Sig nature Glucose POC 133 (H) 70 - 99 mg/dL [facility] Specimen Blood - Blood specimen (specimen) Performing Organization Address [facility] Phon e Number [address] [address] (ABNORMAL) GLUCOSE BY METER, POCT (05/14/2021 8:52 AM HISTORIC SITES REGISTRAR) Pathologist Sig nature Glucose POC 117 (H) 70 - 99 mg/dL [facility] Specimen Blood - Blood specimen (specimen) Performing Organization Address [facility] Phon e Number [address] [phone] (ABNORMAL) GLUCOSE BY METER, POCT (05/14/2021 8:28 AM HISTORIC SITES REGISTRAR) Pathologist Sig nature Glucose POC 59 (LL) 70 - 99 mg/dL [facility] Specimen Blood - Blood specimen (specimen) Performing Organization Address City/[facility]/ZIP Code Phon e Number [address] [id number] (ABNORMAL) BASIC METABOLIC PANEL (05/14/2021 7:30 AM HISTORIC SITES REGISTRAR) Pathologist Sig nature Glucose 58 (LL) 70 - 99 mg/dL [facility] BUN 41 (H) 6 - 22 mg/dL [facility] Creatinine 1.52 (H) 0.60 - 1.10 [facility] mg/dL CLINIC BUN/Creatinine Ratio 27.0 (H) 10.0 - 25.0 [facility] Sodium 139 136 - 145 meq/L [facility] Potassium 4.5 3.5 - 5.1 meq/L [facility] Chloride 107 98 - 109 meq/L [facility] CO2 25 22 - 31 meq/L [facility] Anion Gap with K 12 6 - 20 meq/L [facility] Calcium 8.2 (L) 8.5 - 10.5 [facility] mg/dL CLINIC Age [address] [facility] eGFR Non- 34 (L) >=60 [facility] Indian mL/min/1.73m2 CLINIC eGFR 41 (L) >=60 [facility] mL/min/1.73m2 CLINIC Specimen Blood - Blood specimen (specimen) Performing Organization Address City/[facility]/ZIP [facility] Phon e Number [address] [address] (ABNORMAL) GLUCOSE BY METER, POCT (05/13/2021 10:58 PM HISTORIC SITES REGISTRAR) Pathologist Sig nature Glucose POC 131 (H) 70 - 99 mg/dL [facility] Specimen Blood - Blood specimen (specimen) Performing Organization Address [facility]/ZIP [facility] Phon e Number [address] [place] [address] [phone] GLUCOSE BY METER, POCT (05/13/2021 9:21 PM HISTORIC SITES REGISTRAR) Pathologist Sig nature Glucose POC 74 70 - 99 mg/dL [facility] Specimen Blood - Blood specimen (specimen) Performing Organization Address [facility]/ZIP Code Phon e Number [address] [place] [phone] (ABNORMAL) GLUCOSE BY METER, POCT (05/13/2021 6:13 PM HISTORIC SITES REGISTRAR) Pathologist Sig nature Glucose POC 102 (H) 70 - 99 mg/dL [facility] Specimen Blood - Blood specimen (specimen) Performing Organization Address [facility]/ZIP Code Phon e Number [address] [phone] (ABNORMAL) GLUCOSE BY METER, POCT (05/13/2021 5:32 PM HISTORIC SITES REGISTRAR) Pathologist Sig nature Glucose POC 58 (LL) 70 - 99 mg/dL [facility] Specimen Blood - Blood specimen (specimen) Performing Organization Address [facility]/ZIP [facility] Phon e [address] [address] (ABNORMAL) GLUCOSE BY METER, POCT (05/13/2021 11:04 AM HISTORIC SITES REGISTRAR) Pathologist Sig nature Glucose POC 154 (H) 70 - 99 mg/dL [facility] Specimen Blood - Blood specimen (specimen) Performing Organization Address [facility]/ZIP Code Phon e Number [address] [phone] (ABNORMAL) GLUCOSE BY METER, POCT (05/13/2021 5:56 AM HISTORIC SITES REGISTRAR) Pathologist Sig nature Glucose POC 110 (H) 70 - 99 mg/dL [facility] Specimen Blood - Blood specimen (specimen) Performing Organization Address [facility]/ZIP Code Phon e Number [address] [phone] (ABNORMAL) GLUCOSE BY METER, POCT (05/13/2021 4:41 AM HISTORIC SITES REGISTRAR) Pathologist Sig nature Glucose POC 112 (H) 70 - 99 mg/dL [facility] Specimen Blood - Blood specimen (specimen) Performing Organization Address [facility]/ZIP Code Phon e Number [address] [phone] (ABNORMAL) GLUCOSE BY METER, POCT (05/13/2021 3:55 AM HISTORIC SITES REGISTRAR) Pathologist Sig nature Glucose POC 42 (LL) 70 - 99 mg/dL [facility] Specimen Blood - Blood specimen (specimen) Performing Organization Address [facility] Phon e Number [address] [place] [address] [phone] GLUCOSE BY METER, POCT (05/12/2021 10:33 PM HISTORIC SITES REGISTRAR) Pathologist Sig nature Glucose POC 94 70 - 99 mg/dL [facility] Specimen Blood - Blood specimen (specimen) Performing Organization Address [facility] Phon e [address] [place] [address] GLUCOSE BY METER, POCT (05/12/2021 9:35 PM HISTORIC SITES REGISTRAR) Pathologist Sig nature Glucose POC 75 70 - 99 mg/dL [facility] Specimen Blood - Blood specimen (specimen) Performing Organization Address [facility] e [address] [place] [address] GLUCOSE BY METER, POCT (05/12/2021 9:24 PM HISTORIC SITES REGISTRAR) Pathologist Sig nature Glucose POC 70 70 - 99 mg/dL [facility] Specimen Blood - Blood specimen (specimen) Performing Organization Address [facility] Phon e [address] [place] [address] [phone] LAB ONLY-BUN, FRACTIONAL EXCRETION (05/12/2021 7:02 PM HISTORIC SITES REGISTRAR) Creatinine Urine 43.5 No Reference Range [facility] Established mg/dL CLINIC Urea Nitrogen Urine 294 No Reference Range [facility] Established mg/dL CLINIC Fractional Excretion 30 No Reference Range [facility] AY of BUN Established % CLINIC Specimen Not Applicable - Not applicable (qualifi er value) Performing Organization Address [facility] Phon e [address] [place] [address] [phone] LAB ONLY - SODIUM, FRACTIONAL EXCRETION (05/12/2021 7:02 PM HISTORIC SITES REGISTRAR) Creatinine Urine 44.9 No Reference Range [facility] Established mg/dL CLINIC Sodium Urine 41 No Reference Range [facility] Established meq/L [facility] Fractional Excretion 1.3 No Reference Range [facility] AY of Sodium Established % CLINIC Specimen Urine - Urine specimen (specimen) Narrative [facility] - 05/12/2021 9: 05 PM HISTORIC SITES REGISTRAR Fractional excretion of sodium < 1% is suggestive of a prerenal cause. Fractional excretion of sodium > 1% is s uggestive of acute tubular necrosis. Performing Organization Address City/State/ZIP Code Phon e Number [facility] [address] [place] [address] [phone] GLUCOSE BY METER, POCT (05/12/2021 5:23 PM HISTORIC SITES REGISTRAR) Pathologist [facility] nature Glucose POC 79 70 - 99 mg/dL [facility] Specimen Blood - Blood specimen (specimen) Performing Organization Address City/State/ZIP Code Phon e Number [address] [place] [address] US RENAL VERO (05/12/2021 2:39 PM HISTORIC SITES REGISTRAR) Anatomical Region Laterality Modality Abdomen Ultrasound Specimen Narrative [facility] - 05/12/2021 3:17 PM HISTORIC SITES REGISTRAR Patient Name: SERENITY WHITFIELD Date of : 1950 Procedure: US RENAL VERO Date of Service: 05/12/2021 EXAM: US RENAL VERO INDICATION: RODRICK. COMPARISON(S): None available. FINDINGS: Right kidney measures 11.9 x 5.2 x 5.5 c m. No hydronephrosis, shadowing stone, cyst or mass identified. Left kidney measures 10.4 x 5.3 x 5.4 cm . No hydronephrosis. There is a thin linear echogenic focus within the inferior pole of the left kidney measuring 4 mm, possibly representing a linear stone. Nik tional linear echogenicity in the mid to upper right kidney measuring 7.2 mm. Possible stone. Partially exophytic hypoechoic area along the inferior pole of the left kidney seen on the static images 41- 43. This is incompletely characterized a nd may represent a cyst. The urinary bladder is unremarkable. IMPRESSION: 1. Unremarkable ultrasound appearance of the right kidney. 2. There are 2 linear echogenic foci wit hin the renal pelvis in the left kidney, which may represent nonobstructing stones. 3. Partially exophytic lesion along the left inferior kidney seen on the static images. This may represent an exophytic cyst but is incompletely characterized. This measures around 1.5 cm. 4. Unremarkable appearance of the urinar y bladder. Edited by: miri 05/12/2021 3:17 PM HISTORIC SITES REGISTRAR Finalized by: Russ Chavez MD on 05/12 3:17 PM HISTORIC SITES REGISTRAR Patient/Procedure Information: [facility] MRN/PADMINI: [id number] Order Number: [id number] Accession Number: [id number] Ordering Provider: [employer] KIM Authorizing Provider: EDGARDOCamerborn KIM Procedure Note Russ Chavez MD - 05/12/2021 Patient Name: SERENITY WHITFIELD Date of : 1950 Procedure: US RENAL VERO Date of Service: 05/12/2021 EXAM: US RENAL VERO INDICATION: RODRICK. COMPARISON(S): None available. FINDINGS: Right kidney measures 11.9 x 5.2 x 5.5 c m. No hydronephrosis, shadowing stone, cyst or mass identified. Left kidney measures 10.4 x 5.3 x 5.4 cm . No hydronephrosis. There is a thin linear echogenic focus within the inferior pole of the left kidney measuring 4 mm, possibly representing a linear stone. Additional linear echogenicity in the mid to upper right k idney measuring 7.2 mm. Possible stone. Partially exophytic hypoechoic area along the inferior pole of the left kidney seen on the static images 41-43. This is incompletely characterized and may represent a cyst. The urinary bladder is unremarkable. IMPRESSION: 1. Unremarkable ultrasound appearance of the right kidney. 2. There are 2 linear echogenic foci wit hin the renal pelvis in the left kidney, which may represent nonobstructing stones. 3. Partially exophytic lesion along the left inferior kidney seen on the static images. This may represent an exophytic cyst but is incompletely characterized. This measures around 1.5 cm. 4. Unremarkable appearance of the urinar y bladder. Edited by: miri 05/12/2021 3:17 PM HISTORIC SITES REGISTRAR Finalized by: Russ Chavez MD on 05/12 3:17 PM HISTORIC SITES REGISTRAR Patient/Procedure Information: [facility] MRN/PADMINI: [id number] Order Number: [id number] Accession Number: [id number] Ordering Provider: DAGOBERTO VILLARREAL Authorizing Provider: DAGOBERTO VILLARREAL Performing Organization Address City/[facility] Phon e Number [id number] (ABNORMAL) BRAIN NATRIURETIC PEPTIDE (05/12/2021 2:04 PM HISTORIC SITES REGISTRAR) Pathologist Sig nature BNP 3,328 (H) 0 - 100 pg/mL [facility] Specimen Blood - Blood specimen (specimen) Performing Organization Address City/State/[facility] Code Phon e Number [facility] [address] [place] [address] (ABNORMAL) COMPREHENSIVE METABOLIC PANEL (05/12/2021 2:04 PM HISTORIC SITES REGISTRAR) Pathologist Sig [facility] Glucose 99 70 - 99 mg/dL [facility] BUN 43 (H) 6 - 22 mg/dL [facility] Creatinine 1.92 (H) 0.60 - 1.10 [facility] mg/dL [facility] BUN/Creatinine Ratio 22.4 10.0 - 25.0 [facility] Sodium 137 136 - 145 meq/L [facility] Potassium 4.5 3.5 - 5.1 meq/L [facility] Chloride 107 98 - 109 meq/L [facility] CO2 21 (L) 22 - 31 meq/L [facility] Anion Gap with K 14 6 - 20 meq/L [facility] Calcium 8.1 (L) 8.5 - 10.5 [facility] mg/dL [facility] Protein Total 6.0 6.0 - 8.3 g/dL [facility] Albumin 3.0 (L) 3.2 - 4.6 g/dL [facility] Alkaline Phosphatase 133 40 - 150 U/L [facility] AST - SGOT 41 5 - 45 U/L [facility] ALT - SGPT 247 (H) 0 - 55 U/L [facility] Bilirubin Total 0.7 0.2 - 1.2 mg/dL [facility] Corrected Calcium 8.9 8.5 - 10.5 [facility] mg/dL [facility] Age [address] [facility] eGFR Non- 26 (L) >=60 [facility] Indian mL/min/1.73m2 CLINIC eGFR 31 (L) >=60 [facility] mL/min/1.73m2 CLINIC Specimen Blood - Blood specimen (specimen) Performing Organization Address City/[facility]/ZIP Code Phon e Number [address] [phone] (ABNORMAL) COMPLETE BLOOD COUNT WITHOUT DIFFERENTIAL (05/12/2021 2:04 PM HISTORIC SITES REGISTRAR) Pathologist [facility] nature WBC 6.5 4.0 - 11.0 K/uL [facility] RBC 3.82 3.80 - 5.30 M/uL [facility] Hemoglobin 9.4 (L) 11.5 - 15.8 g/dL [facility] Hematocrit 32.2 (L) 35.0 - 45.0 % [facility] MCV 84.3 80.0 - 98.[address] [facility] MCH 24.6 (L) 25.5 - 34.[address] [facility] MCHC 29.2 (L) 31.5 - 36.5 g/dL [facility] RDW-CV 18.1 (H) 11.5 - 15.5 % [facility] RDW-SD 56.1 (H) 35.5 - 50.[address] [facility] Platelet Count 205 140 - 400 K/uL [facility] MPV 12.3 (H) 8.5 - 12.[address] 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) - Primary Acute on chronic combined systolic and d iastolic heart failure Restless leg syndrome Restless legs syndrome (RLS) CHF (congestive heart failure) (HCC) Congestive heart failure, unspecified documented in this encounter Discharge Diagnoses Not on filedocumented in this encounter Administered Medications Medication Order MAR Action Action Date Dose Rate Site apixaban (ELIQUIS) tablet 5 mg Given 05/17/2021 8:29 AM HISTORIC SITES REGISTRAR 5 mg 5 mg, Oral, Two times a day, First dose on 11/19/21 at 2100, Until Discontinued Given 05/16/2021 8:00 PM HISTORIC SITES REGISTRAR 5 mg Given 05/16/2021 8:08 AM HISTORIC SITES REGISTRAR 5 mg bisacodyl (DULCOLAX) suppository 10 mg 10 mg, Rectal, One time a day prn, Starting on Sat at 1348, Until Discontinued, constipation, Use SECOND for constipatio n. If patient cannot take oral medications, use first for constipation. carbohydrate 15 g 15 g, Oral, PRN per parameter, Starting on Sat 1 at 1421, Until Discontinued, low blood glucose, Give 15 grams of carbohydrate if blood glucose is less than 70 mg/dL, patient is responsive and able to take food or oral meds. Recheck blood glucose in 15 minutes. Repeat 1 time and call MD. If recheck is greater than 70 mg/dL and able to take f ood or oral meds, give 15 gram carbohydrate if meal or snack due in more than an osmin r. Serve meal or snack if due in less than 1 hour. See hypoglycemia treatment on c ardex. Sources of 15 grams carbohydrate: a. 4 oz of fruit juice (Do NOT give jorge ge juice to dialysis patients due to risk of hyperkalemia) or b. 4 oz of soda pop (NOT diet) or c. 1 tablespoon of honey clopidogrel (PLAVIX) tablet 75 mg Given 05/17/2021 8:28 AM HISTORIC SITES REGISTRAR 75 mg 75 mg, Oral, DAILY, First dose on 05/13/21 at 0900, Until Discontinued Given 05/16/2021 8:08 AM HISTORIC SITES REGISTRAR 75 mg Given 05/15/2021 8:32 AM HISTORIC SITES REGISTRAR 75 mg dextrose 50% IV solution 50 mL 50 mL (25 g), IV, PRN per parameter, Starting on Sat 1 07/13/20 at 1421, Until Discontinued, low blood glucose, 50 mL, Give if blood glucose is less than 70 mg/dL, patient is unresponsive or NPO, a nd has IV access. Recheck blood glucose in 15 minutes and call MD. Repeat dose if r echeck less than 70 mg/dL and call MD. If recheck is greater than 70 mg/dL and abl e to take food or oral meds, give 15 gram carbohydrate if meal or snack due in mor e than an hour. Serve meal or snack if due in less than 1 hour. See hypoglycemia treatment on car dex. digoxin (LANOXIN) tablet 0.0625 mg Given 05/16/2021 4:40 PM HISTORIC SITES REGISTRAR 0.0625 mg 0.0625 mg (62.5 mcg), Oral, Daily (Digoxin), First dose on Sat05/12/21 at 1600, Until Discontinued Given 05/15/2021 3:26 PM HISTORIC SITES REGISTRAR 0.0625 mg Given 05/14/2021 2:30 PM HISTORIC SITES REGISTRAR 0.0625 mg docusate sodium (THEREVAC-SB MINI;ENEMEE Z MINI) 283 MG enema 1 enema 1 enema, Rectal, One time a day prn, Starting on Sat07/12/20 at 1348, Until Discontinued, constipation, Use THIRD for constipation - if no BM 8 hours after dulcolax suppository. If patient cannot take oral medi cations, use second for constipation. furosemide (LASIX) injection solution 40 mg Given 05/17/2021 5:52 AM HISTORIC SITES REGISTRAR 40 mg 40 mg, IV, Every eight hours, First dose (after last modification) on Sat05/16/21 at 2200, Until Discontinued, 4 mL, If preference is to further dilute for IV administration: First draw up patient-specific dose, then dilute to 10 mL with 0.9% sodium chloride. Administer SLOW IV push. Given 05/16/2021 10:21 PM HISTORIC SITES REGISTRAR 40 mg glucagon for injection 1 mg vial 1 mg 1 mg, Intramuscular, PRN per parameter, Starting on t 05/13/21 at 1421, Until Discontinued, low blood glucose, Give if blood glucose less than 70 mg/dL, patient is unresponsive or NPO, and has no IV ac cess. Establish IV access. Recheck blood glucose in 15 minutes and call MD. If r echeck is greater than 70 mg/dL and able to take food or oral meds, give 15 gram car bohydrate if meal or snack due in more than an hour. Serve meals or snack if due in less than 1 ho ur. See hypoglycemia treatment on cardex. Reconstitute vial with 1 mL of sterile water for injection for reconstitution for a final concentra tion of 1 mg/mL. Shake vial gently. Use immediately and discard unused portion. Reconstitute with 1 mL of sterile water for injection to yield 1 mg/mL. Shake vial gently. Use immediately and discard unused portion. glucose chewable tablet 16 g 16 g (4 tablet), Oral, PRN per parameter , Starting on 05/13/21 at 1421, Until Discontinued, low blood glucose, Chew before swallowin g. Give 15 gram of carbohydrate if blood glucose is less th an 70 mg/dL, patient is responsive and able to take food or oral meds. Recheck blood glucose in 15 minutes. Repeat 15 gram carbohydrate if recheck is less than 70 mg/dL and call MD. If recheck is greater than 70 mg/dL and able to take food or o ral meds, give 15 gram carbohydrate if meal or snack due in more than an hour. Serve meal or snack if due in less than 1 hour. See hypoglycemia treatment on cardex. S ources of 15 grams carbohydrate: a. 4 oz of fruit juice (Do NOT give orange juice to dialysis p atients due to risk of hyperkalemia) or b. 4 oz of soda pop (NOT diet) or c . 1 tablespoon of honey insulin glargine (LANTUS) SQ injection Given 05/16/2021 10:04 PM HISTORIC SITES REGISTRAR 10 Units 10 Units, Subcutaneous, Bedtime, First dose (after last modification) on 05/14/21 at 2100, Until Discontinued, 0.1 mL, Blood Glucose greater than or equal to 100 mg/dL - Do Not Hold If Blood Glucose LESS than 100 mg/dL, if patient changed to NPO, or if tube feedings stopped - Immediately notify provider before administration. Given 05/15/2021 8:55 PM HISTORIC SITES REGISTRAR 10 Units Given 05/14/2021 9:40 PM HISTORIC SITES REGISTRAR 10 Units loperamide (IMODIUM) capsule 2 mg Given 05/14/2021 2:26 PM HISTORIC SITES REGISTRAR 2 mg 2 mg, Oral, Every one hour prn, Starting on 05/14/21 at 1409, Until Discontinued, diarrhea, Recommended maximum for children greater than 12 years and adults: 16 mg in 24 hours. loperamide (IMODIUM) capsule 2 mg Given 05/17/2021 5:52 AM HISTORIC SITES REGISTRAR 2 mg 2 mg, Oral, Every eight hours, First dose on 05/14/21 at 1500, Until Discontinued, Recommended maximum for children greater than 12 years and adults: 16 mg in 24 hours. Given 05/16/2021 10:21 PM HISTORIC SITES REGISTRAR 2 mg Given 05/16/2021 6:15 AM HISTORIC SITES REGISTRAR 2 mg pantoprazole (PROTONIX) enteric coated tablet Given 5:52 AM HISTORIC SITES REGISTRAR 40 mg 40 mg 40 mg, Oral, DAILY, First dose on Sat05/13/21 at 0700, Until Discontinued, Tablet should be swallowed whole and not be divided, crushed or chewed. Given 05/16/2021 6:15 AM HISTORIC SITES REGISTRAR 40 mg Given 05/15/2021 5:43 AM HISTORIC SITES REGISTRAR 40 mg rOPINIRole (REQUIP) tablet 4 mg Given 05/16/2021 8:00 PM HISTORIC SITES REGISTRAR 4 mg 4 mg, Oral, Bedtime, First dose on Sat05/12/21 at 2100, Until Discontinued Given 05/15/2021 8:55 PM HISTORIC SITES REGISTRAR 4 mg Given 05/14/2021 8:03 PM HISTORIC SITES REGISTRAR 4 mg senna-docusate sodium (SENOKOT-S;PERICOL ELYSE) tablet 2 tablet 2 tablet, Oral, Two times a day prn, Starting on Sat07/12/20 at 1348, Until Discontinued, constipation, Use FIRST fo r constipation unless patient cannot take oral medications. sertraline (ZOLOFT) tablet 100 mg Given 05/17/2021 8:28 AM HISTORIC SITES REGISTRAR 100 mg 100 mg, Oral, DAILY, First dose on Sat05/13/21 at 0900, Until Discontinued Given 05/16/2021 8:08 AM HISTORIC SITES REGISTRAR 100 mg Given 05/15/2021 8:32 AM HISTORIC SITES REGISTRAR 100 mg sodium chloride 0.9% flush (adult) 10 mL Given 05/17/2021 8:29 AM HISTORIC SITES REGISTRAR 10 mL 10 mL, IV, Two times a day and prn, First dose on Sat05/12/21 at 2100, Until Discontinued, 10 mL, Flush PIV line as scheduled and as often as necessary before and after meds. Use a push / pause technique when flushing to create turbulence. Given 05/16/2021 8:00 PM HISTORIC SITES REGISTRAR 10 mL Given 05/16/2021 8:08 AM HISTORIC SITES REGISTRAR 10 mL Medication Order MAR Action Action Date Dose Rate Site albumin (human) 25 % IV Given 05/16/2021 4:40 PM HISTORIC SITES REGISTRAR 25 g 100 mL/hr solution 25 g 25 g, IV, at 100 mL/hr, Now, 1 dose, On Sat05/16/21 at 1510, 100 mL, If using a PERIPHERAL line: administer at 25-100 mL/hr o Run as a secondary line/piggy back. o Select "albumin" from your smartpump library. o Run on a dedicated pump with normal saline as primary. o Flush line after infusion with normal saline 0.9% bumetanide (BUMEX) tablet 4 mg Given 05/14/2021 8:39 AM HISTORIC SITES REGISTRAR 4 mg 4 mg, Oral, Daily, First dose (after last modification) on Sat05/14/21 at 0900, Until Discontinued furosemide (LASIX) injection solution 40 mg Given 05/12/2021 3:02 PM HISTORIC SITES REGISTRAR 40 mg 40 mg, IV, One time, 1 dose, On Sat05/12/21 at 1450, 4 mL, If preference is to further dilute for IV administration: First draw up patient-specific dose, then dilute to 10 mL with 0.9% sodium chloride. Administer SLOW IV push. furosemide (LASIX) injection solution 40 mg Given 05/13/2021 6:24 AM HISTORIC SITES REGISTRAR 40 mg 40 mg, IV, Every twelve hours, First dose on Sat05/13/21 at 0700, Until Discontinued, 4 mL, If preference is to further dilute for IV administration: First draw up patient-specific dose, then dilute to 10 mL with 0.9% sodium chloride. Administer SLOW IV push. furosemide (LASIX) injection solution 40 mg Given 05/16/2021 2:33 PM HISTORIC SITES REGISTRAR 40 mg 40 mg, IV, Every twelve hours, First dose on Sat05/14/21 at 1500, Until Discontinued, 4 mL, If preference is to further dilute for IV administration: First draw up patient-specific dose, then dilute to 10 mL with 0.9% sodium chloride. Administer SLOW IV push. Given 05/15/2021 3:31 PM HISTORIC SITES REGISTRAR 40 mg Given 05/15/2021 2:56 AM HISTORIC SITES REGISTRAR 40 mg insulin aspart (NovoLOG) SQ injection Given 05/13/2021 12:10 PM HISTORIC SITES REGISTRAR 15 Units 15 Units, Subcutaneous, Three times a day with meals, First dose on Sat05/12/21 at 1730, Until Discontinued, 0.15 mL Given 05/13/2021 6:25 AM HISTORIC SITES REGISTRAR 15 Units rosuvastatin (CRESTOR) tablet 20 mg Given 05/13/2021 8:43 PM HISTORIC SITES REGISTRAR 20 mg 20 mg, Oral, Bedtime, First dose on Sat05/12/21 at 2100, Until Discontinued Given 05/12/2021 8:50 PM HISTORIC SITES REGISTRAR 20 mg documented in this encounter Active and Recently Administered Medications Times are shown in HISTORIC SITES REGISTRAR. Medication Order 05/15/2021 05/16/2021 05/17/2021 albumin (human) 25 % IV solution 25 g (COMPLETED) 1640 (Given - Provider: Indigo Bronson RN) 25 g, IV, at 100 mL/hr, Now, 1 dose, On Sat05/16/21 at 1510, 100 mL, If using a PERIPHERAL line: administer at 25-100 mL/hr o Run as a secondary line/piggy back. o Select "albumin" from your [employer] library. o Run on a dedicated pump w ith normal saline as primary. o Flush line after infusion with normal saline 0.9% apixaban (ELIQUIS) tablet 5 mg 0832 (Given - Provider: Indigo Bronson RN)2054 (Given - Provider: Marci Connelly RN) 0808 (Given - Provider: Indigo Bronson RN)1999 (Given - Provider: Ginny Hahn RN) 0829 (Given - Provider: Angie Fischer RN)2100 (Due) 5 mg, Oral, Two times a day, First dose on Sat05/12/21 at 2100, Until Discontinued clopidogrel (PLAVIX) tablet 75 mg 0832 (Given - Provid er: Indigo Bronson RN) 0808 (Given - Provider: Indigo Bronson RN) 0828 ( Given - Provider: Angie Fischer, TY) 75 mg, Oral, DAILY, First dose on Sat05/13/21 at 0900, Until Di scontinued digoxin (LANOXIN) tablet 0.0625 mg 1526 (Given - Provi arnol: Indigo Bronson RN) 1640 (Given - Provider: Indigo Bronson RN) 1600 ( Due) 0.0625 mg (62.5 mcg), Oral, Daily (Digox in), First dose on Sat05/12/21 at 1600, Until Discontinued furosemide (LASIX) injection solution 40 mg (CANCELED) 0256 (Given - Provider: Ginny Hahn RN)1531 (Given - Provider: Indigo Bronson, TY) 0353 (Held - Provider: Rosanne Chase, RN - Comment: Due to low BP. Blood pressure 93/47.)1433 (Given - Provider: Indigo Bronson RN) 40 mg, IV, Every twelve hours, First dos e on Sat05/14/21 at 1500, Until Discontinued, 4 mL, If preference is to further dilute for IV administration: First draw up patient-specific dose, then dilute to 10 mL with 0.9% sodium chloride. Administer SLOW IV push. furosemide (LASIX) injection solution 40 mg 2220 (Given - Provider: Ginny Hahn RN) 0552 (Given - Provider: Ginny Hahn RN)1400 (Due)2200 (Due) 40 mg, IV, Every eight hours, First dose (after last modification) on Sat05/16/21 at 2200, Until Discontinued, 4 mL, If preference is to further dilute for IV administration: First draw up patient-spec [facility] dose, then dilute to 10 mL with 0.9 % sodium chloride. Administer SLOW IV push. insulin glargine (LANTUS) SQ injection 2054 (Given - P rovider: Marci Connelly RN) 2203 (Given - Provider: Ginny Hahn RN) 2099 (Due) 10 Units, Subcutaneous, Bedtime, First d ose (after last modification) on Sat05/14/21 at 2100, Until Discontinued, 0.1 mL, Blood Glucose greater than or equal to 100 mg/dL - Do Not Hold If Blood Glucos e LESS than 100 mg/dL, if patient change d to NPO, or if tube feedings stopped - Immediately notify provider before administration. loperamide (IMODIUM) capsule 2 mg 0543 (Given - Provid er: Ginny Hahn RN)153 (Given - Provider: Indigo Bronson RN)2100 (Given - Provider: Marci Connelly RN) 0615 (Given - Provider: Rosanne Chase, TY)1434 (Refused - Provider: Indigo Bronson, TY)222 (Given - Provider: Ginny Hahn RN) 0552 (Given - Provider: Ginny Hahn RN)1400 (Due)2200 (Due) 2 mg, Oral, Every eight hours, First dos e on Sat05/14/21 at 1500, Until Discontinued, Recommended maximum for children greater than 12 years and adults: 16 mg in 24 hours. pantoprazole (PROTONIX) enteric coated tablet 40 mg 05 43 (Given - Provider: Ginny Hahn RN) 0615 (Given - Provider: Rosanne Chase RN) 0552 (Giv en - Provider: Ginny Hahn RN) 40 mg, Oral, DAILY, First dose on Sat at 0700, Until Discontinued, Tablet should be swallowed whole and not be divided, crushed or chewed. rOPINIRole (REQUIP) tablet 4 mg 2054 (Given - Provider: Roel Connelly RN) 1999 (Given - Provider: Ginny Hahn RN) 2100 (Due) 4 mg, Oral, Bedtime, First dose on Sat05/12/21 at 2100, Until D iscontinued sertraline (ZOLOFT) tablet 100 mg 0832 (Given - Provid er: Indigo Bronson RN) 08 (Given - Provider: Indigo Bronson RN) 0828 ( Given - Provider: Angie Fischer RN) 100 mg, Oral, DAILY, First dose on Sat05/13/21 at 0900, Until D iscontinued sodium chloride 0.9% flush (adult) 10 mL 0832 (Given - Provider: Indigo Monroe RN)2055 (Given - Provider: Marci Connelly RN) 08 (Given - Provider: Indigo Bronson RN)1999 (Given - Provider: Ginny Hahn RN) 08 (Given - Provider: Angie Fischer RN)2100 (Due) 10 mL, IV, Two times a day and prn, Firs t dose on Sat05/12/21 at 2100, Until Discontinued, 10 mL, Flush PIV line as scheduled and as often as necessary before and after meds. Use a push / pause technique when flushing to create turbulence. Medication Order 05/15/2021 05/16/2021 05/17/2021 acetaminophen (TYLENOL) tablet 650 mg 650 mg, Oral, Every four hours prn, Star ting on Sat05/12/21 at 1348, Until Discontinued, mild pain, Use FIRST for mild pain. If inadequate response in 60 minutes, may proceed to next choice option or i f no other options, contact provider. A dult patients: Total dose of acetaminophen from all acetaminophen containing products should not exceed 4 grams (4000 mg) per day. Pediatric Patients 0 - 3 months : Maximum of 60 mg/kg/24 hours of aceta minophen. Pediatric Patients older than 3 months: Maximum of 75 mg/kg/24 hours of acetaminophen (Never exceeding 4 grams/day). bisacodyl (DULCOLAX) suppository 10 mg(Linked Group 1) 10 mg, Rectal, One time a day prn, Start ing on Sat05/12/21 at 1348, Until Discontinued, constipation, Use SECOND for constipation. If patient cannot take oral medications, use first for constipation. carbohydrate 15 g(Linked Group 2) 15 g, Oral, PRN per parameter, Starting on 05/13/21 at 1421, Until Discontinued, low blood glucose, Give 15 grams of carbohydrate if blood glucose is less than 70 mg/dL, patient is responsive and ab le to take food or oral meds. Recheck blood glucose in 15 minutes. Repeat 1 time and call MD. If recheck is greater than 70 mg/dL and able to take food or oral meds, give 15 gram carbohydrate if meal or snack due in more than an hour. Serv e meal or snack if due in less than 1 hour. See hypoglycemia treatment on cardex. Sources of 15 grams carbohydrate: a. 4 oz of fruit juice (Do NOT give orange juice to dialysis patients due to risk o f hyperkalemia) or b. 4 oz of soda pop (NOT diet) or c. 1 tablespoon of honey dextrose 50% IV solution 50 mL 50 mL (25 g), IV, PRN per parameter, Sta rting on 05/13/21 at 1421, Until Discontinued, low blood glucose, 50 mL, Give if blood glucose is less than 70 mg/dL, patient is unresponsive or NPO, and has IV access. Recheck blood glucose in 15 m inutes and call MD. Repeat dose if recheck less than 70 mg/dL and call MD. If recheck is greater than 70 mg/dL and able to take food or oral meds, give 15 gram ca rbohydrate if meal or snack due in more than an hour. Serve meal or snack if due in less than 1 hour. See hypoglycemia treatment on cardex. docusate sodium (THEREVAC-SB MINI;ENEMEE Z MINI) 283 MG enema 1 enema(Linked Group 1) 1 enema, Rectal, One time a day prn, Sta rting on 05/12/21 at 1348, Until Discontinued, constipation, Use THIRD for constipation - if no BM 8 hours after dulcolax suppository. If patient cannot take oral medications, use second for constipation. glucagon for injection 1 mg vial 1 mg 1 mg, Intramuscular, PRN per parameter, Starting on 05/13/21 at 1421, Until Discontinued, low blood glucose, Give if blood glucose less than 70 mg/dL, patient is unresponsive or NPO, and has no IV a ccess. Establish IV access. Recheck blo od glucose in 15 minutes and call MD. If recheck is greater than 70 mg/dL and able to take food or oral meds, give 15 gram carbohydrate if meal or snack due in m ore than an hour. Serve meals or snack i f due in less than 1 hour. See hypoglycemia treatment on cardex. Reconstitute vial with 1 mL of sterile water for injection for reconstitution for a final concen tration of 1 mg/mL. Shake vial gently. Use immediately and discard unused portion. Reconstitute with 1 mL of sterile water for injection to yield 1 mg/mL. Shake vial gently. Use immediately and discard unused portion. glucose chewable tablet 16 g(Linked Group 2) 16 g (4 tablet), Oral, PRN per parameter , Starting on 05/13/21 at 1421, Until Discontinued, low blood glucose, Chew before swallowing. Give 15 gram of carbohydrate if blood glucose is less than 70 m g/dL, patient is responsive and able to take food or oral meds. Recheck blood glucose in 15 minutes. Repeat 15 gram carbohydrate if recheck is less than 70 mg/dL and call MD. If recheck is greater than 70 mg/dL and able to take food or oral meds, give 15 gram carbohydrate if meal or snack due in more than an hour. Serve meal or snack if due in less than 1 hour. See hypoglycemia treatment on cardex. Sources of 15 grams carbohydrate: a. 4 oz of fruit juice (Do NOT give orange juice to dialysis patients due to risk of hyperkalemia) or b. 4 oz of soda pop (NOT diet) or c. 1 tablespoon of honey loperamide (IMODIUM) capsule 2 mg 2 mg, Oral, Every one hour prn, Starting on Sat05/14/21 at 1409, Until Discontinued, diarrhea, Recommended maximum for children greater than 12 years and adults: 16 mg in 24 hours. melatonin tablet 3 mg 3 mg, Oral, Bedtime prn, Starting on Sat05/12/21 at 1348, Until Discontinued, other (Specify), insomnia, Use FIRST for insomnia. If inadequate response in 60 minutes, may proceed to next choice option or, if no other options, contact provider. nalOXone (NARCAN) injection solution (vial) 0.2 mg 0.2 mg, Injection, Every two minutes prn , Starting on Sat05/12/21 at 1346, Until Discontinued, other (Specify), opioid induced respiratory depression - PARTIAL reversal, 0.5 mL, PARTIAL REVERSAL/RESPIR ATORY DEPRESSION If respiratory rate les s than 8/minute - call rapid response and administer (until respiratory rate increases to 10/minute). Give IV (preferred), IM or SUBQ nalOXone (NARCAN) injection solution (vial) 0.4 mg 0.4 mg, Injection, Every two minutes prn , Starting on Sat05/12/21 at 1346, Until Discontinued, other (Specify), opioid induced respiratory arrest - FULL reversal, 1 mL, FULL REVERSAL/RESPIRATORY ARREST If patient is not breathing - call CODE BLUE and administer. Give IV (preferred), IM or SUBQ senna-docusate sodium (SENOKOT-S;PERICOLACE) tablet 2 tablet([place] Group 1) 2 tablet, Oral, Two times a day prn, Sta rting on Sat05/12/21 at 1348, Until Discontinued, constipation, Use FIRST for constipation unless patient cannot take oral medications. Order Group 1: senna-docusate sodium (SENOKOT-S;PERICOLACE) tablet 2 tabletJump to med 2 tablet, Oral, Two times a day prn, Sta rting on Sat05/12/21 at 1348, Until Discontinued, constipation
Use FIRST for constipation unless patient cannot take oral medications.
And bisacodyl (DULCOLAX) suppository 10 mgJump to med 10 mg, Rectal, One time a day prn, Start ing on Sat05/12/21 at 1348, Until Discontinued, constipation
Use SECOND for constipation. If patient cannot take oral medications, use first for constipation.
And docusate sodium (THEREVAC-SB MINI;ENEMEEZ MINI) 283 MG enema 1 enemaJump to med 1 enema, Rectal, One time a day prn, Sta rting on Sat05/12/21 at 1348, Until Discontinued, constipation
Use THIRD for constipation - if no BM 8 hours after dulcolax suppository. If patient татьяна ot take oral medications, use second for constipation.
Group 2: glucose chewable tablet 16 gJump to med 16 g (4 tablet), Oral, PRN per parameter , Starting on 05/13/21 at 1421, Until Discontinued, low blood glucose
Chew before swallowing. Give 15 gram of carbohydrate if blood glucose is less than 70 mg/dL, patient is respon sive and able to take food or oral meds. Recheck blood glucose in 15 minutes. Repeat 15 gram carbohydrate if recheck is less than 70 mg/dL and call MD. & amp;nbsp;If recheck is greater than 70 m g/dL and able to take food or oral meds, give 15 gram carbohydrate if meal or snack due in more than an hour. Serve meal or snack if due in less than 1 hour.& nbsp; See hypoglycemia treatment on cardex. Sources of 15 grams carbohydrate: a. 4 oz of fruit juice (Do NOT give orange juice to dialysis patients due to risk of h yperkalemia) or b. 4 oz of soda po p (NOT diet) or c. 1 tablespoon of honey
Or carbohydrate 15 gJump to med 15 g, Oral, PRN per parameter, Starting on 05/13/21 at 1421, Until Discontinued, low blood glucose
Give 15 grams of carbohydrate if blood glucose is less than 70 mg/dL, patient is responsiv e and able to take food or oral meds. &n bsp; Recheck blood glucose in 15 minutes. Repeat 1 time and call MD. If recheck is greater than 70 mg/dL and able to take food or oral meds, give 15 gram carbohydrate if meal or snack due in more than an hour. Serve meal or snack if due in less than 1 hour. See hypoglycemia treatment on cardex. &nbs p;Sources of 15 grams carbohydrate:&nbsp ; a. 4 oz of fruit juice (Do NOT give orange juice to dialysis patients due to risk of hyperkalemia) or b. 4 oz of soda pop (NOT diet) or c. 1 tablespoon of honey
documented in this encounter Care Teams Passenger Service Supervisor Relationship Specialty Start Date End Date Erika Garcia MD PCP - General Family Medicine 02/22/[address] [place] [id number] Erika Garcia MD PCP - Attributed Provider 03/18/[address] [place] [id number] Brigette Moody, RN Nurse Navigator Cardiology 08/22/[address] [place] [id number] Fátima Griffin RN Nurse Navigator Cardiology 09/02/[address] [place] [id number] Carie Coleman, Heart Failure [facility] GAS ENGINE OPERATOR COMPRESSORS - Cardiology 09/02/20 LIBRARY HELPER-PROFESSIONAL ATHLETES COACH [address] [place] [address] [id number] documented as of this encounter
[2021-05-19] MEDS: Digoxin 125 MCG Tab PO SCH (16:56)
[2021-05-19] MEDS: Rosuvastatin 20 MG Tab PO SCH (21:26)
[2021-05-19] MEDS: rOPINIRole 1 MG Tab PO SCH (21:27)
[2021-05-19] MEDS: Insulin Glargine,Human Rec. Analog 100 Units/ML 3 ML Pen SUBCUT SCH (21:42)
[2021-05-20] MEDS: Pantoprazole 40 MG Tab.CR PO SCH (06:34)
[2021-05-20] MEDS: Bumetanide 2 MG Tab PO SCH ×2 (08:11→13:32)
[2021-05-20] MEDS: Clopidogrel 75 MG Tab PO SCH (08:12)
[2021-05-20] MEDS: Atenolol 25 MG Tab PO SCH (08:12)
[2021-05-20] MEDS: Apixaban 5 MG Tab PO SCH ×2 (08:12→20:51)
[2021-05-20] MEDS: Empagliflozin 25 MG Tab PO SCH (08:12)
[2021-05-20] MEDS: Potassium Chloride 20 MEQ Tab.ER PO SCH ×3 (08:12→20:52)
[2021-05-20] MEDS: Ferrous Sulfate 325 MG Tab PO SCH (08:12)
[2021-05-20] MEDS: Sertraline 100 MG Tab PO SCH (08:13)
[2021-05-20] MEDS: Acetaminophen 325 MG Tab PO SCH ×4 (08:13→20:53)
[2021-05-20] MEDS: Insulin Lispro 100 Unit/ML 3 ML KwikPen SUBCUT SCH ×3 (08:18→17:28)
[2021-05-20] MEDS: Gabapentin 100 MG Cap PO SCH ×3 (08:24→21:27)
[2021-05-20] MEDS: Digoxin 125 MCG Tab PO SCH (16:29)
[2021-05-20] MEDS: Rosuvastatin 20 MG Tab PO SCH (20:51)
[2021-05-20] MEDS: Insulin Glargine,Human Rec. Analog 100 Units/ML 3 ML Pen SUBCUT SCH (20:52)
[2021-05-20] MEDS: rOPINIRole 1 MG Tab PO SCH (20:52)
[2021-05-21] MEDS: Pantoprazole 40 MG Tab.CR PO SCH (05:03)
[2021-05-21] MEDS: Bumetanide 2 MG Tab PO SCH ×2 (08:51→13:06)
[2021-05-21] MEDS: Apixaban 5 MG Tab PO SCH ×2 (08:51→21:11)
[2021-05-21] MEDS: Atenolol 25 MG Tab PO SCH (08:52)
[2021-05-21] MEDS: Empagliflozin 25 MG Tab PO SCH (08:52)
[2021-05-21] MEDS: Potassium Chloride 20 MEQ Tab.ER PO SCH ×3 (08:52→21:11)
[2021-05-21] MEDS: Clopidogrel 75 MG Tab PO SCH (08:52)
[2021-05-21] MEDS: Acetaminophen 325 MG Tab PO SCH ×4 (08:53→21:11)
[2021-05-21] MEDS: Sertraline 100 MG Tab PO SCH (08:53)
[2021-05-21] MEDS: Insulin Lispro 100 Unit/ML 3 ML KwikPen SUBCUT SCH ×3 (08:56→18:28)
[2021-05-21] MEDS: Gabapentin 100 MG Cap PO SCH ×3 (09:27→21:27)
[2021-05-21] MEDS: Digoxin 125 MCG Tab PO SCH (17:35)
[2021-05-21] MEDS: rOPINIRole 1 MG Tab PO SCH (21:11)
[2021-05-21] MEDS: Rosuvastatin 20 MG Tab PO SCH (21:11)
[2021-05-21] MEDS: Insulin Glargine,Human Rec. Analog 100 Units/ML 3 ML Pen SUBCUT SCH (21:24)
[2021-05-22] MEDS: Pantoprazole 40 MG Tab.CR PO SCH (06:22)
[2021-05-22] MEDS: Insulin Lispro 100 Unit/ML 3 ML KwikPen SUBCUT SCH ×3 (09:00→18:11)
[2021-05-22] MEDS: Clopidogrel 75 MG Tab PO SCH (10:27)
[2021-05-22] MEDS: Ferrous Sulfate 325 MG Tab PO SCH (10:27)
[2021-05-22] MEDS: Empagliflozin 25 MG Tab PO SCH (10:27)
[2021-05-22] MEDS: Apixaban 5 MG Tab PO SCH ×2 (10:27→20:33)
[2021-05-22] MEDS: Potassium Chloride 20 MEQ Tab.ER PO SCH ×3 (10:27→20:33)
[2021-05-22] MEDS: Atenolol 25 MG Tab PO SCH (10:27)
[2021-05-22] MEDS: Bumetanide 2 MG Tab PO SCH ×2 (10:28→13:17)
[2021-05-22] MEDS: Sertraline 100 MG Tab PO SCH (10:28)
[2021-05-22] MEDS: Acetaminophen 325 MG Tab PO SCH ×4 (10:28→20:33)
[2021-05-22] MEDS: Gabapentin 100 MG Cap PO SCH ×3 (10:35→20:33)
[2021-05-22] MEDS: Digoxin 125 MCG Tab PO SCH (18:12)
[2021-05-22] MEDS: Rosuvastatin 20 MG Tab PO SCH (20:32)
[2021-05-22] MEDS: rOPINIRole 1 MG Tab PO SCH (20:35)
[2021-05-22] MEDS: Insulin Glargine,Human Rec. Analog 100 Units/ML 3 ML Pen SUBCUT SCH (20:43)
[2021-05-23] MEDS: Pantoprazole 40 MG Tab.CR PO SCH (06:20)
[2021-05-23] MEDS ORDERED: Metolazone 5 MG Tab PO ONE (08:55)
--- NOTE | 2021-05-23 08:59 | PCM.PN ---
- General Info Date of Service: 05/23/21 Subjective Update: Serenity complaints of marked edema, legs after the abdomen. She is weak and mildly short of breath. - Review of Systems General: Reports: Fatigue HEENT: Reports: No Symptoms Pulmonary: Reports: Shortness of Breath Cardiovascular: Reports: Dyspnea on Exertion, Edema - Patient Data Vitals - Most Recent: Last Vital Signs Temp 96.8 F L 05/22/21 07:45 Pulse 67 05/22/21 18:12 Resp 20 05/22/21 07:45 BP 100/42 L 05/22/21 10:27 Pulse Ox 100 05/22/21 07:45 Weight - Most Recent: 90.378 kg Lab Results Last 24 Hours: Laboratory Results - last 24 hr 05/22/21 05/22/21 05/22/21 Range/Units 11:56 17:14 20:26 POC Glucose 157 H 150 H 154 H (80-116) mg/dL 05/23/21 Range/Units 05:54 POC Glucose 139 H (80-116) mg/dL Med Orders - Current: Current Medications Acetaminophen (Acetaminophen 325 Mg Tab) 650 mg PO QID [facility] Last Admin: 05/22/21 20:33 Dose: 650 mg Documented by: Apixaban (Apixaban 5 Mg Tab) 5 mg PO BID [facility] Last Admin: 05/22/21 20:33 Dose: 5 mg Documented by: Atenolol (Atenolol 25 Mg Tab) 25 mg PO DAILY [facility] Last Admin: 05/22/21 10:27 Dose: 25 mg Documented by: Bumetanide (Bumetanide 2 Mg Tab) 4 mg PO BIDDIURETIC [facility] Last Admin: 05/22/21 13:17 Dose: 4 mg Documented by: Clopidogrel Bisulfate (Clopidogrel 75 Mg Tab) 75 mg PO DAILY [facility] Last Admin: 05/22/21 10:27 Dose: 75 mg Documented by: Dextrose/Water (50% Dextrose In Water 50 Ml Syringe) 50 ml IVPUSH ASDIRECTED PRN PRN Reason: Hypoglycemia Digoxin (Digoxin 125 Mcg Tab) 62.5 mcg PO DAILY@1600 [facility] Last Admin: 05/22/21 18:12 Dose: 62.5 mcg Documented by: Ferrous Sulfate (Ferrous Sulfate 325 Mg Tab) 325 mg PO Q48H [facility] Last Admin: 05/22/21 10:27 Dose: 325 mg Documented by: Furosemide (Furosemide 40 Mg/4 Ml Vial) 40 mg IVPUSH BID [facility] Gabapentin (Gabapentin 100 Mg Cap) 100 mg PO TID [facility] Last Admin: 05/22/21 20:33 Dose: 100 mg Documented by: Glucagon (Glucagon,Human Recombinant 1 Mg Vial) 1 mg IM ASDIRECTED PRN PRN Reason: Hypoglycemia Insulin Glargine (Insulin Glargine,Human Rec. Analog 100 Units/Ml 3 Ml Pen) 10 units SUBCUT BEDTIME [facility] Last Admin: 05/22/21 20:43 Dose: 10 units Documented by: Insulin Human Lispro (Insulin Lispro 100 Unit/Ml 3 Ml Kwikpen) 0 unit SUBCUT TIDMEALS [facility]; Protocol Last Admin: 05/22/21 18:11 Dose: 2 units Documented by: Magnesium Oxide (Magnesium Oxide 400 Mg Tab) 400 mg PO DAILY PRN PRN Reason: Muscle Spasm - Painful Nitroglycerin (Nitroglycerin 0.4 Mg Tab.Sl) 0.4 mg SL Q5M PRN PRN Reason: Chest Pain Pantoprazole Sodium (Pantoprazole 40 Mg Tab.Cr) 40 mg PO DAILY@0600 [facility] Last Admin: 05/23/21 06:20 Dose: 40 mg Documented by: Potassium Chloride (Potassium Chloride 20 Meq Tab.Er) 20 meq PO TID [facility] Last Admin: 05/22/21 20:33 Dose: 20 meq Documented by: Ropinirole HCl (Ropinirole 1 Mg Tab) 4 mg PO BEDTIME [facility] Last Admin: 05/22/21 20:35 Dose: 4 mg Documented by: Rosuvastatin Calcium (Rosuvastatin 20 Mg Tab) 20 mg PO BEDTIME [facility] Last Admin: 05/22/21 20:32 Dose: 20 mg Documented by: Sertraline HCl (Sertraline 100 Mg Tab) 100 mg PO DAILY [facility] Last Admin: 05/22/21 10:28 Dose: 100 mg Documented by: Discontinued Medications Furosemide (Furosemide 40 Mg/4 Ml Vial) 40 mg IVPUSH BIDDIURETIC [facility] Stop: 05/19/21 14:01 Last Admin: 05/19/21 13:39 Dose: 40 mg Documented by: Insulin Glargine (Insulin Glargine,Human Rec. Analog 100 Units/Ml 3 Ml Pen) 30 units SUBCUT BEDTIME [facility] Insulin Human Lispro (Insulin Lispro 100 Unit/Ml 3 Ml Kwikpen) 15 unit SUBCUT TIDMEALS [facility] Sodium Chloride (Sodium Chloride 0.9% 10 Ml Syringe) 10 ml FLUSH ASDIRECTED PRN PRN Reason: Keep Vein Open Last Admin: 05/19/21 13:41 Dose: 10 ml Documented by: - Exam Quality Assessment: No: Supplemental Oxygen General: Alert, Oriented HEENT: Pupils Equal Neck: Supple Lungs: Crackles, Rales GI/Abdominal Exam: Soft Extremities: Pedal Edema - Patient Data Lab Results Last 24 hrs: Laboratory Results - last 24 hr 05/22/21 05/22/21 05/22/21 Range/Units 11:56 17:14 20:26 POC Glucose 157 H 150 H 154 H (80-116) mg/dL 05/23/21 Range/Units 05:54 POC Glucose 139 H (80-116) mg/dL Result Diagrams: 05/21/21 06:37 05/21/21 06:37 Sepsis Event Note - Evaluation Sepsis Screening Result: No Definite Risk - Problem List & Annotations (1) Acute exacerbation of congestive heart failure SNOMED Code(s): 276917899, 85983872245870 Code(s): I50.9 - HEART FAILURE, UNSPECIFIED Status: Acute Current Visit: No (2) CKD (chronic kidney disease) SNOMED Code(s): 633171634 Code(s): N18.9 - CHRONIC KIDNEY DISEASE, UNSPECIFIED Status: Acute Current Visit: Yes Qualifiers: Chronic kidney disease stage: stage 3 (moderate) (3) Weakness SNOMED Code(s): 66638431 Code(s): R53.1 - WEAKNESS Status: Acute Current Visit: Yes (4) Chronic ischemic heart disease SNOMED Code(s): 977076517 Code(s): I25.9 - CHRONIC ISCHEMIC HEART DISEASE, UNSPECIFIED Status: Chronic Current Visit: Yes Annotation/Comment:: on Plavix (5) Paroxysmal atrial fibrillation SNOMED Code(s): 507382367 Code(s): I48.0 - PAROXYSMAL ATRIAL FIBRILLATION Status: Chronic Current Visit: Yes Annotation/Comment:: on Eliquis - Problem List Review Problem List Initiated/Reviewed/Updated: Yes - My Orders Last 24 Hours: My Active Orders 05/23/21 08:55 metOLazone [Zaroxolyn] 5 mg PO ONETIME ONE 05/23/21 09:00 Furosemide [Lasix] 40 mg IVPUSH BID 05/24/21 05:11 BASIC METABOLIC PANEL,BMP [CHEM] AM CBC WITH AUTO DIFF [HEME] AM - Plan Plan:: I will start IV Lasix twice a day, given 1 dose of Zaroxolyn. In the meantime, will hold Bumex. Creatinine is up to 2.0 the baseline usually of about 1.35. We'll monitor the blood pressure and check urea,creatine and electrolytes tomorrow.
[2021-05-23] MEDS: Apixaban 5 MG Tab PO SCH ×2 (09:00→20:53)
[2021-05-23] MEDS: Empagliflozin 25 MG Tab PO SCH (09:00)
[2021-05-23] MEDS: Potassium Chloride 20 MEQ Tab.ER PO SCH ×3 (09:00→20:53)
[2021-05-23] MEDS: Insulin Lispro 100 Unit/ML 3 ML KwikPen SUBCUT SCH ×3 (09:00→18:04)
[2021-05-23] MEDS: Acetaminophen 325 MG Tab PO SCH ×4 (09:01→20:54)
[2021-05-23] MEDS: Atenolol 25 MG Tab PO SCH (09:01)
[2021-05-23] MEDS: Clopidogrel 75 MG Tab PO SCH (09:01)
[2021-05-23] MEDS: Sertraline 100 MG Tab PO SCH (09:02)
[2021-05-23] MEDS: Gabapentin 100 MG Cap PO SCH ×3 (09:04→20:55)
[2021-05-23] MEDS: Bumetanide 2 MG Tab PO SCH (09:26)
[2021-05-23] MEDS: Furosemide 40 MG/4 ML VIAL IVPUSH SCH ×2 (09:58→14:57)
[2021-05-23] MEDS: Digoxin 125 MCG Tab PO SCH (15:03)
[2021-05-23] MEDS: Insulin Glargine,Human Rec. Analog 100 Units/ML 3 ML Pen SUBCUT SCH (20:51)
[2021-05-23] MEDS: rOPINIRole 1 MG Tab PO SCH (20:55)
[2021-05-23] MEDS: Rosuvastatin 20 MG Tab PO SCH (21:00)
[2021-05-24] MEDS: Pantoprazole 40 MG Tab.CR PO SCH (05:43)
[2021-05-24] MEDS: Furosemide 40 MG/4 ML VIAL IVPUSH SCH ×2 (08:20→14:00)
[2021-05-24] MEDS: Insulin Lispro 100 Unit/ML 3 ML KwikPen SUBCUT SCH ×3 (08:20→17:33)
[2021-05-24] MEDS: Sodium Chloride 0.9% 10 ML Syringe FLUSH PRN ×2 (08:21→13:59)
[2021-05-24] MEDS: Apixaban 5 MG Tab PO SCH ×2 (08:22→21:22)
[2021-05-24] MEDS: Gabapentin 100 MG Cap PO SCH ×3 (08:22→21:29)
[2021-05-24] MEDS: Ferrous Sulfate 325 MG Tab PO SCH (08:22)
[2021-05-24] MEDS: Empagliflozin 25 MG Tab PO SCH (08:23)
[2021-05-24] MEDS: Acetaminophen 325 MG Tab PO SCH ×4 (08:23→21:23)
[2021-05-24] MEDS: Sertraline 100 MG Tab PO SCH (08:23)
[2021-05-24] MEDS: Potassium Chloride 20 MEQ Tab.ER PO SCH ×3 (08:23→21:23)
[2021-05-24] MEDS: Clopidogrel 75 MG Tab PO SCH (08:23)
[2021-05-24] MEDS: Atenolol 25 MG Tab PO SCH (08:24)
[2021-05-24] MEDS: Digoxin 125 MCG Tab PO SCH (17:34)
[2021-05-24] MEDS: Insulin Glargine,Human Rec. Analog 100 Units/ML 3 ML Pen SUBCUT SCH (21:21)
[2021-05-24] MEDS: Rosuvastatin 20 MG Tab PO SCH (21:22)
[2021-05-24] MEDS: rOPINIRole 1 MG Tab PO SCH (21:23)
[2021-05-25] MEDS: Pantoprazole 40 MG Tab.CR PO SCH (06:07)
[2021-05-25] MEDS: Insulin Lispro 100 Unit/ML 3 ML KwikPen SUBCUT SCH ×3 (08:55→17:39)
[2021-05-25] MEDS: Furosemide 40 MG/4 ML VIAL IVPUSH SCH ×2 (08:55→14:24)
[2021-05-25] MEDS: Empagliflozin 25 MG Tab PO SCH (08:57)
[2021-05-25] MEDS: Gabapentin 100 MG Cap PO SCH ×3 (08:57→20:59)
[2021-05-25] MEDS: Apixaban 5 MG Tab PO SCH ×2 (08:57→20:58)
[2021-05-25] MEDS: Clopidogrel 75 MG Tab PO SCH (08:57)
[2021-05-25] MEDS: Potassium Chloride 20 MEQ Tab.ER PO SCH ×3 (08:57→20:59)
[2021-05-25] MEDS: Sertraline 100 MG Tab PO SCH (08:58)
[2021-05-25] MEDS: Acetaminophen 325 MG Tab PO SCH ×4 (08:58→20:58)
[2021-05-25] MEDS: Atenolol 25 MG Tab PO SCH (08:58)
[2021-05-25] MEDS: Sodium Chloride 0.9% 10 ML Syringe FLUSH PRN ×2 (09:02→14:30)
[2021-05-25] MEDS: Digoxin 125 MCG Tab PO SCH (17:05)
[2021-05-25] MEDS: rOPINIRole 1 MG Tab PO SCH (20:59)
[2021-05-25] MEDS: Insulin Glargine,Human Rec. Analog 100 Units/ML 3 ML Pen SUBCUT SCH (21:00)
[2021-05-25] MEDS: Rosuvastatin 20 MG Tab PO SCH (21:01)
[2021-05-26] MEDS: Pantoprazole 40 MG Tab.CR PO SCH (05:46)
[2021-05-26] MEDS: Insulin Lispro 100 Unit/ML 3 ML KwikPen SUBCUT SCH ×3 (08:21→18:09)
[2021-05-26] MEDS: Potassium Chloride 20 MEQ Tab.ER PO SCH ×3 (08:52→20:33)
[2021-05-26] MEDS: Atenolol 25 MG Tab PO SCH (08:53)
[2021-05-26] MEDS: Empagliflozin 25 MG Tab PO SCH (08:53)
[2021-05-26] MEDS: Gabapentin 100 MG Cap PO SCH ×3 (08:53→20:40)
[2021-05-26] MEDS: Sertraline 100 MG Tab PO SCH (08:54)
[2021-05-26] MEDS: Clopidogrel 75 MG Tab PO SCH (08:54)
[2021-05-26] MEDS: Acetaminophen 325 MG Tab PO SCH ×4 (08:54→20:34)
[2021-05-26] MEDS: Apixaban 5 MG Tab PO SCH ×2 (08:55→20:33)
[2021-05-26] MEDS: Ferrous Sulfate 325 MG Tab PO SCH (08:55)
--- NOTE | 2021-05-26 09:26 | PCM.PN ---
- General Info Date of Service: 05/26/21 Admission Dx/Problem (Free Text): Patient states she feels much better. Her swelling is down. She has a little bit in her legs. But no chest pain, shortness of breath, cough, fevers, chills. - Patient Data Vitals - Most Recent: Last Vital Signs Temp 97.1 F 05/26/21 08:00 Pulse 56 L 05/26/21 08:53 Resp 18 05/26/21 08:00 BP 104/43 L 05/26/21 08:53 Pulse Ox 96 05/26/21 08:00 Weight - Most Recent: 193 lb 7 oz I&O - Last 24 Hours: Intake & Output 05/25/21 05/26/21 05/26/21 22:59 06:59 14:59 Intake Total 100 Output Total 650 350 Balance -650 -250 Lab Results Last 24 Hours: Laboratory Results - last 24 hr 05/25/21 05/25/21 05/25/21 Range/Units 11:32 17:01 20:48 Sodium (135-145) mmol/L Potassium (3.5-5.3) mmol/L Chloride (100-110) mmol/L Carbon Dioxide (21-32) mmol/L BUN (7-18) mg/dL Creatinine (0.55-1.02) mg/dL Est Cr Clr Drug Dosing mL/min Estimated GFR (MDRD) (>60) BUN/Creatinine Ratio (9-20) Glucose (80-116) mg/dL POC Glucose 141 H 223 H D 148 H (80-116) mg/dL Calcium (8.6-10.2) mg/dL 05/26/21 05/26/21 Range/Units 06:20 07:05 Sodium 144 (135-145) mmol/L Potassium 3.8 (3.5-5.3) mmol/L Chloride 104 (100-110) mmol/L Carbon Dioxide 33 H (21-32) mmol/L BUN 50 H (7-18) mg/dL Creatinine 2.1 H* (0.55-1.02) mg/dL Est Cr Clr Drug Dosing 17.39 mL/min Estimated GFR (MDRD) 23 L (>60) BUN/Creatinine Ratio 23.8 H (9-20) Glucose 97 (80-116) mg/dL POC Glucose 86 (80-116) mg/dL Calcium 8.0 L (8.6-10.2) mg/dL Med Orders - Current: Current Medications Acetaminophen (Acetaminophen 325 Mg Tab) 650 mg PO QID [facility] Last Admin: 05/26/21 08:54 Dose: 650 mg Documented by: Apixaban (Apixaban 5 Mg Tab) 5 mg PO BID [facility] Last Admin: 05/26/21 08:55 Dose: 5 mg Documented by: Atenolol (Atenolol 25 Mg Tab) 25 mg PO DAILY [facility] Last Admin: 05/26/21 08:53 Dose: 25 mg Documented by: Bumetanide (Bumetanide 2 Mg Tab) 4 mg PO BIDDIURETIC [facility] Clopidogrel Bisulfate (Clopidogrel 75 Mg Tab) 75 mg PO DAILY [facility] Last Admin: 05/26/21 08:54 Dose: 75 mg Documented by: Dextrose/Water (50% Dextrose In Water 50 Ml Syringe) 50 ml IVPUSH ASDIRECTED PRN PRN Reason: Hypoglycemia Digoxin (Digoxin 125 Mcg Tab) 62.5 mcg PO DAILY@1600 [facility] Last Admin: 05/25/21 17:05 Dose: 62.5 mcg Documented by: Ferrous Sulfate (Ferrous Sulfate 325 Mg Tab) 325 mg PO Q48H [facility] Last Admin: 05/26/21 08:55 Dose: 325 mg Documented by: Gabapentin (Gabapentin 100 Mg Cap) 100 mg PO TID [facility] Last Admin: 05/26/21 08:53 Dose: 100 mg Documented by: Glucagon (Glucagon,Human Recombinant 1 Mg Vial) 1 mg IM ASDIRECTED PRN PRN Reason: Hypoglycemia Insulin Glargine (Insulin Glargine,Human Rec. Analog 100 Units/Ml 3 Ml Pen) 10 units SUBCUT BEDTIME [facility] Last Admin: 05/25/21 21:00 Dose: 10 units Documented by: Insulin Human Lispro (Insulin Lispro 100 Unit/Ml 3 Ml Kwikpen) 0 unit SUBCUT TIDMEALS [facility]; Protocol Last Admin: 05/26/21 08:21 Dose: Not Given Documented by: Magnesium Oxide (Magnesium Oxide 400 Mg Tab) 400 mg PO DAILY PRN PRN Reason: Muscle Spasm - Painful Nitroglycerin (Nitroglycerin 0.4 Mg Tab.Sl) 0.4 mg SL Q5M PRN PRN Reason: Chest Pain Pantoprazole Sodium (Pantoprazole 40 Mg Tab.Cr) 40 mg PO DAILY@0600 [facility] Last Admin: 05/26/21 05:46 Dose: 40 mg Documented by: Potassium Chloride (Potassium Chloride 20 Meq Tab.Er) 20 meq PO TID [facility] Last Admin: 05/26/21 08:52 Dose: 20 meq Documented by: Ropinirole HCl (Ropinirole 1 Mg Tab) 4 mg PO BEDTIME [facility] Last Admin: 05/25/21 20:59 Dose: 4 mg Documented by: Rosuvastatin Calcium (Rosuvastatin 20 Mg Tab) 20 mg PO BEDTIME [facility] Last Admin: 05/25/21 21:01 Dose: 20 mg Documented by: Sertraline HCl (Sertraline 100 Mg Tab) 100 mg PO DAILY [facility] Last Admin: 05/26/21 08:54 Dose: 100 mg Documented by: Sodium Chloride (Sodium Chloride 0.9% 10 Ml Syringe) 10 ml FLUSH ASDIRECTED PRN PRN Reason: IV Use Last Admin: 05/25/21 14:30 Dose: 10 ml Documented by: Discontinued Medications Bumetanide (Bumetanide 2 Mg Tab) 4 mg PO BIDDIURETIC [facility] Last Admin: 05/23/21 09:26 Dose: Not Given Documented by: Furosemide (Furosemide 40 Mg/4 Ml Vial) 40 mg IVPUSH BIDDIURETIC [facility] Stop: 05/19/21 14:01 Last Admin: 05/19/21 13:39 Dose: 40 mg Documented by: Furosemide (Furosemide 40 Mg/4 Ml Vial) 40 mg IVPUSH BIDDIURETIC [facility] Last Admin: 05/25/21 14:24 Dose: 40 mg Documented by: Insulin Glargine (Insulin Glargine,Human Rec. Analog 100 Units/Ml 3 Ml Pen) 30 units SUBCUT BEDTIME [facility] Insulin Human Lispro (Insulin Lispro 100 Unit/Ml 3 Ml Kwikpen) 15 unit SUBCUT TIDMEALS [facility] Metolazone (Metolazone 5 Mg Tab) 5 mg PO ONETIME ONE Stop: 05/23/21 08:56 Last Admin: 05/23/21 09:24 Dose: 5 mg Documented by: Sodium Chloride (Sodium Chloride 0.9% 10 Ml Syringe) 10 ml FLUSH ASDIRECTED PRN PRN Reason: Keep Vein Open Last Admin: 05/19/21 13:41 Dose: 10 ml Documented by: - Exam Urinary Catheter Total Time: 2Days 17Hours General: Alert, Oriented, Cooperative Neck: Supple Lungs: Clear to Auscultation, Normal Respiratory Effort Cardiovascular: Regular Rate, No Murmurs Extremities: Pedal Edema (Mild with compression stockings on bilateral.) - Patient Data Lab Results Last 24 hrs: Laboratory Results - last 24 hr 05/25/21 05/25/21 05/25/21 Range/Units 11:32 17:01 20:48 Sodium (135-145) mmol/L Potassium (3.5-5.3) mmol/L Chloride (100-110) mmol/L Carbon Dioxide (21-32) mmol/L BUN (7-18) mg/dL Creatinine (0.55-1.02) mg/dL Est Cr Clr Drug Dosing mL/min Estimated GFR (MDRD) (>60) BUN/Creatinine Ratio (9-20) Glucose (80-116) mg/dL POC Glucose 141 H 223 H D 148 H (80-116) mg/dL Calcium (8.6-10.2) mg/dL 05/26/21 05/26/21 Range/Units 06:20 07:05 Sodium 144 (135-145) mmol/L Potassium 3.8 (3.5-5.3) mmol/L Chloride 104 (100-110) mmol/L Carbon Dioxide 33 H (21-32) mmol/L BUN 50 H (7-18) mg/dL Creatinine 2.1 H* (0.55-1.02) mg/dL Est Cr Clr Drug Dosing 17.39 mL/min Estimated GFR (MDRD) 23 L (>60) BUN/Creatinine Ratio 23.8 H (9-20) Glucose 97 (80-116) mg/dL POC Glucose 86 (80-116) mg/dL Calcium 8.0 L (8.6-10.2) mg/dL Result Diagrams: 05/24/21 05:58 05/26/21 06:20 Sepsis Event Note - Evaluation Sepsis Screening Result: No Definite Risk - Focused Exam Vital Signs: Vital Signs Temp Pulse Pulse Resp BP BP Pulse Ox 05/26/21 08:53 56 L 104/43 L 05/26/21 08:00 97.1 F 56 L 18 104/43 L 96 05/26/21 01:00 84 16 105/56 L 97 - Problem List & Annotations (1) CKD (chronic kidney disease) SNOMED Code(s): 325408539 Code(s): N18.9 - CHRONIC KIDNEY DISEASE, UNSPECIFIED Status: Acute Current Visit: Yes Qualifiers: Chronic kidney disease stage: stage 3 (moderate) (2) Weakness SNOMED Code(s): 07573574 Code(s): R53.1 - WEAKNESS Status: Acute Current Visit: Yes (3) Chronic ischemic heart disease SNOMED Code(s): 365820691 Code(s): I25.9 - CHRONIC ISCHEMIC HEART DISEASE, UNSPECIFIED Status: Chronic Current Visit: Yes Annotation/Comment:: on Plavix (4) NICOLAS (obstructive sleep apnea) SNOMED Code(s): 95333620 Code(s): G47.33 - OBSTRUCTIVE SLEEP APNEA (ADULT) (PEDIATRIC) Status: Chronic Current Visit: Yes Annotation/Comment:: on CPAP (5) Paroxysmal atrial fibrillation SNOMED Code(s): 698097006 Code(s): I48.0 - PAROXYSMAL ATRIAL FIBRILLATION Status: Chronic Current Visit: Yes Annotation/Comment:: on Eliquis (6) Acute exacerbation of congestive heart failure SNOMED Code(s): 604859294, 29032198996290 Code(s): I50.9 - HEART FAILURE, UNSPECIFIED Status: Acute Current Visit: No - Problem List Review Problem List Initiated/Reviewed/Updated: Yes - Plan Plan:: 1. DC Sterling catheter. 2. DC IV Lasix. 3. DC IV 4. Bumex 4 mg twice daily. 5. Daily weights. 6. Metolazone 2.5 mg 30 minutes before a.m. Bumex daily as needed if weight gain 5 pounds.
[2021-05-26] MEDS ORDERED: Metolazone 2.5 MG Tab PO PRN (09:27)
[2021-05-26] MEDS: Furosemide 40 MG/4 ML VIAL IVPUSH SCH (11:06)
[2021-05-26] MEDS: Bumetanide 2 MG Tab PO SCH ×2 (11:09→14:25)
[2021-05-26] MEDS: Digoxin 125 MCG Tab PO SCH (16:46)
[2021-05-26] MEDS: Rosuvastatin 20 MG Tab PO SCH (20:33)
[2021-05-26] MEDS: rOPINIRole 1 MG Tab PO SCH (20:35)
[2021-05-26] MEDS: Insulin Glargine,Human Rec. Analog 100 Units/ML 3 ML Pen SUBCUT SCH (20:40)
[2021-05-27] MEDS: Pantoprazole 40 MG Tab.CR PO SCH (05:46)
[2021-05-27] MEDS: Insulin Lispro 100 Unit/ML 3 ML KwikPen SUBCUT SCH ×3 (08:45→17:49)
[2021-05-27] MEDS: Bumetanide 2 MG Tab PO SCH ×2 (08:55→13:45)
[2021-05-27] MEDS: Apixaban 5 MG Tab PO SCH ×2 (08:56→20:32)
[2021-05-27] MEDS: Atenolol 25 MG Tab PO SCH (08:56)
[2021-05-27] MEDS: Empagliflozin 25 MG Tab PO SCH (08:57)
[2021-05-27] MEDS: Potassium Chloride 20 MEQ Tab.ER PO SCH ×3 (08:58→20:31)
[2021-05-27] MEDS: Clopidogrel 75 MG Tab PO SCH (08:58)
[2021-05-27] MEDS: Acetaminophen 325 MG Tab PO SCH ×4 (08:59→20:32)
[2021-05-27] MEDS: Sertraline 100 MG Tab PO SCH (08:59)
[2021-05-27] MEDS: Gabapentin 100 MG Cap PO SCH ×3 (09:04→20:31)
[2021-05-27] MEDS: Digoxin 125 MCG Tab PO SCH (16:25)
[2021-05-27] MEDS: Rosuvastatin 20 MG Tab PO SCH (20:31)
[2021-05-27] MEDS: rOPINIRole 1 MG Tab PO SCH (20:32)
[2021-05-27] MEDS: Insulin Glargine,Human Rec. Analog 100 Units/ML 3 ML Pen SUBCUT SCH (20:33)
[2021-05-28] MEDS: Pantoprazole 40 MG Tab.CR PO SCH (06:26)
--- NOTE | 2021-05-28 08:29 | PCM.PN ---
- General Info Date of Service: 05/28/21 Admission Dx/Problem (Free Text): Patient states she has some leg swelling but she think she is doing okay. She denies fevers, chills, chest pain. She states she is not dizzy. - Patient Data Vitals - Most Recent: Last Vital Signs Temp 98.2 F 05/27/21 20:30 Pulse 65 05/27/21 20:30 Resp 18 05/27/21 20:30 BP 90/50 L 05/27/21 20:30 Pulse Ox 94 L 05/27/21 20:30 Weight - Most Recent: 189 lb 4 oz I&O - Last 24 Hours: Intake & Output 05/27/21 05/28/21 05/28/21 22:59 06:59 14:59 Intake Total 400 Balance 400 Lab Results Last 24 Hours: Laboratory Results - last 24 hr 05/27/21 05/27/21 05/27/21 Range/Units 11:49 17:28 20:05 POC Glucose 149 H 155 H 186 H (80-116) mg/dL 05/28/21 Range/Units 06:00 POC Glucose 137 H (80-116) mg/dL Med Orders - Current: Current Medications Acetaminophen (Acetaminophen 325 Mg Tab) 650 mg PO QID [facility] Last Admin: 05/27/21 20:32 Dose: 650 mg Documented by: Apixaban (Apixaban 5 Mg Tab) 5 mg PO BID [facility] Last Admin: 05/27/21 20:32 Dose: 5 mg Documented by: Atenolol (Atenolol 25 Mg Tab) 25 mg PO DAILY [facility] Last Admin: 05/27/21 08:56 Dose: 25 mg Documented by: Bumetanide (Bumetanide 2 Mg Tab) 4 mg PO BIDDIURETIC [facility] Last Admin: 05/27/21 13:45 Dose: 4 mg Documented by: Clopidogrel Bisulfate (Clopidogrel 75 Mg Tab) 75 mg PO DAILY [facility] Last Admin: 05/27/21 08:58 Dose: 75 mg Documented by: Dextrose/Water (50% Dextrose In Water 50 Ml Syringe) 50 ml IVPUSH ASDIRECTED PRN PRN Reason: Hypoglycemia Digoxin (Digoxin 125 Mcg Tab) 62.5 mcg PO DAILY@1600 [facility] Last Admin: 05/27/21 16:25 Dose: 62.5 mcg Documented by: Ferrous Sulfate (Ferrous Sulfate 325 Mg Tab) 325 mg PO Q48H [facility] Last Admin: 05/26/21 08:55 Dose: 325 mg Documented by: Gabapentin (Gabapentin 100 Mg Cap) 100 mg PO TID [facility] Last Admin: 05/27/21 20:31 Dose: 100 mg Documented by: Glucagon (Glucagon,Human Recombinant 1 Mg Vial) 1 mg IM ASDIRECTED PRN PRN Reason: Hypoglycemia Insulin Glargine (Insulin Glargine,Human Rec. Analog 100 Units/Ml 3 Ml Pen) 10 units SUBCUT BEDTIME [facility] Last Admin: 05/27/21 20:33 Dose: 10 units Documented by: Insulin Human Lispro (Insulin Lispro 100 Unit/Ml 3 Ml Kwikpen) 0 unit SUBCUT TIDMEALS [facility]; Protocol Last Admin: 05/27/21 17:49 Dose: 2 units Documented by: Magnesium Oxide (Magnesium Oxide 400 Mg Tab) 400 mg PO DAILY PRN PRN Reason: Muscle Spasm - Painful Metolazone (Metolazone 2.5 Mg Tab) 2.5 mg PO DAILY PRN PRN Reason: chf Nitroglycerin (Nitroglycerin 0.4 Mg Tab.Sl) 0.4 mg SL Q5M PRN PRN Reason: Chest Pain Pantoprazole Sodium (Pantoprazole 40 Mg Tab.Cr) 40 mg PO DAILY@0600 [facility] Last Admin: 05/28/21 06:26 Dose: 40 mg Documented by: Potassium Chloride (Potassium Chloride 20 Meq Tab.Er) 20 meq PO TID [facility] Last Admin: 05/27/21 20:31 Dose: 20 meq Documented by: Ropinirole HCl (Ropinirole 1 Mg Tab) 4 mg PO BEDTIME [facility] Last Admin: 05/27/21 20:32 Dose: 4 mg Documented by: Rosuvastatin Calcium (Rosuvastatin 20 Mg Tab) 20 mg PO BEDTIME [facility] Last Admin: 05/27/21 20:31 Dose: 20 mg Documented by: Sertraline HCl (Sertraline 100 Mg Tab) 100 mg PO DAILY [facility] Last Admin: 05/27/21 08:59 Dose: 100 mg Documented by: Discontinued Medications Bumetanide (Bumetanide 2 Mg Tab) 4 mg PO BIDDIURETIC [facility] Last Admin: 05/23/21 09:26 Dose: Not Given Documented by: Furosemide (Furosemide 40 Mg/4 Ml Vial) 40 mg IVPUSH BIDDIURETIC [facility] Stop: 05/19/21 14:01 Last Admin: 05/19/21 13:39 Dose: 40 mg Documented by: Furosemide (Furosemide 40 Mg/4 Ml Vial) 40 mg IVPUSH BIDDIURETIC [facility] Last Admin: 05/26/21 11:06 Dose: Not Given Documented by: Insulin Glargine (Insulin Glargine,Human Rec. Analog 100 Units/Ml 3 Ml Pen) 30 units SUBCUT BEDTIME [facility] Insulin Human Lispro (Insulin Lispro 100 Unit/Ml 3 Ml Kwikpen) 15 unit SUBCUT TIDMEALS [facility] Metolazone (Metolazone 5 Mg Tab) 5 mg PO ONETIME ONE Stop: 05/23/21 08:56 Last Admin: 05/23/21 09:24 Dose: 5 mg Documented by: Sodium Chloride (Sodium Chloride 0.9% 10 Ml Syringe) 10 ml FLUSH ASDIRECTED PRN PRN Reason: Keep Vein Open Last Admin: 05/19/21 13:41 Dose: 10 ml Documented by: Sodium Chloride (Sodium Chloride 0.9% 10 Ml Syringe) 10 ml FLUSH ASDIRECTED PRN PRN Reason: IV Use Last Admin: 05/25/21 14:30 Dose: 10 ml Documented by: - Exam Urinary Catheter Total Time: 3Days 9Hours General: Alert, Oriented, Cooperative Lungs: Clear to Auscultation, Normal Respiratory Effort Cardiovascular: Regular Rate, Regular Rhythm, No Murmurs Extremities: Pedal Edema - Patient Data Lab Results Last 24 hrs: Laboratory Results - last 24 hr 05/27/21 05/27/21 05/27/21 Range/Units 11:49 17:28 20:05 POC Glucose 149 H 155 H 186 H (80-116) mg/dL 05/28/21 Range/Units 06:00 POC Glucose 137 H (80-116) mg/dL Result Diagrams: 05/24/21 05:58 05/26/21 06:20 Sepsis Event Note - Evaluation Sepsis Screening Result: No Definite Risk - Focused Exam Vital Signs: Vital Signs Temp Pulse Resp BP Pulse Ox 05/27/21 20:30 98.2 F 65 18 90/50 L 94 L - Problem List & Annotations (1) CKD (chronic kidney disease) SNOMED Code(s): 807142209 Code(s): N18.9 - CHRONIC KIDNEY DISEASE, UNSPECIFIED Status: Acute Current Visit: Yes Qualifiers: Chronic kidney disease stage: stage 3 (moderate) (2) Weakness SNOMED Code(s): 39968308 Code(s): R53.1 - WEAKNESS Status: Acute Current Visit: Yes (3) Chronic ischemic heart disease SNOMED Code(s): 645857011 Code(s): I25.9 - CHRONIC ISCHEMIC HEART DISEASE, UNSPECIFIED Status: Chronic Current Visit: Yes Annotation/Comment:: on Plavix (4) NICOLAS (obstructive sleep apnea) SNOMED Code(s): 92188991 Code(s): G47.33 - OBSTRUCTIVE SLEEP APNEA (ADULT) (PEDIATRIC) Status: Ch ronic Current Visit: Yes Annotation/Comment:: on CPAP (5) Paroxysmal atrial fibrillation SNOMED Code(s): 567082666 Code(s): I48.0 - PAROXYSMAL ATRIAL FIBRILLATION Status: Chronic Current Visit: Yes Annotation/Comment:: on Eliquis (6) Acute exacerbation of congestive heart failure SNOMED Code(s): 768472041, 83957574284702 Code(s): I50.9 - HEART FAILURE, UNSPECIFIED Status: Acute Current Visit: No - Problem List Review Problem List Initiated/Reviewed/Updated: Yes - Plan Plan:: 1. BMP tomorrow check kidney function. 2. Okay with all her cardiac medications even though her blood pressure is low as long she is not dizzy. If it gets into the 80s systolically then consider cutting back. 2. Continue PT/OT. 3. Very important to do daily weights as she gains 5 pounds then she should give a metolazone which has been ordered.
[2021-05-28] MEDS: Gabapentin 100 MG Cap PO SCH ×3 (08:40→20:15)
[2021-05-28] MEDS: Bumetanide 2 MG Tab PO SCH ×2 (08:41→13:21)
[2021-05-28] MEDS: Insulin Lispro 100 Unit/ML 3 ML KwikPen SUBCUT SCH ×3 (08:41→17:55)
[2021-05-28] MEDS: Ferrous Sulfate 325 MG Tab PO SCH (08:42)
[2021-05-28] MEDS: Apixaban 5 MG Tab PO SCH ×2 (08:42→20:17)
[2021-05-28] MEDS: Potassium Chloride 20 MEQ Tab.ER PO SCH ×3 (08:43→20:16)
[2021-05-28] MEDS: Clopidogrel 75 MG Tab PO SCH (08:43)
[2021-05-28] MEDS: Empagliflozin 25 MG Tab PO SCH (08:43)
[2021-05-28] MEDS: Atenolol 25 MG Tab PO SCH (08:44)
[2021-05-28] MEDS: Sertraline 100 MG Tab PO SCH (08:46)
[2021-05-28] MEDS: Acetaminophen 325 MG Tab PO SCH ×4 (08:46→20:16)
[2021-05-28] MEDS: Digoxin 125 MCG Tab PO SCH (16:53)
[2021-05-28] MEDS: rOPINIRole 1 MG Tab PO SCH (20:17)
[2021-05-28] MEDS: Rosuvastatin 20 MG Tab PO SCH (20:20)
[2021-05-28] MEDS: Insulin Glargine,Human Rec. Analog 100 Units/ML 3 ML Pen SUBCUT SCH (20:27)
[2021-05-29] MEDS: Pantoprazole 40 MG Tab.CR PO SCH (06:53)
[2021-05-29] MEDS: Insulin Lispro 100 Unit/ML 3 ML KwikPen SUBCUT SCH ×3 (07:30→18:03)
[2021-05-29] MEDS: Bumetanide 2 MG Tab PO SCH ×2 (08:07→14:01)
[2021-05-29] MEDS: Apixaban 5 MG Tab PO SCH ×2 (08:07→20:58)
[2021-05-29] MEDS: Clopidogrel 75 MG Tab PO SCH (08:08)
[2021-05-29] MEDS: Potassium Chloride 20 MEQ Tab.ER PO SCH ×3 (08:08→20:58)
[2021-05-29] MEDS: Empagliflozin 25 MG Tab PO SCH (08:08)
[2021-05-29] MEDS: Atenolol 25 MG Tab PO SCH (08:09)
[2021-05-29] MEDS: Acetaminophen 325 MG Tab PO SCH ×4 (08:09→20:59)
[2021-05-29] MEDS: Gabapentin 100 MG Cap PO SCH ×3 (08:12→21:01)
[2021-05-29] MEDS: Sertraline 100 MG Tab PO SCH (08:45)
[2021-05-29] MEDS: Digoxin 125 MCG Tab PO SCH (16:35)
[2021-05-29] MEDS: Insulin Glargine,Human Rec. Analog 100 Units/ML 3 ML Pen SUBCUT SCH (20:54)
[2021-05-29] MEDS: Rosuvastatin 20 MG Tab PO SCH (20:57)
[2021-05-29] MEDS: rOPINIRole 1 MG Tab PO SCH (20:58)
[2021-05-30] MEDS: Pantoprazole 40 MG Tab.CR PO SCH (05:55)
[2021-05-30] MEDS: Bumetanide 2 MG Tab PO SCH ×2 (08:27→14:59)
[2021-05-30] MEDS: Ferrous Sulfate 325 MG Tab PO SCH (08:28)
[2021-05-30] MEDS: Insulin Lispro 100 Unit/ML 3 ML KwikPen SUBCUT SCH ×3 (08:28→18:06)
[2021-05-30] MEDS: Empagliflozin 25 MG Tab PO SCH (08:28)
[2021-05-30] MEDS: Apixaban 5 MG Tab PO SCH ×2 (08:28→20:37)
[2021-05-30] MEDS: Acetaminophen 325 MG Tab PO SCH ×4 (08:29→20:40)
[2021-05-30] MEDS: Potassium Chloride 20 MEQ Tab.ER PO SCH ×3 (08:29→20:37)
[2021-05-30] MEDS: Sertraline 100 MG Tab PO SCH (08:29)
[2021-05-30] MEDS: Atenolol 25 MG Tab PO SCH (08:29)
[2021-05-30] MEDS: Clopidogrel 75 MG Tab PO SCH (08:29)
[2021-05-30] MEDS: Gabapentin 100 MG Cap PO SCH ×3 (08:33→20:36)
[2021-05-30] MEDS: Digoxin 125 MCG Tab PO SCH (15:00)
[2021-05-30] MEDS: Insulin Glargine,Human Rec. Analog 100 Units/ML 3 ML Pen SUBCUT SCH (20:32)
[2021-05-30] MEDS: Rosuvastatin 20 MG Tab PO SCH (20:36)
[2021-05-30] MEDS: rOPINIRole 1 MG Tab PO SCH (20:37)
[2021-05-31] MEDS: Pantoprazole 40 MG Tab.CR PO SCH (06:07)
[2021-05-31] MEDS: Insulin Lispro 100 Unit/ML 3 ML KwikPen SUBCUT SCH ×3 (09:01→18:03)
[2021-05-31] MEDS: Bumetanide 2 MG Tab PO SCH ×2 (09:01→13:43)
[2021-05-31] MEDS: Apixaban 5 MG Tab PO SCH ×2 (09:04→20:46)
[2021-05-31] MEDS: Empagliflozin 25 MG Tab PO SCH (09:04)
[2021-05-31] MEDS: Clopidogrel 75 MG Tab PO SCH (09:04)
[2021-05-31] MEDS: Potassium Chloride 20 MEQ Tab.ER PO SCH ×3 (09:04→20:46)
[2021-05-31] MEDS: Atenolol 25 MG Tab PO SCH (09:04)
[2021-05-31] MEDS: Acetaminophen 325 MG Tab PO SCH ×4 (09:05→20:46)
[2021-05-31] MEDS: Sertraline 100 MG Tab PO SCH (09:05)
[2021-05-31] MEDS: Gabapentin 100 MG Cap PO SCH ×3 (09:08→20:46)
[2021-05-31] MEDS: Digoxin 125 MCG Tab PO SCH (17:02)
[2021-05-31] MEDS: Rosuvastatin 20 MG Tab PO SCH (20:46)
[2021-05-31] MEDS: Insulin Glargine,Human Rec. Analog 100 Units/ML 3 ML Pen SUBCUT SCH (20:47)
[2021-05-31] MEDS: rOPINIRole 1 MG Tab PO SCH (20:47)
[2021-06-01] MEDS: Pantoprazole 40 MG Tab.CR PO SCH (06:09)
[2021-06-01] MEDS: Insulin Lispro 100 Unit/ML 3 ML KwikPen SUBCUT SCH ×3 (08:34→17:24)
[2021-06-01] MEDS: Gabapentin 100 MG Cap PO SCH ×3 (08:40→20:46)
[2021-06-01] MEDS: Atenolol 25 MG Tab PO SCH (08:40)
[2021-06-01] MEDS: Sertraline 100 MG Tab PO SCH (08:41)
[2021-06-01] MEDS: Ferrous Sulfate 325 MG Tab PO SCH (08:42)
[2021-06-01] MEDS: Bumetanide 2 MG Tab PO SCH ×2 (08:42→14:15)
[2021-06-01] MEDS: Clopidogrel 75 MG Tab PO SCH (08:42)
[2021-06-01] MEDS: Acetaminophen 325 MG Tab PO SCH ×4 (08:42→20:46)
[2021-06-01] MEDS: Empagliflozin 25 MG Tab PO SCH (08:42)
[2021-06-01] MEDS: Apixaban 5 MG Tab PO SCH ×2 (08:42→20:46)
[2021-06-01] MEDS: Potassium Chloride 20 MEQ Tab.ER PO SCH ×3 (08:42→20:46)
[2021-06-01] MEDS: Digoxin 125 MCG Tab PO SCH (17:23)
[2021-06-01] MEDS: Rosuvastatin 20 MG Tab PO SCH (20:45)
[2021-06-01] MEDS: rOPINIRole 1 MG Tab PO SCH (20:46)
[2021-06-01] MEDS: Insulin Glargine,Human Rec. Analog 100 Units/ML 3 ML Pen SUBCUT SCH (20:46)
[2021-06-02] MEDS: Pantoprazole 40 MG Tab.CR PO SCH (06:41)
[2021-06-02] MEDS: Bumetanide 2 MG Tab PO SCH ×2 (08:17→14:21)
[2021-06-02] MEDS: Insulin Lispro 100 Unit/ML 3 ML KwikPen SUBCUT SCH ×2 (08:17→12:10)
[2021-06-02] MEDS: Apixaban 5 MG Tab PO SCH (08:18)
[2021-06-02] MEDS: Potassium Chloride 20 MEQ Tab.ER PO SCH ×2 (08:18→14:21)
[2021-06-02] MEDS: Empagliflozin 25 MG Tab PO SCH (08:18)
[2021-06-02] MEDS: Sertraline 100 MG Tab PO SCH (08:18)
[2021-06-02] MEDS: Clopidogrel 75 MG Tab PO SCH (08:19)
[2021-06-02] MEDS: Atenolol 25 MG Tab PO SCH (08:19)
[2021-06-02] MEDS: Acetaminophen 325 MG Tab PO SCH ×2 (08:19→14:21)
[2021-06-02] MEDS: Gabapentin 100 MG Cap PO SCH ×2 (08:22→14:21)
--- NOTE | 2021-06-02 18:54 | PCM.DCSUM1 ---
Discharge Summary - Hospital Course HPI Initial Comments: Pt was admitted to [facility] 05/07-05/09 for CHF exacerbation, was discharged to [facility] rehab she had her diuretics discontinued there for low blood pressures and given IVF, her weight went up and had more shortness of breath so she was transferred back to [place] admitted on 05/12, had acute on chronic systolic heart failure, weight was up 5 lbs. Her Creatinine 2.1. Recent EF 25%. Restarted on Bumex 4 mg and then switched to Lasix IV q12h on 05/14. Spoke with Dr Villarreal, Hospitalist, felt she still had 5-10 lbs to diuresis, Cr was 1.4 on 05/16, 1.39 today, weight was 195 lbs 05/16, BP 109/74. She was also given Albumin 25g yesterday. proBNP was 6656 05/16. Had some diarrhea, tested for C. difficile which was negative. Diagnosis: Stroke: No - Discharge Data Discharge Date: 06/02/21 Discharge Disposition: Home, Home Health Agency Condition: Good - Referral to Home Health Date of Face to Face Encounter: 06/02/21 Reason for Homebound Status: limited mobility Primary Care Physician: PCP Not In Area Skilled Need: group home for medication management & education. - Discharge Diagnosis/Problem(s) (1) Weakness SNOMED Code(s): 79615222 ICD Code: R53.1 - WEAKNESS Status: Acute (2) Acute exacerbation of congestive heart failure SNOMED Code(s): 737444829, 12901626259507 ICD Code: I50.9 - HEART FAILURE, UNSPECIFIED Status: Acute (3) Paroxysmal atrial fibrillation SNOMED Code(s): 016751733 ICD Code: I48.0 - PAROXYSMAL ATRIAL FIBRILLATION Status: Chronic Problem Details: on Eliquis (4) Chronic ischemic heart disease SNOMED Code(s): 331654357 ICD Code: I25.9 - CHRONIC ISCHEMIC HEART DISEASE, UNSPECIFIED Status: Chronic Problem Details: on Plavix (5) History of DVT (deep vein thrombosis) SNOMED Code(s): 405418557 ICD Code: Z86.718 - PERSONAL HISTORY OF OTHER VENOUS THROMBOSIS AND EMBOLISM Status: Chronic (6) NICOLAS (obstructive sleep apnea) SNOMED Code(s): 63172059 ICD Code: G47.33 - OBSTRUCTIVE SLEEP APNEA (ADULT) (PEDIATRIC) Status: Chronic Problem Details: on CPAP (7) CAD (coronary artery disease) SNOMED Code(s): 24786322 ICD Code: I25.10 - ATHSCL HEART DISEASE OF [place] CORONARY ARTERY W/O ANG PCTRS Status: Chronic Problem Details: on Plavix (8) CHF, Congestive heart failure SNOMED Code(s): 62594448 ICD Code: I50.9 - HEART FAILURE, UNSPECIFIED Status: Chronic (9) CVA (cerebral vascular accident) SNOMED Code(s): 655312398 ICD Code: I63.9 - CEREBRAL INFARCTION, UNSPECIFIED Status: Chronic (10) GERD (gastroesophageal reflux disease) SNOMED Code(s): 603766030 ICD Code: K21.9 - GASTRO-ESOPHAGEAL REFLUX DISEASE WITHOUT ESOPHAGITIS Status: Chronic (11) HLD (hyperlipidemia) SNOMED Code(s): 67186224 ICD Code: E78.5 - HYPERLIPIDEMIA, UNSPECIFIED Status: Chronic (12) HTN (hypertension) SNOMED Code(s): 84000428 ICD Code: I10 - ESSENTIAL (PRIMARY) HYPERTENSION Status: Chronic Qualifiers: Hypertension type: essential hypertension (13) History of aortic valve replacement SNOMED Code(s): 9167988483935, 388148016, 4348150654605 ICD Code: Z95.2 - PRESENCE OF PROSTHETIC HEART VALVE Status: Chronic Problem Details: bioprostethic valve (14) History of heart artery stent SNOMED Code(s): 855699298, 641992778 ICD Code: Z95.5 - PRESENCE OF CORONARY ANGIOPLASTY IMPLANT AND GRAFT Status: Chronic (15) S/P total hip arthroplasty SNOMED Code(s): 632975400780, 658257829048 ICD Code: Z96.649 - PRESENCE OF UNSPECIFIED ARTIFICIAL HIP JOINT Status: Chronic (16) Type 2 diabetes mellitus SNOMED Code(s): 97122643 ICD Code: E11.9 - TYPE 2 DIABETES MELLITUS WITHOUT COMPLICATIONS Status: Chronic Problem Details: Lantus 30 units hs, Humalog sliding scale - Patient Summary/Data Consults: Consultations 05/17/21 12:56 OT Evaluation and Treatment [CONS] Routine Please Evaluate and Treat. OT Reason for Consult: ADL's This query below is only for informational purposes and is not editable. PT Evaluation and Treatment [CONS] Routine Please Evaluate and Treat. PT Reason for Consult: Strengthening This query below is only for informational purposes and is not editable. Hospital Course: Received 3 days of IV Lasix on admission per [place] discharge, switched to Bumex home dose on 05/20. She had increased weight and shortness of breath. Bumex discontinued and restarted IV, Sterling was placed for I&Os, Metolazone added daily as needed. Her Cr had bumped to 1.9 from 1.39 in [place], has fluctuated between 1.9 and 2.1, last checked on 05/26. Her weight trended down with IV lasix and was discontinued along with Sterling on 05/26. Bumex was restarted but at 4 mg bid. Metolazone has not been given since ordered at 05/26. Weight today at 182. Will continue PT/OT with KASSI FLORENCE. - Patient Instructions Diet: Diabetic Diet Activity: As Tolerated Driving: Do Not Drive Showering/Bathing: May Shower Notify Provider of: Increased Pain Other/Special Instructions: Follow up with Primary provider in 1 week to recheck your congestive heart failure and recheck her sugars. - Discharge Plan *PRESCRIPTION DRUG MONITORING PROGRAM REVIEWED*: Not Applicable *COPY OF PRESCRIPTION DRUG MONITORING REPORT IN PATIENT KIRSTEN: Not Applicable Prescriptions/Med Rec: Bumetanide [Bumex] 4 mg PO BIDDIURETIC #60 tablet Home Medications: Home Meds Ferrous Sulfate 325 mg PO Q48H 03/18/18 [History] Acetaminophen [Tylenol] 650 mg PO QID 07/23/18 [History] rOPINIRole HCl [Requip] 4 mg PO BEDTIME 07/23/18 [History] Clobetasol [Clobetasol Propionate 0.05%] 1 applic TP BID PRN 06/11/19 [History] Nitroglycerin [Nitrostat] 0.4 mg SL Q5M PRN 06/11/19 [History] Apixaban [Eliquis] 5 mg PO BID 12/08/19 [History] Clopidogrel [Plavix] 75 mg PO DAILY 12/26/20 [History] Dapagliflozin Propanediol [Farxiga] 10 mg PO DAILY 05/17/21 [History] Digoxin [Digox] 62.5 mcg PO DAILY@1600 05/17/21 [History] Gabapentin [Neurontin] 100 mg PO TID 05/17/21 [History] Insulin Glarg,Human.Rec.Analog [Lantus Solostar] 30 units SQ BEDTIME 05/17/21 [History] Magnesium Oxide 400 mg PO DAILY PRN 05/17/21 [History] Pantoprazole [ProTONIX] 40 mg PO DAILY@0600 05/17/21 [History] Potassium Chloride [Klor-Con M20] 20 meq PO TID 05/17/21 [History] Rosuvastatin [Crestor] 20 mg PO BEDTIME 05/17/21 [History] Sertraline [Zoloft] 100 mg PO DAILY 05/17/21 [History] atenoloL [Atenolol] 25 mg PO DAILY 05/17/21 [History] Bumetanide [Bumex] 4 mg PO BIDDIURETIC #60 tablet 06/02/21 [Rx] Insulin Aspart [Novolog Flexpen] 3 units SQ TIDMEALS #0 06/02/21 [Rx] Oxygen Therapy Mode: Room Air Patient Handouts: Type 1 Diabetes Mellitus, Diagnosis, Adult, Heart Failure, Diagnosis, [id number], Fall Prevention in Hospitals, Adult, Atrial Fibrillation, [id number], Venous Thromboembolism Prevention - Discharge Summary/Plan Comment DC Time >30 min.: No Total # of Minutes for Discharge Time: 20 min - General Info Date of Service: 06/02/21 Subjective Update: Belle weight is 182 today, feeling much better, feels ready to go home today. NO pain, eating and drinking well. BM regular. Urinating fine since Sterling discontinued. Functional Status: Reports: Pain Controlled, Tolerating Diet, Ambulating, Urinating. Denies: New Symptoms - Patient Data Vitals - Most Recent: Last Vital Signs Temp 96.9 F 06/02/21 08:00 Pulse 54 L 06/02/21 08:19 Resp 18 06/02/21 08:00 BP 105/49 L 06/02/21 08:19 Pulse Ox 99 06/02/21 08:00 Weight - Most Recent: 182 lb 6.4 oz Lab Results - Last 24 hrs: Laboratory Results - last 24 hr 06/01/21 06/02/21 06/02/21 Range/Units 20:42 06:37 07:33 POC Glucose 249 H D 54 L D 183 H D (80-116) mg/dL 06/02/21 Range/Units 11:29 POC Glucose 93 D (80-116) mg/dL Med Orders - Current: Current Medications Discontinued Medications Acetaminophen (Acetaminophen 325 Mg Tab) 650 mg PO QID [facility] Last Admin: 06/02/21 14:21 Dose: 650 mg Documented by: Apixaban (Apixaban 5 Mg Tab) 5 mg PO BID [facility] Last Admin: 06/02/21 08:18 Dose: 5 mg Documented by: Atenolol (Atenolol 25 Mg Tab) 25 mg PO DAILY [facility] Last Admin: 06/02/21 08:19 Dose: 25 mg Documented by: Bumetanide (Bumetanide 2 Mg Tab) 4 mg PO BIDDIURETIC [facility] Last Admin: 05/23/21 09:26 Dose: Not Given Documented by: Bumetanide (Bumetanide 2 Mg Tab) 4 mg PO BIDDIURETIC [facility] Last Admin: 06/02/21 14:21 Dose: 4 mg Documented by: Clopidogrel Bisulfate (Clopidogrel 75 Mg Tab) 75 mg PO DAILY [facility] Last Admin: 06/02/21 08:19 Dose: 75 mg Documented by: Dextrose/Water (50% Dextrose In Water 50 Ml Syringe) 50 ml IVPUSH ASDIRECTED PRN PRN Reason: Hypoglycemia Digoxin (Digoxin 125 Mcg Tab) 62.5 mcg PO DAILY@1600 [facility] Last Admin: 06/01/21 17:23 Dose: 62.5 mcg Documented by: Ferrous Sulfate (Ferrous Sulfate 325 Mg Tab) 325 mg PO Q48H [facility] Last Admin: 06/01/21 08:42 Dose: 325 mg Documented by: Furosemide (Furosemide 40 Mg/4 Ml Vial) 40 mg IVPUSH BIDDIURETIC [facility] Stop: 05/19/21 14:01 Last Admin: 05/19/21 13:39 Dose: 40 mg Documented by: Furosemide (Furosemide 40 Mg/4 Ml Vial) 40 mg IVPUSH BIDDIURETIC [facility] Last Admin: 05/26/21 11:06 Dose: Not Given Documented by: Gabapentin (Gabapentin 100 Mg Cap) 100 mg PO TID [facility] Last Admin: 06/02/21 14:21 Dose: 100 mg Documented by: Glucagon (Glucagon,Human Recombinant 1 Mg Vial) 1 mg IM ASDIRECTED PRN PRN Reason: Hypoglycemia Insulin Glargine (Insulin Glargine,Human Rec. Analog 100 Units/Ml 3 Ml Pen) 30 units SUBCUT BEDTIME [facility] Insulin Glargine (Insulin Glargine,Human Rec. Analog 100 Units/Ml 3 Ml Pen) 10 units SUBCUT BEDTIME [facility] Last Admin: 06/01/21 20:46 Dose: 10 units Documented by: Insulin Glargine (Insulin Glargine,Human Rec. Analog 100 Units/Ml 3 Ml Pen) 300 units SUBCUT .STK-MED ONE Stop: 05/17/21 13:00 Insulin Human Lispro (Insulin Lispro 100 Unit/Ml 3 Ml Kwikpen) 15 unit SUBCUT TIDMEALS [facility] Insulin Human Lispro (Insulin Lispro 100 Unit/Ml 3 Ml Kwikpen) 0 unit SUBCUT TIDMEALS [facility]; Protocol Last Admin: 06/02/21 12:10 Dose: Not Given Documented by: Insulin Human Lispro (Insulin Lispro 100 Unit/Ml 3 Ml Kwikpen) 300 unit SUBCUT .STK-MED ONE Stop: 05/17/21 13:00 Magnesium Oxide (Magnesium Oxide 400 Mg Tab) 400 mg PO DAILY PRN PRN Reason: Muscle Spasm - Painful Metolazone (Metolazone 5 Mg Tab) 5 mg PO ONETIME ONE Stop: 05/23/21 08:56 Last Admin: 05/23/21 09:24 Dose: 5 mg Documented by: Metolazone (Metolazone 2.5 Mg Tab) 2.5 mg PO DAILY PRN PRN Reason: chf Nitroglycerin (Nitroglycerin 0.4 Mg Tab.Sl) 0.4 mg SL Q5M PRN PRN Reason: Chest Pain Pantoprazole Sodium (Pantoprazole 40 Mg Tab.Cr) 40 mg PO DAILY@0600 [facility] Last Admin: 06/02/21 06:41 Dose: 40 mg Documented by: Potassium Chloride (Potassium Chloride 20 Meq Tab.Er) 20 meq PO TID [facility] Last Admin: 06/02/21 14:21 Dose: 20 meq Documented by: Ropinirole HCl (Ropinirole 1 Mg Tab) 4 mg PO BEDTIME [facility] Last Admin: 06/01/21 20:46 Dose: 4 mg Documented by: Rosuvastatin Calcium (Rosuvastatin 20 Mg Tab) 20 mg PO BEDTIME [facility] Last Admin: 06/01/21 20:45 Dose: 20 mg Documented by: Sertraline HCl (Sertraline 100 Mg Tab) 100 mg PO DAILY [facility] Last Admin: 06/02/21 08:18 Dose: 100 mg Documented by: Sodium Chloride (Sodium Chloride 0.9% 10 Ml Syringe) 10 ml FLUSH ASDIRECTED PRN PRN Reason: Keep Vein Open Last Admin: 05/19/21 13:41 Dose: 10 ml Documented by: Sodium Chloride (Sodium Chloride 0.9% 10 Ml Syringe) 10 ml FLUSH ASDIRECTED PRN PRN Reason: IV Use Last Admin: 05/25/21 14:30 Dose: 10 ml Documented by: - Exam General: Reports: Alert, Oriented, Cooperative, No Acute Distress Neck: Reports: Trachea Midline Lungs: Reports: Clear to Auscultation, Normal Respiratory Effort, Decreased Breath Sounds (bibasilar). Denies: Crackles, Rales, Rhonchi, Wheezing Cardiovascular: Reports: Regular Rate, Irregular Rhythm GI/Abdominal Exam: Normal Bowel Sounds, Soft, Non-Tender, No Distention Extremities: Pedal Edema (1+ BLE ) Skin: Reports: Warm, Dry, Intact
== END 2021-06-02 15:40 | disposition home health service (06) | DRG 948 ==
LOC: FB.MS 12:08
PROVIDERS: ADMIT Family Medicine; ATTEND Family Medicine
DX: R53.1 Weakness (principal); I50.22 Chronic systolic (congestive) heart failure; I13.0 Hypertensive heart and chronic kidney disease with heart failure and stage 1 through stage 4 chronic kidney disease, or unspecified chronic kidney disease; I48.0 Paroxysmal atrial fibrillation; I25.9 Chronic ischemic heart disease, unspecified; G47.33 Obstructive sleep apnea (adult) (pediatric); I25.10 Atherosclerotic heart disease of native coronary artery without angina pectoris; K21.9 Gastro-esophageal reflux disease without esophagitis; E78.5 Hyperlipidemia, unspecified; Z96.649 Presence of unspecified artificial hip joint; E11.9 Type 2 diabetes mellitus without complications; G89.29 Other chronic pain; M54.9 Dorsalgia, unspecified; G25.81 Restless legs syndrome; E66.9 Obesity, unspecified; D64.9 Anemia, unspecified; H54.8 Legal blindness, as defined in USA; E78.00 Pure hypercholesterolemia, unspecified; I25.2 Old myocardial infarction; Z79.01 Long term (current) use of anticoagulants; Z86.19 Personal history of other infectious and parasitic diseases; Z79.02 Long term (current) use of antithrombotics/antiplatelets; Z79.4 Long term (current) use of insulin; Z86.718 Personal history of other venous thrombosis and embolism; Z86.73 Personal history of transient ischemic attack (TIA), and cerebral infarction without residual deficits; Z95.2 Presence of prosthetic heart valve; Z95.5 Presence of coronary angioplasty implant and graft; Z79.899 Other long term (current) drug therapy; Z88.8 Allergy status to other drugs, medicaments and biological substances; Z88.6 Allergy status to analgesic agent; Z91.09 Other allergy status, other than to drugs and biological substances
CPT/HCPCS: 36415; 51702; 80048; 82947; 83880; 85025; 87230; 97110-GO; 97110-GP; 97116-GP; 97161-GP; 97165-GO; 97530-GO; 97530-GP; 97535-GO; 99306; 99308; 99309; 99315; A9270-GY; J1815; J1815-GY; J1940